=== PATIENT | female | born 1980 | race Caucasian/White ===

== ENCOUNTER 2016-07-28 19:42 | Emergency (ER) | payer BC ==
[2016-07-28] MEDS ORDERED: Sodium Chloride 0.9% 1000 ML 1,000 ML IV STA (20:06)
[2016-07-28] MEDS ORDERED: Phenergan 25 MG INJ IV ONE (20:06)
[2016-07-28] MEDS ORDERED: TORAdol 30 mg Injection IV ONE (20:07)
--- NOTE | 2016-07-28 20:13 | ERPHSYRPT ---
- History of Present Illness Time Seen by Provider: 07/28/16 20:01 Source: patient Exam Limitations: no limitations Patient Subjective Stated Complaint: reports with c/o sore throat since (6 days), diarrhea since Wednesday (4 days), and every hour today, vomiting since Wednesday (1 day) x 3-4 episodes today, migraine headache, in the right eye with photophobia that began around 1000 today Triage Nursing Assessment: ambulatory to treatment area - steady gait - moves all extremities with equal strength. alert/oriented - pleasant affect - pupils AWILDA: 5mm. skin pwd - no rash/injury. resps easy - non-labored Physician History: 35-year-old morbidly obese white female with history of migraines, hyperlipidemia, depression, Arrives with complaint of a diarrhea for 3 days vomiting for 2 days headache since today apparently has had a sore throat for 6 days. No fevers. States she has a history of chronic migraines has pain behind her right eye typical of her previous migraines positive photophobia. She states she's had several stools a day of diarrhea 2-3 episodes of vomiting. Past medical history includes migraines, hyperlipidemia, hypercholesterolemia, gallbladder disease, depression, back spasms. Past surgical history includes cholecystectomy, , ankle repair, D&C. Social history. Patient denies tobacco alcohol or illicit drug use Timing/Duration: other (sore throat for 6 days vomiting for 2 days diarrhea for 3 days heache for 1 day) Modifying Factors: Improves With: nothing Associated Symptoms: nausea, vomiting, other (sore throat and diarrhea), No abdominal pain, No shortness of breath, No heartburn, No diaphoresis, No cough, No chills, No chest pain, No fever, No headaches, No loss of appetite, No malaise, No rash, No syncope, No seizure, No weakness Allergies/Adverse Reactions: No Known Drug Allergies Allergy (Verified 07/28/16 19:49) Hx Tetanus, Diphtheria Vaccination/Date Given: Yes Hx Influenza Vaccination/Date Given: Yes Hx Pneumococcal Vaccination/Date Given: No Immunizations Up to Date: Yes - Review of Systems Constitutional: No Fever, No Chills Eyes: Photophobia, No Discharge, No Eye Pain, No Eye Redness, No Tearing, No Vision Changes, No Double Vision, No Foreign Body Sensation Ears, Nose, & Throat: No Ear Pain, No Ear Discharge, No Hearing Changes, No Tinnitus, No Nose Pain, No Nose Congestion, No Nose Discharge, No Sinus Drainage , No Epistaxis, No Mouth Pain, No Loose Teeth, No Throat Swelling, No Hoarse, No Painful Swallowing, No Snoring, No Stridor Respiratory: No Cough, No Dyspnea Cardiac: No Chest Pain, No Edema, No Syncope Abdominal/Gastrointestinal: Nausea, Vomiting, Diarrhea, No Abdominal Pain, No Constipation, No Hematemesis, No Hematochezia, No Melena, No Dysphagia, No Appetite Changes Genitourinary Symptoms: No Dysuria Musculoskeletal: No Back Pain, No Neck Pain Skin: No Rash Neurological: Headache, No Dizziness, No Focal Weakness, No Gait Changes, No Irritability, No Lethargy, No Paralysis, No Parasthesia, No Seizure, No Sensory Changes, No Speech Changes, No Tics, No Tremors, No Vertigo Psychological: No Symptoms, No Alcohol Abuse, No Drug Abuse, No Anxiety, No Depression, No Suicidal Ideations, No Homicidal Ideations Endocrine: No Symptoms All Other Systems: Reviewed and Negative - Past Medical History Pertinent Past Medical History: Yes Neurological History: Migraines ENT History: No Pertinent History Cardiac History: High Cholesterol, Hypertension Respiratory History: No Pertinent History Endocrine Medical History: No Pertinent History Musculoskeletal History: Other GI Medical History: Gallbladder Disease History: No Pertinent History Psycho-Social History: Depression Female Reproductive Disorders: No Pertinent History Other Medical History: BACK SPASMS - Past Surgical History Past Surgical History: Yes Neuro Surgical History: No Pertinent History Cardiac: No Pertinent History Respiratory: No Pertinent History Gastrointestinal: Cholecystectomy Genitourinary: No Pertinent History Musculoskeletal: Orthopedic Surgery Female Surgical History: Section Other Surgical History: ankle repair - Social History Smoking Status: Never smoker Exposure to second hand smoke: No Drug Use: none Patient Lives Alone: No Significant Family History: no pertinent family hx - Female History Hx Last Menstrual Period: today Hx Now: No - Nursing Vital Signs Nursing Vital Signs: Initial Vital Signs Temperature 98.4 F Temperature Source Oral Pulse Rate 88 Respiratory Rate 16 Blood Pressure [Right Arm] 142/77 Pain Intensity 6 - Physical Exam General Appearance: no apparent distress, alert, obese Eye Exam: PERRL/EOMI, eyes nml inspection, other (fundi are unremarkable) Ears, Nose, Throat Exam: normal ENT inspection, TMs normal, pharynx normal, moist mucous membranes Neck Exam: normal inspection, non-tender, supple, full range of motion Respiratory Exam: normal breath sounds, lungs clear, No respiratory distress Cardiovascular Exam: regular rate/rhythm, normal heart sounds, normal peripheral pulses Gastrointestinal/Abdomen Exam: soft, normal bowel sounds, No tenderness, No mass Back Exam: normal inspection, normal range of motion, No CVA tenderness, No vertebral tenderness Extremity Exam: normal inspection, normal range of motion, pelvis stable Neurologic Exam: alert, oriented x 3, cooperative, audio visual aide II-XII nml as tested, normal mood/affect, nml cerebellar function, nml station & gait, sensation nml, other (finger to nose within normal limits no pronator drift), No motor deficits Skin Exam: normal color, warm, dry, No rash Lymphatic Exam: No adenopathy SpO2 Interpretation: normal (98%) SpO2: 98 Oxygen Delivery: Room Air - Course Nursing assessment & vital signs reviewed: Yes Ordered Tests: Active Orders 24 hr Category Date Time Status IV Insertion STAT Care 07/28/16 20:06 Active cath [Cath for Specimen-Straight] STAT Care 07/28/16 20:26 Active AMYLASE Stat Lab 07/28/16 20:25 Completed CBC W DIFF Stat Lab 07/28/16 20:25 Completed CMP Stat Lab 07/28/16 20:25 Completed CULTURE, THROAT Stat Lab 07/28/16 20:31 Received HCG QUALITATIVE,SERUM Stat Lab 07/28/16 20:25 Completed LIPASE Stat Lab 07/28/16 20:25 Completed STREP SCREEN-BETA A Stat Lab 07/28/16 20:31 Completed UA W/ MICROSCOPIC Stat Lab 07/28/16 20:25 Completed Medication Summary Discontinued Medications Generic Name Dose Route Start Last Admin Trade Name Freq PRN Reason Stop Dose Admin Sodium Chloride 1,000 mls @ 999 mls/hr 07/28/16 20:06 07/28/16 20:35 Sodium Chloride 0.9% 1000 Ml IV 07/28/16 21:06 999 mls/hr .Q1H1M STA Administration Sodium Chloride Confirm 07/28/16 20:28 Sodium Chloride 0.9% 1000 Ml Administered 07/28/16 20:29 Dose 1,000 mls @ ud .ROUTE .STK-MED ONE Ketorolac Tromethamine 30 mg 07/28/16 20:07 07/28/16 20:35 Toradol 30 Mg Injection IV 07/28/16 20:08 30 mg STAT ONE Administration Ketorolac Tromethamine Confirm 07/28/16 20:28 Toradol 30 Mg Injection Administered 07/28/16 20:29 Dose 30 mg .ROUTE .STK-MED ONE Morphine Sulfate 4 mg 07/28/16 20:57 07/28/16 21:03 Morphine Sulfate 4 Mg Inj IV 07/28/16 20:58 4 mg STAT ONE Administration Morphine Sulfate Confirm 07/28/16 20:58 Morphine Sulfate 4 Mg Inj Administered 07/28/16 20:59 Dose 4 mg .ROUTE .STK-MED ONE Promethazine HCl 12.5 mg 07/28/16 20:06 07/28/16 20:35 Phenergan 25 Mg Inj IV 07/28/16 20:07 12.5 mg STAT ONE Administration Promethazine HCl Confirm 07/28/16 20:28 Phenergan 25 Mg Inj Administered 07/28/16 20:29 Dose 25 mg .ROUTE .STK-MED ONE Lab/Rad Data: Laboratory Result Diagrams 07/28/16 20:25 07/28/16 20:25 Laboratory Results 07/28/16 07/28/16 07/28/16 Range/Units 20:31 20:25 20:25 WBC (4.0-10.5) K/mm3 RBC (4.1-5.4) M/mm3 Hgb (12.0-16.0) gm/dl Hct (35-47) % MCV (78-100) fl MCH (26-32) pg MCHC (32-36) g/dl RDW (11.5-14.0) % Plt Count (150-450) K/mm3 MPV (6-9.5) fl Gran % (36.0-66.0) % Lymphocytes % (24.0-44.0) % Monocytes % (0.0-12.0) % Eosinophils % (0.00-5.0) % Basophils % (0.0-0.4) % Basophils # (0-0.4) Sodium 141 (136-145) mEq/L Potassium 4.0 (3.5-5.1) mEq/L Chloride 103 (98-107) mEq/L Carbon Dioxide 28.3 (21-32) mEq/L Anion Gap 13.8 (5-15) MEQ/L BUN 13 (9-20) mg/dL Creatinine 0.81 (0.55-1.30) mg/dl Estimated GFR > 60 ML/MIN Glucose 104 (70-110) MG/DL Calcium 9.4 (8.5-10.1) mg/dL Total Bilirubin 0.3 (0.2-1.0) mg/dL AST 35 (15-37) U/L ALT 56 (12-78) U/L Alkaline Phosphatase 141 H (46-116) U/L Serum Total Protein 7.5 (6.4-8.2) gm/dL Albumin 3.5 (3.4-5.0) g/dL Amylase 48 (25-115) U/L Lipase 80 (73-393) U/L Serum , Qual NEGATIVE (Negative) Ur Collection Type Urine Color (YELLOW) Urine Appearance (CLEAR) Urine pH (5-6) Ur Specific [place] (1.005-1.025) Urine Protein (Negative) Urine Glucose (UA) (NEGATIVE) mg/dL Urine Ketones (NEGATIVE) Urine Nitrite (NEGATIVE) Urine Bilirubin (NEGATIVE) Urine Urobilinogen (0-1) mg/dL Urine WBC (Auto) (NEGATIVE) Urine RBC (Auto) (0-5) Av/ul Urine Microscopic RBC (0-2) /HPF Urine Microscopic WBC (0-5) /HPF Ur Epithelial Cells (FEW) /HPF Urine Mucus (NEGATIVE) /HPF Streptococcus Screen NEGATIVE (Negative) Specimen Received 07/28/16 07/28/16 Range/Units 20:25 20:25 WBC 8.4 (4.0-10.5) K/mm3 RBC 4.36 (4.1-5.4) M/mm3 Hgb 13.0 (12.0-16.0) gm/dl Hct 39.7 (35-47) % MCV 91.1 (78-100) fl MCH 29.8 (26-32) pg MCHC 32.7 (32-36) g/dl RDW 13.1 (11.5-14.0) % Plt Count 229 (150-450) K/mm3 MPV 10.0 H (6-9.5) fl Gran % 78.5 H (36.0-66.0) % Lymphocytes % 14.6 L (24.0-44.0) % Monocytes % 5.5 (0.0-12.0) % Eosinophils % 1.0 (0.00-5.0) % Basophils % 0.4 (0.0-0.4) % Basophils # 0.03 (0-0.4) Sodium (136-145) mEq/L Potassium (3.5-5.1) mEq/L Chloride (98-107) mEq/L Carbon Dioxide (21-32) mEq/L Anion Gap (5-15) MEQ/L BUN (9-20) mg/dL Creatinine (0.55-1.30) mg/dl Estimated GFR ML/MIN Glucose (70-110) MG/DL Calcium (8.5-10.1) mg/dL Total Bilirubin (0.2-1.0) mg/dL AST (15-37) U/L ALT (12-78) U/L Alkaline Phosphatase (46-116) U/L Serum Total Protein (6.4-8.2) gm/dL Albumin (3.4-5.0) g/dL Amylase (25-115) U/L Lipase (73-393) U/L Serum , Qual (Negative) Ur Collection Type CCMS Urine Color YELLOW (YELLOW) Urine Appearance SLIGHTLY CLOUDY (CLEAR) Urine pH 6.5 (5-6) Ur Specific [place] 1.025 (1.005-1.025) Urine Protein 30 (Negative) Urine Glucose (UA) NEGATIVE (NEGATIVE) mg/dL Urine Ketones NEGATIVE (NEGATIVE) Urine Nitrite NEGATIVE (NEGATIVE) Urine Bilirubin NEGATIVE (NEGATIVE) Urine Urobilinogen 0.2 (0-1) mg/dL Urine WBC (Auto) NEGATIVE (NEGATIVE) Urine RBC (Auto) MODERATE (0-5) Av/ul Urine Microscopic RBC 0-2 (0-2) /HPF Urine Microscopic WBC 0-2 (0-5) /HPF Ur Epithelial Cells FEW (FEW) /HPF Urine Mucus SLIGHT (NEGATIVE) /HPF Streptococcus Screen (Negative) Specimen Received [id number] - Progress Progress: improved Progress Note: 07/28/16 21:26 Patient feeling markedly improved Zofran after Phenergan, Toradol, morphine. And IV fluids. Labs are essentially normal vitals are normal. Will discharge. Diagnosis gastroenteritis, vomiting, diarrhea, migraine. Will give a limited supply of [place] for pain and Phenergan for nausea and vomiting. - Departure Time of Disposition: 21:27 Departure Disposition: Home Clinical Impression: Gastroenteritis Vomiting Qualifiers: Vomiting type: unspecified Vomiting Intractability: non-intractable Nausea presence: with nausea Qualified Code(s): R11.2 - Nausea with vomiting, unspecified Diarrhea Qualifiers: Diarrhea type: unspecified type Qualified Code(s): R19.7 - Diarrhea, unspecified Migraine Qualifiers: Migraine type: unspecified Status migrainosus presence: without status migrainosus Intractability: not intractable Qualified Code(s): G43.909 - Migraine, unspecified, not intractable, without status migrainosus Condition: Fair Critical Care Time: No Instructions: Vomiting -- Adult, Nausea -- Adult, Diarrhea and Traveler's Diarrhea -- Adult Additional Instructions: Return home. Plenty of fluids, clear fluids only 24-48 hours if nausea vomiting. Rest in a dark quiet room. Phenergan 25 mg one orally every 4-6 hours as needed for nausea and vomiting. [place] 5/325 #12 one orally every 4-6 hours as needed for pain. Follow-up with your family doctor if symptoms are worse, no better in 24 to 48 hours, or persist longer than 72 hours. Or iF migraines are recurrent Return for acute distress or for severe symptoms. Prescriptions: Hydrocodone Bit/Acetaminophen [[place] 5/325Mg] 1 tab PO Q4-6HPRN PRN #12 tablet PRN Reason: Pain Promethazine HCl 25 mg [Phenergan 25 mg] 25 mg PO Q4-6HPRN PRN #12 tablet PRN Reason: nausea and vomiting
[2016-07-28] MEDS ORDERED: TORAdol 30 mg Injection ONE (20:28)
[2016-07-28] MEDS ORDERED: Phenergan 25 MG INJ ONE (20:28)
[2016-07-28] MEDS ORDERED: Sodium Chloride 0.9% 1000 ML 1,000 ML ONE (20:28)
[2016-07-28 20:38] LABS: BASOPHIL % 0.4 % (0.0-0.4); Granulocytes % 78.5 % (36.0-66.0); Lymphocytes % 14.6 % (24.0-44.0); Mean Cell Volume 91.1 fl (78-100); Mean Corpuscular Hemoglobin 29.8 pg (26-32); Monocytes % 5.5 % (0.0-12.0); Platelet Count 229 K/mm3 (150-450); Red Blood Count 4.36 M/mm3 (4.1-5.4); Red Cell Distribution Width 13.1 % (11.5-14.0); White Blood Count 8.4 K/mm3 (4.0-10.5)
[2016-07-28 20:55] LABS: ALBUMIN 3.5 g/dL (3.4-5.0); ALKALINE PHOSPHATASE 141 U/L (46-116); ANION GAP 13.8 MEQ/L (5-15); BILIRUBIN,TOTAL 0.3 mg/dL (0.2-1.0); BLOOD UREA NITROGEN 13 mg/dL (9-20); CHLORIDE 103 mEq/L (98-107); Carbon Dioxide 28.3 mEq/L (21-32); Glucose 104 MG/DL (70-110); LIPASE 80 U/L (73-393); SGOT/AST 35 U/L (15-37); SGPT/ALT 56 U/L (12-78); SODIUM 141 mEq/L (136-145); Total Protein 7.5 gm/dL (6.4-8.2)
[2016-07-28 20:57] LABS: Collection Type CCMS; Ph 6.5 (5-6)
[2016-07-28] MEDS ORDERED: MORPHINE SULFATE 4 MG INJ IV ONE (20:57)
[2016-07-28 20:58] LABS: COMPLETE URINE MICROSCOPIC? YES; Epithelial Cells FEW /HPF (FEW); Mucus SLIGHT /HPF (NEGATIVE); WBC 0-2 /HPF (0-5)
[2016-07-28] MEDS ORDERED: MORPHINE SULFATE 4 MG INJ ONE (20:58)
[2016-07-28 21:04] VITALS: BP 142/77; PULSE 88
[2016-07-28 21:32] VITALS: O2SAT 98
== END 2016-07-28 21:40 | disposition home or self-care (01) ==
LOC: ED 19:42
DX: R11.2 Nausea with vomiting, unspecified (principal); R19.7 Diarrhea, unspecified; G43.909 Migraine, unspecified, not intractable, without status migrainosus; K52.9 Noninfective gastroenteritis and colitis, unspecified; J02.9 Acute pharyngitis, unspecified; E78.5 Hyperlipidemia, unspecified
CPT/HCPCS: 36000; 36415; 80053; 81000; 82150; 83690; 84703; 85025; 87070; 87430; 96360; 96374; 96375; 99284; J1885; J2270; J2550; P9612

== ENCOUNTER 2016-10-21 21:54 | Emergency (ER) | payer BC, OTHER ==
[2016-10-21] MEDS ORDERED: Hydromorphone 1 mg/ml Ampule IV ONE (23:52)
[2016-10-21] MEDS ORDERED: Sodium Chloride 0.9% 1000 ML 1,000 ML IV STA (23:52)
[2016-10-21] MEDS ORDERED: Phenergan 25 MG INJ IV ONE (23:52)
--- NOTE | 2016-10-21 23:58 | ERPHSYRPT ---
- History of Present Illness Time Seen by Provider: 10/21/16 23:42 Historian: patient Exam Limitations: no limitations Patient Subjective Stated Complaint: pt has been having lower abd pain off and on since wednesday -worse tonight after work no urinary sx no fever no dizziness pain is sharp in nature supra pubic to left abd -she is on her period that was 2 weeks late -no bc since [place] in february Triage Nursing Assessment: pt is awake and alert and able to answer questions Physician History: FOR THE PAST 5 DAYS PT HAS HAD INTERMITTENT SHARP LLQ ABDOMINAL PAIN TONIGHT LASTING 5 HOURS WITH DIAPHORESIS, DYSURIA AND VOMITING X1. LMP STARTED 3 DAYS AGO. LAST BM WAS TODAY & WNL. Allergies/Adverse Reactions: No Known Drug Allergies Allergy (Verified 10/21/16 22:56) Hx Tetanus, Diphtheria Vaccination/Date Given: Yes Hx Influenza Vaccination/Date Given: Yes Hx Pneumococcal Vaccination/Date Given: No - Review of Systems Abdominal/Gastrointestinal: Abdominal Pain, Vomiting, No Diarrhea Genitourinary Symptoms: Dysuria Endocrine: Excessive Sweating All Other Systems: Reviewed and Negative - Past Medical History Pertinent Past Medical History: Yes Neurological History: Migraines ENT History: No Pertinent History Cardiac History: High Cholesterol, Hypertension Respiratory History: No Pertinent History Endocrine Medical History: No Pertinent History Musculoskeletal History: Other GI Medical History: Gallbladder Disease History: No Pertinent History Psycho-Social History: Depression Female Reproductive Disorders: No Pertinent History Other Medical History: BACK SPASMS - Past Surgical History Past Surgical History: Yes Neuro Surgical History: No Pertinent History Cardiac: No Pertinent History Respiratory: No Pertinent History Gastrointestinal: Cholecystectomy Genitourinary: No Pertinent History Musculoskeletal: Orthopedic Surgery Female Surgical History: Section Other Surgical History: ankle repair d&c february - Social History Smoking Status: Never smoker Exposure to second hand smoke: No Drug Use: none Patient Lives Alone: No Significant Family History: no pertinent family hx - Female History Hx Last Menstrual Period: present Hx Now: No - Nursing Vital Signs Nursing Vital Signs: Initial Vital Signs Temperature 98.5 F Temperature Source Oral Pulse Rate 92 Respiratory Rate 18 Blood Pressure [] 164/74 Pain Intensity 4 - Physical Exam General Appearance: alert Eye Exam: PERRL/EOMI Ears, Nose, Throat Exam: TMs normal, pharynx normal, moist mucous membranes Neck Exam: normal inspection Respiratory Exam: lungs clear Cardiovascular Exam: normal heart sounds Gastrointestinal/Abdomen Exam: soft, normal bowel sounds, tenderness (MILD LLQ ABDOMINAL TENDERNESS) Back Exam: normal range of motion Extremity Exam: normal inspection Neurologic Exam: alert, cooperative Skin Exam: warm, dry SpO2 Interpretation: normal SpO2: 98 Oxygen Delivery: Room Air - Course Nursing assessment & vital signs reviewed: Yes - Radiology Ultrasound Exam OB Ultrasound: Other (TECH REPORT: NO ECTOPIC SEEN.) Ordered Tests: Active Orders 24 hr Category Date Time Status IV Insertion STAT Care 10/21/16 23:08 Active OB <14 WKS 1ST GESTATION [US] Stat Exams 10/22/16 00:58 Ordered AMYLASE Stat Lab 10/21/16 23:56 Completed CBC W DIFF Stat Lab 10/21/16 23:56 Completed CMP Stat Lab 10/21/16 23:56 Completed HCG QUALITATIVE,SERUM Stat Lab 10/21/16 23:56 Completed HCG, Quantitative (Inhouse) Stat Lab 10/22/16 00:22 Completed LIPASE Stat Lab 10/21/16 23:56 Completed MAG [MAGNESIUM] Stat Lab 10/21/16 23:56 Completed UA W/ MICROSCOPIC Stat Lab 10/21/16 23:56 Completed Medication Summary Discontinued Medications Generic Name Dose Route Start Last Admin Trade Name Freq PRN Reason Stop Dose Admin Hydromorphone HCl 1 mg 10/21/16 23:52 10/22/16 00:05 Hydromorphone 1 Mg/Ml Ampule IV 10/21/16 23:53 1 mg STAT ONE Administration Hydromorphone HCl Confirm 10/22/16 00:01 Hydromorphone 1 Mg/Ml Ampule Administered 10/22/16 00:02 Dose 1 mg .ROUTE .STK-MED ONE Sodium Chloride 1,000 mls @ 999 mls/hr 10/21/16 23:52 10/22/16 00:05 Sodium Chloride 0.9% 1000 Ml IV 10/22/16 00:52 999 mls/hr .Q1H1M STA Administration Sodium Chloride Confirm 10/22/16 00:01 Sodium Chloride 0.9% 1000 Ml Administered 10/22/16 00:02 Dose 1,000 mls @ ud .ROUTE .STK-MED ONE Promethazine HCl 12.5 mg 10/21/16 23:52 10/22/16 00:05 Phenergan 25 Mg Inj IV 10/21/16 23:53 12.5 mg STAT ONE Administration Promethazine HCl Confirm 10/22/16 00:01 Phenergan 25 Mg Inj Administered 10/22/16 00:02 Dose 25 mg .ROUTE .STK-MED ONE Lab/Rad Data: Laboratory Result Diagrams 10/21/16 23:56 10/21/16 23:56 Laboratory Results 10/22/16 10/21/16 10/21/16 Range/Units 00:22 23:56 23:56 WBC (4.0-10.5) K/mm3 RBC (4.1-5.4) M/mm3 Hgb (12.0-16.0) gm/dl Hct (35-47) % MCV (78-100) fl MCH (26-32) pg MCHC (32-36) g/dl RDW (11.5-14.0) % Plt Count (150-450) K/mm3 MPV (6-9.5) fl Gran % (36.0-66.0) % Lymphocytes % (24.0-44.0) % Monocytes % (0.0-12.0) % Eosinophils % (0.00-5.0) % Basophils % (0.0-0.4) % Basophils # (0-0.4) Sodium (136-145) mEq/L Potassium (3.5-5.1) mEq/L Chloride (98-107) mEq/L Carbon Dioxide (21-32) mEq/L Anion Gap (5-15) MEQ/L BUN (9-20) mg/dL Creatinine (0.55-1.30) mg/dl Estimated GFR ML/MIN Glucose (70-110) MG/DL Calcium (8.5-10.1) mg/dL Magnesium 1.9 (1.8-2.4) mg/dL Total Bilirubin (0.2-1.0) mg/dL AST (15-37) U/L ALT (12-78) U/L Alkaline Phosphatase (46-116) U/L Serum Total Protein (6.4-8.2) gm/dL Albumin (3.4-5.0) g/dL Amylase (25-115) U/L Lipase (73-393) U/L Beta HCG, Quant 80311 H (0-6) IU/L Serum , Qual (Negative) Ur Collection Type CLEAN CATCH Urine Color YELLOW (YELLOW) Urine Appearance CLEAR (CLEAR) Urine pH 5.5 (5-6) Ur Specific [place] >=1.030 (1.005-1.025) Urine Protein 30 (Negative) Urine Glucose (UA) NEGATIVE (NEGATIVE) mg/dL Urine Ketones NEGATIVE (NEGATIVE) Urine Nitrite NEGATIVE (NEGATIVE) Urine Bilirubin NEGATIVE (NEGATIVE) Urine Urobilinogen 0.2 (0-1) mg/dL Urine WBC (Auto) NEGATIVE (NEGATIVE) Urine RBC (Auto) LARGE (0-5) Av/ul Urine Microscopic RBC 2-5 (0-2) /HPF Urine Microscopic WBC 0-2 (0-5) /HPF Ur Epithelial Cells FEW (FEW) /HPF Urine Bacteria FEW (NEGATIVE) /HPF Specimen Received [id number] 10/21/16 10/21/16 10/21/16 Range/Units 23:56 23:56 23:56 WBC 11.3 H (4.0-10.5) K/mm3 RBC 4.23 (4.1-5.4) M/mm3 Hgb 11.9 L (12.0-16.0) gm/dl Hct 37.8 (35-47) % MCV 89.4 (78-100) fl MCH 28.1 (26-32) pg MCHC 31.5 L (32-36) g/dl RDW 13.8 (11.5-14.0) % Plt Count 269 (150-450) K/mm3 MPV 10.2 H (6-9.5) fl Gran % 76.1 H (36.0-66.0) % Lymphocytes % 15.4 L (24.0-44.0) % Monocytes % 6.4 (0.0-12.0) % Eosinophils % 1.9 (0.00-5.0) % Basophils % 0.2 (0.0-0.4) % Basophils # 0.02 (0-0.4) Sodium 138 (136-145) mEq/L Potassium 3.5 (3.5-5.1) mEq/L Chloride 103 (98-107) mEq/L Carbon Dioxide 25.8 (21-32) mEq/L Anion Gap 12.6 (5-15) MEQ/L BUN 16 (9-20) mg/dL Creatinine 0.90 (0.55-1.30) mg/dl Estimated GFR > 60 ML/MIN Glucose 133 H (70-110) MG/DL Calcium 8.9 (8.5-10.1) mg/dL Magnesium (1.8-2.4) mg/dL Total Bilirubin 0.30 (0.2-1.0) mg/dL AST 15 (15-37) U/L ALT 20 (12-78) U/L Alkaline Phosphatase 92 (46-116) U/L Serum Total Protein 7.4 (6.4-8.2) gm/dL Albumin 3.2 L (3.4-5.0) g/dL Amylase 52 (25-115) U/L Lipase 91 (73-393) U/L Beta HCG, Quant (0-6) IU/L Serum , Qual POSITIVE (Negative) Ur Collection Type Urine Color (YELLOW) Urine Appearance (CLEAR) Urine pH (5-6) Ur Specific [place] (1.005-1.025) Urine Protein (Negative) Urine Glucose (UA) (NEGATIVE) mg/dL Urine Ketones (NEGATIVE) Urine Nitrite (NEGATIVE) Urine Bilirubin (NEGATIVE) Urine Urobilinogen (0-1) mg/dL Urine WBC (Auto) (NEGATIVE) Urine RBC (Auto) (0-5) Av/ul Urine Microscopic RBC (0-2) /HPF Urine Microscopic WBC (0-5) /HPF Ur Epithelial Cells (FEW) /HPF Urine Bacteria (NEGATIVE) /HPF Specimen Received - Departure Time of Disposition: 01:48 Departure Disposition: Home Clinical Impression: ABDOMINAL PAIN, Condition: Fair Critical Care Time: No Referrals: SAADIA GLASER [Primary Care Provider] - Instructions: Abdominal Pain-Adult Additional Instructions: FOLLOW UP WITH PRIVATE DOCTOR TOMORROW.
[2016-10-22] LABS: BASOPHIL % 0.2 % (0.0-0.4); Eosinophil % 1.9 % (0.00-5.0); Granulocytes % 76.1 % (36.0-66.0); Lymphocytes % 15.4 % (24.0-44.0); Mean Cell Volume 89.4 fl (78-100); Mean Corpuscular Hemoglobin 28.1 pg (26-32); Mean Platelet Volume 10.2 fl (6-9.5); Monocytes % 6.4 % (0.0-12.0); Platelet Count 269 K/mm3 (150-450); Red Blood Count 4.23 M/mm3 (4.1-5.4); Red Cell Distribution Width 13.8 % (11.5-14.0); White Blood Count 11.3 K/mm3 (4.0-10.5)
[2016-10-22] MEDS ORDERED: Phenergan 25 MG INJ ONE (00:01)
[2016-10-22] MEDS ORDERED: Sodium Chloride 0.9% 1000 ML 1,000 ML ONE (00:01)
[2016-10-22] MEDS ORDERED: Hydromorphone 1 mg/ml Ampule ONE (00:01)
[2016-10-22 00:18] LABS: ALBUMIN 3.2 g/dL (3.4-5.0); ALKALINE PHOSPHATASE 92 U/L (46-116); ANION GAP 12.6 MEQ/L (5-15); BLOOD UREA NITROGEN 16 mg/dL (9-20); CHLORIDE 103 mEq/L (98-107); Carbon Dioxide 25.8 mEq/L (21-32); Glucose 133 MG/DL (70-110); LIPASE 91 U/L (73-393); Potassium 3.5 mEq/L (3.5-5.1); SGOT/AST 15 U/L (15-37); SGPT/ALT 20 U/L (12-78); SODIUM 138 mEq/L (136-145); Total Protein 7.4 gm/dL (6.4-8.2)
[2016-10-22 00:38] LABS: Collection Type CLEAN CATCH
[2016-10-22 00:39] LABS: Bacteria FEW /HPF (NEGATIVE); COMPLETE URINE MICROSCOPIC? YES; Epithelial Cells FEW /HPF (FEW); Ph 5.5 (5-6); WBC 0-2 /HPF (0-5)
[2016-10-22 00:40] LABS: ADD URINE CULTURE? NO (NO)
[2016-10-22 00:54] VITALS: BP 164/74; PULSE 92; O2SAT 98
--- NOTE | 2016-10-22 09:22 | XRAY ---
Exam: OB ultrasound less than 14 weeks from 10/22/2016. Comparison: None. Indication: Left lower quadrant pain and intermittent dark blood vaginal spotting in an individual that just found out that she was . Findings: Transabdominal images were obtained of the pelvis. An anteflexed uterus is seen. The endometrial echo is mildly prominent, but no gestational sac or pole is seen within the maternal uterus. No other uterine mass is seen. There is no free fluid within the cul-de-sac. The maternal right ovary appears unremarkable. The maternal left ovary revealed a very small cystic structure within it. No pole or cardiac activity is seen within this small cystic structure. No significant increased blood flow is seen at the perimeter of the small cystic structure. This is believed to probably represent a corpus luteal cyst. However, the possibility of a small early ectopic is not excluded with certainty because it is known that the patient is and no gestational sac is seen within the uterus. However, it may simply be too early to see an intrauterine gestational sac as of yet. Careful follow-up is warranted. Impression: 1. A gestational sac or pole is not seen within the maternal uterus at this time. 2. The maternal left ovary reveals a small cystic area within it, but no cardiac activity or pole is seen within it. Also, no significant increased blood flow about this cystic structure is seen with color flow imaging. It is likely that this represents a corpus luteal cyst. A very small ectopic cannot be excluded with certainty. Careful clinical follow-up is warranted. Correlate with serial quantitative hCG levels. A follow up transvaginal pelvic ultrasound may be helpful 3. The maternal right ovary appears unremarkable. 4. No free fluid is seen within the cul-de-sac.
== END 2016-10-22 01:58 | disposition home or self-care (01) ==
LOC: ED 21:54
DX: O09.519 Supervision of elderly primigravida, unspecified trimester (principal); R10.32 Left lower quadrant pain
CPT/HCPCS: 36000; 36415; 76801; 76815; 80053; 81000; 81002; 82150; 83690; 83735; 84702; 84703; 85025; 96360; 96365; 96374; 96375; 99284; J1170; J2550

== ENCOUNTER 2016-10-22 22:05 | Emergency (ER) | payer OTHER ==
[2016-10-22] MEDS ORDERED: Sodium Chloride 0.9% 1000 ML 1,000 ML IV STA ×2 (22:30→23:25)
[2016-10-22] MEDS ORDERED: Zofran 4 MG/2 ML VIAL IV ONE (22:32)
[2016-10-22] MEDS ORDERED: SUBLIMAZE 100 MCG/2 ML IV ONE (22:33)
[2016-10-22] MEDS ORDERED: Zofran 4 MG/2 ML VIAL ONE (22:34)
[2016-10-22] MEDS ORDERED: Sodium Chloride 0.9% 1000 ML 1,000 ML ONE ×2 (22:35→23:18)
[2016-10-22] MEDS ORDERED: SUBLIMAZE 100 MCG/2 ML ONE (22:35)
[2016-10-22 22:37] LABS: BASOPHIL % 0.3 % (0.0-0.4); Granulocytes % 70.5 % (36.0-66.0); Lymphocytes % 17.6 % (24.0-44.0); Mean Cell Volume 90.3 fl (78-100); Mean Corpuscular Hemoglobin 28.4 pg (26-32); Mean Platelet Volume 9.8 fl (6-9.5); Monocytes % 9.6 % (0.0-12.0); Platelet Count 248 K/mm3 (150-450); Red Blood Count 4.22 M/mm3 (4.1-5.4); Red Cell Distribution Width 13.9 % (11.5-14.0); White Blood Count 8.9 K/mm3 (4.0-10.5)
[2016-10-22] MEDS ORDERED: Hydromorphone 1 mg/ml Ampule ONE ×2 (22:49→23:13)
[2016-10-22] MEDS ORDERED: Hydromorphone 1 mg/ml Ampule IV ONE ×2 (22:53→23:11)
--- NOTE | 2016-10-22 23:02 | ERPHSYRPT ---
- History of Present Illness Time Seen by Provider: 10/22/16 22:10 Source: patient Physician History: PATIENT IS A -3, PARA-1, -1, EVALUATED IN EMERGENCY ROOM LAST NIGHT FOR SUPRAPUBIC PAIN FOR 5 DAYS ASSOCIATED WITH VAGINAL BLEEDING. THE QUANITITATIVE HCG LEVEL OF 11,000 AND A TRANSVAGINAL ULTRASOUND CONSISTENT WITH NO GESTATIONAL SAC OR POLE SEEN WITHINTHE MATERNAL UTERUS. Timing/Duration: day(s) Activites at Onset: none Quality: sharpness, throbbing Onset Location: LLQ, suprapubic Pain Radiation: none Severity of Pain-Max: severe Severity of Pain-Current: severe Prior abdominal problems: similar symptoms Sexual intercourse history: non-contributory Modifying Factors: Improves With: movement Associated Symptoms: , other (VAGINAL BLEEDING) Allergies/Adverse Reactions: No Known Drug Allergies Allergy (Verified 10/21/16 22:56) Hx Tetanus, Diphtheria Vaccination/Date Given: Yes Hx Influenza Vaccination/Date Given: Yes Hx Pneumococcal Vaccination/Date Given: No - Review of Systems Constitutional: No Fever, No Chills Eyes: No Symptoms Ears, Nose, & Throat: No Symptoms Respiratory: No Cough, No Dyspnea Cardiac: No Chest Pain, No Edema, No Syncope Abdominal/Gastrointestinal: No Abdominal Pain, No Nausea, No Vomiting, No Diarrhea Genitourinary Symptoms: , Vaginal Bleeding, No Dysuria Musculoskeletal: No Back Pain, No Neck Pain Skin: No Rash Neurological: No Dizziness, No Focal Weakness, No Sensory Changes Psychological: No Symptoms Endocrine: No Symptoms All Other Systems: Reviewed and Negative - Past Medical History Pertinent Past Medical History: Yes Neurological History: Migraines ENT History: No Pertinent History Cardiac History: High Cholesterol, Hypertension Respiratory History: No Pertinent History Endocrine Medical History: No Pertinent History Musculoskeletal History: Other GI Medical History: Gallbladder Disease History: No Pertinent History Psycho-Social History: Depression Female Reproductive Disorders: No Pertinent History Other Medical History: BACK SPASMS - Past Surgical History Past Surgical History: Yes Neuro Surgical History: No Pertinent History Cardiac: No Pertinent History Respiratory: No Pertinent History Gastrointestinal: Cholecystectomy Genitourinary: No Pertinent History Musculoskeletal: Orthopedic Surgery Female Surgical History: Section Other Surgical History: ankle repair d&c february - Social History Smoking Status: Never smoker Exposure to second hand smoke: No Drug Use: none Patient Lives Alone: No Significant Family History: no pertinent family hx - Female History Hx Now: No - Nursing Vital Signs Nursing Vital Signs: Initial Vital Signs Temperature 99.6 F Temperature Source Oral Pulse Rate 88 Respiratory Rate 16 Blood Pressure [Left Arm] 136/78 Pain Intensity 8 - Physical Exam General Appearance: mild distress Eye Exam: PERRL/EOMI, eyes nml inspection Ears, Nose, Throat Exam: normal ENT inspection, TMs normal, pharynx normal, moist mucous membranes Neck Exam: normal inspection, non-tender, supple, full range of motion Respiratory Exam: normal breath sounds, lungs clear, No respiratory distress Cardiovascular Exam: regular rate/rhythm, normal heart sounds, normal peripheral pulses Gastrointestinal/Abdomen Exam: soft, normal bowel sounds, tenderness ( SUPRAPUBIC AND LLQ TENDERNESS), No mass Pelvic Exam: not done Back Exam: normal inspection, normal range of motion, No CVA tenderness, No vertebral tenderness Extremity Exam: normal inspection, normal range of motion, pelvis stable Neurologic Exam: alert, oriented x 3, cooperative, die polisher II-XII nml as tested, normal mood/affect, sensation nml, No motor deficits Skin Exam: normal color, warm, dry Lymphatic Exam: No adenopathy SpO2 Interpretation: normal SpO2: 98 Oxygen Delivery: Room Air Ordered Tests: Active Orders 24 hr Category Date Time Status Stein [Catheter-[place] Stein] STAT Care 10/22/16 22:57 Active IV Insertion STAT Care 10/22/16 22:30 Active IV Insertion-2nd Peripheral STAT Care 10/22/16 22:53 Active Oxygen-ED Only NASAL CANNULA 2 lpm Care 10/22/16 22:32 Active BMP Stat Lab 10/22/16 22:28 Completed CBC W DIFF Stat Lab 10/22/16 22:28 Completed CULTURE,URINE Stat Lab 10/23/16 00:04 Uncollected HCG, Quantitative (Inhouse) Stat Lab 10/22/16 22:28 Completed Medication Summary Generic Name Dose Route Start Last Admin Trade Name Freq PRN Reason Stop Dose Admin Sodium Chloride 1,000 mls @ 100 mls/hr 10/22/16 22:30 10/22/16 23:03 Sodium Chloride 0.9% 1000 Ml IV 10/23/16 08:29 100 mls/hr .Q10H STA Administration Sodium Chloride 1,000 mls @ 999 mls/hr 10/22/16 23:25 10/22/16 23:32 Sodium Chloride 0.9% 1000 Ml IV 10/23/16 00:25 999 mls/hr .Q1H1M STA Administration Discontinued Medications Generic Name Dose Route Start Last Admin Trade Name Billie PRN Reason Stop Dose Admin Fentanyl Citrate 100 mcg 10/22/16 22:33 10/22/16 22:38 Sublimaze 100 Mcg/2 Ml IV 10/22/16 22:34 100 mcg STAT ONE Administration Fentanyl Citrate Confirm 10/22/16 22:35 Sublimaze 100 Mcg/2 Ml Administered 10/22/16 22:36 Dose 100 mcg .ROUTE .STK-MED ONE Hydromorphone HCl Confirm 10/22/16 22:49 Hydromorphone 1 Mg/Ml Ampule Administered 10/22/16 22:50 Dose 1 mg .ROUTE .STK-MED ONE Hydromorphone HCl 1 mg 10/22/16 22:53 10/22/16 22:50 Hydromorphone 1 Mg/Ml Ampule IV 10/22/16 22:54 1 mg STAT ONE Administration Hydromorphone HCl 1 mg 10/22/16 23:11 10/22/16 23:16 Hydromorphone 1 Mg/Ml Ampule IV 10/22/16 23:12 1 mg STAT ONE Administration Hydromorphone HCl Confirm 10/22/16 23:13 Hydromorphone 1 Mg/Ml Ampule Administered 10/22/16 23:14 Dose 1 mg .ROUTE .STK-MED ONE Sodium Chloride Confirm 10/22/16 22:35 Sodium Chloride 0.9% 1000 Ml Administered 10/22/16 22:36 Dose 1,000 mls @ ud .ROUTE .STK-MED ONE Sodium Chloride Confirm 10/22/16 23:18 Sodium Chloride 0.9% 1000 Ml Administered 10/22/16 23:19 Dose 1,000 mls @ ud .ROUTE .STK-MED ONE Ondansetron HCl 4 mg 10/22/16 22:32 10/22/16 22:38 Zofran 4 Mg/2 Ml Vial IV 10/22/16 22:33 4 mg STAT ONE Administration Ondansetron HCl Confirm 10/22/16 22:34 Zofran 4 Mg/2 Ml Vial Administered 10/22/16 22:35 Dose 4 mg .ROUTE .STK-MED ONE Lab/Rad Data: Laboratory Result Diagrams 10/22/16 22:28 10/22/16 22:28 Laboratory Results 10/22/16 10/22/16 10/22/16 Range/Units 22:28 22:28 22:28 WBC 8.9 (4.0-10.5) K/mm3 RBC 4.22 (4.1-5.4) M/mm3 Hgb 12.0 (12.0-16.0) gm/dl Hct 38.1 (35-47) % MCV 90.3 (78-100) fl MCH 28.4 (26-32) pg MCHC 31.5 L (32-36) g/dl RDW 13.9 (11.5-14.0) % Plt Count 248 (150-450) K/mm3 MPV 9.8 H (6-9.5) fl Gran % 70.5 H (36.0-66.0) % Lymphocytes % 17.6 L (24.0-44.0) % Monocytes % 9.6 (0.0-12.0) % Eosinophils % 2.0 (0.00-5.0) % Basophils % 0.3 (0.0-0.4) % Basophils # 0.03 (0-0.4) Sodium 141 (136-145) mEq/L Potassium 3.7 (3.5-5.1) mEq/L Chloride 104 (98-107) mEq/L Carbon Dioxide 27.2 (21-32) mEq/L Anion Gap 13.7 (5-15) MEQ/L BUN 11 (9-20) mg/dL Creatinine 0.85 (0.55-1.30) mg/dl Estimated GFR > 60 ML/MIN Glucose 112 H (70-110) MG/DL Calcium 9.0 (8.5-10.1) mg/dL Beta HCG, Quant 03312 H (0-6) IU/L ABO Group O Rh Factor POSITIVE Antibody Screen NEGATIVE (NEGATIVE) - Progress Progress Note: 10/23/16 00:15 PATIENT GIVEN NORMAL SALINE 1 LITER OVER 1 HOUR, ZOFRAN 4MG, FENTANYL 0.1MG, DILAUDID 1MG X 2 DOSES Discussed with : Other (DISCUSSED WITH [employer] ANALYST DR MACK AT [address] [facility] SENT PATIENT TO EMERGENCY ROOM. DISCUSSED WITH EMERGENCY ROOM PHYSICIAN DR MOSELEY PATIENTS HISTORY) - Departure Time of Disposition: 23:58 Departure Disposition: Transfer Clinical Impression: ABDOMINAL PAIN/ Condition: Stable Critical Care Time: No
[2016-10-22 23:20] LABS: ANION GAP 13.7 MEQ/L (5-15); BLOOD UREA NITROGEN 11 mg/dL (9-20); CHLORIDE 104 mEq/L (98-107); Carbon Dioxide 27.2 mEq/L (21-32); Glucose 112 MG/DL (70-110); HCG, Quantitative (Inhouse) 11452 IU/L (0-6); Potassium 3.7 mEq/L (3.5-5.1); SODIUM 141 mEq/L (136-145)
[2016-10-23 00:04] VITALS: BP 136/78; PULSE 88
[2016-10-23 00:18] VITALS: O2SAT 98
== END 2016-10-22 23:20 | disposition short-term general hospital (02) ==
LOC: ED 22:05
DX: O09.519 Supervision of elderly primigravida, unspecified trimester (principal); R10.32 Left lower quadrant pain
CPT/HCPCS: 36000; 36415; 51702; 80048; 84702; 85025; 86850; 86900; 86901; 87086; 96360; 96361; 96374; 96375; 99285; J1170; J2405; J3010

== ENCOUNTER 2017-01-19 14:07 | Emergency (ER) | payer OTHER ==
[2017-01-19] MEDS ORDERED: Zofran 4 MG/2 ML VIAL IV ONE (14:30)
[2017-01-19] MEDS ORDERED: Sodium Chloride 0.9% 1000 ML 1,000 ML IV STA (14:30)
[2017-01-19] MEDS ORDERED: Hydromorphone 1 mg/ml Ampule IV ONE (14:30)
--- NOTE | 2017-01-19 14:43 | ERPHSYRPT ---
- History of Present Illness Time Seen by Provider: 01/19/17 14:27 Historian: patient, family Exam Limitations: no limitations Patient Subjective Stated Complaint: pt states at 1300 she began having right lower quad abdominal pain. states she vomited x1. denies any diarrhea. Triage Nursing Assessment: pt pink, warm, dry. abdomen obese. tender right lower quad. pt afebrile. denies any dysuria. Timing/Duration: hour(s) (1.5) Activities at Onset: none Quality: sharpness Abdominal Pain Onset Location: RLQ Pain Radiation: no radiation Severity of Pain-Max: severe Severity of Pain-Current: severe Modifying Factors: Improves With: movement Associated Symptoms: denies symptoms Previous symptoms: same symptoms as today, other (recent Ectopic in October/2016. She swtill hasw her appendix.) Allergies/Adverse Reactions: No Known Drug Allergies Allergy (Verified 01/19/17 14:35) Home Medications: Lisinopril 15 mg PO DAILY 01/19/17 [History] Paroxetine HCl [Paxil] 10 mg PO DAILY 01/19/17 [History] Hx Tetanus, Diphtheria Vaccination/Date Given: Yes (up to ddate) Hx Influenza Vaccination/Date Given: Yes Hx Pneumococcal Vaccination/Date Given: Yes Immunizations Up to Date: Yes - Review of Systems Constitutional: No Symptoms Eyes: No Symptoms Ears, Nose, & Throat: No Symptoms Respiratory: No Symptoms Cardiac: No Symptoms Abdominal/Gastrointestinal: Abdominal Pain, Nausea Genitourinary Symptoms: No Symptoms Musculoskeletal: No Symptoms Skin: No Symptoms Neurological: No Symptoms Psychological: No Symptoms Endocrine: No Symptoms Hematologic/Lymphatic: No Symptoms Immunological/Allergic: No Symptoms - Past Medical History Pertinent Past Medical History: Yes Neurological History: Migraines ENT History: No Pertinent History Cardiac History: High Cholesterol, Hypertension Respiratory History: No Pertinent History Endocrine Medical History: No Pertinent History Musculoskeletal History: Other GI Medical History: Gallbladder Disease History: No Pertinent History Psycho-Social History: Depression Female Reproductive Disorders: No Pertinent History Other Medical History: BACK SPASMS - Past Surgical History Past Surgical History: Yes Neuro Surgical History: No Pertinent History Cardiac: No Pertinent History Respiratory: No Pertinent History Gastrointestinal: Cholecystectomy Genitourinary: No Pertinent History Musculoskeletal: Orthopedic Surgery Female Surgical History: Section, Other Other Surgical History: ankle repair d&c february. fallopian tube removal(left) - Social History Smoking Status: Never smoker Exposure to second hand smoke: No Drug Use: none Patient Lives Alone: No Significant Family History: no pertinent family hx - Female History Hx Last Menstrual Period: dec 29 2016 Hx Now: No - Nursing Vital Signs Nursing Vital Signs: Initial Vital Signs Temperature 98.6 F 01/19/17 14:27 Pulse Rate 87 01/19/17 14:27 Respiratory Rate 20 01/19/17 14:27 Blood Pressure 178/98 01/19/17 14:27 O2 Sat by Pulse Oximetry 98 01/19/17 14:27 Pain Scale Pain Intensity 2 - Physical Exam General Appearance: moderate distress Eye Exam: eyes nml inspection, No scleral icterus Ears, Nose, Throat Exam: normal ENT inspection, pharynx normal, moist mucous membranes Neck Exam: normal inspection, non-tender, supple, full range of motion Respiratory Exam: normal breath sounds, lungs clear, airway intact, No respiratory distress Cardiovascular Exam: regular rate/rhythm, normal heart sounds, normal peripheral pulses, capillary refill <2 sec Gastrointestinal/Abdomen Exam: soft, normal bowel sounds, tenderness (RLQ more lateral than McBurney's point. She is morbidly obese.), No distention Back Exam: normal inspection, normal range of motion, No CVA tenderness Extremity Exam: normal inspection, normal range of motion, pelvis stable Neurologic Exam: alert, oriented x 3, cooperative, normal mood/affect Skin Exam: normal color, warm, dry SpO2 Interpretation: normal SpO2: 98 Oxygen Delivery: Room Air - CT Exams Abdomen/Pelvis CT Interpretation: Negative, Tele-radiologist Report Ordered Tests: Active Orders 24 hr Category Date Time Status Clean Catch Urine Specimen STAT Care 01/19/17 14:30 Active IV Insertion STAT Care 01/19/17 14:30 Active NPO (ED) STAT Care 01/19/17 14:30 Active ABDOMEN AND PELVIS W CONTRAST [CT] Stat Exams 01/19/17 14:31 Completed BLOOD CULTURE Stat Lab 01/19/17 15:10 Received CBC W DIFF Stat Lab 01/19/17 14:50 Completed CMP Stat Lab 01/19/17 14:50 Completed HCG,QUALITATIVE URINE Stat Lab 01/19/17 15:17 Completed LIPASE Stat Lab 01/19/17 14:50 Completed Lactic Acid Stat Lab 01/19/17 14:50 Completed PROTIME WITH INR Stat Lab 01/19/17 14:50 Completed UA W/ MICROSCOPIC Stat Lab 01/19/17 14:45 Completed Medication Summary Discontinued Medications Generic Name Dose Route Start Last Admin Trade Name Billie PRN Reason Stop Dose Admin Hydromorphone HCl 1 mg 01/19/17 14:30 01/19/17 15:05 Hydromorphone 1 Mg/Ml Ampule IV 01/19/17 14:31 1 mg STAT ONE Administration Hydromorphone HCl Confirm 01/19/17 15:03 Hydromorphone 1 Mg/Ml Ampule Administered 01/19/17 15:04 Dose 1 mg .ROUTE .STK-MED ONE Sodium Chloride 1,000 mls @ 999 mls/hr 01/19/17 14:30 01/19/17 15:05 Sodium Chloride 0.9% 1000 Ml IV 01/19/17 15:30 999 mls/hr .Q1H1M STA Administration Sodium Chloride Confirm 01/19/17 15:03 Sodium Chloride 0.9% 1000 Ml Administered 01/19/17 15:04 Dose 1,000 mls @ ud .ROUTE .STK-MED ONE Ondansetron HCl 4 mg 01/19/17 14:30 01/19/17 15:05 Zofran 4 Mg/2 Ml Vial IV 01/19/17 14:31 4 mg STAT ONE Administration Ondansetron HCl Confirm 01/19/17 15:03 Zofran 4 Mg/2 Ml Vial Administered 01/19/17 15:04 Dose 4 mg .ROUTE .STK-MED ONE Lab/Rad Data: Laboratory Result Diagrams 01/19/17 14:50 01/19/17 14:50 Laboratory Results 01/19/17 01/19/17 01/19/17 Range/Units 15:17 14:50 14:50 WBC (4.0-10.5) K/mm3 RBC (4.1-5.4) M/mm3 Hgb (12.0-16.0) gm/dl Hct (35-47) % MCV (78-100) fl MCH (26-32) pg MCHC (32-36) g/dl RDW (11.5-14.0) % Plt Count (150-450) K/mm3 MPV (6-9.5) fl Gran % (36.0-66.0) % Lymphocytes % (24.0-44.0) % Monocytes % (0.0-12.0) % Eosinophils % (0.00-5.0) % Basophils % (0.0-0.4) % Basophils # (0-0.4) INR 1.04 (0.8-3.0) Sodium (136-145) mEq/L Potassium (3.5-5.1) mEq/L Chloride (98-107) mEq/L Carbon Dioxide (21-32) mEq/L Anion Gap (5-15) MEQ/L BUN (9-20) mg/dL Creatinine (0.55-1.30) mg/dl Estimated GFR ML/MIN Glucose (70-110) MG/DL Lactic Acid 1.3 (0.4-2.0) Calcium (8.5-10.1) mg/dL Total Bilirubin (0.2-1.0) mg/dL AST (15-37) U/L ALT (12-78) U/L Alkaline Phosphatase (46-116) U/L Serum Total Protein (6.4-8.2) gm/dL Albumin (3.4-5.0) g/dL Lipase (73-393) U/L Ur Collection Type Urine Color (YELLOW) Urine Appearance (CLEAR) Urine pH (5-6) Ur Specific [place] (1.005-1.025) Urine Protein (Negative) Urine Ketones (NEGATIVE) Urine Blood (0-5) Av/ul Urine Nitrite (NEGATIVE) Urine Bilirubin (NEGATIVE) Urine Urobilinogen (0-1) mg/dL Ur Leukocyte Esterase (NEGATIVE) Urine Microscopic RBC (0-2) /HPF Urine Microscopic WBC (0-5) /HPF Ur Epithelial Cells (FEW) /HPF Calcium Oxalate Crystal (NEGATIVE) /HPF Urine Mucus (NEGATIVE) /HPF Urine Glucose (NEGATIVE) mg/dL Urine HCG, Qual NEGATIVE (Negative) Specimen Received 01/19/17 01/19/17 01/19/17 Range/Units 14:50 14:50 14:45 WBC 8.7 (4.0-10.5) K/mm3 RBC 4.40 (4.1-5.4) M/mm3 Hgb 12.9 (12.0-16.0) gm/dl Hct 39.4 (35-47) % MCV 89.5 (78-100) fl MCH 29.3 (26-32) pg MCHC 32.7 (32-36) g/dl RDW 13.1 (11.5-14.0) % Plt Count 239 (150-450) K/mm3 MPV 9.8 H (6-9.5) fl Gran % 69.7 H (36.0-66.0) % Lymphocytes % 20.2 L (24.0-44.0) % Monocytes % 7.4 (0.0-12.0) % Eosinophils % 2.5 (0.00-5.0) % Basophils % 0.2 (0.0-0.4) % Basophils # 0.02 (0-0.4) INR (0.8-3.0) Sodium 141 (136-145) mEq/L Potassium 3.7 (3.5-5.1) mEq/L Chloride 105 (98-107) mEq/L Carbon Dioxide 28.4 (21-32) mEq/L Anion Gap 11.5 (5-15) MEQ/L BUN 18 (9-20) mg/dL Creatinine 0.78 (0.55-1.30) mg/dl Estimated GFR > 60 ML/MIN Glucose 106 (70-110) MG/DL Lactic Acid (0.4-2.0) Calcium 9.3 (8.5-10.1) mg/dL Total Bilirubin 0.30 (0.2-1.0) mg/dL AST 19 (15-37) U/L ALT 45 (12-78) U/L Alkaline Phosphatase 138 H (46-116) U/L Serum Total Protein 7.1 (6.4-8.2) gm/dL Albumin 3.5 (3.4-5.0) g/dL Lipase 101 (73-393) U/L Ur Collection Type CCMS Urine Color YELLOW (YELLOW) Urine Appearance SLIGHTLY CLOUDY (CLEAR) Urine pH 5.0 (5-6) Ur Specific [place] 1.025 (1.005-1.025) Urine Protein NEGATIVE (Negative) Urine Ketones NEGATIVE (NEGATIVE) Urine Blood 50 (0-5) Av/ul Urine Nitrite NEGATIVE (NEGATIVE) Urine Bilirubin NEGATIVE (NEGATIVE) Urine Urobilinogen NORMAL (0-1) mg/dL Ur Leukocyte Esterase NEGATIVE (NEGATIVE) Urine Microscopic RBC 0-2 (0-2) /HPF Urine Microscopic WBC 0-2 (0-5) /HPF Ur Epithelial Cells FEW (FEW) /HPF Calcium Oxalate Crystal 25-50 (NEGATIVE) /HPF Urine Mucus SLIGHT (NEGATIVE) /HPF Urine Glucose NEGATIVE (NEGATIVE) mg/dL Urine HCG, Qual (Negative) Specimen Received 01-19-17 1500 - Progress Progress: improved Will see patient in: office (PCP 1 week) Counseled pt/family regarding: lab results, diagnosis, need for follow-up, rad results - Departure Time of Disposition: 16:50 Departure Disposition: Home Clinical Impression: Abdominal pain Qualifiers: Abdominal location: right lower quadrant Qualified Code(s): R10.31 - Right lower quadrant pain Condition: Stable Critical Care Time: No Referrals: SAADIA GLASER [Primary Care Provider] -
[2017-01-19] MEDS ORDERED: Zofran 4 MG/2 ML VIAL ONE (15:03)
[2017-01-19] MEDS ORDERED: Hydromorphone 1 mg/ml Ampule ONE (15:03)
[2017-01-19] MEDS ORDERED: Sodium Chloride 0.9% 1000 ML 1,000 ML ONE (15:03)
[2017-01-19 15:07] LABS: BASOPHIL % 0.2 % (0.0-0.4); Eosinophil % 2.5 % (0.00-5.0); Granulocytes % 69.7 % (36.0-66.0); Lymphocytes % 20.2 % (24.0-44.0); Mean Cell Volume 89.5 fl (78-100); Mean Corpuscular Hemoglobin 29.3 pg (26-32); Mean Platelet Volume 9.8 fl (6-9.5); Monocytes % 7.4 % (0.0-12.0); Platelet Count 239 K/mm3 (150-450); Red Cell Distribution Width 13.1 % (11.5-14.0); White Blood Count 8.7 K/mm3 (4.0-10.5)
[2017-01-19 15:18] LABS: Bilirubin NEGATIVE (NEGATIVE); Blood 50 Ery/ul (0-5); COMPLETE URINE MICROSCOPIC? YES; Collection Type CCMS; Glucose NEGATIVE (NEGATIVE); Leukocyte Esterase NEGATIVE (NEGATIVE)
[2017-01-19 15:23] LABS: INR 1.04 (0.8-3.0); PROTIME 11.8 SECONDS (9.95-12.35)
[2017-01-19 15:34] LABS: ALBUMIN 3.5 g/dL (3.4-5.0); ALKALINE PHOSPHATASE 138 U/L (46-116); ANION GAP 11.5 MEQ/L (5-15); BLOOD UREA NITROGEN 18 mg/dL (9-20); CHLORIDE 105 mEq/L (98-107); Carbon Dioxide 28.4 mEq/L (21-32); Glucose 106 MG/DL (70-110); LIPASE 101 U/L (73-393); Potassium 3.7 mEq/L (3.5-5.1); SGOT/AST 19 U/L (15-37); SGPT/ALT 45 U/L (12-78); SODIUM 141 mEq/L (136-145); Total Protein 7.1 gm/dL (6.4-8.2)
[2017-01-19 15:44] LABS: ADD URINE CULTURE? NO (NO); Epithelial Cells FEW /HPF (FEW); Mucus SLIGHT /HPF (NEGATIVE); WBC 0-2 /HPF (0-5)
[2017-01-19 15:45] LABS: CALCIUM OXALATE CRYSTALS 25-50 /HPF (NEGATIVE)
--- NOTE | 2017-01-19 16:53 | XRAY ---
Indication: Right lower pelvic pain. Multiple contiguous axial images obtained through the abdomen and pelvis using 80 cc Isovue 370 contrast only. Comparison: August 12, 2013. Lung bases demonstrates mild bibasilar dependent atelectasis. Heart is now borderline enlarged. Stomach is distended with fluid. Noncontrasted bowel loops appear nonobstructed. Appendix not seen. No free fluid/air. There has been interval cholecystectomy. Mild fatty liver. Spleen is enlarged measuring 13.7 cm in greatest axial dimension. Remaining liver, pancreas, spleen, adrenal glands, kidneys, ureters, bladder, uterus, and aorta appear unremarkable. No pathologic retroperitoneal lymphadenopathy. Osseous structures intact. Impression: 1. No acute intra-abdominal/pelvic abnormalities. 2. Fatty liver and splenomegaly. CTDI 35.17
[2017-01-19 17:15] VITALS: BP 127/70; PULSE 76; O2SAT 100
== END 2017-01-19 17:15 | disposition home or self-care (01) ==
LOC: ED 14:07
DX: R10.31 Right lower quadrant pain (principal); R11.0 Nausea
CPT/HCPCS: 36000; 36415; 74177; 80053; 81000; 83605; 83690; 84703; 85025; 85610; 87040; 96360; 96374; 96375; 99284; J1170; J2405

== ENCOUNTER 2017-05-17 22:42 | Emergency (ER) | payer BC, OTHER ==
[2017-05-17] MEDS ORDERED: Phenergan 25 MG INJ IM ONE (23:11)
[2017-05-17] MEDS ORDERED: Pepcid 20 MG VIAL IV ONE ×2 (23:11→23:21)
[2017-05-17] MEDS ORDERED: Lactated Ringers 1,000 ML IV ONE ×2 (23:12→23:22)
--- NOTE | 2017-05-17 23:15 | ERPHSYRPT ---
- History of Present Illness Time Seen by Provider: 05/17/17 23:03 Source: patient Patient Subjective Stated Complaint: vomiting and diarrhea all day today; pt estimates about 12 episodes Triage Nursing Assessment: c/o abd pain, vomiting and diarrhea all day Physician History: CC: vomiting and diarrhea Hx: 36 y/o patient of dr Ly Glaser with vomiting and diarrhea all day with instermittent abdominal cramping all over. No fever. 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 No fever, headache, or myalgias. No sore throat. Surg: GB, D&C, ectopic, left salpingectomy LMP May 04 ILL: HTN, depression ALL: None MEds: Klonopin, lisinopril Social: nonsmoker Timing/Duration: today Allergies/Adverse Reactions: No Known Drug Allergies Allergy (Verified 01/19/17 14:35) Home Medications: Lisinopril 15 mg PO DAILY 01/19/17 [History] Paroxetine HCl [Paxil] 10 mg PO DAILY 01/19/17 [History] Clonazepam 0.5 mg [Klonopin 0.5 MG] 1 tab PO Q12H PRN PRN 05/17/17 [ History] Hx Tetanus, Diphtheria Vaccination/Date Given: Yes Hx Influenza Vaccination/Date Given: Yes Hx Pneumococcal Vaccination/Date Given: No Immunizations Up to Date: Yes - Review of Systems Constitutional: Malaise, No Fever, No Chills Eyes: No Symptoms Ears, Nose, & Throat: No Symptoms Respiratory: No Cough, No Dyspnea Cardiac: No Chest Pain Abdominal/Gastrointestinal: Abdominal Pain (cramping), Nausea, Vomiting, Diarrhea Genitourinary Symptoms: No Dysuria, No Skin: No Rash Neurological: No Headache All Other Systems: Reviewed and Negative - Past Medical History Pertinent Past Medical History: Yes Neurological History: Migraines ENT History: No Pertinent History Cardiac History: High Cholesterol, Hypertension Respiratory History: No Pertinent History Endocrine Medical History: No Pertinent History Musculoskeletal History: Other GI Medical History: Gallbladder Disease History: No Pertinent History Psycho-Social History: Depression Female Reproductive Disorders: No Pertinent History Other Medical History: BACK SPASMS - Past Surgical History Past Surgical History: Yes Neuro Surgical History: No Pertinent History Cardiac: No Pertinent History Respiratory: No Pertinent History Gastrointestinal: Cholecystectomy Genitourinary: No Pertinent History Musculoskeletal: Orthopedic Surgery Female Surgical History: Section, Other Other Surgical History: ankle repair d&c february. fallopian tube removal(left) - Social History Smoking Status: Never smoker Exposure to second hand smoke: No Drug Use: none Patient Lives Alone: No Significant Family History: no pertinent family hx - Female History Hx Last Menstrual Period: 05/04/2017 Hx Now: No - Nursing Vital Signs Nursing Vital Signs: Initial Vital Signs Temperature 97.9 F 05/17/17 23:03 Pulse Rate 120 H 05/17/17 23:03 Respiratory Rate 22 05/17/17 23:03 Blood Pressure 144/72 05/17/17 23:03 O2 Sat by Pulse Oximetry 95 05/17/17 23:03 Pain Scale Pain Intensity 4 - Physical Exam General Appearance: alert, obese Eye Exam: PERRL/EOMI Ears, Nose, Throat Exam: normal ENT inspection, dry mucous membranes Neck Exam: normal inspection, non-tender, supple Respiratory Exam: normal breath sounds Cardiovascular Exam: regular rate/rhythm Gastrointestinal/Abdomen Exam: soft, No tenderness, No distention, No mass, No guarding Extremity Exam: normal inspection, normal range of motion Neurologic Exam: alert, oriented x 3, cooperative, sensation nml, No motor deficits Skin Exam: warm, dry, No rash SpO2 Interpretation: normal SpO2: 95 Oxygen Delivery: Room Air - Course Nursing assessment & vital signs reviewed: Yes Ordered Tests: Active Orders 24 hr Category Date Time Status IV Insertion STAT Care 05/17/17 23:11 Active CBC W DIFF Stat Lab 05/17/17 23:29 Completed CMP Stat Lab 05/17/17 23:29 Completed HCG QUALITATIVE,SERUM Stat Lab 05/17/17 23:29 Completed LIPASE Stat Lab 05/17/17 23:29 Completed Medication Summary Discontinued Medications Generic Name Dose Route Start Last Admin Trade Name Freq PRN Reason Stop Dose Admin Famotidine 20 mg 05/17/17 23:11 05/17/17 23:24 Pepcid 20 Mg Vial IV 05/17/17 23:12 20 mg STAT ONE Administration Famotidine Confirm 05/17/17 23:21 Pepcid 20 Mg Vial Administered 05/17/17 23:22 Dose 20 mg IV .STK-MED ONE Lactated Ringer's 1,000 mls @ 999 mls/hr 05/17/17 23:12 05/17/17 23:24 Lactated Ringers IV 05/18/17 00:12 999 mls/hr .Q1H1M ONE Administration Lactated Ringer's Confirm 05/17/17 23:22 Lactated Ringers Administered 05/17/17 23:23 Dose 1,000 mls @ ud IV .STK-MED ONE Promethazine HCl 25 mg 05/17/17 23:11 05/17/17 23:24 Phenergan 25 Mg Inj IM 05/17/17 23:12 25 mg STAT ONE Administration Promethazine HCl Confirm 05/17/17 23:21 Phenergan 25 Mg Inj Administered 05/17/17 23:22 Dose 25 mg .ROUTE .STK-MED ONE Lab/Rad Data: Laboratory Result Diagrams 05/17/17 23:29 05/17/17 23:29 Laboratory Results 05/17/17 05/17/17 05/17/17 Range/Units 23:29 23:29 23:29 WBC 10.9 H (4.0-10.5) K/mm3 RBC 4.54 (4.1-5.4) M/mm3 Hgb 13.2 (12.0-16.0) gm/dl Hct 41.5 (35-47) % MCV 91.4 (78-100) fl MCH 29.1 (26-32) pg MCHC 31.8 L (32-36) g/dl RDW 12.7 (11.5-14.0) % Plt Count 293 (150-450) K/mm3 MPV 10.4 H (6-9.5) fl Gran % 89.3 H (36.0-66.0) % Lymphocytes % 5.9 L (24.0-44.0) % Monocytes % 4.0 (0.0-12.0) % Eosinophils % 0.7 (0.00-5.0) % Basophils % 0.1 (0.0-0.4) % Basophils # 0.01 (0-0.4) Sodium 140 (136-145) mEq/L Potassium 4.6 (3.5-5.1) mEq/L Chloride 102 (98-107) mEq/L Carbon Dioxide 26.5 (21-32) mEq/L Anion Gap 15.9 H (5-15) MEQ/L BUN 16 (9-20) mg/dL Creatinine 0.99 (0.55-1.30) mg/dl Estimated GFR > 60 ML/MIN Glucose 120 H (70-110) MG/DL Calcium 8.9 (8.5-10.1) mg/dL Total Bilirubin 0.80 (0.2-1.0) mg/dL AST 49 H (15-37) U/L ALT 47 (12-78) U/L Alkaline Phosphatase 137 H (46-116) U/L Serum Total Protein 7.7 (6.4-8.2) gm/dL Albumin 3.5 (3.4-5.0) g/dL Lipase 95 (73-393) U/L Serum , Qual NEGATIVE (Negative) - Progress Progress Note: 05/18/17 01:31 Still intermittent cramping. No vomiting. Took popsicle. IVF bolus given. Labs reassuring. Likely viral syndrome. She chose phenergan pills. Will release with instr. Counseled pt/family regarding: lab results, diagnosis, need for follow-up - Departure Time of Disposition: 01:32 Departure Disposition: Home Clinical Impression: Vomiting and diarrhea Condition: Stable Critical Care Time: No Referrals: SAADIA GLASER [Primary Care Provider] - Instructions: Diarrhea and Traveler's Diarrhea -- Adult, Vomiting -- Adult Additional Instructions: VOMITING AND DIARRHEA 1. Take only small amounts of clear, cool liquids at frequent intervals as tolerated for the next 24-48 hours. Avoid milk products and orange juice. Clear liquids are those liquids which you can see through. 2. Pedialyte and popsicles are recommended clear liquids. 3. If the condition worsens you should contact your family physician or return to the emergency department for re-evaluation. ABDOMINAL PAIN 1. There are several different causes for abdominal pain, some of which may not be able to be identified on initial examination. 2. The important thing to remember is that bodily functions can change in a short period of time. If you notice any of the following symptoms, return to the emergency department or consult your doctor immediately: A. Worsening pain or no improvement in the next 12 hours. B. Increasing, severe abdominal pain C. Blood in stool D. Black stools E. Persistent vomiting F. Fever or chills or other symptoms Rx phenergan to [facility] No driving today or while taking phenergan. Off work until diarrhea free for 24-48 hours. Follow up with Dr Glaser this week. Prescriptions: Promethazine HCl 25 mg [Phenergan 25 mg] 25 mg PO Q6H PRN PRN #10 tablet PRN Reason: Nausea/Vomiting
[2017-05-17] MEDS ORDERED: Phenergan 25 MG INJ ONE (23:21)
[2017-05-17 23:35] LABS: BASOPHIL % 0.1 % (0.0-0.4); Eosinophil % 0.7 % (0.00-5.0); Granulocytes % 89.3 % (36.0-66.0); Lymphocytes % 5.9 % (24.0-44.0); Mean Cell Volume 91.4 fl (78-100); Mean Corpuscular Hemoglobin 29.1 pg (26-32); Mean Platelet Volume 10.4 fl (6-9.5); Platelet Count 293 K/mm3 (150-450); Red Blood Count 4.54 M/mm3 (4.1-5.4); Red Cell Distribution Width 12.7 % (11.5-14.0); White Blood Count 10.9 K/mm3 (4.0-10.5)
[2017-05-17 23:56] LABS: ALBUMIN 3.5 g/dL (3.4-5.0); ALKALINE PHOSPHATASE 137 U/L (46-116); ANION GAP 15.9 MEQ/L (5-15); BLOOD UREA NITROGEN 16 mg/dL (9-20); CHLORIDE 102 mEq/L (98-107); Carbon Dioxide 26.5 mEq/L (21-32); Glucose 120 MG/DL (70-110); LIPASE 95 U/L (73-393); Potassium 4.6 mEq/L (3.5-5.1); SGOT/AST 49 U/L (15-37); SGPT/ALT 47 U/L (12-78); SODIUM 140 mEq/L (136-145); Total Protein 7.7 gm/dL (6.4-8.2)
[2017-05-18 00:33] VITALS: BP 140/74
[2017-05-18 01:05] VITALS: PULSE 91
[2017-05-18 01:34] VITALS: O2SAT 95
[2017-05-18] MEDS ORDERED: PHENERGAN 25 MG PO ONE (01:35)
[2017-05-18] MEDS ORDERED: PHENERGAN 25 MG ONE (01:55)
== END 2017-05-18 02:02 | disposition home or self-care (01) ==
LOC: ED 22:42
DX: R11.2 Nausea with vomiting, unspecified (principal); R11.10 Vomiting, unspecified; R19.7 Diarrhea, unspecified; R10.9 Unspecified abdominal pain; Z79.899 Other long term (current) drug therapy
CPT/HCPCS: 36000; 36415; 80053; 83690; 84703; 85025; 96360; 96372; 96374; 99284; J2550; A9270-GY

== ENCOUNTER 2017-06-09 08:35 | Emergency (ER) | payer BC ==
[2017-06-09] MEDS ORDERED: NORCO 5/325 MG PO ONE (09:07)
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
[2017-06-09] MEDS ORDERED: NORCO 5/325 MG ONE (09:26)
[2017-06-09 09:30] LABS: BASOPHIL % 0.3 % (0.0-0.4); Basophil (Absolute #) 0.03 (0-0.4); Eosinophil % 2.2 % (0.00-5.0); Eosinophil (Absolute #) 0.21 (0-0.5); Granulocyte Absolute (ANC) 6.66 (1.4-6.9); Granulocytes % 70.9 % (36.0-66.0); Hematocrit 40.6 % (35-47); Hemoglobin 13.1 gm/dl (12.0-16.0); Lymphocyte (Absolute #) 1.99 (1.0-4.6); Lymphocytes % 21.1 % (24.0-44.0); Mean Corpuscular Hgb Concent. 32.3 g/dl (32-36); Mean Platelet Volume 10.1 fl (6-9.5); Monocyte (Absolute #) 0.52 (0.0-1.3); Monocytes % 5.5 % (0.0-12.0); Platelet Count 314 K/mm3 (150-450); Red Blood Count 4.51 M/mm3 (4.1-5.4); Red Cell Distribution Width 12.8 % (11.5-14.0); White Blood Count 9.4 K/mm3 (4.0-10.5)
[2017-06-09 10:02] LABS: ALBUMIN 3.6 g/dL (3.4-5.0); ALKALINE PHOSPHATASE 129 U/L (46-116); AMYLASE 50 U/L (25-115); ANION GAP 9.1 MEQ/L (5-15); BLOOD UREA NITROGEN 13 mg/dL (9-20); CHLORIDE 106 mEq/L (98-107); Carbon Dioxide 31.4 mEq/L (21-32); Creatinine 1 0.78 mg/dl (0.55-1.30); EST GLOMERULAR FILTRATION RATE > 60 ML/MIN; Glucose 123 MG/DL (70-110); LIPASE 106 U/L (73-393); MAGNESIUM 1.9 mg/dL (1.8-2.4); Potassium 3.8 mEq/L (3.5-5.1); SGOT/AST 28 U/L (15-37); SGPT/ALT 42 U/L (12-78); SODIUM 143 mEq/L (136-145); Total Protein 7.4 gm/dL (6.4-8.2)
[2017-06-09 10:29] LABS: Appearance HAZY (CLEAR)
[2017-06-09 10:30] LABS: Bacteria FEW /HPF (NEGATIVE); Bilirubin NEGATIVE (NEGATIVE); Blood 250 Ery/ul (0-5); Epithelial Cells MANY /HPF (FEW); Glucose NEGATIVE (NEGATIVE); Ketones NEGATIVE (NEGATIVE); Leukocyte Esterase NEGATIVE (NEGATIVE); Mucus SLIGHT /HPF (NEGATIVE); Nitrite NEGATIVE (NEGATIVE); Protein,Urine Dip NEGATIVE (Negative); Specific Gravity 1.015 (1.005-1.025); Urobilinogen NORMAL mg/dL (0-1); WBC 0-2 /HPF (0-5)
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
[2017-06-09 12:06] VITALS: BP 153/76; PULSE 66; O2SAT 97
== END 2017-06-09 12:06 | disposition home or self-care (01) ==
LOC: ED 08:35
DX: S43.401A Unspecified sprain of right shoulder joint, initial encounter (principal); S13.4XXA Sprain of ligaments of cervical spine, initial encounter; S33.5XXA Sprain of ligaments of lumbar spine, initial encounter; V40.5XXA Car driver injured in collision with pedestrian or animal in traffic accident, initial encounter
CPT/HCPCS: 36415; 72072; 72110; 72125; 73030; 80053; 81000; 82150; 83690; 83735; 84703; 85025; 99284; 99285; L0120; A9270-GY

== ENCOUNTER 2018-03-20 08:45 | Emergency (ER) | payer BC ==
[2018-03-20 09:03] VITALS: O2SAT 98
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
[2018-03-20 09:40] VITALS: BP 148/88; PULSE 64
== END 2018-03-20 09:44 | disposition home or self-care (01) ==
LOC: ED 08:45
DX: T16.1XXA Foreign body in right ear, initial encounter (principal); H66.91 Otitis media, unspecified, right ear
CPT/HCPCS: 99283

== ENCOUNTER 2018-05-01 18:23 | Emergency (ER) | payer BC ==
--- NOTE | 2018-05-01 19:26 | ERPHSYRPT ---
- History of Present Illness Time Seen by Provider: 05/01/18 19:20 Source: patient Exam Limitations: no limitations Patient Subjective Stated Complaint: patient experiencing back pain and shoulder pain some into chest and jaw Triage Nursing Assessment: pt alert and orietnedx3, able to ambulate by self, [place] has fever blisters on lips , no abnormalities noted in back, pulses equal bialteral radius, lung sounds clear, gait steady able to ambualte by self. Physician History: The patient is a 37-year-old morbidly obese female complaining that she woke up today with pain in her back between her shoulder blades. She does not recall any injury. She does not have chronic back pain. She denies shortness of breath. She hasn't eating much all day. While in the waiting room, she stated she was having some chest pain. She states her chest pain has been on and off for a couple days. She is here for her back pain and not to chest pain. She also complains of a worsening fever blister to her upper lip that began this morning as well. This started on the left side her upper lip and has progressed to nearly the entire upper lip. She has fever blisters but not usually this bad. Just complains of having some pain just under both sides of her jaw in her neck. She complains a little bit of sore throat. Her past medical history is significant for morbid obesity, herpes simplex of the upper lip, , ectopic , and hypertension. Timing/Duration: today, gradual onset, worse Method of Injury: unknown Quality: sharp Back Pain Location: T-spine Severity of Pain-Max: severe Severity of Pain-Current: severe Modifying Factors: Improves With: other (tylenol did not help) Associated Symptoms: muscle spasms, No fever, No chills, No loss of bowel control, No nausea, No vomiting, No problems urinating, No lower back pain Previous symptoms: no prior history Allergies/Adverse Reactions: No Known Drug Allergies Allergy (Verified 03/20/18 09:03) Home Medications: Lisinopril 5 mg PO DAILY 01/19/17 [History] Clonazepam 0.5 mg [Klonopin 0.5 MG] 1 tab PO Q12H PRN PRN 05/17/17 [ History] Cyclobenzaprine HCl [Flexeril] 10 mg PO TID PRN 03/20/18 [History] Hx Tetanus, Diphtheria Vaccination/Date Given: Yes Hx Influenza Vaccination/Date Given: No Hx Pneumococcal Vaccination/Date Given: No Immunizations Up to Date: Yes - Review of Systems Constitutional: No Fever, No Chills Eyes: No Symptoms Ears, Nose, & Throat: Throat Pain, Other (swollen upper lip) Respiratory: No Cough, No Dyspnea Cardiac: Chest Pain Abdominal/Gastrointestinal: No Abdominal Pain, No Nausea, No Vomiting, No Diarrhea Genitourinary Symptoms: No Dysuria Musculoskeletal: Back Pain, No Neck Pain Skin: No Rash Neurological: No Dizziness, No Focal Weakness, No Sensory Changes Psychological: No Symptoms Endocrine: No Symptoms Hematologic/Lymphatic: No Symptoms Immunological/Allergic: No Symptoms All Other Systems: Reviewed and Negative - Past Medical History Pertinent Past Medical History: Yes Neurological History: Migraines ENT History: No Pertinent History Cardiac History: High Cholesterol, Hypertension Respiratory History: No Pertinent History Endocrine Medical History: No Pertinent History Musculoskeletal History: Other GI Medical History: Gallbladder Disease History: No Pertinent History Psycho-Social History: Depression Female Reproductive Disorders: No Pertinent History Other Medical History: BACK SPASMS - Past Surgical History Past Surgical History: Yes Neuro Surgical History: No Pertinent History Cardiac: No Pertinent History Respiratory: No Pertinent History Gastrointestinal: Cholecystectomy Genitourinary: No Pertinent History Musculoskeletal: Orthopedic Surgery Female Surgical History: Section, Other Other Surgical History: ankle repair d&c february. fallopian tube removal(left) - Social History Smoking Status: Never smoker Exposure to second hand smoke: No Drug Use: none Patient Lives Alone: No Significant Family History: no pertinent family hx - Female History Hx Now: No - Nursing Vital Signs Nursing Vital Signs: Initial Vital Signs Pulse Rate 80 05/01/18 18:23 Respiratory Rate 22 05/01/18 18:23 Blood Pressure 154/93 05/01/18 18:23 O2 Sat by Pulse Oximetry 96 05/01/18 18:23 Pain Scale Pain Intensity [Left Posterior 5 Back] Pain Intensity 3 - Physical Exam General Appearance: moderate distress, obese Eye Exam: PERRL/EOMI, eyes nml inspection Ears, Nose, Throat Exam: pharynx normal, other (large confluent swollen erupting fever blister c/w herpes across upper lip), No pharyngeal erythema, No tonsillar exudate Neck Exam: lymphadenopathy (mild tenderness to bilateral mandibular lymph nodes) , No limited range of motion Respiratory Exam: normal breath sounds, lungs clear, No respiratory distress Cardiovascular Exam: regular rate/rhythm, normal heart sounds Gastrointestinal Exam: soft, other (obese), No tenderness, No mass Pelvic Exam: not done Rectal Exam: not done Back Exam: point tenderness (pt tenderness to bilateral thracic mid-paraspinous muscles; palpation reproduces pt back pain complaint.) Extremity Exam: normal inspection, normal range of motion, No calf tenderness, No pedal edema Neurologic Exam: alert, oriented x 3, cooperative, 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, normal mood/affect, nml station & gait, sensation nml, No motor deficits Skin Exam: normal color, warm, dry, No rash SpO2 Interpretation: normal SpO2: 96 Oxygen Delivery: Room Air - Course EKG Interpreted by Me: RATE, Sinus Rhythm, NORMAL AXIS, NORMAL INTERVALS, Right Bundle Branch Block, NORMAL ST-T, Other (no change in EKG compared to EKG from .) - Radiology Exams Chest X-ray Interpretation: Interpreted by me, Negative (comp 1V chest 10/15/15.) T-Spine X-ray Interpretation: Interpreted by me, No Fracture, No Subluxation Ordered Tests: Active Orders 24 hr Category Date Time Status Clean Catch Urine Specimen STAT Care 05/01/18 18:53 Active EKG-ER Only STAT Care 05/01/18 19:00 Active IV Insertion STAT Care 05/01/18 19:08 Active CHEST 2 VIEWS (PA AND LAT) Stat Exams 05/01/18 19:28 Taken THORACIC SPINE (AP,LAT,SWIMM) Stat Exams 05/01/18 19:29 Taken CBC W DIFF Stat Lab 05/01/18 19:45 Completed CMP Stat Lab 05/01/18 19:45 Completed LIPASE Stat Lab 05/01/18 19:45 Completed Lactic Acid Stat Lab 05/01/18 19:27 Completed Lactic Acid Stat Lab 05/01/18 21:43 Ordered TROPONIN Q3H Lab 05/01/18 19:45 Completed TROPONIN Q3H Lab 05/01/18 22:45 Received TROPONIN Q3H Lab 05/02/18 01:30 Ordered TROPONIN Q3H Lab 05/02/18 04:30 Ordered TROPONIN Q3H Lab 05/02/18 07:30 Ordered Medication Summary Discontinued Medications Generic Name Dose Route Start Last Admin Trade Name Freq PRN Reason Stop Dose Admin Famotidine 20 mg 05/01/18 19:27 05/01/18 19:44 Pepcid 20 Mg Vial IV 05/01/18 19:28 20 mg STAT ONE Administration Famotidine Confirm 05/01/18 19:36 Pepcid 20 Mg Vial Administered 05/01/18 19:37 Dose 20 mg IV .STK-MED ONE Sodium Chloride 1,000 mls @ 999 mls/hr 05/01/18 19:27 05/01/18 20:59 Sodium Chloride 0.9% 1000 Ml IV 05/01/18 20:27 Infused .Q1H1M STA Infusion Sodium Chloride Confirm 05/01/18 19:36 Sodium Chloride 0.9% 1000 Ml Administered 05/01/18 19:37 Dose 1,000 mls @ ud .ROUTE .STK-MED ONE Ketorolac Tromethamine 30 mg 05/01/18 19:27 05/01/18 19:44 Toradol 30 Mg Injection IV 05/01/18 19:28 30 mg STAT ONE Administration Ketorolac Tromethamine Confirm 05/01/18 19:36 Toradol 30 Mg Injection Administered 05/01/18 19:37 Dose 30 mg .ROUTE .STK-MED ONE Lorazepam 2 mg 05/01/18 19:29 05/01/18 19:44 Ativan 2 Mg/1 Ml Vial IV 05/01/18 19:30 2 mg STAT ONE Administration Lorazepam Confirm 05/01/18 19:36 Ativan 2 Mg/1 Ml Vial Administered 05/01/18 19:37 Dose 2 mg .ROUTE .STK-MED ONE Ondansetron HCl 4 mg 05/01/18 19:27 05/01/18 19:44 Zofran 4 Mg/2 Ml Vial IV 05/01/18 19:28 4 mg STAT ONE Administration Ondansetron HCl Confirm 05/01/18 19:35 Zofran 4 Mg/2 Ml Vial Administered 05/01/18 19:36 Dose 4 mg .ROUTE .STK-MED ONE Lab/Rad Data: Laboratory Result Diagrams 05/01/18 19:45 05/01/18 19:45 Laboratory Results 05/01/18 05/01/18 05/01/18 Range/Units 21:25 19:45 19:45 WBC (4.0-10.5) K/mm3 RBC (4.1-5.4) M/mm3 Hgb (12.0-16.0) gm/dl Hct (35-47) % MCV (78-100) fl MCH (26-32) pg MCHC (32-36) g/dl RDW (11.5-14.0) % Plt Count (150-450) K/mm3 MPV (6-9.5) fl Gran % (36.0-66.0) % Eos # (Auto) (0-0.5) Absolute Lymphs (auto) (1.0-4.6) Absolute Monos (auto) (0.0-1.3) Lymphocytes % (24.0-44.0) % Monocytes % (0.0-12.0) % Eosinophils % (0.00-5.0) % Basophils % (0.0-0.4) % Absolute Granulocytes (1.4-6.9) Basophils # (0-0.4) Sodium 138 (137-145) mmol/L Potassium 3.7 (3.5-5.1) mmol/L Chloride 103 (98-107) mmol/L Carbon Dioxide 28 (22-30) mmol/L Anion Gap 11.2 (5-15) MEQ/L BUN 11 (7-17) mg/dL Creatinine 0.59 (0.52-1.04) mg/dL Estimated GFR > 60.0 ML/MIN Glucose 118 H (74-106) mg/dL Lactic Acid (0.4-2.0) Calcium 9.0 (8.4-10.2) mg/dL Total Bilirubin 0.20 (0.2-1.3) mg/dL AST 15 (14-36) U/L ALT 15 (0-35) U/L Alkaline Phosphatase 105 (38-126) U/L Troponin I < 0.012 (0.000-0.034) ng/mL Serum Total Protein 6.9 (6.3-8.2) g/dL Albumin 3.9 (3.5-5.0) g/dL Lipase 62 (23-300) U/L Group A Strep Antibody NEGATIVE (NEGATIVE) 05/01/18 05/01/18 Range/Units 19:45 19:27 WBC 9.2 (4.0-10.5) K/mm3 RBC 4.51 (4.1-5.4) M/mm3 Hgb 11.7 L (12.0-16.0) gm/dl Hct 37.8 (35-47) % MCV 83.8 (78-100) fl MCH 25.9 L (26-32) pg MCHC 31.0 L (32-36) g/dl RDW 15.7 H (11.5-14.0) % Plt Count 328 (150-450) K/mm3 MPV 10.2 H (6-9.5) fl Gran % 62.5 (36.0-66.0) % Eos # (Auto) 0.27 (0-0.5) Absolute Lymphs (auto) 2.37 (1.0-4.6) Absolute Monos (auto) 0.79 (0.0-1.3) Lymphocytes % 25.7 (24.0-44.0) % Monocytes % 8.6 (0.0-12.0) % Eosinophils % 2.9 (0.00-5.0) % Basophils % 0.3 (0.0-0.4) % Absolute Granulocytes 5.76 (1.4-6.9) Basophils # 0.03 (0-0.4) Sodium (137-145) mmol/L Potassium (3.5-5.1) mmol/L Chloride (98-107) mmol/L Carbon Dioxide (22-30) mmol/L Anion Gap (5-15) MEQ/L BUN (7-17) mg/dL Creatinine (0.52-1.04) mg/dL Estimated GFR ML/MIN Glucose (74-106) mg/dL Lactic Acid 1.9 (0.4-2.0) Calcium (8.4-10.2) mg/dL Total Bilirubin (0.2-1.3) mg/dL AST (14-36) U/L ALT (0-35) U/L Alkaline Phosphatase (38-126) U/L Troponin I (0.000-0.034) ng/mL Serum Total Protein (6.3-8.2) g/dL Albumin (3.5-5.0) g/dL Lipase (23-300) U/L Group A Strep Antibody (NEGATIVE) - Progress Progress: improved Progress Note: 05/01/18 23:27 Patient given 20 mg oral 30 mg, Ativan 2 mg, Zofran 4 mg, and fluids by IV with improvement of her back pain. Counseled pt/family regarding: lab results, diagnosis, rad results - Departure Time of Disposition: 23:28 Departure Disposition: Home Clinical Impression: Back spasm Condition: Stable Critical Care Time: No Referrals: SAADIA GLASER [Primary Care Provider] - Additional Instructions: You have spasms causing the pain in your back. You were given famotidine 20 mg , Toradol 30 mg, Ativan 2 mg, Zofran 4 mg, and fluids by IV in the ER. Take Flexeril 5 mg every 8 hrs as needed. Follow-up with your primary medical doctor as needed. Prescriptions: Cyclobenzaprine HCl [Flexeril] 5 mg PO Q8H PRN PRN #10 tablet PRN Reason: Muscle Spasms
[2018-05-01] MEDS ORDERED: Sodium Chloride 0.9% 1000 ML 1,000 ML IV STA (19:27)
[2018-05-01] MEDS ORDERED: Pepcid 20 MG VIAL IV ONE ×2 (19:27→19:36)
[2018-05-01] MEDS ORDERED: TORAdol 30 mg Injection IV ONE (19:27)
[2018-05-01] MEDS ORDERED: Zofran 4 MG/2 ML VIAL IV ONE (19:27)
[2018-05-01] MEDS ORDERED: Ativan 2 MG/1 ML VIAL IV ONE (19:29)
[2018-05-01] MEDS ORDERED: Zofran 4 MG/2 ML VIAL ONE (19:35)
[2018-05-01] MEDS ORDERED: TORAdol 30 mg Injection ONE (19:36)
[2018-05-01] MEDS ORDERED: Sodium Chloride 0.9% 1000 ML 1,000 ML ONE (19:36)
[2018-05-01] MEDS ORDERED: Ativan 2 MG/1 ML VIAL ONE (19:36)
[2018-05-01 19:43] LABS: Lactic Acid 1.9 (0.4-2.0)
[2018-05-01 19:54] LABS: BASOPHIL % 0.3 % (0.0-0.4); Basophil (Absolute #) 0.03 (0-0.4); Eosinophil % 2.9 % (0.00-5.0); Eosinophil (Absolute #) 0.27 (0-0.5); Granulocyte Absolute (ANC) 5.76 (1.4-6.9); Granulocytes % 62.5 % (36.0-66.0); Hematocrit 37.8 % (35-47); Hemoglobin 11.7 gm/dl (12.0-16.0); Lymphocyte (Absolute #) 2.37 (1.0-4.6); Lymphocytes % 25.7 % (24.0-44.0); Mean Cell Volume 83.8 fl (78-100); Mean Corpuscular Hemoglobin 25.9 pg (26-32); Mean Platelet Volume 10.2 fl (6-9.5); Monocyte (Absolute #) 0.79 (0.0-1.3); Monocytes % 8.6 % (0.0-12.0); Platelet Count 328 K/mm3 (150-450); Red Blood Count 4.51 M/mm3 (4.1-5.4); Red Cell Distribution Width 15.7 % (11.5-14.0); White Blood Count 9.2 K/mm3 (4.0-10.5)
[2018-05-01 20:19] LABS: ALBUMIN 3.9 g/dL (3.5-5.0); ALKALINE PHOSPHATASE 105 U/L (38-126); ANION GAP 11.2 MEQ/L (5-15); BLOOD UREA NITROGEN 11 mg/dL (7-17); CHLORIDE 103 mmol/L (98-107); Carbon Dioxide 28 mmol/L (22-30); Creatinine 1 0.59 mg/dL (0.52-1.04); Glucose 118 mg/dL (74-106); LIPASE 62 U/L (23-300); Potassium 3.7 mmol/L (3.5-5.1); SGOT/AST 15 U/L (14-36); SGPT/ALT 15 U/L (0-35); SODIUM 138 mmol/L (137-145); Total Protein 6.9 g/dL (6.3-8.2)
[2018-05-01] MEDS ORDERED: Cyclobenzaprine 10 MG PO ONE (23:32)
[2018-05-01] MEDS ORDERED: Cyclobenzaprine 10 MG ONE (23:41)
[2018-05-02 00:02] VITALS: BP 148/75; PULSE 87; O2SAT 97
--- NOTE | 2018-05-02 09:01 | XRAY ---
Indication: Pain. Comparison: June 09, 2017. Frontal/lateral thoracic spine unchanged again demonstrating minimal scoliosis and minimal multilevel anterior endplate spurring. No new/acute findings.
--- NOTE | 2018-05-02 09:01 | XRAY ---
Indication: Pain. Comparison: October 15, 2015. PA/lateral chest remains slightly underinflated again with right infrahilar infiltrate versus atelectasis. Remaining heart, lungs, and bony thorax normal.
== END 2018-05-02 00:02 | disposition home or self-care (01) ==
LOC: ED 18:23
DX: M62.830 Muscle spasm of back (principal); M54.9 Dorsalgia, unspecified; M54.6 Pain in thoracic spine; R07.9 Chest pain, unspecified; B00.1 Herpesviral vesicular dermatitis; Z79.899 Other long term (current) drug therapy
CPT/HCPCS: 36000; 36415; 71046; 72072; 80053; 83605; 83690; 84484; 85025; 87651; 93005; 96360; 96374; 96375; 99284; J1885; J2060; J2405; A9270-GY

== ENCOUNTER 2019-02-02 08:34 | Observation (INO) | payer BC ==
[2019-02-02] MEDS ORDERED: DUONEB 0.5-3 MG/3 ml Neb IH ONE ×4 (08:54→10:16)
--- NOTE | 2019-02-02 09:00 | ERPHSYRPT ---
- History of Present Illness Time Seen by Provider: 02/02/19 08:45 Source: patient Exam Limitations: no limitations Patient Subjective Stated Complaint: Cough, N&V for past 2 days, coughing yellow sputum Triage Nursing Assessment: Pt went to [facility] and was sent to the ER, lung sounds diminished, appears lethargic, hasn't urinated since yesterday, hypertensive, Physician History: Cough with intermittent fevers for the past two days. Patient was referred to Emergency Department from a [facility] due to having hypoxia. Patient has not urinated since last evening. Timing/Duration: day(s) (2) Cough Quality/Degree: moderate Possible Cause: no prior episodes Modifying Factors: Improves With: nothing Associated Symptoms: fever (intermittent), cough, wheezing, other (intermittent nausea and vomiting), No chest pain/soreness, No dizziness, No earache, No facial pain, No headache, No lightheadedness, No muscle aches, No nasal congestion, No nasal drainage, No shortness of breath, No sinus infection, No sore throat International travel in last 2 weeks: No Allergies/Adverse Reactions: No Known Drug Allergies Allergy (Verified 03/20/18 09:03) Hx Tetanus, Diphtheria Vaccination/Date Given: Yes Hx Influenza Vaccination/Date Given: No Hx Pneumococcal Vaccination/Date Given: No - Review of Systems Constitutional: Fever, Fatigue Eyes: No Symptoms, No Eye Pain, No Vision Changes Ears, Nose, & Throat: No Symptoms, No Nose Congestion, No Nose Discharge, No Throat Pain, No Throat Swelling Respiratory: Cough Cardiac: No Chest Pain, No Edema, No Syncope Abdominal/Gastrointestinal: Nausea, Vomiting, No Abdominal Pain, No Diarrhea, No Hematemesis, No Hematochezia, No Melena Genitourinary Symptoms: No Dysuria, No Hematuria, No Flank Pain Musculoskeletal: No Back Pain, No Neck Pain Skin: No Rash Neurological: No Dizziness, No Focal Weakness, No Sensory Changes, No Tremors Psychological: No Symptoms Endocrine: No Symptoms Hematologic/Lymphatic: No Easy Bleeding, No Easy Bruising All Other Systems: Reviewed and Negative - Past Medical History Pertinent Past Medical History: Yes Neurological History: Migraines ENT History: No Pertinent History Cardiac History: High Cholesterol, Hypertension Respiratory History: No Pertinent History Endocrine Medical History: No Pertinent History Musculoskeletal History: Other GI Medical History: Gallbladder Disease History: No Pertinent History Psycho-Social History: Depression Female Reproductive Disorders: No Pertinent History Other Medical History: BACK SPASMS - Past Surgical History Past Surgical History: Yes Neuro Surgical History: No Pertinent History Cardiac: No Pertinent History Respiratory: No Pertinent History Gastrointestinal: Cholecystectomy Genitourinary: No Pertinent History Musculoskeletal: Orthopedic Surgery Female Surgical History: Section, Other Other Surgical History: ankle repair d&c february. fallopian tube removal(left) - Social History Smoking Status: Never smoker Exposure to second hand smoke: No Drug Use: none Patient Lives Alone: No Significant Family History: no pertinent family hx - Female History Hx Now: No (left ovaries gone) - Nursing Vital Signs Nursing Vital Signs: Initial Vital Signs Temperature 98.9 F 02/02/19 08:37 Pulse Rate 100 H 02/02/19 08:37 Blood Pressure 155/118 02/02/19 08:37 O2 Sat by Pulse Oximetry 91 L 02/02/19 08:37 Pain Scale Pain Intensity 3 - Physical Exam General Appearance: no apparent distress, alert Eye Exam: PERRL/EOMI, eyes nml inspection Ears, Nose, Throat Exam: normal ENT inspection, TMs normal, pharynx normal, moist mucous membranes Neck Exam: normal inspection, non-tender, supple, full range of motion Respiratory Exam: normal breath sounds, lungs clear, airway intact, diminished breath sounds, No respiratory distress, No accessory muscle use, No crackles/ rales, No rhonchi, No wheezing, No stridor Cardiovascular Exam: regular rate/rhythm, normal heart sounds, normal peripheral pulses, capillary refill <2 sec Gastrointestinal/Abdomen Exam: soft, No tenderness Back Exam: normal inspection, No CVA tenderness, No vertebral tenderness Extremity Exam: normal inspection, normal range of motion Neurologic Exam: alert, oriented x 3, 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 Remaining heart, right lung and no pneumothorax normal.) Ordered Tests: Active Orders 24 hr Category Date Time Status Oxygen-ED Only Nasal Cannula 2 lpm Care 02/02/19 11:19 Active CHEST 2 VIEWS (PA AND LAT) Stat Exams 02/02/19 08:57 Completed BLOOD CULTURE Stat Lab 02/02/19 12:34 Ordered CBC W DIFF Stat Lab 02/02/19 09:49 Completed CMP Stat Lab 02/02/19 09:49 Completed CULTURE,URINE Stat Lab 02/02/19 11:03 Received HCG,QUALITATIVE URINE Stat Lab 02/02/19 11:03 Completed Lactic Acid Stat Lab 02/02/19 09:39 Completed UA W/RFX UR CULTURE Stat Lab 02/02/19 11:03 Completed Peak Expiratory Flow Rate ONCE RT 02/02/19 09:07 Active Respiratory Therapy Assessment DAILY RT 02/02/19 09:08 Active Medication Summary Discontinued Medications Generic Name Dose Route Start Last Admin Trade Name Freq PRN Reason Stop Dose Admin Albuterol/Ipratropium 3 ml 02/02/19 08:54 02/02/19 09:04 Duoneb 0.5-3 Mg/3 Ml Neb IH 02/02/19 08:55 3 ml STAT ONE Administration Albuterol/Ipratropium Confirm 02/02/19 08:59 Duoneb 0.5-3 Mg/3 Ml Neb Administered 02/02/19 09:00 Dose 3 ml IH .STK-MED ONE Albuterol/Ipratropium 3 ml 02/02/19 09:56 02/02/19 10:18 Duoneb 0.5-3 Mg/3 Ml Neb IH 02/02/19 09:57 3 ml STAT ONE Administration Albuterol/Ipratropium Confirm 02/02/19 10:16 Duoneb 0.5-3 Mg/3 Ml Neb Administered 02/02/19 10:17 Dose 3 ml IH .STK-MED ONE Sodium Chloride 1,000 mls @ 999 mls/hr 02/02/19 09:25 02/02/19 11:02 Sodium Chloride 0.9% 1000 Ml IV 02/02/19 10:25 Infused .Q1H1M STA Infusion Sodium Chloride Confirm 02/02/19 09:45 Sodium Chloride 0.9% 1000 Ml Administered 02/02/19 09:46 Dose 1,000 mls @ ud .ROUTE .STK-MED ONE Ceftriaxone Sodium/Dextrose 1 g in 50 mls @ 100 mls/hr 02/02/19 11:01 11:59 Rocephin 1 Gm-D5w 50 Ml Bag IV 02/02/19 11:30 Infused STAT STA Infusion Ceftriaxone Sodium/Dextrose Confirm 02/02/19 11:11 Rocephin 1 Gm-D5w 50 Ml Bag Administered 02/02/19 11:12 Dose 1 g in 50 mls @ ud IV .STK-MED ONE Ondansetron HCl 4 mg 02/02/19 09:25 02/02/19 09:47 Zofran 4 Mg/2 Ml Vial IV 02/02/19 09:26 4 mg STAT ONE Administration Ondansetron HCl Confirm 02/02/19 09:45 Zofran 4 Mg/2 Ml Vial Administered 02/02/19 09:46 Dose 4 mg .ROUTE .STK-MED ONE Potassium Chloride 40 meq 02/02/19 11:08 02/02/19 11:27 Klor Con 10 Meq PO 02/02/19 11:09 40 meq STAT ONE Administration Potassium Chloride Confirm 02/02/19 11:24 Klor Con 10 Meq Administered 02/02/19 11:25 Dose 40 meq PO .STK-MED ONE Lab/Rad Data: Laboratory Result Diagrams 02/02/19 09:49 02/02/19 09:49 Laboratory Results 02/02/19 02/02/19 02/02/19 Range/Units 11:03 11:03 09:49 WBC (4.0-10.5) K/mm3 RBC (4.1-5.4) M/mm3 Hgb (12.0-16.0) gm/dl Hct (35-47) % MCV (78-100) fl MCH (26-32) pg MCHC (32-36) g/dl RDW (11.5-14.0) % Plt Count (150-450) K/mm3 MPV (6-9.5) fl Gran % (36.0-66.0) % Eos # (Auto) (0-0.5) Absolute Lymphs (auto) (1.0-4.6) Absolute Monos (auto) (0.0-1.3) Lymphocytes % (24.0-44.0) % Monocytes % (0.0-12.0) % Eosinophils % (0.00-5.0) % Basophils % (0.0-0.4) % Absolute Granulocytes (1.4-6.9) Basophils # (0-0.4) Sodium 142 (137-145) mmol/L Potassium 3.1 L (3.5-5.1) mmol/L Chloride 103 (98-107) mmol/L Carbon Dioxide 32 H (22-30) mmol/L Anion Gap 10.9 (5-15) MEQ/L BUN 16 (7-17) mg/dL Creatinine 0.79 (0.52-1.04) mg/dL Estimated GFR > 60.0 ML/MIN Glucose 114 H (74-106) mg/dL Lactic Acid (0.4-2.0) Calcium 8.7 (8.4-10.2) mg/dL Total Bilirubin 0.70 (0.2-1.3) mg/dL AST 61 H (14-36) U/L ALT 47 H (0-35) U/L Alkaline Phosphatase 124 (38-126) U/L Serum Total Protein 7.2 (6.3-8.2) g/dL Albumin 3.9 (3.5-5.0) g/dL Urine Color YELLOW (YELLOW) Urine Appearance CLOUDY (CLEAR) Urine pH 5.0 (5-6) Ur Specific [place] 1.026 (1.005-1.025) Urine Protein 100 (Negative) Urine Ketones TRACE (NEGATIVE) Urine Blood LARGE (0-5) Av/ul Urine Nitrite NEGATIVE (NEGATIVE) Urine Bilirubin NEGATIVE (NEGATIVE) Urine Urobilinogen 2 (0-1) mg/dL Ur Leukocyte Esterase NEGATIVE (NEGATIVE) Urine WBC (Auto) 6-10 (0-5) /HPF Urine RBC (Auto) >101 (0-2) /HPF U Epithel Cells (Auto) RARE (FEW) /HPF Urine Bacteria (Auto) RARE (NEGATIVE) /HPF Urine Mucus (Auto) MODERATE (NEGATIVE) /HPF Urine Culture Reflexed YES (NO) Urine Glucose NEGATIVE (NEGATIVE) mg/dL Urine HCG, Qual NEGATIVE (Negative) 02/02/19 02/02/19 Range/Units 09:49 09:39 WBC 5.3 (4.0-10.5) K/mm3 RBC 4.22 (4.1-5.4) M/mm3 Hgb 12.3 (12.0-16.0) gm/dl Hct 38.5 (35-47) % MCV 91.2 (78-100) fl MCH 29.1 (26-32) pg MCHC 31.9 L (32-36) g/dl RDW 14.9 H (11.5-14.0) % Plt Count 163 (150-450) K/mm3 MPV 10.5 H (6-9.5) fl Gran % 75.0 H (36.0-66.0) % Eos # (Auto) 0.03 (0-0.5) Absolute Lymphs (auto) 0.78 L (1.0-4.6) Absolute Monos (auto) 0.51 (0.0-1.3) Lymphocytes % 14.6 L (24.0-44.0) % Monocytes % 9.6 (0.0-12.0) % Eosinophils % 0.6 (0.00-5.0) % Basophils % 0.2 (0.0-0.4) % Absolute Granulocytes 4.00 (1.4-6.9) Basophils # 0.01 (0-0.4) Sodium (137-145) mmol/L Potassium (3.5-5.1) mmol/L Chloride (98-107) mmol/L Carbon Dioxide (22-30) mmol/L Anion Gap (5-15) MEQ/L BUN (7-17) mg/dL Creatinine (0.52-1.04) mg/dL Estimated GFR ML/MIN Glucose (74-106) mg/dL Lactic Acid 1.4 (0.4-2.0) Calcium (8.4-10.2) mg/dL Total Bilirubin (0.2-1.3) mg/dL AST (14-36) U/L ALT (0-35) U/L Alkaline Phosphatase (38-126) U/L Serum Total Protein (6.3-8.2) g/dL Albumin (3.5-5.0) g/dL Urine Color (YELLOW) Urine Appearance (CLEAR) Urine pH (5-6) Ur Specific [place] (1.005-1.025) Urine Protein (Negative) Urine Ketones (NEGATIVE) Urine Blood (0-5) Av/ul Urine Nitrite (NEGATIVE) Urine Bilirubin (NEGATIVE) Urine Urobilinogen (0-1) mg/dL Ur Leukocyte Esterase (NEGATIVE) Urine WBC (Auto) (0-5) /HPF Urine RBC (Auto) (0-2) /HPF U Epithel Cells (Auto) (FEW) /HPF Urine Bacteria (Auto) (NEGATIVE) /HPF Urine Mucus (Auto) (NEGATIVE) /HPF Urine Culture Reflexed (NO) Urine Glucose (NEGATIVE) mg/dL Urine HCG, Qual (Negative) - Progress Progress: improved, re-examined Air Movement: good Progress Note: 02/02/19 10:45 Improved airflow throughout 02/02/19 12:30 Patient has not been able to maintain her oxygenation above 88% without nasal cannula oxygen support. 02/02/19 12:[address] Mcmillan, Hospitalist about the patient's case. Dr Mcmillan accepted patient for observation. Blood Culture(s) Obtained: Yes Antibiotics given: Yes Discussed with .: Genevieve Will see patient in: hospital (observation) Counseled pt/family regarding: lab results, diagnosis, need for follow-up, rad results - Departure Departure Disposition: Home, Observation (admit to Dr Mcmillan's service) Clinical Impression: Hypoxia, Hypokalemia, Nausea and vomiting in adult Left lower lobe pneumonia Qualifiers: Pneumonia type: due to unspecified organism Qualified Code(s): J18.1 - Lobar pneumonia, unspecified organism Acute bronchitis Qualifiers: Bronchitis organism: unspecified organism Qualified Code(s): J20.9 - Acute bronchitis, unspecified Condition: Fair Critical Care Time: No Referrals: SAADIA GLASER [Primary Care Provider] - Instructions: Pneumonia, Adult (DC), Cough, Adult (DC) Forms: Work/School Release Form Prescriptions: Albuterol Sulfate [Proair Hfa] 8.5 gm IH Q4H PRN PRN #1 [email or web address] PRN Reason: Wheezing/Chest Congestion Doxycycline Hyclate 100 mg [Vibramycin 100 MG] 100 mg PO BID #20 tab Promethazine/Dextromethorphan [Promethazine-Dm Solution] 5 ml PO Q6-8HPRN PRN # 90 ml PRN Reason: Cough
[2019-02-02] MEDS ORDERED: Zofran 4 MG/2 ML VIAL IV ONE (09:25)
[2019-02-02] MEDS ORDERED: Sodium Chloride 0.9% 1000 ML 1,000 ML IV STA (09:25)
--- NOTE | 2019-02-02 09:39 | XRAY ---
Indication: Cough and hypoxia. Comparison: May 01, 2018. PA/lateral chest demonstrates new subtle left lower lobe interstitial alveolar opacity without consolidation/large effusion. Remaining heart, right lung, and bony thorax normal.
[2019-02-02] MEDS ORDERED: Sodium Chloride 0.9% 1000 ML 1,000 ML ONE (09:45)
[2019-02-02] MEDS ORDERED: Zofran 4 MG/2 ML VIAL ONE (09:45)
[2019-02-02 09:49] LABS: BASOPHIL % 0.2 % (0.0-0.4); Basophil (Absolute #) 0.01 (0-0.4); Eosinophil % 0.6 % (0.00-5.0); Eosinophil (Absolute #) 0.03 (0-0.5); Hematocrit 38.5 % (35-47); Hemoglobin 12.3 gm/dl (12.0-16.0); Lymphocyte (Absolute #) 0.78 (1.0-4.6); Lymphocytes % 14.6 % (24.0-44.0); Mean Cell Volume 91.2 fl (78-100); Mean Corpuscular Hemoglobin 29.1 pg (26-32); Mean Corpuscular Hgb Concent. 31.9 g/dl (32-36); Mean Platelet Volume 10.5 fl (6-9.5); Monocyte (Absolute #) 0.51 (0.0-1.3); Monocytes % 9.6 % (0.0-12.0); Platelet Count 163 K/mm3 (150-450); Red Blood Count 4.22 M/mm3 (4.1-5.4); Red Cell Distribution Width 14.9 % (11.5-14.0); White Blood Count 5.3 K/mm3 (4.0-10.5)
[2019-02-02 10:19] LABS: ALBUMIN 3.9 g/dL (3.5-5.0); ALKALINE PHOSPHATASE 124 U/L (38-126); ANION GAP 10.9 MEQ/L (5-15); BLOOD UREA NITROGEN 16 mg/dL (7-17); CHLORIDE 103 mmol/L (98-107); Calcium 8.7 mg/dL (8.4-10.2); Carbon Dioxide 32 mmol/L (22-30); Creatinine 1 0.79 mg/dL (0.52-1.04); Glucose 114 mg/dL (74-106); Potassium 3.1 mmol/L (3.5-5.1); SGOT/AST 61 U/L (14-36); SGPT/ALT 47 U/L (0-35); SODIUM 142 mmol/L (137-145); Total Protein 7.2 g/dL (6.3-8.2)
[2019-02-02] MEDS ORDERED: ROCEPHIN 1 Gm-D5w 50 ml Bag** 1 G/50 ML IVPB IV STA (11:01)
[2019-02-02] MEDS ORDERED: Klor Con 10 MEQ PO ONE ×2 (11:08→11:24)
[2019-02-02] MEDS ORDERED: ROCEPHIN 1 Gm-D5w 50 ml Bag** 1 G/50 ML IVPB IV ONE (11:11)
[2019-02-02 11:24] LABS: Appearance CLOUDY (CLEAR); Bacteria RARE /HPF (NEGATIVE); Bilirubin NEGATIVE (NEGATIVE); Blood LARGE Ery/ul (0-5); Epithelial Cells RARE /HPF (FEW); Glucose NEGATIVE (NEGATIVE); Ketones TRACE (NEGATIVE); Leukocyte Esterase NEGATIVE (NEGATIVE); Mucus MODERATE /HPF (NEGATIVE); Nitrite NEGATIVE (NEGATIVE); Protein,Urine Dip 100 (Negative); Specific Gravity 1.026 (1.005-1.025); Urobilinogen 2 mg/dL (0-1)
[2019-02-02 11:25] LABS: RBC >101 /HPF (0-2)
[2019-02-02] MEDS ORDERED: TYLENOL 325 MG PO PRN (13:16)
[2019-02-02] MEDS ORDERED: Colace 100 MG PO PRN (13:16)
[2019-02-02] MEDS ORDERED: Zofran 4 MG/2 ML VIAL IV PRN ×3 (13:16→14:25)
[2019-02-02] MEDS: solu-MEDROL 125 MG IV SCH ×2 (13:33→21:22)
[2019-02-02] MEDS: ENOXAPARIN SODIUM SQ SCH (13:35)
[2019-02-02] MEDS: DUONEB 0.5-3 MG/3 ml Neb IH SCH ×3 (14:42→23:07)
[2019-02-02] MEDS: TYLENOL 325 MG PO PRN (15:51)
[2019-02-02] MEDS ORDERED: Tussionex Pennkinetic Susp PO PRN (21:02)
[2019-02-02] MEDS: Sodium Chloride 0.9% 10 ML FLUSH Syringe IV PRN (21:29)
[2019-02-03] MEDS: DUONEB 0.5-3 MG/3 ml Neb IH SCH ×5 (03:44→23:19)
[2019-02-03 05:07] LABS: Hematocrit 37.1 % (35-47); Hemoglobin 11.6 gm/dl (12.0-16.0); Mean Cell Volume 91.2 fl (78-100); Mean Corpuscular Hemoglobin 28.5 pg (26-32); Mean Corpuscular Hgb Concent. 31.3 g/dl (32-36); Mean Platelet Volume 10.3 fl (6-9.5); Platelet Count 186 K/mm3 (150-450); Red Blood Count 4.07 M/mm3 (4.1-5.4); Red Cell Distribution Width 14.6 % (11.5-14.0); White Blood Count 3.5 K/mm3 (4.0-10.5)
[2019-02-03 05:26] LABS: ALBUMIN 3.9 g/dL (3.5-5.0); ALKALINE PHOSPHATASE 122 U/L (38-126); ANION GAP 10.2 MEQ/L (5-15); BLOOD UREA NITROGEN 11 mg/dL (7-17); CHLORIDE 102 mmol/L (98-107); Calcium 8.9 mg/dL (8.4-10.2); Carbon Dioxide 31 mmol/L (22-30); Creatinine 1 0.55 mg/dL (0.52-1.04); Glucose 189 mg/dL (74-106); Potassium 3.4 mmol/L (3.5-5.1); SGOT/AST 50 U/L (14-36); SGPT/ALT 49 U/L (0-35); SODIUM 140 mmol/L (137-145); Total Protein 7.2 g/dL (6.3-8.2)
[2019-02-03] MEDS: solu-MEDROL 125 MG IV SCH (06:18)
[2019-02-03] MEDS: Levofloxacin 500MG/100ML D5W 500 MG/100 ML BAG IV SCH ×2 (07:34→10:33)
--- NOTE | 2019-02-03 08:41 | PCM.HP ---
History of Present Illness - Chief Complaint Chief Complaint: Hypoxia, LLL Pneumonia, Acute Bronchitis, hypokalemia, N/V in adult History of Present Illness: is a 38 year old female pt of Dr. Radha Calvillo who was admitted yesterday through ER with pneumonia. She started having cough abruptly 3d ago, then started running fever at home. She then started vomiting. When she came to ER, she was found to have a pneumonia and was started on IV rocephin. Blood cultures were then drawn. Her lactate was nl. WBC count nl. ER doctor was going to send her home but her O2 sat would not remain in the 90s without O2 per NC. At that time she was on 2L NC; last night she increased her O2 requirement to 3L, then after 0400 she started requiring 10L oximizer. CXR with worsening pna. Pt denies smoking cigarettes or THC or vaping. She does not have hx asthma. She has bronchitis about every other year but hasn't required hospital admissions. - Review of Systems Constitutional: Fever Respiratory: Cough Abdominal/Gastrointestinal: Nausea, Vomiting Psychological: No Anxiety, No Depression, No Suicidal Ideations, No Homicidal Ideations All Other Systems: Reviewed and Negative Medications & Allergies Home Medications: Home Medication List No Reportable Medications [No Reported Medications] 02/02/19 [History Confirmed 02/02/19] Allergies/Adverse Reactions: Allergies Allergy/AdvReac Type Severity Reaction Status Date / Time No Known Drug Allergies Allergy Verified 03/20/18 09:03 - Past Medical History Past Medical History: Yes Neurological History: Migraines ENT History: No Pertinent History Cardiac History: High Cholesterol, Hypertension Respiratory History: No Pertinent History Endocrine Medical History: No Pertinent History Musculoskelatal History: Other GI Medical History: Gallbladder Disease History: No Pertinent History Pyscho-Social History: Depression Reproductive Disorders: No Pertinent History Comment: BACK SPASMS, ectopic preg - Female History Hx Last Menstrual Period: 02/01/19 Are you now?: No (left ovaries gone) - Past Surgical History Past Surgical History: Yes Neuro Surgical History: No Pertinent History Cardiac History: No Pertinent History Respiratory Surgery: No Pertinent History GI Surgical History: Cholecystectomy Genitourinary Surgical Hx: No Pertinent History Musculskeletal Surgical Hx: Orthopedic Surgery Female Surgical History: Section, Other Other Surgical History: ankle repair, d&c. fallopian tube removal(left) - Social History Smoking Status: Never smoker Exposure to second hand smoke: No Alcohol: None Drug Use: none Significant Family History: no pertinent family hx - Physical Exam Vital Signs: Vital Signs - 24 hr Temp Pulse Resp BP Pulse Ox 02/03/19 06:50 87 20 90 L 02/03/19 04:00 98.1 F 86 22 135/65 92 L 02/03/19 03:45 65 20 91 L 02/02/19 23:41 98.2 F 94 H 20 144/81 91 L 02/02/19 23:09 85 20 95 02/02/19 19:55 99.0 F 98 H 20 136/78 93 L 02/02/19 19:46 87 18 94 L 02/02/19 16:35 94 L 02/02/19 15:50 98.8 F 104 H 17 167/83 92 L 02/02/19 14:44 96 H 20 93 L 02/02/19 13:31 98.8 F 94 H 169/81 98 02/02/19 13:28 98.8 F 94 H 18 169/81 98 02/02/19 12:56 91 L 02/02/19 11:52 93 H 141/87 93 L 02/02/19 10:55 113 H 140/71 100 02/02/19 10:20 81 18 98 02/02/19 09:53 94 H 18 141/84 96 02/02/19 09:07 100 H 18 94 L 02/02/19 08:37 98.9 F 100 H 155/118 91 L Oxygen-Last 24 hours O2 Percentage 3 Liters = 32% O2 Percentage 3 Liters = 32% O2 Percentage 3 Liters = 32% O2 Percentage 2 Liters = 28% O2 Percentage 2 Liters = 28% O2 Percentage 2 Liters = 28% Oxygen Flowrate (L/min)-RT 2 General Appearance: no apparent distress, alert, obese Neurologic Exam: oriented x 3, cooperative Eye Exam: eyes nml inspection Ears, Nose, Throat Exam: moist mucous membranes Neck Exam: normal inspection, non-tender, No lymphadenopathy Respiratory Exam: normal breath sounds, lungs clear, No crackles/rales, No rhonchi, No wheezing Gastrointestinal/Abdomen Exam: soft, normal bowel sounds, No tenderness, No distention, No mass, No guarding, No rebound Back Exam: normal inspection, No rash Extremity Exam: normal inspection, No pedal edema, No swelling Skin Exam: normal color, warm, dry, No rash Results - Labs Lab/Micro Results: Lab Results-Last 24 Hours 02/02/19 02/02/19 02/02/19 Range/Units 09:39 09:49 09:49 WBC 5.3 (4.0-10.5) K/mm3 RBC 4.22 (4.1-5.4) M/mm3 Hgb 12.3 (12.0-16.0) gm/dl Hct 38.5 (35-47) % MCV 91.2 (78-100) fl MCH 29.1 (26-32) pg MCHC 31.9 L (32-36) g/dl RDW 14.9 H (11.5-14.0) % Plt Count 163 (150-450) K/mm3 MPV 10.5 H (6-9.5) fl Gran % 75.0 H (36.0-66.0) % Eos # (Auto) 0.03 (0-0.5) Absolute Lymphs (auto) 0.78 L (1.0-4.6) Absolute Monos (auto) 0.51 (0.0-1.3) Lymphocytes % 14.6 L (24.0-44.0) % Monocytes % 9.6 (0.0-12.0) % Eosinophils % 0.6 (0.00-5.0) % Basophils % 0.2 (0.0-0.4) % Absolute Granulocytes 4.00 (1.4-6.9) Basophils # 0.01 (0-0.4) Sodium 142 (137-145) mmol/L Potassium 3.1 L (3.5-5.1) mmol/L Chloride 103 (98-107) mmol/L Carbon Dioxide 32 H (22-30) mmol/L Anion Gap 10.9 (5-15) MEQ/L BUN 16 (7-17) mg/dL Creatinine 0.79 (0.52-1.04) mg/dL Estimated GFR > 60.0 ML/MIN Glucose 114 H (74-106) mg/dL Lactic Acid 1.4 (0.4-2.0) Calcium 8.7 (8.4-10.2) mg/dL Total Bilirubin 0.70 (0.2-1.3) mg/dL AST 61 H (14-36) U/L ALT 47 H (0-35) U/L Alkaline Phosphatase 124 (38-126) U/L Serum Total Protein 7.2 (6.3-8.2) g/dL Albumin 3.9 (3.5-5.0) g/dL Urine Color (YELLOW) Urine Appearance (CLEAR) Urine pH (5-6) Ur Specific [place] (1.005-1.025) Urine Protein (Negative) Urine Ketones (NEGATIVE) Urine Blood (0-5) Av/ul Urine Nitrite (NEGATIVE) Urine Bilirubin (NEGATIVE) Urine Urobilinogen (0-1) mg/dL Ur Leukocyte Esterase (NEGATIVE) Urine WBC (Auto) (0-5) /HPF Urine RBC (Auto) (0-2) /HPF U Epithel Cells (Auto) (FEW) /HPF Urine Bacteria (Auto) (NEGATIVE) /HPF Urine Mucus (Auto) (NEGATIVE) /HPF Urine Culture Reflexed (NO) Urine Glucose (NEGATIVE) mg/dL Urine HCG, Qual (Negative) 02/02/19 02/02/19 02/03/19 Range/Units 11:03 11:03 04:45 WBC 3.5 L (4.0-10.5) K/mm3 RBC 4.07 L (4.1-5.4) M/mm3 Hgb 11.6 L (12.0-16.0) gm/dl Hct 37.1 (35-47) % MCV 91.2 (78-100) fl MCH 28.5 (26-32) pg MCHC 31.3 L (32-36) g/dl RDW 14.6 H (11.5-14.0) % Plt Count 186 (150-450) K/mm3 MPV 10.3 H (6-9.5) fl Gran % (36.0-66.0) % Eos # (Auto) (0-0.5) Absolute Lymphs (auto) (1.0-4.6) Absolute Monos (auto) (0.0-1.3) Lymphocytes % (24.0-44.0) % Monocytes % (0.0-12.0) % Eosinophils % (0.00-5.0) % Basophils % (0.0-0.4) % Absolute Granulocytes (1.4-6.9) Basophils # (0-0.4) Sodium (137-145) mmol/L Potassium (3.5-5.1) mmol/L Chloride (98-107) mmol/L Carbon Dioxide (22-30) mmol/L Anion Gap (5-15) MEQ/L BUN (7-17) mg/dL Creatinine (0.52-1.04) mg/dL Estimated GFR ML/MIN Glucose (74-106) mg/dL Lactic Acid (0.4-2.0) Calcium (8.4-10.2) mg/dL Total Bilirubin (0.2-1.3) mg/dL AST (14-36) U/L ALT (0-35) U/L Alkaline Phosphatase (38-126) U/L Serum Total Protein (6.3-8.2) g/dL Albumin (3.5-5.0) g/dL Urine Color YELLOW (YELLOW) Urine Appearance CLOUDY (CLEAR) Urine pH 5.0 (5-6) Ur Specific [place] 1.026 (1.005-1.025) Urine Protein 100 (Negative) Urine Ketones TRACE (NEGATIVE) Urine Blood LARGE (0-5) Av/ul Urine Nitrite NEGATIVE (NEGATIVE) Urine Bilirubin NEGATIVE (NEGATIVE) Urine Urobilinogen 2 (0-1) mg/dL Ur Leukocyte Esterase NEGATIVE (NEGATIVE) Urine WBC (Auto) 6-10 (0-5) /HPF Urine RBC (Auto) >101 (0-2) /HPF U Epithel Cells (Auto) RARE (FEW) /HPF Urine Bacteria (Auto) RARE (NEGATIVE) /HPF Urine Mucus (Auto) MODERATE (NEGATIVE) /HPF Urine Culture Reflexed YES (NO) Urine Glucose NEGATIVE (NEGATIVE) mg/dL Urine HCG, Qual NEGATIVE (Negative) 02/03/19 Range/Units 04:45 WBC (4.0-10.5) K/mm3 RBC (4.1-5.4) M/mm3 Hgb (12.0-16.0) gm/dl Hct (35-47) % MCV (78-100) fl MCH (26-32) pg MCHC (32-36) g/dl RDW (11.5-14.0) % Plt Count (150-450) K/mm3 MPV (6-9.5) fl Gran % (36.0-66.0) % Eos # (Auto) (0-0.5) Absolute Lymphs (auto) (1.0-4.6) Absolute Monos (auto) (0.0-1.3) Lymphocytes % (24.0-44.0) % Monocytes % (0.0-12.0) % Eosinophils % (0.00-5.0) % Basophils % (0.0-0.4) % Absolute Granulocytes (1.4-6.9) Basophils # (0-0.4) Sodium 140 (137-145) mmol/L Potassium 3.4 L (3.5-5.1) mmol/L Chloride 102 (98-107) mmol/L Carbon Dioxide 31 H (22-30) mmol/L Anion Gap 10.2 (5-15) MEQ/L BUN 11 (7-17) mg/dL Creatinine 0.55 (0.52-1.04) mg/dL Estimated GFR > 60.0 ML/MIN Glucose 189 H (74-106) mg/dL Lactic Acid (0.4-2.0) Calcium 8.9 (8.4-10.2) mg/dL Total Bilirubin 0.50 (0.2-1.3) mg/dL AST 50 H (14-36) U/L ALT 49 H (0-35) U/L Alkaline Phosphatase 122 (38-126) U/L Serum Total Protein 7.2 (6.3-8.2) g/dL Albumin 3.9 (3.5-5.0) g/dL Urine Color (YELLOW) Urine Appearance (CLEAR) Urine pH (5-6) Ur Specific [place] (1.005-1.025) Urine Protein (Negative) Urine Ketones (NEGATIVE) Urine Blood (0-5) Av/ul Urine Nitrite (NEGATIVE) Urine Bilirubin (NEGATIVE) Urine Urobilinogen (0-1) mg/dL Ur Leukocyte Esterase (NEGATIVE) Urine WBC (Auto) (0-5) /HPF Urine RBC (Auto) (0-2) /HPF U Epithel Cells (Auto) (FEW) /HPF Urine Bacteria (Auto) (NEGATIVE) /HPF Urine Mucus (Auto) (NEGATIVE) /HPF Urine Culture Reflexed (NO) Urine Glucose (NEGATIVE) mg/dL Urine HCG, Qual (Negative) Microbiology 02/02/19 11:03 Urine Culture - Preliminary Clean Catch Midstream <10K NORMAL SKIN AIMEE PROBABLE SKIN CONTAMINANT - Radiology Impressions Radiology Exams & Impressions: Radiology Procedures Category Date Time Status CHEST 1 VIEW (PORTABLE) Routine Exams 02/03/19 06:17 Taken CHEST 2 VIEWS (PA AND LAT) Stat Exams 02/02/19 08:57 Completed - Other Procedures and Tests Respiratory Therapy 02/02/19 09:07 Peak Expiratory Flow Rate ONCE 02/02/19 09:08 Respiratory Therapy Assessment DAILY 02/02/19 13:16 EKG PRN Oxygen Nasal Cannula 2 lpm Assessment/Plan (1) Left lower lobe pneumonia Current Visit: Yes Status: Acute Qualifiers: Pneumonia type: due to unspecified organism Qualified Code(s): J18.1 - Lobar pneumonia, unspecified organism Assessment & Plan: She started on IV rocephin; changed to IV levaquin this morning. Code(s): J18.1 - LOBAR PNEUMONIA, UNSPECIFIED ORGANISM (2) Hypoxia Current Visit: Yes Status: Acute Assessment & Plan: Will check ABG. Clinically she is looking good, aside from having a large oxygen requirement. Continue nebs q4h. I have stopped her steroid, she said it made her jittery but didn't seem to help. I anticipate she will start having a lower O2 requirement later on today. Code(s): R09.02 - HYPOXEMIA (3) Nausea and vomiting in adult Current Visit: Yes Status: Resolved Code(s): R11.2 - NAUSEA WITH VOMITING, UNSPECIFIED
[2019-02-03 08:47] LABS: A-aADO2 189; ABG POTASSIUM 3.2 (3.5-5.1); ABG SITE LEFT RADIAL; ALLEN TEST OK? YES; ARTERIAL BLD GAS O2 SATURATION 95.3 % (95-100); ARTERIAL BLOOD GAS BASE EXCESS 4.9 (-2.0-2.0); ARTERIAL BLOOD GAS FIO2 44 %; ARTERIAL BLOOD GAS PCO2 51 mmHg (35-45); ARTERIAL BLOOD GAS PO2 61 mmHg (75-100); ARTERIAL BLOOD GAS pH 7.39 (7.35-7.45); CARBOXYHEMOGLOBIN 1.9 % THgb (0.0-6.9); HCO3- 30.9 (22-28); HGB O2 SAT 92.9 g/dF (94-100); Methhemoglobin 0.6 % (1.4-1.5); paO2 pAO1 0.24
--- NOTE | 2019-02-03 09:03 | XRAY ---
Indication: Decreased oxygenation. Pneumonia. Comparison: February 02, 2019. Portable apical lordotic chest underinflated with new left base consolidation, probable combination of infiltrate/atelectasis/effusion. Also new right base infiltrate/atelectasis with tiny effusion. Heart is not enlarged. No pneumothorax. Comment: Preliminary interpretation was made by [facility]. No critical discrepancy.
[2019-02-03] MEDS: ENOXAPARIN SODIUM SQ SCH (09:53)
[2019-02-03] MEDS: Tussionex Pennkinetic Susp PO PRN (09:55)
[2019-02-03 10:33] LABS: A-aADO2 368; ABG HEMOGLOBIN 12.2; ABG POTASSIUM 3.3 (3.5-5.1); ABG SITE LEFT RADIAL; ALLEN TEST OK? YES; ARTERIAL BLD GAS O2 SATURATION 96.5 % (95-100); ARTERIAL BLOOD GAS BASE EXCESS 4.8 (-2.0-2.0); ARTERIAL BLOOD GAS FIO2 70 %; ARTERIAL BLOOD GAS PCO2 51 mmHg (35-45); ARTERIAL BLOOD GAS PO2 67 mmHg (75-100); ARTERIAL BLOOD GAS pH 7.39 (7.35-7.45); CARBOXYHEMOGLOBIN 2.1 % THgb (0.0-6.9); HCO3- 30.9 (22-28); HGB O2 SAT 93.1 g/dF (94-100); Methhemoglobin 1.4 % (1.4-1.5); paO2 pAO1 0.15
[2019-02-03] MEDS: CEPACOL SORE THROAT LOZENGE PO PRN ×2 (14:32→19:30)
[2019-02-03] MEDS: Sodium Chloride 0.9% 10 ML FLUSH Syringe IV PRN (22:52)
[2019-02-04] MEDS: DUONEB 0.5-3 MG/3 ml Neb IH SCH ×6 (03:05→23:08)
--- NOTE | 2019-02-04 08:18 | PCM.NOTE ---
Date and Time: 02/04/19813 Subjective Assessment: Pt. notes feeling a little better, am oxygen level at 98% on high flow oxygen, still with coughing spells. Apetite about 1/2 normal - Review of Systems Ears, Nose, & Throat: No Symptoms Respiratory: Cough, Short Of Breath Cardiac: No Symptoms Abdominal/Gastrointestinal: No Symptoms Genitourinary Symptoms: No Symptoms Musculoskeletal: No Symptoms Skin: No Symptoms Objective Exam General Appearance: no apparent distress Neurologic Exam: alert Skin Exam: normal color Ears, Nose, Throat Exam: normal ENT inspection Neck Exam: normal inspection Respiratory Exam: diminished breath sounds, crackles/rales, rhonchi Cardiovascular Exam: regular rate/rhythm Gastrointestinal/Abdomen Exam: soft OBJECTIVE DATA Vital Signs: Vital Signs - 24 hr Temp Pulse Resp BP Pulse Ox 02/04/19 08:06 76 18 98 02/04/19 07:27 97.8 F 74 20 163/74 94 L 02/04/19 03:38 97.5 F 61 18 132/60 99 02/04/19 03:07 63 20 96 02/03/19 23:36 98.5 F 77 18 131/59 95 02/03/19 23:22 77 22 95 02/03/19 19:52 98.2 F 87 17 124/55 95 02/03/19 18:52 68 20 95 02/03/19 16:00 97.2 F 79 20 137/81 92 L 02/03/19 12:05 98.1 F 89 20 143/62 90 L 02/03/19 11:06 84 20 94 L Oxygen-Last 24 hours O2 Percentage 50% O2 Percentage 50% O2 Percentage 50% O2 Percentage 50% Oxygen Flowrate (L/min)-RT 30 Oxygen Flowrate (L/min)-RT 30 Oxygen Flowrate (L/min)-RT 30 Pain Assessment - Last Documented Pain Intensity 0 Pain Scale Used 0-10 Pain Scale Intake and Output: Intake & Output 02/01/19 02/02/19 02/03/19 02/04/19 11:59 11:59 11:59 11:59 Intake Total 1540 1440 Output Total 250 Balance 1540 1190 Weight 155.129 kg 159.9 kg 160.5 kg Lab Results: Lab Results-Last 24 Hours 02/03/19 02/03/19 Range/Units 08:40 10:22 Puncture Site LEFT RADIAL LEFT RADIAL pCO2 51 H 51 H (35-45) mmHg pO2 61 L 67 L (75-100) mmHg Base Excess 4.9 H 4.8 H (-2.0-2.0) O2 Saturation 92.9 L 93.1 L (94-100) g/dF ABG pH 7.39 7.39 (7.35-7.45) ABG HCO3 30.9 H* 30.9 H* (22-28) ABG O2 Sat (Measured) 95.3 96.5 (95-100) % Kade Test YES YES A-a Gradient 189 368 a/A Ratio 0.24 0.15 Hemoglobin 12.0 12.2 Carboxyhemoglobin 1.9 2.1 (0.0-6.9) % THgb Methemoglobin 0.6 L 1.4 (1.4-1.5) % Potassium 3.2 L 3.3 L (3.5-5.1) Temperature 37.0 37.0 C POC O2 Flow Rate 44 70 % Radiology Exams: Radiology Procedures Category Date Time Status CHEST 1 VIEW (PORTABLE) Routine Exams 02/03/19 06:17 Completed CHEST 2 VIEWS (PA AND LAT) Stat Exams 02/02/19 08:57 Completed Multi-Disciplinary Progress Notes: Multi-Disciplinary Progress Notes 02/03/19 14:28 Respiratory Note by Cass Ocampo 1400 spo2 96%on 50% and 30 lpm hiflow Initialized on 02/03/19 14:28 - END OF NOTE 02/03/19 09:20 Respiratory Note by Cass Ocampo 0915 placed back on 10lpm oxymask per dr callie lopezg to follow Initialized on 02/03/19 09:20 - END OF NOTE Assessment/Plan (1) Hypoxia Current Visit: Yes Status: Acute Assessment & Plan: continue iv abx, change to nasal cannula in am, abg in am Code(s): R09.02 - HYPOXEMIA (2) Left lower lobe pneumonia Current Visit: Yes Status: Acute Qualifiers: Pneumonia type: due to unspecified organism Qualified Code(s): J18.1 - Lobar pneumonia, unspecified organism Assessment & Plan: continue iv abx Code(s): J18.1 - LOBAR PNEUMONIA, UNSPECIFIED ORGANISM
[2019-02-04] MEDS: Levofloxacin 500MG/100ML D5W 500 MG/100 ML BAG IV SCH (09:24)
[2019-02-04] MEDS: ENOXAPARIN SODIUM SQ SCH (09:31)
[2019-02-04] MEDS: TYLENOL 325 MG PO PRN (17:13)
[2019-02-04] MEDS: Tussionex Pennkinetic Susp PO PRN (20:46)
[2019-02-05] MEDS: DUONEB 0.5-3 MG/3 ml Neb IH SCH ×6 (03:35→23:20)
[2019-02-05 04:24] LABS: Hematocrit 34.7 % (35-47); Hemoglobin 10.8 gm/dl (12.0-16.0); Mean Cell Volume 93.3 fl (78-100); Mean Corpuscular Hgb Concent. 31.1 g/dl (32-36); Mean Platelet Volume 9.7 fl (6-9.5); Platelet Count 178 K/mm3 (150-450); Red Blood Count 3.72 M/mm3 (4.1-5.4); Red Cell Distribution Width 14.9 % (11.5-14.0); White Blood Count 5.4 K/mm3 (4.0-10.5)
[2019-02-05 04:38] LABS: ANION GAP 7.8 MEQ/L (5-15); BLOOD UREA NITROGEN 23 mg/dL (7-17); CHLORIDE 103 mmol/L (98-107); Calcium 8.7 mg/dL (8.4-10.2); Carbon Dioxide 34 mmol/L (22-30); Creatinine 1 0.66 mg/dL (0.52-1.04); Glucose 85 mg/dL (74-106); Potassium 3.1 mmol/L (3.5-5.1); SODIUM 142 mmol/L (137-145)
[2019-02-05 04:57] LABS: ANISOCYTOSIS RARE; Basophilic Stippling RARE; Eosinophil 1 % (0.00-3.0); Hypochromia RARE; Lymphocytes 36 % (24-44); Monocyte 3 % (0.0-12.0); Neutrophils 60 % (36.0-66.0); Platelet Estimate NORMAL (NORMAL); Total Cells Counted 100
[2019-02-05 07:18] LABS: A-aADO2 34; ABG HEMOGLOBIN 11.4; ABG POTASSIUM 2.9 (3.5-5.1); ARTERIAL BLD GAS O2 SATURATION 91.7 % (95-100); ARTERIAL BLOOD GAS BASE EXCESS 7.7 (-2.0-2.0); ARTERIAL BLOOD GAS FIO2 21 %; ARTERIAL BLOOD GAS PCO2 50 mmHg (35-45); ARTERIAL BLOOD GAS PO2 53 mmHg (75-100); ARTERIAL BLOOD GAS pH 7.43 (7.35-7.45); CARBOXYHEMOGLOBIN 1.8 % THgb (0.0-6.9); HCO3- 33.2 (22-28); HGB O2 SAT 89.1 g/dF (94-100); paO2 pAO1 0.61
[2019-02-05 07:19] LABS: ABG SITE LEFT RADIAL; ALLEN TEST OK? YES
--- NOTE | 2019-02-05 08:51 | PCM.NOTE ---
Date and Time: 02/05/19846 Subjective Assessment: Pt. feeling better this am, notes she is starting to cough up sputum, apetite near normal. cxr looks good this am per me. CO2 elevated on blood gas, will order overnight pulse ox, sats consistent 91% on RA, will resume oxygen at 2L and re-evaluate in am, Potassium low this am will add potassium 10meq po dailly. - Review of Systems Constitutional: No Fever, No Chills Ears, Nose, & Throat: No Symptoms Respiratory: No Cough, No Short Of Breath Cardiac: No Chest Pain, No Edema, No Syncope Abdominal/Gastrointestinal: No Abdominal Pain, No Nausea, No Vomiting, No Diarrhea Skin: No Rash Objective Exam General Appearance: no apparent distress, alert Skin Exam: normal color, warm, dry Ears, Nose, Throat Exam: normal ENT inspection, moist mucous membranes Neck Exam: normal inspection, non-tender, supple, full range of motion Respiratory Exam: normal breath sounds, lungs clear, other (improved air exchange this am), No respiratory distress Cardiovascular Exam: regular rate/rhythm, normal heart sounds Gastrointestinal/Abdomen Exam: soft, No tenderness, No mass OBJECTIVE DATA Vital Signs: Vital Signs - 24 hr Temp Pulse Resp BP Pulse Ox 02/05/19 08:00 98.1 F 89 18 135/83 90 L 02/05/19 06:31 85 18 96 02/05/19 04:07 97.9 F 77 18 115/59 98 02/05/19 03:58 70 17 96 02/04/19 23:53 97.6 F 84 20 127/56 92 L 02/04/19 23:08 89 24 92 L 02/04/19 19:33 96 H 18 96 02/04/19 19:27 98.2 F 81 20 141/62 94 L 02/04/19 16:00 98.3 F 97 H 20 136/63 92 L 02/04/19 15:05 68 18 95 02/04/19 12:00 98.1 F 88 20 139/64 96 02/04/19 11:05 73 18 98 Oxygen-Last 24 hours O2 Percentage 2 Liters = 28% Pain Assessment - Last Documented Pain Intensity 0 Pain Scale Used 0-10 Pain Scale Intake and Output: Intake & Output 02/02/19 02/03/19 02/04/19 02/05/19 11:59 11:59 11:59 11:59 Intake Total 1540 1680 1180 Output Total 250 950 Balance 1540 1430 230 Weight 155.129 kg 159.9 kg 160.5 kg 161.5 kg Lab Results: Lab Results-Last 24 Hours 02/05/19 02/05/19 02/05/19 Range/Units 04:00 04:25 04:25 WBC 5.4 (4.0-10.5) K/mm3 RBC 3.72 L (4.1-5.4) M/mm3 Hgb 10.8 L (12.0-16.0) gm/dl Hct 34.7 L (35-47) % MCV 93.3 (78-100) fl MCH 29.0 (26-32) pg MCHC 31.1 L (32-36) g/dl RDW 14.9 H (11.5-14.0) % Plt Count 178 (150-450) K/mm3 MPV 9.7 H (6-9.5) fl Segmented Neutrophils 60 (36.0-66.0) % Lymphocytes (Manual) 36 (24-44) % Monocytes (Manual) 3 (0.0-12.0) % Eosinophils (Manual) 1 (0.00-3.0) % Hypochromia RARE Platelet Estimate NORMAL (NORMAL) RBC Morphology ABNORMAL Basophilic Stippling RARE Anisocytosis RARE Puncture Site LEFT RADIAL pCO2 50 H (35-45) mmHg pO2 53 L (75-100) mmHg Base Excess 7.7 H (-2.0-2.0) O2 Saturation 89.1 L (94-100) g/dF ABG pH 7.43 (7.35-7.45) ABG HCO3 33.2 H* (22-28) ABG O2 Sat (Measured) 91.7 L (95-100) % Kade Test YES A-a Gradient 34 a/A Ratio 0.61 Hemoglobin 11.4 Carboxyhemoglobin 1.8 (0.0-6.9) % THgb Methemoglobin 1.0 L (1.4-1.5) % Potassium 2.9 L* 3.1 L (3.5-5.1) Temperature 37.0 C POC O2 Flow Rate 21 % Sodium 142 (137-145) mmol/L Chloride 103 (98-107) mmol/L Carbon Dioxide 34 H (22-30) mmol/L Anion Gap 7.8 (5-15) MEQ/L BUN 23 H (7-17) mg/dL Creatinine 0.66 (0.52-1.04) mg/dL Estimated GFR > 60.0 ML/MIN Glucose 85 (74-106) mg/dL Calcium 8.7 (8.4-10.2) mg/dL Radiology Exams: Radiology Procedures Category Date Time Status Portable Chest [CHEST 1 VIEW (PORTABLE)] Urgent Exams 02/05/19 07:52 Taken Multi-Disciplinary Progress Notes: Multi-Disciplinary Progress Notes 02/04/19 16:40 Respiratory Note by Cass Ocampo ROOM AIR RESTING 93% Initialized on 02/04/19 16:40 - END OF NOTE 02/04/19 14:45 Respiratory Note by Cass Ocampo spo2 97% on n/c 2lpm. placed on room air Initialized on 02/04/19 14:45 - END OF NOTE 02/04/19 13:35 Respiratory Note by Cass Ocampo spo2 98 on 4lpm dec to 2lpm Initialized on 02/04/19 13:35 - END OF NOTE 02/04/19 13:21 Respiratory Note by Cass Ocampo TAKEN OFF HIFLOW PLACED ON 4LPM N/C Initialized on 02/04/19 13:21 - END OF NOTE 02/04/19 11:18 Respiratory Note by Cass Ocampo DEC FIO2 TO 35% Initialized on 02/04/19 11:18 - END OF NOTE Assessment/Plan (1) Hypoxia Current Visit: Yes Status: Acute Code(s): R09.02 - HYPOXEMIA (2) Left lower lobe pneumonia Current Visit: Yes Status: Acute Qualifiers: Pneumonia type: due to unspecified organism Qualified Code(s): J18.1 - Lobar pneumonia, unspecified organism Code(s): J18.1 - LOBAR PNEUMONIA, UNSPECIFIED ORGANISM
--- NOTE | 2019-02-05 09:02 | XRAY ---
Indication: Follow-up pneumonia. Comparison: February 03, 2019. Portable chest demonstrates little clearing of the previous left base infiltrate/atelectasis/effusion which still persists. Remaining heart and right lung normal. No new cardiopulmonary abnormalities. Comment: Preliminary interpretation was made by [facility]. No critical discrepancy.
[2019-02-05] MEDS: ENOXAPARIN SODIUM SQ SCH (09:14)
[2019-02-05] MEDS: Levofloxacin 500MG/100ML D5W 500 MG/100 ML BAG IV SCH (09:14)
[2019-02-05] MEDS: Klor Con 10 MEQ PO SCH (09:16)
[2019-02-05] MEDS: TYLENOL 325 MG PO PRN (16:21)
[2019-02-06] MEDS: DUONEB 0.5-3 MG/3 ml Neb IH SCH ×2 (02:58→06:51)
[2019-02-06 05:08] LABS: ANION GAP 9.9 MEQ/L (5-15); BLOOD UREA NITROGEN 14 mg/dL (7-17); CHLORIDE 102 mmol/L (98-107); Calcium 8.9 mg/dL (8.4-10.2); Carbon Dioxide 35 mmol/L (22-30); Creatinine 1 0.55 mg/dL (0.52-1.04); Glucose 94 mg/dL (74-106); Potassium 3.2 mmol/L (3.5-5.1); SODIUM 143 mmol/L (137-145)
[2019-02-06 07:00] VITALS: PULSE 82; O2SAT 97
[2019-02-06 07:12] VITALS: BP 151/80
--- NOTE | 2019-02-06 08:31 | PCM.DS ---
Discharge Summary Date of Admission: 02/02/19 13:10 Admitting Physician: SVETA BRITO Primary Care Provider: SAADIA GLASER Allergies Allergies No Known Drug Allergies Allergy (Verified 03/20/18 09:03) Hospital Summary - Hospital Course Hospital Course: Pt is a 38 yo female obese pt of Dr. Radha Glaser who was admitted through ER with LLL pneumonia. Initially she required 2L NC to keep her O2 sats up; she was started on IV rocephin and IV solumedrol. That first night her O2 requirement kept increasing and by morning she was on 10L oximizer. CXR was repeated and had worsened. Clinically, overall, she looked stable. Her antibiotic was switched to levaquin (today would be day #4 of levaquin) and she started to improve. Yesterday she was off O2 most of the day. Overnight she did go down into the 70s when she was off her oxygen. She will go home on 2L NC at night. F/u with PCP in 1 week. Finish 10d of levaquin. Pt was also started on 10mEq potassium daily due to some mild hypokalemia. She is now eating fairly normally. - Vitals & Intake/Output Vital Signs: Vital Signs Temperature 97.9 F 02/06/19 07:11 Pulse Rate 82 02/06/19 07:11 Respiratory Rate 19 02/06/19 07:11 Blood Pressure 151/80 02/06/19 07:11 O2 Sat by Pulse Oximetry 97 02/06/19 07:11 Oxygen-Last Documented O2 Percentage 2 Liters = 28% Intake & Output: Intake & Output 02/03/19 02/04/19 02/05/19 02/06/19 11:59 11:59 11:59 11:59 Intake Total 1540 1680 1180 760 Output Total 928 001 6053 Balance 1540 1430 230 -1340 Weight 159.9 kg 160.5 kg 161.5 kg 161 kg - Lab Result Diagrams: 02/05/19 04:25 02/06/19 04:59 Lab Results-Last 24 Hrs: Lab Results-Last 24 Hours 02/06/19 Range/Units 04:59 Sodium 143 (137-145) mmol/L Potassium 3.2 L (3.5-5.1) mmol/L Chloride 102 (98-107) mmol/L Carbon Dioxide 35 H (22-30) mmol/L Anion Gap 9.9 (5-15) MEQ/L BUN 14 (7-17) mg/dL Creatinine 0.55 (0.52-1.04) mg/dL Estimated GFR > 60.0 ML/MIN Glucose 94 (74-106) mg/dL Calcium 8.9 (8.4-10.2) mg/dL Micro Results-Entire Visit: Microbiology 02/02/19 11:03 Urine Culture - Final Clean Catch Midstream MIXED AIMEE; 3 OR MORE TYPES. NO PREDOMINANT ORGANISM. NO FURTHER WORKUP. PLEASE RESUBMIT IF CLINICALLY INDICATED. 02/02/19 12:57 Blood Culture - Preliminary Blood NO GROWTH TO DATE 02/02/19 12:40 Blood Culture - Preliminary Blood NO GROWTH TO DATE - Radiology Exams Ordered Rad Exams-Entire Visit: Radiology Procedures Category Date Time Status Portable Chest [CHEST 1 VIEW (PORTABLE)] Urgent Exams 02/05/19 07:52 Completed - Procedures and Test Procedures and Tests throughout Hospitalization: Therapy Orders & Screens 02/02/19 09:07 Peak Expiratory Flow Rate ONCE Comment: Reason For Exam: 02/02/19 09:08 Respiratory Therapy Assessment DAILY Comment: 02/02/19 13:16 EKG PRN Comment: Oxygen Nasal Cannula 2 lpm Comment: 02/04/19 19:33 Flutter Therapy UD Comment: Diagnosis: Hypoxia, LLL Pneumonia, Acute Bronchitis, hypokalemia, N/V in adult Discharge Exam General Appearance: no apparent distress, alert, obese Neurologic Exam: oriented x 3, cooperative Eye Exam: eyes nml inspection Ears, Nose, Throat Exam: moist mucous membranes Neck Exam: normal inspection Respiratory Exam: normal breath sounds, lungs clear, No crackles/rales, No rhonchi, No wheezing Cardiovascular Exam: regular rate/rhythm, normal heart sounds, No murmur Gastrointestinal/Abdomen Exam: soft, No normal bowel sounds (hypoactive), No tenderness, No distention, No mass, No guarding, No rebound Extremity Exam: normal inspection, No pedal edema, No swelling Skin Exam: normal color, warm, dry, No rash Final Diagnosis/Problem List - Final Discharge Diagnosis/Problem (1) Left lower lobe pneumonia Current Visit: Yes Status: Acute Assessment & Plan: Much improved. Home today on po levaquin x 6 more days. F/u with PCP in 1 week. Code(s): J18.1 - LOBAR PNEUMONIA, UNSPECIFIED ORGANISM (2) Hypoxia Current Visit: Yes Status: Acute Assessment & Plan: Still has O2 requirement at night- will go home on night time O2 and re-eval in several weeks to ensure that her oxygen is staying up at night. If not, may need sleep study. Code(s): R09.02 - HYPOXEMIA (3) Hypokalemia Current Visit: Yes Status: Acute Assessment & Plan: Home on potassium supplement. Code(s): E87.6 - HYPOKALEMIA - Discharge Disposition: Home, Self-Care Condition: Good Prescriptions: New Albuterol Sulfate [Albuterol Sulfate Hfa] 8.5 gm IH Q4H PRN #1 hfa.aer.ad PRN Reason: SOB/Cough Potassium Chloride 10 Meq Tab* [Klor Con 10 MEQ] 10 meq PO DAILY #30 tab Levofloxacin [Levaquin] 500 mg PO DAILY #6 tablet Instructions: Pneumonia in Adults, Hypokalemia (DC)
[2019-02-06] MEDS: Klor Con 10 MEQ PO SCH (08:32)
[2019-02-06] MEDS: Levofloxacin 500MG/100ML D5W 500 MG/100 ML BAG IV SCH (08:32)
[2019-02-06] MEDS: ENOXAPARIN SODIUM SQ SCH (08:33)
== END 2019-02-06 10:20 | disposition home or self-care (01) ==
LOC: ED 08:34 → MED SURG 13:10
PROVIDERS: ADMIT Family Medicine; ATTEND Family Medicine
DX: J18.1 Lobar pneumonia, unspecified organism (principal); R09.02 Hypoxemia; E87.6 Hypokalemia; I10 Essential (primary) hypertension; E78.00 Pure hypercholesterolemia, unspecified
CPT/HCPCS: 36415; 36600; 71045; 71046; 80048; 80053; 81001; 82375; 82803; 83605; 84703; 85025; 85027; 87040; 87086; 93005; 93268; 94150; 94640; 94667; 94668; 94762; 96360; 96365; 96374; 99285; G0378; J0696; J1650; J1956; J2405; J2930; A9270-GY

== ENCOUNTER 2019-06-16 18:02 | Emergency (ER) | payer BC ==
[2019-06-16] MEDS ORDERED: MORPHINE SULFATE 4 MG INJ IV ONE (19:38)
[2019-06-16] MEDS ORDERED: Zofran 4 MG/2 ML VIAL IV ONE (19:38)
[2019-06-16] MEDS ORDERED: Sodium Chloride 0.9% 1000 ML 1,000 ML IV STA (19:38)
--- NOTE | 2019-06-16 19:42 | ERPHSYRPT ---
- History of Present Illness Time Seen by Provider: 06/16/19 18:51 Source: patient Exam Limitations: no limitations Patient Subjective Stated Complaint: patient was seen at [facility] couple of days ago and she stated they told her she was . Patient states she isnt sure how far along that she was waiting on blood work. Patient states she is having sharp pains in right side of abd that radiates to right flank. Patient states she has had 2 miscarriages and has 1 child that is 18. Patient stated her pain started today and that she has started bleeding today. Patient states she has went through one pad. Triage Nursing Assessment: Patient pushed in w/c by spouse to room. Patient alert and orienated times 4. Patient answers questions appropriatley. ABD assessment with patient states right side tender. + bowel sounds times 4 quads. ABD large,obese,round. Physician History: 38 years old 5 para 1 almost 3 weeks her LMP presented in the ER with chief complaint of right pelvic/right lower quadrant pain sudden onset almost an hour prior to arrival, dull aching sharp, moderate intensity, nonradiating, associated with vaginal bleeding dark to fresh blood but no clots or passing tissues. denies any significant aggravating or relieving factors.Used one pad since then. Does have history of ectopic on the left 2 years ago. Denies any nausea or vomiting. Denies any urinary symptoms. Denies any recent sexual acuity. Timing/Duration: today, sudden, worse Activites at Onset: rest Quality: sharpness Onset Location: RLQ, pelvic pain Severity of Pain-Max: moderate Severity of Pain-Current: moderate Prior abdominal problems: none Modifying Factors: Improves With: movement, palpation Allergies/Adverse Reactions: No Known Drug Allergies Allergy (Verified 06/16/19 19:19) Hx Tetanus, Diphtheria Vaccination/Date Given: Yes Hx Influenza Vaccination/Date Given: Yes Hx Pneumococcal Vaccination/Date Given: No - Review of Systems Constitutional: No Symptoms Eyes: No Symptoms Ears, Nose, & Throat: No Symptoms Respiratory: No Symptoms Cardiac: No Symptoms Abdominal/Gastrointestinal: Abdominal Pain Genitourinary Symptoms: , Vaginal Bleeding, No Dysuria, No Frequency Musculoskeletal: No Symptoms Skin: No Symptoms Neurological: No Symptoms Psychological: No Symptoms Endocrine: No Symptoms Hematologic/Lymphatic: No Symptoms Immunological/Allergic: No Symptoms - Past Medical History Pertinent Past Medical History: Yes Neurological History: Migraines ENT History: No Pertinent History Cardiac History: High Cholesterol, Hypertension Respiratory History: No Pertinent History Endocrine Medical History: No Pertinent History Musculoskeletal History: Other GI Medical History: Gallbladder Disease History: No Pertinent History Psycho-Social History: Depression Female Reproductive Disorders: No Pertinent History Other Medical History: BACK SPASMS, ectopic preg. - Past Surgical History Past Surgical History: Yes Neuro Surgical History: No Pertinent History Cardiac: No Pertinent History Respiratory: No Pertinent History Gastrointestinal: Cholecystectomy Genitourinary: No Pertinent History Musculoskeletal: Orthopedic Surgery Female Surgical History: Section, Other Other Surgical History: ankle repair, d&c. fallopian tube removal(left) - Social History Smoking Status: Never smoker Exposure to second hand smoke: Yes Drug Use: none Patient Lives Alone: No Significant Family History: no pertinent family hx - Female History Hx Last Menstrual Period: 05/24/19 Hx Now: Yes - Nursing Vital Signs Nursing Vital Signs: Initial Vital Signs Temperature 97.9 F 06/16/19 19:20 Pulse Rate 88 06/16/19 19:20 Respiratory Rate 18 06/16/19 19:20 Blood Pressure 170/82 06/16/19 19:20 O2 Sat by Pulse Oximetry 100 06/16/19 19:20 Pain Scale Pain Intensity 3 - Physical Exam General Appearance: no apparent distress Eye Exam: eyes nml inspection Ears, Nose, Throat Exam: normal ENT inspection Neck Exam: normal inspection Respiratory Exam: normal breath sounds, lungs clear Cardiovascular Exam: regular rate/rhythm, normal heart sounds, normal peripheral pulses Gastrointestinal/Abdomen Exam: soft, normal bowel sounds, tenderness (RLQ / pelvic area ), other (negative obturator/psoas sign. He), No distention, No mass, No guarding, No rebound Back Exam: normal inspection, normal range of motion, No CVA tenderness Extremity Exam: normal inspection Neurologic Exam: alert, oriented x 3, cooperative Skin Exam: normal color SpO2 Interpretation: normal SpO2: 100 O2 Delivery: Room Air - Course Nursing assessment & vital signs reviewed: Yes Ordered Tests: Active Orders 24 hr Category Date Time Status IV Insertion STAT Care 06/16/19 19:38 Active NPO (ED) STAT Care 06/16/19 19:38 Active OB <14 WKS 1ST GESTATION [US] Stat Exams 06/16/19 19:39 Completed CBC W DIFF Stat Lab 01/24/20 19:52 Completed HCG QUALITATIVE,SERUM Stat Lab 06/16/19 19:52 Completed HCG, Quantitative (Inhouse) Stat Lab 06/16/19 20:00 Completed UA W/RFX UR CULTURE Stat Lab 06/16/19 23:00 Completed Medication Summary Discontinued Medications Generic Name Dose Route Start Last Admin Trade Name Samiq PRN Reason Stop Dose Admin Sodium Chloride 1,000 mls @ 999 mls/hr 06/16/19 19:38 06/16/19 20:00 Sodium Chloride 0.9% 1000 Ml IV 06/16/19 20:38 999 mls/hr .Q1H1M STA Administration Sodium Chloride Confirm 06/16/19 19:51 Sodium Chloride 0.9% 1000 Ml Administered 06/16/19 19:52 Dose 1,000 mls @ ud .ROUTE .STK-MED ONE Morphine Sulfate 4 mg 06/16/19 19:38 06/16/19 19:57 Morphine Sulfate 4 Mg Inj IV 06/16/19 19:39 4 mg STAT ONE Administration Morphine Sulfate Confirm 06/16/19 19:51 Morphine Sulfate 4 Mg Inj Administered 06/16/19 19:52 Dose 4 mg .ROUTE .STK-MED ONE Ondansetron HCl 4 mg 06/16/19 19:38 06/16/19 19:56 Zofran 4 Mg/2 Ml Vial IV 06/16/19 19:39 4 mg STAT ONE Administration Ondansetron HCl Confirm 06/16/19 19:51 Zofran 4 Mg/2 Ml Vial Administered 06/16/19 19:52 Dose 4 mg .ROUTE .STK-MED ONE Lab/Rad Data: Laboratory Result Diagrams 06/16/19 19:52 Laboratory Results 06/16/19 06/16/19 06/16/19 Range/Units 23:00 22:20 20:00 WBC (4.0-10.5) K/mm3 RBC (4.1-5.4) M/mm3 Hgb (12.0-16.0) gm/dl Hct (35-47) % MCV (78-100) fl MCH (26-32) pg MCHC (32-36) g/dl RDW (11.5-14.0) % Plt Count (150-450) K/mm3 MPV (7.5-11.0) fl Gran % (36.0-66.0) % Eos # (Auto) (0-0.5) Absolute Lymphs (auto) (1.0-4.6) Absolute Monos (auto) (0.0-1.3) Lymphocytes % (24.0-44.0) % Monocytes % (0.0-12.0) % Eosinophils % (0.00-5.0) % Basophils % (0.0-0.4) % Absolute Granulocytes (1.4-6.9) Basophils # (0-0.4) Beta HCG, Quant 487.15 mIU/ml Serum , Qual (Negative) Urine Color YELLOW (YELLOW) Urine Appearance SLIGHTLY CLOUDY (CLEAR) Urine pH 5.0 (5-6) Ur Specific [place] 1.015 (1.005-1.025) Urine Protein NEGATIVE (Negative) Urine Ketones NEGATIVE (NEGATIVE) Urine Blood LARGE (0-5) Av/ul Urine Nitrite NEGATIVE (NEGATIVE) Urine Bilirubin NEGATIVE (NEGATIVE) Urine Urobilinogen NEGATIVE (0-1) mg/dL Ur Leukocyte Esterase NEGATIVE (NEGATIVE) Urine WBC (Auto) 0-2 (0-5) /HPF Urine RBC (Auto) 3-5 (0-2) /HPF U Epithel Cells (Auto) RARE (FEW) /HPF Urine Bacteria (Auto) NONE (NEGATIVE) /HPF Urine Mucus (Auto) SLIGHT (NEGATIVE) /HPF Urine Culture Reflexed NO (NO) Urine Glucose NEGATIVE (NEGATIVE) mg/dL ABO Group O Rh Factor POSITIVE Antibody Screen NEGATIVE (NEGATIVE) 06/16/19 06/16/19 Range/Units 19:52 19:52 WBC 8.3 (4.0-10.5) K/mm3 RBC 3.99 L (4.1-5.4) M/mm3 Hgb 9.8 L (12.0-16.0) gm/dl Hct 32.4 L (35-47) % MCV 81.2 (78-100) fl MCH 24.6 L (26-32) pg MCHC 30.2 L (32-36) g/dl RDW 14.8 H (11.5-14.0) % Plt Count 284 (150-450) K/mm3 MPV 9.4 (7.5-11.0) fl Gran % 72.7 H (36.0-66.0) % Eos # (Auto) 0.30 (0-0.5) Absolute Lymphs (auto) 1.19 (1.0-4.6) Absolute Monos (auto) 0.74 (0.0-1.3) Lymphocytes % 14.3 L (24.0-44.0) % Monocytes % 8.9 (0.0-12.0) % Eosinophils % 3.6 (0.00-5.0) % Basophils % 0.5 (0.0-0.4) % Absolute Granulocytes 6.05 (1.4-6.9) Basophils # 0.04 (0-0.4) Beta HCG, Quant mIU/ml Serum , Qual POSITIVE (Negative) Urine Color (YELLOW) Urine Appearance (CLEAR) Urine pH (5-6) Ur Specific [place] (1.005-1.025) Urine Protein (Negative) Urine Ketones (NEGATIVE) Urine Blood (0-5) Av/ul Urine Nitrite (NEGATIVE) Urine Bilirubin (NEGATIVE) Urine Urobilinogen (0-1) mg/dL Ur Leukocyte Esterase (NEGATIVE) Urine WBC (Auto) (0-5) /HPF Urine RBC (Auto) (0-2) /HPF U Epithel Cells (Auto) (FEW) /HPF Urine Bacteria (Auto) (NEGATIVE) /HPF Urine Mucus (Auto) (NEGATIVE) /HPF Urine Culture Reflexed (NO) Urine Glucose (NEGATIVE) mg/dL ABO Group Rh Factor Antibody Screen (NEGATIVE) - Progress Progress: improved, re-examined Air Movement: good Progress Note: 38 years old is evaluated for several months of right pelvic/lower quadrant pain with vaginal bleeding. She does have a history of ectopic .6 she is given IV fluid and one-time dose of morphine, reevaluation her pain is much improved. I hoping for some which is negative for any ectopic mass. Could not see any intrauterine sac. This could be too early in her beta-hCG is only 487. She has normal white count, nontoxic appearance. discussed with patient about possible acute appendicitis as it cannot be ruled out and may need to observe in the hospital with serial exams her MRI but patient wants to go home.I have observed her in the ER for almost 5 hours and reevaluation her pain is completely resolved prior to discharge. Discussed the patient about symptoms signs of worsening return to ER which he seemed understanding. She is advised to follow up with her primary OB/primary care for reevaluation and recheck of beta hCG which he would. This patient is being discharged. Blood Culture(s) Obtained: No Antibiotics given: No Counseled pt/family regarding: lab results, diagnosis, need for follow-up, rad results - Departure Departure Disposition: Home Clinical Impression: Vaginal bleeding affecting early Pelvic pain affecting Qualifiers: Trimester: first trimester Qualified Code(s): O26.891 - Other specified related conditions, first trimester Condition: Stable Critical Care Time: No Referrals: SAADIA GLASER [Primary Care Provider] - Instructions: Bleeding With (DC) Additional Instructions: Take Tylenol as needed. Follow up with your obstetrics for reevaluation in 2 days. Drink plenty of fluids. Return to the ER for worsening pain, vomiting, fever chills etc.
[2019-06-16] MEDS ORDERED: Sodium Chloride 0.9% 1000 ML 1,000 ML ONE (19:51)
[2019-06-16] MEDS ORDERED: MORPHINE SULFATE 4 MG INJ ONE (19:51)
[2019-06-16] MEDS ORDERED: Zofran 4 MG/2 ML VIAL ONE (19:51)
[2019-06-16 19:56] LABS: Absolute Neutrophil Ct (ANC) 6.05 (1.4-6.9); BASOPHIL % 0.5 % (0.0-0.4); Basophil (Absolute #) 0.04 (0-0.4); Eosinophil % 3.6 % (0.00-5.0); Hematocrit 32.4 % (35-47); Hemoglobin 9.8 gm/dl (12.0-16.0); Lymphocyte (Absolute #) 1.19 (1.0-4.6); Lymphocytes % 14.3 % (24.0-44.0); Mean Cell Volume 81.2 fl (78-100); Mean Corpuscular Hemoglobin 24.6 pg (26-32); Mean Corpuscular Hgb Concent. 30.2 g/dl (32-36); Mean Platelet Volume 9.4 fl (7.5-11.0); Monocyte (Absolute #) 0.74 (0.0-1.3); Monocytes % 8.9 % (0.0-12.0); Neutrophil % 72.7 % (36.0-66.0); Platelet Count 284 K/mm3 (150-450); Red Blood Count 3.99 M/mm3 (4.1-5.4); Red Cell Distribution Width 14.8 % (11.5-14.0); White Blood Count 8.3 K/mm3 (4.0-10.5)
--- NOTE | 2019-06-16 22:31 | XRAY ---
Indication: Right lower quadrant pain. 3 weeks by last menstrual period. Two-dimensional transabdominal early OB ultrasound performed. Comparison: None Uterus is anteverted without intrauterine gestational sac, pole, or heart tones. Endometrial stripe measures 6.8 mm. No endometrial cavity fluid collection. Left ovary measures 8.2 x 7.2 x 7.6 cm with normal perfusion. Left ovary demonstrates a 8.2 x 7.5 x 6.6 cm anechoic cyst. Right ovary measures 3.1 x 2.3 x 3.6 cm with normal perfusion. No solid adnexal mass, ectopic , or free fluid. Impression: 1. 8.2 cm left ovary anechoic cyst. 2. Negative for intrauterine/ectopic . Correlate with serial beta hCG and follow-up sonogram. Comment: Preliminary report was given.
[2019-06-16 23:15] LABS: Appearance SLIGHTLY CLOUDY (CLEAR); Bilirubin NEGATIVE (NEGATIVE); Blood LARGE Ery/ul (0-5); Epithelial Cells RARE /HPF (FEW); Glucose NEGATIVE (NEGATIVE); Ketones NEGATIVE (NEGATIVE); Leukocyte Esterase NEGATIVE (NEGATIVE); Mucus SLIGHT /HPF (NEGATIVE); Nitrite NEGATIVE (NEGATIVE); Protein,Urine Dip NEGATIVE (Negative); Specific Gravity 1.015 (1.005-1.025); Urobilinogen NEGATIVE mg/dL (0-1); WBC 0-2 /HPF (0-5)
[2019-06-16 23:24] LABS: ABO TYPING O; Antibody Screen NEGATIVE (NEGATIVE); RH TYPING POSITIVE
[2019-06-17 00:03] VITALS: BP 152/78; PULSE 84; O2SAT 96
== END 2019-06-17 00:06 | disposition home or self-care (01) ==
LOC: ED 18:02
DX: O20.9 Hemorrhage in early pregnancy, unspecified (principal); Z3A.01 Less than 8 weeks gestation of pregnancy
CPT/HCPCS: 36000; 36415; 76801; 81001; 81025; 84702; 85025; 86850; 86900; 86901; 96360; 96374; 96375; 99284; J2270; J2405

== ENCOUNTER 2019-08-01 06:27 | Day surgery (SDC) | payer BC ==
[2019-08-01] MEDS ORDERED: Lactated Ringers 1,000 ML IV SCH (07:30)
[2019-08-01] MEDS ORDERED: SUBLIMAZE 100 MCG/2 ML ONE ×2 (08:34→09:48)
[2019-08-01] MEDS ORDERED: Zofran 4 MG/2 ML VIAL ONE (08:34)
[2019-08-01] MEDS ORDERED: Decadron 4 MG INJ ONE (08:34)
[2019-08-01] MEDS ORDERED: DIPRIVAN 200 MG/20 ML IV ONE (08:34)
[2019-08-01] MEDS ORDERED: Versed 2 MG/2 ML Injection ONE (08:35)
[2019-08-01] MEDS ORDERED: Xylocaine-Mpf 2% 5 Ml Vial ONE (08:37)
[2019-08-01] MEDS ORDERED: KEFZOL 1 GM ONE (09:23)
[2019-08-01] MEDS ORDERED: Zemuron 100 MG/10 ML ONE (09:28)
[2019-08-01] MEDS ORDERED: BRIDION 200MG/2ML IV ONE (09:33)
[2019-08-01 11:02] VITALS: PULSE 53
[2019-08-01 11:16] VITALS: BP 157/84; O2SAT 92
--- NOTE | 2019-08-02 08:52 | OP ---
SURGERY DATE/TIME: 08/01/201913 PREOPERATIVE DIAGNOSES: 1) Menorrhagia. 2) Enlarged uterus. POSTOPERATIVE DIAGNOSES: 1) Menorrhagia. 2) Enlarged uterus. PROCEDURE: Hysteroscopy D&C with Novasure ablation. SURGEON: Soto Sommers D.O. BUSINESS PROJECT ANALYST: Isaac Kim surgical endoscopist. ANESTHESIA: General. ESTIMATED BLOOD LOSS: Minimal. COMPLICATIONS: None. INDICATIONS: The risks, benefits, indications and alternatives of the procedure were reviewed with the patient prior to the procedure. The patient understood the risk of infection, bleeding, bowel injury, bladder injury, ureteral injury, uterine perforation, pelvic infection, thromboembolic disorder associated with the surgery and desires to have this surgery as a possible need to alleviate her current medical condition. DESCRIPTION OF PROCEDURE AND FINDINGS: At this point the patient is taken to the operating room, given general sedation, placed in dorsal lithotomy position. Prepped and draped in the usual sterile fashion. A weighted speculum is then placed in the patient's vagina and the anterior lip of the cervix is grasped with a single tooth tenaculum. Endocervical dilators were advanced through the endocervical canal as a means to dilate the cervix and the uterus sounded to approximately 9 to 10 cm. From this point a 5 mm hysteroscope was then placed in through the endocervical canal where visualization of the uterine cavity appeared to be within normal limits with no gross abnormalities that were noted. From this point the hysteroscope was then removed and the curette was then placed into the fundus of the uterus and curettage was performed in all quadrants of the uterus retrieving a mild to moderate amount of endometrial tissue. From this point hemostasis was obtained. From this point the Novasure was then used and was measured at 6.0 cm in length and was taken through the endocervical canal where it reached the fundal region and retracted approximately 1 cm and was engaged with a width of 4.8 cm. After engagement the machine was turned on for an ablative time of approximately 90 seconds. After completion of the ablation, the Novasure was then disengaged and removed from the uterine cavity without complication. From this point, the patient was then taken out of the dorsal lithotomy position, was taken out of anesthesia and was then taken to the recovery room in stable condition. All instruments and laps were accounted for x2.
== END 2019-08-01 11:30 | disposition home or self-care (01) ==
LOC: SDC 06:27
PROVIDERS: ATTEND Obstetrics & Gynecology
DX: N92.0 Excessive and frequent menstruation with regular cycle (principal); N85.2 Hypertrophy of uterus
CPT/HCPCS: 84703; 88305; J0690; J1100; J2250; J2405; J2704; J3010

== ENCOUNTER 2021-12-23 11:08 | Emergency (ER) | payer BC ==
[2021-12-23] MEDS ORDERED: Hydromorphone 1 mg/ml Injection IV ONE (11:30)
[2021-12-23] MEDS ORDERED: Sodium Chloride 0.9% 1000 ML 1,000 ML IV STA (11:30)
[2021-12-23] MEDS ORDERED: Hydromorphone 1 mg/ml Injection ONE (11:47)
[2021-12-23] MEDS ORDERED: Sodium Chloride 0.9% 1000 ML 1,000 ML ONE (11:47)
[2021-12-23 11:55] LABS: Basophil (Absolute #) 0.04 x10^3/uL (0-0.4); Eosinophil % 3.8 % (0.00-5.0); Eosinophil (Absolute #) 0.28 x10^3/uL (0-0.5); Hemoglobin 12.7 g/dL (12.0-16.0); Lymphocyte (Absolute #) 1.55 x10^3/uL (1.0-4.6); Lymphocytes % 20.9 % (24.0-44.0); Mean Cell Volume 93.7 fL (78-100); Mean Corpuscular Hemoglobin 29.7 pg (26-32); Mean Corpuscular Hgb Concent. 31.8 g/dL (32-36); Mean Platelet Volume 9.5 fL (7.5-11.0); Monocyte (Absolute #) 0.51 x10^3/uL (0.0-1.3); Monocytes % 6.9 % (0.0-12.0); Neutrophil % 67.6 % (36.0-66.0); Platelet Count 273 x10^3/uL (150-450); Red Blood Count 4.27 x10^6/uL (4.1-5.4); White Blood Count 7.4 x10^3/uL (4.0-10.5)
--- NOTE | 2021-12-23 12:04 | ERPHSYRPT ---
- History of Present Illness Time Seen by Provider: 12/23/21 11:40 Source: patient Exam Limitations: no limitations Patient Subjective Stated Complaint: pt states "I have been having ovarian pain." Triage Nursing Assessment: pt ambulated into the er; pt is axo x4; c/o left abd pain; pt states 7/10 pain to LLQ; pt states hx of ablation 2 years ago; pt denies menstral cycles until last last; pt c/o heavy bleeding and large clots; abd is obese and soft; hypoactive bowel sounds in all quads; hypertensive Physician History: Patient is a 41-year-old white female who is 5 para 1 AB 4 who presents with left side pain associated with vaginal bleeding and heavy clots. Most importantly 2 years ago she had an ablation and had no bleeding until today. Timing/Duration: yesterday Activites at Onset: none Quality: cramping Onset Location: LLQ, pelvic pain (Left-sided) Severity of Pain-Max: moderate Severity of Pain-Current: moderate Sexual intercourse history: non-contributory Modifying Factors: Improves With: nothing Allergies/Adverse Reactions: No Known Drug Allergies Allergy (Verified 12/23/21 11:25) Home Medications: Albuterol Common Canister [Ventolin Common Canister] 2 puff IH Q4HPRN PRN 07/21/19 [History] lisinopriL [Zestril] 20 mg PO DAILY 08/01/19 [History] Amlodipine Besylate 10 mg PO DAILY 12/23/21 [History] Aspirin [Aspirin EC] 81 mg PO DAILY 12/23/21 [History] Omeprazole 20 mg PO DAILY 12/23/21 [History] Rimegepant Sulfate [Nurtec Odt] 75 mg pe PO DAILY PRN 12/23/21 [History] Rosuvastatin Calcium 20 mg PO HS 12/23/21 [History] Topiramate [Topamax] 50 mg PO BID 12/23/21 [History] clonazePAM [Clonazepam] 0.5 mg PO DAILY PRN 12/23/21 [History] Hx Tetanus, Diphtheria Vaccination/Date Given: No (unknown) Hx Influenza Vaccination/Date Given: Yes Hx Pneumococcal Vaccination/Date Given: No Travel Risk - International Travel Have you traveled outside of the country in past 3 weeks: No - Coronavirus Screening Are you exhibiting any of the following symptoms?: No Close contact with a COVID-19 positive Pt in past 14-21 Days: No - Vaccine Status Have you recieved a Covid-19 vaccination: Yes 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 - Vaccination Dates Date of 2cond Vaccination (if applicable): 08/12 - Review of Systems Constitutional: No Fever, No Chills Eyes: No Symptoms Ears, Nose, & Throat: No Symptoms Respiratory: No Cough, No Dyspnea Cardiac: No Chest Pain, No Edema, No Syncope Abdominal/Gastrointestinal: Abdominal Pain, No Nausea, No Vomiting, No Diarrhea Genitourinary Symptoms: Flank Pain, Vaginal Bleeding, No Dysuria Musculoskeletal: No Back Pain, No Neck Pain Skin: No Rash Neurological: No Dizziness, No Focal Weakness, No Sensory Changes Psychological: No Symptoms Endocrine: No Symptoms All Other Systems: Reviewed and Negative - Past Medical History Pertinent Past Medical History: Yes Neurological History: Migraines ENT History: No Pertinent History Cardiac History: High Cholesterol, Hypertension Respiratory History: Asthma Endocrine Medical History: No Pertinent History Musculoskeletal History: Other GI Medical History: GERD, Gallbladder Disease History: No Pertinent History Psycho-Social History: Anxiety, Depression Female Reproductive Disorders: No Pertinent History Other Medical History: BACK SPASMS, ectopic preg. - Past Surgical History Past Surgical History: Yes Neuro Surgical History: No Pertinent History Cardiac: No Pertinent History Respiratory: No Pertinent History Gastrointestinal: Cholecystectomy Genitourinary: No Pertinent History Musculoskeletal: Orthopedic Surgery Female Surgical History: Section, Other Other Surgical History: ankle repair, d&c. fallopian tube removal(left) - Social History Smoking Status: Never smoker Exposure to second hand smoke: No Drug Use: none Patient Lives Alone: No Significant Family History: no pertinent family hx - Female History Hx Now: No - Nursing Vital Signs Nursing Vital Signs: Initial Vital Signs Temperature 97.8 F 12/23/21 11:33 Pulse Rate 80 12/23/21 11:33 Respiratory Rate 20 12/23/21 11:33 Blood Pressure 146/79 12/23/21 11:33 O2 Sat by Pulse Oximetry 98 12/23/21 11:33 Pain Scale Pain Intensity 4 - Physical Exam General Appearance: mild distress, alert Eye Exam: PERRL/EOMI, eyes nml inspection Ears, Nose, Throat Exam: normal ENT inspection, TMs normal, pharynx normal, moist mucous membranes Neck Exam: normal inspection, non-tender, supple, full range of motion Respiratory Exam: normal breath sounds, lungs clear, No respiratory distress Cardiovascular Exam: regular rate/rhythm, normal heart sounds, normal peripheral pulses Gastrointestinal/Abdomen Exam: soft, tenderness (Left lower quadrant and suprapubic area), No mass Pelvic Exam: deferred (Deferred for ultrasound), vaginal bleeding Rectal Exam: deferred Back Exam: normal inspection, normal range of motion, No CVA tenderness, No vertebral tenderness Extremity Exam: normal inspection, normal range of motion, pelvis stable Neurologic Exam: alert, oriented x 3, cooperative, 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 as tested, normal mood/affect, sensation nml, No motor deficits Skin Exam: normal color, warm, dry Lymphatic Exam: No adenopathy SpO2: 98 - Course Nursing assessment & vital signs reviewed: Yes - Radiology Ultrasound Exam Pelvis Ultrasound: negative Ordered Tests: Active Orders 24 hr Category Date Time Status IV Insertion STAT Care 12/23/21 11:30 Active PELVIC [US] Stat Exams 12/23/21 11:31 Completed CBC W DIFF Stat Lab 12/23/21 11:50 Completed CMP Stat Lab 12/23/21 11:50 Completed HCG QUALITATIVE,SERUM Stat Lab 12/23/21 11:50 Completed UA W/RFX CULTURE Stat Lab 12/23/21 11:59 Completed Medication Summary Discontinued Medications Generic Name Dose Route Start Last Admin Trade Name Samiq PRN Reason Stop Dose Admin Hydromorphone HCl 1 mg 12/23/21 11:30 12/23/21 11:48 Hydromorphone 1 Mg/1ml Inj 1 Mg/Ml Syringe IV 12/23/21 11:31 1 mg STAT ONE Administration Hydromorphone HCl Confirm 12/23/21 11:47 Hydromorphone 1 Mg/1ml Inj 1 Mg/Ml Syringe Administered 12/23/21 11:48 Dose 1 mg .ROUTE .STK-MED ONE Sodium Chloride 1,000 mls @ 999 mls/hr 12/23/21 11:30 12/23/21 11:48 Sodium Chloride 0.9% 1000 Ml IV 12/23/21 12:30 999 mls/hr .Q1H1M STA Administration Sodium Chloride Confirm 12/23/21 11:47 Sodium Chloride 0.9% 1000 Ml Administered 12/23/21 11:48 Dose 1,000 mls @ ud .ROUTE .STK-MED ONE Lab/Rad Data: Laboratory Result Diagrams 12/23/21 11:50 12/23/21 11:50 Laboratory Results 12/23/21 12/23/21 12/23/21 Range/Units 11:59 11:50 11:50 WBC (4.0-10.5) x10^3/uL RBC (4.1-5.4) x10^6/uL Hgb (12.0-16.0) g/dL Hct (35-47) % MCV (78-100) fL MCH (26-32) pg MCHC (32-36) g/dL RDW (11.5-14.0) % Plt Count (150-450) x10^3/uL MPV (7.5-11.0) fL Gran % (36.0-66.0) % Immature Gran % (Auto) (0.00-0.4) % Nucleat RBC Rel Count (0.00-0.1) % Eos # (Auto) (0-0.5) x10^3/uL Immature Gran # (Auto) (0.00-0.03) x10^3u/L Absolute Lymphs (auto) (1.0-4.6) x10^3/uL Absolute Monos (auto) (0.0-1.3) x10^3/uL Absolute Nucleated RBC (0.00-0.01) x10^3u/L Lymphocytes % (24.0-44.0) % Monocytes % (0.0-12.0) % Eosinophils % (0.00-5.0) % Basophils % (0.0-0.4) % Absolute Granulocytes (1.4-6.9) x10^3/uL Basophils # (0-0.4) x10^3/uL Sodium 141 (137-145) mmol/L Potassium 4.0 (3.5-5.1) mmol/L Chloride 106 (98-107) mmol/L Carbon Dioxide 23 (22-30) mmol/L Anion Gap 15.3 H (5-15) MEQ/L BUN 22 H (7-17) mg/dL Creatinine 1.00 (0.52-1.04) mg/dL Estimated GFR > 60.0 ML/MIN Glucose 102 (74-106) mg/dL Calcium 9.2 (8.4-10.2) mg/dL Total Bilirubin 0.70 (0.2-1.3) mg/dL AST 42 H (14-36) U/L ALT 40 H (0-35) U/L Alkaline Phosphatase 135 H (38-126) U/L Serum Total Protein 7.7 (6.3-8.2) g/dL Albumin 4.3 (3.5-5.0) g/dL Serum , Qual NEGATIVE (Negative) Urinalys Dipstick Clnc MAIN LAB Urine Color YELLOW (YELLOW) Urine Appearance CLEAR (CLEAR) Urine pH 5.5 (5-6) Ur Specific [place] >=1.030 (1.005-1.025) POC Urine Protein Conf NEGATIVE (Negative) Urine Ketones NEGATIVE (NEGATIVE) Urine Nitrite NEGATIVE (NEGATIVE) Urine Bilirubin NEGATIVE (NEGATIVE) Urine Urobilinogen 0.2 (0-1) mg/dL Urine Leukocytes NEGATIVE (NEGATIVE) Urine WBC (Auto) 0-2 (0-5) /HPF Urine RBC (Auto) 0-2 (0-2) /HPF U Hyaline Cast (Auto) 0-2 (0-2) /LPF U Epithel Cells (Auto) RARE (FEW) /HPF Urine Bacteria (Auto) RARE (NEGATIVE) /HPF Urine RBC SMALL (0-5) Av/ul Urine Mucus (Auto) SLIGHT (NEGATIVE) /HPF Ur Culture Indicated? NO Urine Glucose NEGATIVE (NEGATIVE) mg/dL 12/23/21 Range/Units 11:50 WBC 7.4 (4.0-10.5) x10^3/uL RBC 4.27 (4.1-5.4) x10^6/uL Hgb 12.7 (12.0-16.0) g/dL Hct 40.0 (35-47) % MCV 93.7 (78-100) fL MCH 29.7 (26-32) pg MCHC 31.8 L (32-36) g/dL RDW 13.0 (11.5-14.0) % Plt Count 273 (150-450) x10^3/uL MPV 9.5 (7.5-11.0) fL Gran % 67.6 H (36.0-66.0) % Immature Gran % (Auto) 0.3 (0.00-0.4) % Nucleat RBC Rel Count 0.0 (0.00-0.1) % Eos # (Auto) 0.28 (0-0.5) x10^3/uL Immature Gran # (Auto) 0.02 (0.00-0.03) x10^3u/L Absolute Lymphs (auto) 1.55 (1.0-4.6) x10^3/uL Absolute Monos (auto) 0.51 (0.0-1.3) x10^3/uL Absolute Nucleated RBC 0.00 (0.00-0.01) x10^3u/L Lymphocytes % 20.9 L (24.0-44.0) % Monocytes % 6.9 (0.0-12.0) % Eosinophils % 3.8 (0.00-5.0) % Basophils % 0.5 (0.0-0.4) % Absolute Granulocytes 5.00 (1.4-6.9) x10^3/uL Basophils # 0.04 (0-0.4) x10^3/uL Sodium (137-145) mmol/L Potassium (3.5-5.1) mmol/L Chloride (98-107) mmol/L Carbon Dioxide (22-30) mmol/L Anion Gap (5-15) MEQ/L BUN (7-17) mg/dL Creatinine (0.52-1.04) mg/dL Estimated GFR ML/MIN Glucose (74-106) mg/dL Calcium (8.4-10.2) mg/dL Total Bilirubin (0.2-1.3) mg/dL AST (14-36) U/L ALT (0-35) U/L Alkaline Phosphatase (38-126) U/L Serum Total Protein (6.3-8.2) g/dL Albumin (3.5-5.0) g/dL Serum , Qual (Negative) Urinalys Dipstick Clnc Urine Color (YELLOW) Urine Appearance (CLEAR) Urine pH (5-6) Ur Specific [place] (1.005-1.025) POC Urine Protein Conf (Negative) Urine Ketones (NEGATIVE) Urine Nitrite (NEGATIVE) Urine Bilirubin (NEGATIVE) Urine Urobilinogen (0-1) mg/dL Urine Leukocytes (NEGATIVE) Urine WBC (Auto) (0-5) /HPF Urine RBC (Auto) (0-2) /HPF U Hyaline Cast (Auto) (0-2) /LPF U Epithel Cells (Auto) (FEW) /HPF Urine Bacteria (Auto) (NEGATIVE) /HPF Urine RBC (0-5) Av/ul Urine Mucus (Auto) (NEGATIVE) /HPF Ur Culture Indicated? Urine Glucose (NEGATIVE) mg/dL - Progress Progress: unchanged Air Movement: good Blood Culture(s) Obtained: No Antibiotics given: No Discussed with : Wilma Will see patient in: office - Departure Departure Disposition: Home Clinical Impression: Vaginal bleeding Condition: Stable Critical Care Time: No Referrals: SAADIA GLASER [Primary Care Provider] - Follow up/PCP as directed Instructions: Heavy Periods (DC) Prescriptions: Hydrocodone/Acetaminophen [Hydrocodone-Acetamin 5-325 mg] 1 tab PO Q6HPRN PRN 3 Days #12 tablet MDD 4 PRN Reason: Pain Tranexamic Acid 650 mg PO TID PRN 5 Days #15 tablet PRN Reason: bleeding
[2021-12-23 12:12] LABS: Bacteria RARE /HPF (NEGATIVE); Epithelial Cells RARE /HPF (FEW); Hyaline Casts 0-2 /LPF (0-2); Mucus SLIGHT /HPF (NEGATIVE); RBC 0-2 /HPF (0-2); WBC 0-2 /HPF (0-5)
[2021-12-23 12:13] LABS: Appearance CLEAR (CLEAR); Bilirubin NEGATIVE (NEGATIVE); Glucose NEGATIVE (NEGATIVE); Ketones NEGATIVE (NEGATIVE); Nitrite NEGATIVE (NEGATIVE); Ph 5.5 (5-6); Protein,Urine Dip NEGATIVE (Negative); RBC SMALL Ery/ul (0-5); Specific Gravity >=1.030 (1.005-1.025); Urine Cultured Indicated? NO; Urobilinogen 0.2 mg/dL (0-1)
[2021-12-23 12:13] LABS: ALBUMIN 4.3 g/dL (3.5-5.0); ALKALINE PHOSPHATASE 135 U/L (38-126); ANION GAP 15.3 MEQ/L (5-15); BLOOD UREA NITROGEN 22 mg/dL (7-17); CHLORIDE 106 mmol/L (98-107); Calcium 9.2 mg/dL (8.4-10.2); Carbon Dioxide 23 mmol/L (22-30); EST GLOMERULAR FILTRATION RATE > 60.0 ML/MIN; Glucose 102 mg/dL (74-106); SGOT/AST 42 U/L (14-36); SGPT/ALT 40 U/L (0-35); SODIUM 141 mmol/L (137-145); Total Protein 7.7 g/dL (6.3-8.2)
[2021-12-23 12:14] LABS: Dipstick done @ ? MAIN LAB
--- NOTE | 2021-12-23 12:38 | XRAY ---
Indication: Bleeding with clots. Two-dimensional transabdominal pelvic sonogram performed. Comparison: July 20, 2019 Urinary bladder not adequately distended producing poor acoustic window. Uterus anteverted measuring 11.3 x 5.7 x 6.1 cm. No focal solid/cystic uterine mass. Endometrial stripe measures 8 mm. No endometrial cavity mass or fluid collection. Right ovary measures 3.0 x 2.9 x 3.3 cm and the left measures 2.8 x 2.4 x 3.3 cm. Normal perfusion bilaterally. No suspicious adnexal mass or free fluid. Impression: Negative transabdominal pelvic sonogram.
[2021-12-23 13:06] VITALS: BP 125/68; PULSE 77; O2SAT 97
== END 2021-12-23 13:14 | disposition home or self-care (01) ==
LOC: ED 11:08
DX: N93.9 Abnormal uterine and vaginal bleeding, unspecified (principal); R10.32 Left lower quadrant pain; R10.2 Pelvic and perineal pain; E78.5 Hyperlipidemia, unspecified; I10 Essential (primary) hypertension; Z79.899 Other long term (current) drug therapy; Z79.891 Long term (current) use of opiate analgesic
CPT/HCPCS: 36000; 36415; 76856; 80053; 81015; 84703; 85025; 96360; 96374; 99284; J1170

== ENCOUNTER 2023-02-03 10:51 | Emergency (ER) | payer BC ==
--- NOTE | 2023-02-03 10:56 | ERPHSYRPT ---
- History of Present Illness Time Seen by Provider: 02/03/23 10:56 Historian: patient Exam Limitations: no limitations Physician History: This is a morbidly obese 42-year-old white female patient who has a significant family history of cardiac disease. She states that sometime in the past she has had a myocardial infarction. However, she has no cardiac stents or cardiac surgeries. She saw, for the first time, Dr. Roslyn Martinez, a manager bilingual in September 2022. Her next follow-up appointment is in 1 year. Patient is under a lot of stress. In the last 1 to 2 weeks she has been working 85 to 90 hours a week. Patient has a history of hypertension, gastroesophageal reflux disease, hyperlipidemia, migraine headaches and asthma. The left anterior chest pain began yesterday and recurred this morning. She describes it as a sharp pain radiating to her left shoulder. She is not short of breath. She has had no fever and no cough. Timing/Duration: yesterday Quality: sharpness, stabbing Location: other (Left anterior chest) Chest Pain Radiation: arm (Left shoulder) Severity of Pain-Max: moderate Severity of Pain-Current: moderate Modifying Factors: Improves With: nothing Associated Symptoms: nausea, vomiting (Yesterday) Prior Chest Pain/Cardiac Workup: heart attack (Sometime in the distant past per her report.) Nitro Today/Relief: no nitro taken today Aspirin Treatment Today: no aspirin today, 81 mg x 4, provided by ED Allergies/Adverse Reactions: No Known Drug Allergies Allergy (Verified 02/03/23 11:14) Home Medications: Albuterol Common Canister [Ventolin Common Canister] 2 puff IH Q4HPRN PRN 07/21/19 [History] lisinopriL [Zestril] 20 mg PO DAILY 08/01/19 [History] Amlodipine Besylate 10 mg PO DAILY 12/23/21 [History] Aspirin [Aspirin EC] 81 mg PO DAILY 12/23/21 [History] Omeprazole 20 mg PO DAILY 12/23/21 [History] Rimegepant Sulfate [Nurtec Odt] 75 mg pe PO DAILY PRN 12/23/21 [History] Rosuvastatin Calcium 20 mg PO HS 12/23/21 [History] Topiramate [Topamax] 50 mg PO BID 12/23/21 [History] clonazePAM [Clonazepam] 0.5 mg PO DAILY PRN 12/23/21 [History] Hx Tetanus, Diphtheria Vaccination/Date Given: No (unknown) Hx Influenza Vaccination/Date Given: Yes Hx Pneumococcal Vaccination/Date Given: No Travel Risk - International Travel Have you traveled outside of the country in past 3 weeks: No - Coronavirus Screening Are you exhibiting any of the following symptoms?: No Close contact with a COVID-19 positive Pt in past 14-21 Days: No - Vaccine Status Have you recieved a Covid-19 vaccination: Yes 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 - Vaccination Dates Date of 2cond Vaccination (if applicable): 08/12 - Review of Systems Constitutional: No Symptoms Eyes: No Symptoms Ears, Nose, & Throat: No Symptoms Respiratory: No Symptoms Cardiac: Chest Pain (Sharp, stabbing left anterior chest with radiation to left shoulder) Abdominal/Gastrointestinal: No Symptoms Genitourinary Symptoms: No Symptoms Musculoskeletal: No Symptoms Skin: No Symptoms Neurological: No Symptoms Psychological: No Symptoms Endocrine: No Symptoms Hematologic/Lymphatic: No Symptoms Immunological/Allergic: No Symptoms All Other Systems: Reviewed and Negative - Past Medical History Pertinent Past Medical History: Yes Neurological History: Migraines ENT History: No Pertinent History Cardiac History: High Cholesterol, Hypertension Respiratory History: Asthma Endocrine Medical History: No Pertinent History Musculoskeletal History: Other GI Medical History: GERD, Gallbladder Disease History: No Pertinent History Psycho-Social History: Anxiety, Depression Female Reproductive Disorders: No Pertinent History Other Medical History: BACK SPASMS, ectopic preg. - Past Surgical History Past Surgical History: Yes Neuro Surgical History: No Pertinent History Cardiac: No Pertinent History Respiratory: No Pertinent History Gastrointestinal: Cholecystectomy Genitourinary: No Pertinent History Musculoskeletal: Orthopedic Surgery Female Surgical History: Section, Other Other Surgical History: ankle repair, d&c. fallopian tube removal(left) - Social History Smoking Status: Never smoker Exposure to second hand smoke: No Drug Use: none Patient Lives Alone: No Significant Family History: no pertinent family hx - Nursing Vital Signs Nursing Vital Signs: Initial Vital Signs Pulse Rate 79 02/03/23 11:15 Respiratory Rate 18 02/03/23 11:15 Blood Pressure 130/78 02/03/23 11:15 O2 Sat by Pulse Oximetry 94 L 02/03/23 11:15 Pain Scale Pain Intensity 6 - Physical Exam General Appearance: no apparent distress, alert, anxiety, obese Eye Exam: PERRL/EOMI, eyes nml inspection Ears, Nose, Throat Exam: normal ENT inspection, moist mucous membranes Neck Exam: normal inspection, non-tender, supple, full range of motion Respiratory Exam: normal breath sounds, chest tenderness (Left anterior chest), lungs clear ( sharpness), airway intact, No respiratory distress Cardiovascular Exam: regular rate/rhythm, normal heart sounds, normal peripheral pulses Gastrointestinal/Abdomen Exam: soft, normal bowel sounds, No tenderness Pelvic Exam: not done Rectal Exam: not done Back Exam: normal inspection, normal range of motion, No CVA tenderness, No vertebral tenderness Extremity Exam: normal inspection, normal range of motion, pelvis stable Neurologic Exam: alert, oriented x 3, cooperative, 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 There are no changes when compared to twelve-lead EKG dated 05/01/2018) Ordered Tests: Active Orders 24 hr Category Date Time Status Drier And Pulverizer Tender STAT Care 02/03/23 11:13 Active EKG-ER Only STAT Care 02/03/23 11:12 Active IV Insertion STAT Care 02/03/23 11:12 Active Pulse Oximetry (ED) STAT Care 02/03/23 11:12 Active CHEST 1 VIEW (PORTABLE) Stat Exams 02/03/23 11:12 Completed CHEST WITH CONTRAST [CT] Stat Exams 02/03/23 11:54 Completed CBC W DIFF Stat Lab 02/03/23 11:15 Completed CMP Stat Lab 02/03/23 11:15 Completed D-DIMER QUANTITATIVE Stat Lab 02/03/23 11:15 Completed TROPONIN Q4H Lab 02/03/23 11:15 Completed TROPONIN Q4H Lab 02/03/23 15:15 Ordered TROPONIN Q4H Lab 02/03/23 19:15 Ordered Medication Summary Discontinued Medications Generic Name Dose Route Start Last Admin Trade Name Freq PRN Reason Stop Dose Admin Aspirin 324 mg 02/03/23 11:12 02/03/23 11:19 Aspirin 81 Mg Tab.Chew PO 02/03/23 11:13 324 mg STAT ONE Administration Aspirin Confirm 02/03/23 11:18 Aspirin 81 Mg Tab.Chew Administered 02/03/23 11:19 Dose 324 mg .ROUTE .STK-MED ONE Sodium Chloride 500 mls @ 500 mls/hr 02/03/23 11:54 Sodium Chloride 0.9% 500 Ml IV 02/03/23 12:53 .Q1H ONE Morphine Sulfate 2 mg 02/03/23 11:12 02/03/23 11:19 Morphine Sulfate 2 Mg/Ml Inj IV 02/03/23 11:13 2 mg STAT ONE Administration Morphine Sulfate Confirm 02/03/23 11:18 Morphine Sulfate 2 Mg/Ml Inj Administered 02/03/23 11:19 Dose 2 mg .ROUTE .STK-MED ONE Ondansetron HCl 4 mg 02/03/23 11:12 02/03/23 11:19 Ondansetron Hcl 4 Mg/2 Ml Vial IV 02/03/23 11:13 4 mg STAT ONE Administration Ondansetron HCl Confirm 02/03/23 11:18 Ondansetron Hcl 4 Mg/2 Ml Vial Administered 02/03/23 11:19 Dose 4 mg .ROUTE .STK-MED ONE Lab/Rad Data: Laboratory Result Diagrams 02/03/23 11:15 02/03/23 11:15 Laboratory Results 02/03/23 02/03/23 02/03/23 Range/Units 11:15 11:15 11:15 WBC (4.0-10.5) x10^3/uL RBC (4.1-5.4) x10^6/uL Hgb (12.0-16.0) g/dL Hct (35-47) % MCV (78-100) fL MCH (26-32) pg MCHC (32-36) g/dL RDW (11.5-14.0) % Plt Count (150-450) x10^3/uL MPV (7.5-11.0) fL Gran % (36.0-66.0) % Immature Gran % (Auto) (0.00-0.4) % Nucleat RBC Rel Count (0.00-0.1) % Eos # (Auto) (0-0.5) x10^3/uL Immature Gran # (Auto) (0.00-0.03) x10^3u/L Absolute Lymphs (auto) (1.0-4.6) x10^3/uL Absolute Monos (auto) (0.0-1.3) x10^3/uL Absolute Nucleated RBC (0.00-0.01) x10^3u/L Lymphocytes % (24.0-44.0) % Monocytes % (0.0-12.0) % Eosinophils % (0.00-5.0) % Basophils % (0.0-0.4) % Absolute Granulocytes (1.4-6.9) x10^3/uL Basophils # (0-0.4) x10^3/uL D-Dimer 0.67 H* (0.0-0.50) mg/L Sodium 141 (137-145) mmol/L Potassium 4.0 (3.5-5.1) mmol/L Chloride 104 (98-107) mmol/L Carbon Dioxide 29 (22-30) mmol/L Anion Gap 12.2 (5-15) MEQ/L BUN 20 H (7-17) mg/dL Creatinine 0.79 (0.52-1.04) mg/dL Estimated GFR > 60.0 ML/MIN Glucose 140 H (74-106) mg/dL Calcium 9.1 (8.4-10.2) mg/dL Total Bilirubin 0.60 (0.2-1.3) mg/dL AST 27 (14-36) U/L ALT 24 (0-35) U/L Alkaline Phosphatase 94 (38-126) U/L Troponin I < 0.012 (0.000-0.034) ng/mL Serum Total Protein 7.5 (6.3-8.2) g/dL Albumin 4.2 (3.5-5.0) g/dL 02/03/23 Range/Units 11:15 WBC 10.4 (4.0-10.5) x10^3/uL RBC 4.55 (4.1-5.4) x10^6/uL Hgb 13.8 (12.0-16.0) g/dL Hct 42.0 (35-47) % MCV 92.3 (78-100) fL MCH 30.3 (26-32) pg MCHC 32.9 (32-36) g/dL RDW 12.3 (11.5-14.0) % Plt Count 276 (150-450) x10^3/uL MPV 9.5 (7.5-11.0) fL Gran % 74.7 H (36.0-66.0) % Immature Gran % (Auto) 0.3 (0.00-0.4) % Nucleat RBC Rel Count 0.0 (0.00-0.1) % Eos # (Auto) 0.32 (0-0.5) x10^3/uL Immature Gran # (Auto) 0.03 (0.00-0.03) x10^3u/L Absolute Lymphs (auto) 1.75 (1.0-4.6) x10^3/uL Absolute Monos (auto) 0.48 (0.0-1.3) x10^3/uL Absolute Nucleated RBC 0.00 (0.00-0.01) x10^3u/L Lymphocytes % 16.8 L (24.0-44.0) % Monocytes % 4.6 (0.0-12.0) % Eosinophils % 3.1 (0.00-5.0) % Basophils % 0.5 (0.0-0.4) % Absolute Granulocytes 7.80 H (1.4-6.9) x10^3/uL Basophils # 0.05 (0-0.4) x10^3/uL D-Dimer (0.0-0.50) mg/L Sodium (137-145) mmol/L Potassium (3.5-5.1) mmol/L Chloride (98-107) mmol/L Carbon Dioxide (22-30) mmol/L Anion Gap (5-15) MEQ/L BUN (7-17) mg/dL Creatinine (0.52-1.04) mg/dL Estimated GFR ML/MIN Glucose (74-106) mg/dL Calcium (8.4-10.2) mg/dL Total Bilirubin (0.2-1.3) mg/dL AST (14-36) U/L ALT (0-35) U/L Alkaline Phosphatase (38-126) U/L Troponin I (0.000-0.034) ng/mL Serum Total Protein (6.3-8.2) g/dL Albumin (3.5-5.0) g/dL - Progress Progress: improved, re-examined Air Movement: good Progress Note: 02/03/23 11:35 This patient's medical issue is 1 of moderate complexity. Level complexity in the work-up performed is based on review of the patient's past medical history, review of the patient's drug allergy list, review of the patient's medication list, history of present illness and physical findings on examination. This patient's work-up includes a chest x-ray, twelve-lead EKG, D-dimer level, troponin level, CBC and CMP. Chest x-ray was interpreted by the radiologist and I reviewed the impression. There is no evidence of any acute cardiopulmonary process. 02/03/23 13:[address] scan of the chest with contrast shows no obvious pulmonary embolism. There is no evidence of acute cardiopulmonary process. I reviewed and interpreted the patient's laboratory data and twelve-lead EKG. I also reviewed the impression of the x-rays that were performed and interpreted by the radiologist. Patient does not have any acute, emergent cause of her symptoms today. We will discharge her to home. She is to call her manager bilingual today as well as her primary care provider and to make them aware that she came to the emergency department and to see if they want to see the patient sooner rather than her scheduled appointment out in the far future. Patient, at the time of discharge, has no shortness of breath and no chest pain. 02/03/23 13:09 Blood Culture(s) Obtained: No Antibiotics given: No Counseled pt/family regarding: lab results, diagnosis, need for follow-up, rad results Medical Desision Making - Diagnostic Testing Diagnostic test were ordered, analyzed, and reviewed by me: Yes Radiological Interpretation: Reviewed by me, Teleradiologist Report - Risk of complications Low Risk: Low risk of morbidity from additional dx testing or treatment - Departure Departure Disposition: Home Clinical Impression: Chest pain Condition: Stable Critical Care Time: No Referrals: SAADIA GLASER [Primary Care Provider] - Follow up/PCP as directed Additional Instructions: Take your medication as prescribed. Call your primary care provider and your manager bilingual today to make arrangements for follow-up appointment in the next 3 to 5 days.
[2023-02-03] MEDS ORDERED: Zofran 4 MG/2 ML VIAL IV ONE (11:12)
[2023-02-03] MEDS ORDERED: BABY ASPIRIN 81 MG CHEW PO ONE (11:12)
[2023-02-03] MEDS ORDERED: MORPHINE SULFATE 2 MG INJ IV ONE (11:12)
[2023-02-03] MEDS ORDERED: BABY ASPIRIN 81 MG CHEW ONE (11:18)
[2023-02-03] MEDS ORDERED: MORPHINE SULFATE 2 MG INJ ONE (11:18)
[2023-02-03] MEDS ORDERED: Zofran 4 MG/2 ML VIAL ONE (11:18)
[2023-02-03 11:20] LABS: BASOPHIL % 0.5 % (0.0-0.4); Basophil (Absolute #) 0.05 x10^3/uL (0-0.4); Eosinophil % 3.1 % (0.00-5.0); Eosinophil (Absolute #) 0.32 x10^3/uL (0-0.5); Hemoglobin 13.8 g/dL (12.0-16.0); IMMATURE GRAN # 0.03 x10^3u/L (0.00-0.03); IMMATURE GRAN % 0.3 % (0.00-0.4); Lymphocyte (Absolute #) 1.75 x10^3/uL (1.0-4.6); Lymphocytes % 16.8 % (24.0-44.0); Mean Cell Volume 92.3 fL (78-100); Mean Corpuscular Hemoglobin 30.3 pg (26-32); Mean Corpuscular Hgb Concent. 32.9 g/dL (32-36); Mean Platelet Volume 9.5 fL (7.5-11.0); Monocyte (Absolute #) 0.48 x10^3/uL (0.0-1.3); Monocytes % 4.6 % (0.0-12.0); Neutrophil % 74.7 % (36.0-66.0); Platelet Count 276 x10^3/uL (150-450); Red Blood Count 4.55 x10^6/uL (4.1-5.4); Red Cell Distribution Width 12.3 % (11.5-14.0); White Blood Count 10.4 x10^3/uL (4.0-10.5)
--- NOTE | 2023-02-03 11:29 | XRAY ---
Indication: Left chest pain and short of breath. Comparison: February 13, 2019 Portable chest less inflated again demonstrating normal heart and lungs with incidental tiny right apical calcified granuloma. Bony thorax intact. No new/acute findings.
[2023-02-03 11:34] LABS: ALBUMIN 4.2 g/dL (3.5-5.0); ALKALINE PHOSPHATASE 94 U/L (38-126); ANION GAP 12.2 MEQ/L (5-15); BLOOD UREA NITROGEN 20 mg/dL (7-17); CHLORIDE 104 mmol/L (98-107); Calcium 9.1 mg/dL (8.4-10.2); Carbon Dioxide 29 mmol/L (22-30); Creatinine 1 0.79 mg/dL (0.52-1.04); EST GLOMERULAR FILTRATION RATE > 60.0 ML/MIN; Glucose 140 mg/dL (74-106); SGOT/AST 27 U/L (14-36); SGPT/ALT 24 U/L (0-35); SODIUM 141 mmol/L (137-145); Total Protein 7.5 g/dL (6.3-8.2)
[2023-02-03] MEDS ORDERED: Sodium Chloride 0.9% 500 ML 500 ML IV ONE ×2 (11:54→13:16)
--- NOTE | 2023-02-03 13:03 | XRAY ---
Indication: Left chest pain. Elevated d-dimer. Multiple contiguous images obtained through the chest using 100 cc Isovue 370 contrast and PE protocol. Imperson: October 15, 2015 Good opacification of the pulmonary arteries. Mild diffuse respiration artifact limits evaluation of the more distal lobar and segmental branches. No obvious pulmonary embolus. Heart borderline enlarged. Aorta is normal in course and caliber without aneurysm/dissection. No pathologic mediastinal/hilar lymphadenopathy. Lungs again demonstrate minimal bilateral dependent atelectasis. No suspicious pulmonary mass/nodule, infiltrate, effusion, or pneumothorax. Bony thorax intact with minimal degenerative changes throughout the spine. Limited upper abdomen again demonstrate fatty liver and cholecystectomy clips. Impression: 1. Respiration artifact limits evaluation for pulmonary embolus. No obvious pulmonary embolus. 2. Again fatty liver. 3. Remaining CT chest with contrast exam is negative.
[2023-02-03 13:47] VITALS: BP 133/76; PULSE 67; RESP 17; O2SAT 91
== END 2023-02-03 14:46 | disposition home or self-care (01) ==
LOC: ED 10:51
DX: R07.9 Chest pain, unspecified (principal); I10 Essential (primary) hypertension; E78.5 Hyperlipidemia, unspecified; Z79.899 Other long term (current) drug therapy
CPT/HCPCS: 36000; 36415; 71045; 71260; 80053; 84484; 85025; 85379; 93005; 93041; 94760; 96374; 96375; 99284; J2270; J2405; A9270-GY

== ENCOUNTER 2023-06-07 18:55 | Emergency (ER) | payer BC ==
--- NOTE | 2023-06-07 19:12 | ERPHSYRPT ---
- History of Present Illness Time Seen by Provider: 06/07/23 19:12 Historian: patient Exam Limitations: no limitations Physician History: This is a 42-year-old morbidly obese white female patient who woke up at approximately 730 this morning with severe abdominal cramping and multiple episodes of vomiting (8). She is unable to keep anything down. Patient did try using Tylenol and Pepto-Bismol but there was no relief. Patient has had a cholecystectomy and a section in the past. She has not been exposed anyone with flulike symptoms. Patient has a history of hypertension, gastroesophageal reflux disease, hyperlipidemia, asthma and migraine headaches. Timing/Duration: today Activities at Onset: none Quality: cramping Abdominal Pain Onset Location: generalized abdomen Pain Radiation: no radiation Severity of Pain-Max: moderate Severity of Pain-Current: moderate Modifying Factors: Improves With: vomiting Associated Symptoms: loss of appetite, nausea, vomiting, weakness, No diarrhea, No shortness of breath Previous symptoms: no prior history Allergies/Adverse Reactions: atenolol Adverse Reaction (Intermediate, Verified 06/07/23 19:15) bradycardia Home Medications: Albuterol Common Canister [Ventolin Common Canister] 2 puff IH Q4HPRN PRN 07/21/19 [History] lisinopriL [Zestril] 40 mg PO DAILY 08/01/19 [History] Aspirin [Aspirin EC] 81 mg PO DAILY 12/23/21 [History] Omeprazole 20 mg PO DAILY 12/23/21 [History] Rimegepant Sulfate [Nurtec Odt] 75 mg pe PO DAILY PRN 12/23/21 [History] clonazePAM [Clonazepam] 0.5 mg PO DAILY PRN 12/23/21 [History] Hx Tetanus, Diphtheria Vaccination/Date Given: No (unknown) Hx Influenza Vaccination/Date Given: Yes Hx Pneumococcal Vaccination/Date Given: No Travel Risk - International Travel Have you traveled outside of the country in past 3 weeks: No - Coronavirus Screening Are you exhibiting any of the following symptoms?: Yes Symptoms: Vomiting/Diarrhea Close contact with a COVID-19 positive Pt in past 14-21 Days: No - Vaccine Status Have you recieved a Covid-19 vaccination: Yes Iridologist: Moderna - Vaccination Dates Date of 2cond Vaccination (if applicable): 08/12 - Review of Systems Constitutional: Weakness Eyes: No Symptoms Ears, Nose, & Throat: No Symptoms Respiratory: No Symptoms Cardiac: No Symptoms Abdominal/Gastrointestinal: Abdominal Pain, Nausea, Vomiting, Diarrhea, Appetite Changes, No Constipation Genitourinary Symptoms: No Symptoms Musculoskeletal: No Symptoms Skin: No Symptoms Neurological: No Symptoms Psychological: No Symptoms Endocrine: No Symptoms Hematologic/Lymphatic: No Symptoms Immunological/Allergic: No Symptoms All Other Systems: Reviewed and Negative - Past Medical History Pertinent Past Medical History: Yes Neurological History: Migraines ENT History: No Pertinent History Cardiac History: High Cholesterol, Hypertension Respiratory History: Asthma Endocrine Medical History: No Pertinent History Musculoskeletal History: Other GI Medical History: GERD, Gallbladder Disease History: No Pertinent History Psycho-Social History: Anxiety, Depression Female Reproductive Disorders: No Pertinent History Other Medical History: BACK SPASMS, ectopic preg. - Past Surgical History Past Surgical History: Yes Neuro Surgical History: No Pertinent History Cardiac: No Pertinent History Respiratory: No Pertinent History Gastrointestinal: Cholecystectomy Genitourinary: No Pertinent History Musculoskeletal: Orthopedic Surgery Female Surgical History: Section, Other Other Surgical History: ankle repair, d&c. fallopian tube removal(left) - Social History Smoking Status: Never smoker Exposure to second hand smoke: No Drug Use: none Patient Lives Alone: No Significant Family History: no pertinent family hx - Nursing Vital Signs Nursing Vital Signs: Initial Vital Signs Temperature 98 F 06/07/23 19:06 Pulse Rate 68 06/07/23 19:06 Respiratory Rate 20 06/07/23 19:06 Blood Pressure 146/70 06/07/23 19:06 O2 Sat by Pulse Oximetry 97 06/07/23 19:06 Pain Scale Pain Intensity 4 - Physical Exam General Appearance: no apparent distress, alert, anxiety Eye Exam: PERRL/EOMI, eyes nml inspection Ears, Nose, Throat Exam: normal ENT inspection, moist mucous membranes Neck Exam: normal inspection, non-tender, supple, full range of motion Respiratory Exam: normal breath sounds, lungs clear, airway intact, No chest tenderness, No respiratory distress Cardiovascular Exam: regular rate/rhythm, normal heart sounds, normal peripheral pulses Gastrointestinal/Abdomen Exam: soft, normal bowel sounds, tenderness (Diffuse to palpation), guarding (Diffuse to palpation), No rebound Pelvic Exam: not done Rectal Exam: not done Back Exam: normal inspection, normal range of motion, CVA tenderness, No vertebral tenderness Extremity Exam: normal inspection, normal range of motion, pelvis stable Neurologic Exam: alert, oriented x 3, cooperative, office 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 II-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 nml as tested, normal mood/affect, nml cerebellar function, nml station & gait, sensation nml Skin Exam: normal color, warm, dry Lymphatic Exam: No adenopathy SpO2 Interpretation: normal O2 Delivery: Room Air - Course Nursing assessment & vital signs reviewed: Yes Ordered Tests: Active Orders 24 hr Category Date Time Status IV Insertion STAT Care 06/07/23 19:28 Active ABDOMEN AND PELVIS W/0 CONTRAS [CT] Routine Exams 06/07/23 19:29 Taken AMYLASE Stat Lab 06/07/23 19:30 Completed CBC W DIFF Stat Lab 06/07/23 19:30 Completed CMP Stat Lab 06/07/23 19:30 Completed CULTURE,URINE Stat Lab 06/07/23 21:39 Received HCG QUALITATIVE, SERUM Stat Lab 06/07/23 19:30 Completed LIPASE Stat Lab 06/07/23 19:30 Completed UA W/RFX UR CULTURE Stat Lab 06/07/23 21:39 Completed Medication Summary Discontinued Medications Generic Name Dose Route Start Last Admin Trade Name Freq PRN Reason Stop Dose Admin Hydromorphone HCl 1 mg 06/07/23 19:28 06/07/23 19:51 Hydromorphone 1 Mg/1ml Inj IV 06/07/23 19:29 1 mg STAT ONE Administration Hydromorphone HCl Confirm 06/07/23 19:47 Hydromorphone 1 Mg/1ml Inj Administered 06/07/23 19:48 Dose 1 mg .ROUTE .STK-MED ONE Sodium Chloride 1,000 mls @ 999 mls/hr 06/07/23 19:28 06/07/23 21:14 Sodium Chloride 0.9% 1000 Ml IV 06/07/23 20:28 Infused .Q1H1M STA Infusion Sodium Chloride Confirm 06/07/23 19:47 Sodium Chloride 0.9% 1000 Ml Administered 06/07/23 19:48 Dose 1,000 mls @ ud .ROUTE .STK-MED ONE Ondansetron HCl 4 mg 06/07/23 19:28 06/07/23 19:51 Ondansetron Hcl 4 Mg/2 Ml Vial IV 06/07/23 19:29 4 mg STAT ONE Administration Ondansetron HCl Confirm 06/07/23 19:47 Ondansetron Hcl 4 Mg/2 Ml Vial Administered 06/07/23 19:48 Dose 4 mg .ROUTE .[facility]-MED ONE Lab/Rad Data: Laboratory Result Diagrams 06/07/23 19:30 06/07/23 19:30 Laboratory Results 06/07/23 06/07/23 06/07/23 Range/Units 21:39 20:14 19:30 WBC (4.0-10.5) x10^3/uL RBC (4.1-5.4) x10^6/uL Hgb (12.0-16.0) g/dL Hct (35-47) % MCV (78-100) fL MCH (26-32) pg MCHC (32-36) g/dL RDW (11.5-14.0) % Plt Count (150-450) x10^3/uL MPV (7.5-11.0) fL Gran % (36.0-66.0) % Immature Gran % (Auto) (0.00-0.4) % Nucleat RBC Rel Count (0.00-0.1) % Eos # (Auto) (0-0.5) x10^3/uL Immature Gran # (Auto) (0.00-0.03) x10^3u/L Absolute Lymphs (auto) (1.0-4.6) x10^3/uL Absolute Monos (auto) (0.0-1.3) x10^3/uL Absolute Nucleated RBC (0.00-0.01) x10^3u/L Lymphocytes % (24.0-44.0) % Monocytes % (0.0-12.0) % Eosinophils % (0.00-5.0) % Basophils % (0.0-0.4) % Absolute Granulocytes (1.4-6.9) x10^3/uL Basophils # (0-0.4) x10^3/uL Sodium 136 L (137-145) mmol/L Potassium 3.9 (3.5-5.1) mmol/L Chloride 98 (98-107) mmol/L Carbon Dioxide 33 H (22-30) mmol/L Anion Gap 9.0 (5-15) MEQ/L BUN 18 H (7-17) mg/dL Creatinine 0.81 (0.52-1.04) mg/dL Estimated GFR 92.9 ML/MIN Glucose 117 H (74-106) mg/dL Calcium 9.2 (8.4-10.2) mg/dL Total Bilirubin 0.90 (0.2-1.3) mg/dL AST 25 (14-36) U/L ALT 21 (0-35) U/L Alkaline Phosphatase 91 (38-126) U/L Serum Total Protein 7.2 (6.3-8.2) g/dL Albumin 3.9 (3.5-5.0) g/dL Amylase (30-110) U/L Lipase (23-300) U/L Serum HCG, Qual (NEGATIVE) Urine Color Dark Yellow A (Yellow) Urine Appearance Turbid A (Clear) Urine pH 5.5 (4.6-8.0) Ur Specific [place] >=1.030 A (1.005-1.030) Urine Protein Trace A (Negative) Urine Glucose (UA) Negative (Negative) mg/dL Urine Ketones Trace A (Negative) Urine Blood Negative (Negative) Urine Nitrite Negative (Negative) Urine Bilirubin Small A (Negative) Urine Urobilinogen 1.0 A (0.2) mg/dL Ur Leukocyte Esterase Trace A (Negative) U Hyaline Cast (Auto) 3-5 A (0-2) /LPF Urine Microscopic RBC 0-2 (0-5) /HPF Urine Microscopic WBC 0-2 (0-5) /HPF Ur Epithelial Cells Moderate A (None Seen) /HPF Urine Bacteria Few A (None Seen) /HPF Urine Culture Reflexed YES (NO) Influenza Type A Ag NEGATIVE (NEGATIVE) Influenza Type B Ag NEGATIVE (NEGATIVE) RSV (PCR) NEGATIVE (NEGATIVE) SARS-CoV-2 (PCR) NEGATIVE (NEGATIVE) 06/07/23 06/07/23 06/07/23 Range/Units 19:30 19:30 19:30 WBC 12.6 H (4.0-10.5) x10^3/uL RBC 4.54 (4.1-5.4) x10^6/uL Hgb 13.3 (12.0-16.0) g/dL Hct 41.6 (35-47) % MCV 91.6 (78-100) fL MCH 29.3 (26-32) pg MCHC 32.0 (32-36) g/dL RDW 12.8 (11.5-14.0) % Plt Count 275 (150-450) x10^3/uL MPV 9.7 (7.5-11.0) fL Gran % 83.7 H (36.0-66.0) % Immature Gran % (Auto) 0.2 (0.00-0.4) % Nucleat RBC Rel Count 0.0 (0.00-0.1) % Eos # (Auto) 0.16 (0-0.5) x10^3/uL Immature Gran # (Auto) 0.03 (0.00-0.03) x10^3u/L Absolute Lymphs (auto) 1.24 (1.0-4.6) x10^3/uL Absolute Monos (auto) 0.60 (0.0-1.3) x10^3/uL Absolute Nucleated RBC 0.00 (0.00-0.01) x10^3u/L Lymphocytes % 9.8 L (24.0-44.0) % Monocytes % 4.8 (0.0-12.0) % Eosinophils % 1.3 (0.00-5.0) % Basophils % 0.2 (0.0-0.4) % Absolute Granulocytes 10.56 H (1.4-6.9) x10^3/uL Basophils # 0.03 (0-0.4) x10^3/uL Sodium (137-145) mmol/L Potassium (3.5-5.1) mmol/L Chloride (98-107) mmol/L Carbon Dioxide (22-30) mmol/L Anion Gap (5-15) MEQ/L BUN (7-17) mg/dL Creatinine (0.52-1.04) mg/dL Estimated GFR ML/MIN Glucose (74-106) mg/dL Calcium (8.4-10.2) mg/dL Total Bilirubin (0.2-1.3) mg/dL AST (14-36) U/L ALT (0-35) U/L Alkaline Phosphatase (38-126) U/L Serum Total Protein (6.3-8.2) g/dL Albumin (3.5-5.0) g/dL Amylase 79 (30-110) U/L Lipase 55 (23-300) U/L Serum HCG, Qual NEGATIVE (NEGATIVE) Urine Color (Yellow) Urine Appearance (Clear) Urine pH (4.6-8.0) Ur Specific [place] (1.005-1.030) Urine Protein (Negative) Urine Glucose (UA) (Negative) mg/dL Urine Ketones (Negative) Urine Blood (Negative) Urine Nitrite (Negative) Urine Bilirubin (Negative) Urine Urobilinogen (0.2) mg/dL Ur Leukocyte Esterase (Negative) U Hyaline Cast (Auto) (0-2) /LPF Urine Microscopic RBC (0-5) /HPF Urine Microscopic WBC (0-5) /HPF Ur Epithelial Cells (None Seen) /HPF Urine Bacteria (None Seen) /HPF Urine Culture Reflexed (NO) Influenza Type A Ag (NEGATIVE) Influenza Type B Ag (NEGATIVE) RSV (PCR) (NEGATIVE) SARS-CoV-2 (PCR) (NEGATIVE) - Progress Progress: improved, pain not gone completely Progress Note: 06/07/23 19:51 This patient's medical issue is 1 of moderate complexity. The level of complexity in the workup performed is based on review of the patient's past me dical history, review the patient's medication list, review of the patient's drug allergy list, history present illness and physical findings on examination. Workup in this patient includes placement of intravenous line, infusion of 1 L normal saline solution, infusion of Zofran 4 mg intravenously, infusion of 1 mg intravenous Dilaudid, CBC, CMP, test, amylase, lipase, urinalysis, CT scan of the abdomen pelvis without contrast. 06/07/23 22:12 I interpreted the laboratory data results. The only significant finding on the lab data results is a mild urinary tract infection. The CAT scan of the abdomen pelvis was interpreted by the radiologist. I reviewed the impression. The impression is compared to the CT scan dated 02/14/2020, there is a normal appendix. There is also persistent hepatomegaly. Otherwise no other acute findings. Counseled pt/family regarding: lab results, diagnosis, need for follow-up, rad results Medical Desision Making - Independent Historian Additional History obtained from: Spouse - Diagnostic Testing Diagnostic test were ordered, analyzed, and reviewed by me: Yes Radiological Interpretation: Reviewed by me, Teleradiologist Report - Risk of complications The pt has a mod risk of morbidity or mortality based on: Need for prescription drug management - Departure Departure Disposition: Home Clinical Impression: Abdominal pain, Vomiting, UTI (urinary tract infection), Mild dehydration Condition: Stable Critical Care Time: No Referrals: SAADIA GLASER [Primary Care Provider] - Follow up/PCP as directed Additional Instructions: Drink plenty of fluids for advancing to her diet. Avoid fatty greasy spicy foods. Take your antibiotics as prescribed. Call your primary care provider tomorrow, 06/08/2023, to make arrangements for follow-up appointment for further evaluation management. Prescriptions: Ondansetron ODT 4 MG [Zofran Odt 4 mg] 4 mg PO Q6H PRN PRN #10 tablet PRN Reason: Vomiting Cephalexin Mh 500 mg [Keflex 500 mg] 500 mg PO TID #21 cap
[2023-06-07 19:15] VITALS: PULSE 68; RESP 20; TEMP 98
[2023-06-07] MEDS ORDERED: Hydromorphone 1 mg/ml Injection IV ONE (19:28)
[2023-06-07] MEDS ORDERED: Sodium Chloride 0.9% 1000 ML 1,000 ML IV STA (19:28)
[2023-06-07] MEDS ORDERED: Zofran 4 MG/2 ML VIAL IV ONE (19:28)
[2023-06-07 19:38] LABS: Absolute Neutrophil Ct (ANC) 10.56 x10^3/uL (1.4-6.9); BASOPHIL % 0.2 % (0.0-0.4); Basophil (Absolute #) 0.03 x10^3/uL (0-0.4); Eosinophil % 1.3 % (0.00-5.0); Eosinophil (Absolute #) 0.16 x10^3/uL (0-0.5); Hematocrit 41.6 % (35-47); Hemoglobin 13.3 g/dL (12.0-16.0); IMMATURE GRAN # 0.03 x10^3u/L (0.00-0.03); IMMATURE GRAN % 0.2 % (0.00-0.4); Lymphocyte (Absolute #) 1.24 x10^3/uL (1.0-4.6); Lymphocytes % 9.8 % (24.0-44.0); Mean Cell Volume 91.6 fL (78-100); Mean Corpuscular Hemoglobin 29.3 pg (26-32); Mean Platelet Volume 9.7 fL (7.5-11.0); Monocytes % 4.8 % (0.0-12.0); Neutrophil % 83.7 % (36.0-66.0); Platelet Count 275 x10^3/uL (150-450); Red Blood Count 4.54 x10^6/uL (4.1-5.4); Red Cell Distribution Width 12.8 % (11.5-14.0); White Blood Count 12.6 x10^3/uL (4.0-10.5)
[2023-06-07] MEDS ORDERED: Hydromorphone 1 mg/ml Injection ONE (19:47)
[2023-06-07] MEDS ORDERED: Sodium Chloride 0.9% 1000 ML 1,000 ML ONE (19:47)
[2023-06-07] MEDS ORDERED: Zofran 4 MG/2 ML VIAL ONE (19:47)
[2023-06-07 19:52] LABS: AMYLASE 79 U/L (30-110); HCG SERUM TEST NEGATIVE (NEGATIVE); LIPASE 55 U/L (23-300)
[2023-06-07 20:41] LABS: ALBUMIN 3.9 g/dL (3.5-5.0); BILIRUBIN,TOTAL 0.9 mg/dL (0.2-1.3); Calcium 9.2 mg/dL (8.4-10.2); Creatinine 1 0.81 mg/dL (0.52-1.04); EST GLOMERULAR FILTRATION RATE 92.9 ML/MIN; Potassium 3.9 mmol/L (3.5-5.1); Total Protein 7.2 g/dL (6.3-8.2)
[2023-06-07 20:53] LABS: INFLUENZA A NEGATIVE (NEGATIVE); INFLUENZA B NEGATIVE (NEGATIVE); RESPIRATORY SYNCTIAL VIRUS NEGATIVE (NEGATIVE); SARS-CoV-2 Xpert Express NEGATIVE (NEGATIVE)
[2023-06-07 22:01] VITALS: O2SAT 92
[2023-06-07 22:11] LABS: ADD URINE CULTURE? YES (NO); Appearance Turbid (Clear); Bacteria Few /HPF (None Seen); Bilirubin Small (Negative); Blood Negative (Negative); Epithelial Cells Moderate /HPF (None Seen); Glucose, Urine Negative (Negative); Ketones Trace (Negative); Leukocyte Esterase Trace (Negative); Nitrite Negative (Negative); Ph 5.5 (4.6-8.0); Protein,Urine Dip Trace (Negative); RBC 0-2 /HPF (0-5); Specific Gravity >=1.030 (1.005-1.030); WBC 0-2 /HPF (0-5)
[2023-06-07 22:17] VITALS: BP 129/74
[2023-06-07] MEDS ORDERED: KEFLEX 500 MG PO ONE (22:17)
[2023-06-07] MEDS ORDERED: KEFLEX 500 MG ONE (22:20)
--- NOTE | 2023-06-08 08:43 | XRAY ---
Indication: Abdomen pain. Nausea. Multiple contiguous axial images obtained through the abdomen and pelvis without contrast. Comparison: February 14, 2020 Lung bases clear. Heart not enlarged. Noncontrasted stomach and bowel loops nonobstructed with normal appendix. Again 22.4 cm fatty hepatomegaly, tiny left lower renal exophytic cyst, and cholecystectomy. No free fluid/air. Remaining liver, pancreas, spleen, adrenal glands, kidneys, ureters, bladder, uterus, and aorta are unremarkable for noncontrast exam. Osseous structures intact with minimal generative changes throughout the spine. No ventral or inguinal hernias. Impression: 1. Again fatty hepatomegaly and left renal cyst. 2. Remaining CT abdomen/pelvis without contrast exam is negative.
== END 2023-06-07 22:43 | disposition home or self-care (01) ==
LOC: ED 18:55
DX: R11.2 Nausea with vomiting, unspecified (principal); R10.9 Unspecified abdominal pain; N39.0 Urinary tract infection, site not specified; E86.0 Dehydration; I10 Essential (primary) hypertension; E78.5 Hyperlipidemia, unspecified; Z79.899 Other long term (current) drug therapy
CPT/HCPCS: 0241U; 36415; 74176; 80053; 81001; 82150; 83690; 84703; 85025; 87086; 96360; 96374; 96375; 99284; J1170; J2405; A9270-GY

== ENCOUNTER 2023-07-28 10:20 | Emergency (ER) | payer BC ==
--- NOTE | 2023-07-28 10:23 | ERPHSYRPT ---
- History of Present Illness Time Seen by Provider: 07/28/23 10:23 Historian: patient, family Exam Limitations: no limitations Physician History: This is a morbidly obese 42-year-old white female patient of Dr. Radha Glaser who presents to the emergency department with chest pain. It is substernal and central pressure and achiness with intermittent stabbing pains in the same area that began approximately 2 hours prior to arrival to the emergency department. She states she also has a headache. She denies neck pain. She denies fevers. She denies cough. Patient has had a cardiac catheterization in the past but is never been diagnosed with coronary artery disease. Patient has never been a smoker. Patient does have a history of hypertension, gastroesophageal reflux disease, hyperlipidemia, asthma, migraine headaches and anxiety. Patient is under a lot of stress. 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 2 of her bosses are out with illnesses and the patient has not been sleeping well and is stressed. Timing/Duration: today Quality: pressure, sharpness, stabbing Location: substernal, central Chest Pain Radiation: no radiation Severity of Pain-Max: mild (To moderate) Severity of Pain-Current: mild (To moderate) Associated Symptoms: headache, No abdominal pain, No shortness of breath, No cough, No fever Prior Chest Pain/Cardiac Workup: cardiac cath (Negative for any acute cardiac illness. Performed approximately 2 to 3 years ago) Nitro Today/Relief: no nitro taken today Aspirin Treatment Today: 81 mg x 1, provided at home Allergies/Adverse Reactions: atenolol Adverse Reaction (Intermediate, Verified 07/28/23 10:28) bradycardia Home Medications: Albuterol Common Canister [Ventolin Common Canister] 2 puff IH Q4HPRN PRN 07/21/19 [History] lisinopriL [Zestril] 40 mg PO DAILY 08/01/19 [History] Aspirin [Aspirin EC] 81 mg PO DAILY 12/23/21 [History] Omeprazole 20 mg PO DAILY 12/23/21 [History] Rimegepant Sulfate [Nurtec Odt] 75 mg pe PO DAILY PRN 12/23/21 [History] clonazePAM [Clonazepam] 0.5 mg PO DAILY PRN 12/23/21 [History] Hx Tetanus, Diphtheria Vaccination/Date Given: No (unknown) Hx Influenza Vaccination/Date Given: Yes Hx Pneumococcal Vaccination/Date Given: No Travel Risk - International Travel Have you traveled outside of the country in past 3 weeks: No - Coronavirus Screening Are you exhibiting any of the following symptoms?: Yes Symptoms: Headaches/Body Aches/Fatigue Close contact with a COVID-19 positive Pt in past 14-21 Days: No - Vaccine Status Have you recieved a Covid-19 vaccination: Yes 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 - Vaccination Dates Date of 2cond Vaccination (if applicable): 08/12 - Review of Systems Constitutional: No Symptoms Eyes: No Symptoms Ears, Nose, & Throat: No Symptoms Respiratory: No Symptoms Cardiac: Chest Pain Abdominal/Gastrointestinal: No Symptoms Genitourinary Symptoms: No Symptoms Musculoskeletal: No Symptoms Skin: No Symptoms Neurological: Headache Psychological: Anxiety Endocrine: No Symptoms Hematologic/Lymphatic: No Symptoms Immunological/Allergic: No Symptoms All Other Systems: Reviewed and Negative - Past Medical History Pertinent Past Medical History: Yes Neurological History: Migraines ENT History: No Pertinent History Cardiac History: High Cholesterol, Hypertension Respiratory History: Asthma Endocrine Medical History: No Pertinent History Musculoskeletal History: Other GI Medical History: GERD, Gallbladder Disease History: No Pertinent History Psycho-Social History: Anxiety, Depression Female Reproductive Disorders: No Pertinent History Other Medical History: BACK SPASMS, ectopic preg. - Past Surgical History Past Surgical History: Yes Neuro Surgical History: No Pertinent History Cardiac: No Pertinent History Respiratory: No Pertinent History Gastrointestinal: Cholecystectomy Genitourinary: No Pertinent History Musculoskeletal: Orthopedic Surgery Female Surgical History: Section, Other Other Surgical History: ankle repair, d&c. fallopian tube removal(left) - Social History Smoking Status: Never smoker Exposure to second hand smoke: No Drug Use: none Patient Lives Alone: No Significant Family History: no pertinent family hx - Nursing Vital Signs Nursing Vital Signs: Initial Vital Signs Temperature 97.8 F 07/28/23 10:28 Pulse Rate 72 07/28/23 10:28 Respiratory Rate 20 07/28/23 10:28 Blood Pressure 143/71 07/28/23 10:28 O2 Sat by Pulse Oximetry 99 07/28/23 10:28 Pain Scale Pain Intensity 4 - Physical Exam General Appearance: no apparent distress, alert, anxiety, obese Eye Exam: PERRL/EOMI, eyes nml inspection Ears, Nose, Throat Exam: normal ENT inspection, moist mucous membranes Neck Exam: normal inspection, non-tender, supple, full range of motion Respiratory Exam: normal breath sounds, chest tenderness, lungs clear, airway intact, No respiratory distress Cardiovascular Exam: regular rate/rhythm, normal heart sounds, normal peripheral pulses Gastrointestinal/Abdomen Exam: soft, normal bowel sounds, No tenderness Pelvic Exam: not done Rectal Exam: not done Back Exam: normal inspection, normal range of motion, No CVA tenderness, No vertebral tenderness Extremity Exam: normal inspection, normal range of motion, pelvis stable Neurologic Exam: alert, oriented x 3, cooperative, 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, nml cerebellar function, nml station & gait, sensation nml Skin Exam: normal color, warm, dry Lymphatic Exam: No adenopathy SpO2 Interpretation: normal O2 Delivery: Room Air - Course Nursing assessment & vital signs reviewed: Yes EKG Interpreted by Me: RATE (71), Sinus Rhythm, NORMAL AXIS, NORMAL INTERVALS, Right Bundle Branch Block, Other (No acute ischemic changes on today's twelve- lead EKG.) Ordered Tests: Active Orders 24 hr Category Date Time Status Medical Technologist Microbiology STAT Care 07/28/23 10:49 Active EKG-ER Only STAT Care 07/28/23 10:48 Active IV Insertion STAT Care 07/28/23 10:48 Active CHEST 1 VIEW (PORTABLE) Stat Exams 07/28/23 10:49 Completed CBC W DIFF Stat Lab 07/28/23 11:18 Completed CMP Stat Lab 07/28/23 11:18 Completed D-DIMER QUANTITATIVE Stat Lab 07/28/23 11:18 Completed MONO SCREEN Stat Lab 07/28/23 10:52 Completed NT PRO BNPII Stat Lab 07/28/23 11:18 Completed PROTIME WITH INR Stat Lab 07/28/23 11:18 Completed TROPONIN Q4H Lab 07/28/23 11:18 Completed TROPONIN Q4H Lab 07/28/23 15:00 Ordered TROPONIN Q4H Lab 07/28/23 19:00 Ordered UA W/RFX UR CULTURE Stat Lab 07/28/23 12:04 Completed Medication Summary Discontinued Medications Generic Name Dose Route Start Last Admin Trade Name Freq PRN Reason Stop Dose Admin Aspirin 243 mg 07/28/23 10:48 07/28/23 11:05 Aspirin 81 Mg Tab.Chew PO 07/28/23 10:49 243 mg STAT ONE Administration Aspirin Confirm 07/28/23 11:04 Aspirin 81 Mg Tab.Chew Administered 07/28/23 11:05 Dose 324 mg .ROUTE .STK-MED ONE Morphine Sulfate 2 mg 07/28/23 10:48 07/28/23 11:06 Morphine Sulfate 2 Mg/Ml Inj IV 07/28/23 10:49 2 mg STAT ONE Administration Morphine Sulfate Confirm 07/28/23 11:02 Morphine Sulfate 2 Mg/Ml Inj Administered 07/28/23 11:03 Dose 2 mg .ROUTE .STK-MED ONE Ondansetron HCl 4 mg 07/28/23 10:48 07/28/23 11:05 Ondansetron Hcl 4 Mg/2 Ml Vial IV 07/28/23 10:49 4 mg STAT ONE Administration Ondansetron HCl Confirm 07/28/23 11:02 Ondansetron Hcl 4 Mg/2 Ml Vial Administered 07/28/23 11:03 Dose 4 mg .ROUTE .STK-MED ONE Lab/Rad Data: Laboratory Result Diagrams 07/28/23 11:18 07/28/23 11:18 Laboratory Results 07/28/23 07/28/23 07/28/23 Range/Units 12:04 11:18 11:18 WBC (4.0-10.5) x10^3/uL RBC (4.1-5.4) x10^6/uL Hgb (12.0-16.0) g/dL Hct (35-47) % MCV (78-100) fL MCH (26-32) pg MCHC (32-36) g/dL RDW (11.5-14.0) % Plt Count (150-450) x10^3/uL MPV (7.5-11.0) fL Gran % (36.0-66.0) % Immature Gran % (Auto) (0.00-0.4) % Nucleat RBC Rel Count (0.00-0.1) % Eos # (Auto) (0-0.5) x10^3/uL Immature Gran # (Auto) (0.00-0.03) x10^3u/L Absolute Lymphs (auto) (1.0-4.6) x10^3/uL Absolute Monos (auto) (0.0-1.3) x10^3/uL Absolute Nucleated RBC (0.00-0.01) x10^3u/L Lymphocytes % (24.0-44.0) % Monocytes % (0.0-12.0) % Eosinophils % (0.00-5.0) % Basophils % (0.0-0.4) % Absolute Granulocytes (1.4-6.9) x10^3/uL Basophils # (0-0.4) x10^3/uL PT 10.6 (9.4-12.5) SECONDS INR 0.97 (0.8-3.0) D-Dimer 0.25 (0.0-0.50) mg/L Sodium (135-145) mmol/L Potassium (3.5-5.1) mmol/L Chloride (98-107) mmol/L Carbon Dioxide (22-30) mmol/L Anion Gap (5-15) MEQ/L BUN (7-17) mg/dL Creatinine (0.52-1.04) mg/dL Estimated GFR ML/MIN Glucose (74-106) mg/dL Calcium (8.4-10.2) mg/dL Total Bilirubin (0.2-1.3) mg/dL AST (14-36) U/L ALT (0-35) U/L Alkaline Phosphatase (38-126) U/L Troponin I < 0.012 (0.000-0.034) ng/mL NT-Pro-B Natriuret Pep (<300) pg/mL Serum Total Protein (6.3-8.2) g/dL Albumin (3.5-5.0) g/dL Urine Color Yellow (Yellow) Urine Appearance Clear (Clear) Urine pH 5.5 (4.6-8.0) Ur Specific [place] 1.015 (1.005-1.030) Urine Protein Negative (Negative) Urine Glucose (UA) Negative (Negative) mg/dL Urine Ketones Negative (Negative) Urine Blood Trace (Negative) Urine Nitrite Negative (Negative) Urine Bilirubin Negative (Negative) Urine Urobilinogen 0.2 (0.2) mg/dL Ur Leukocyte Esterase Negative (Negative) U Hyaline Cast (Auto) 0-2 (0-2) /LPF Urine Microscopic RBC 0-2 (0-5) /HPF Urine Microscopic WBC 0-2 (0-5) /HPF Ur Epithelial Cells Few (None Seen) /HPF Urine Bacteria None Seen (None Seen) /HPF Urine Culture Reflexed NO (NO) Monoscreen (NEGATIVE) Influenza Type A Ag (NEGATIVE) Influenza Type B Ag (NEGATIVE) RSV (PCR) (NEGATIVE) SARS-CoV-2 (PCR) (NEGATIVE) Group A Strep Antibody (NEGATIVE) 07/28/23 07/28/23 07/28/23 Range/Units 11:18 11:18 11:10 WBC 9.1 (4.0-10.5) x10^3/uL RBC 4.50 (4.1-5.4) x10^6/uL Hgb 13.4 (12.0-16.0) g/dL Hct 41.7 (35-47) % MCV 92.7 (78-100) fL MCH 29.8 (26-32) pg MCHC 32.1 (32-36) g/dL RDW 12.7 (11.5-14.0) % Plt Count 281 (150-450) x10^3/uL MPV 9.6 (7.5-11.0) fL Gran % 74.5 H (36.0-66.0) % Immature Gran % (Auto) 0.2 (0.00-0.4) % Nucleat RBC Rel Count 0.0 (0.00-0.1) % Eos # (Auto) 0.16 (0-0.5) x10^3/uL Immature Gran # (Auto) 0.02 (0.00-0.03) x10^3u/L Absolute Lymphs (auto) 1.64 (1.0-4.6) x10^3/uL Absolute Monos (auto) 0.48 (0.0-1.3) x10^3/uL Absolute Nucleated RBC 0.00 (0.00-0.01) x10^3u/L Lymphocytes % 18.0 L (24.0-44.0) % Monocytes % 5.3 (0.0-12.0) % Eosinophils % 1.8 (0.00-5.0) % Basophils % 0.2 (0.0-0.4) % Absolute Granulocytes 6.77 (1.4-6.9) x10^3/uL Basophils # 0.02 (0-0.4) x10^3/uL PT (9.4-12.5) SECONDS INR (0.8-3.0) D-Dimer (0.0-0.50) mg/L Sodium 139 (135-145) mmol/L Potassium 3.7 (3.5-5.1) mmol/L Chloride 102 (98-107) mmol/L Carbon Dioxide 30 (22-30) mmol/L Anion Gap 11.6 (5-15) MEQ/L BUN 16 (7-17) mg/dL Creatinine 0.92 (0.52-1.04) mg/dL Estimated GFR 79.7 ML/MIN Glucose 114 H (74-106) mg/dL Calcium 9.4 (8.4-10.2) mg/dL Total Bilirubin 0.90 (0.2-1.3) mg/dL AST 23 (14-36) U/L ALT 22 (0-35) U/L Alkaline Phosphatase 90 (38-126) U/L Troponin I (0.000-0.034) ng/mL NT-Pro-B Natriuret Pep 38.8 (<300) pg/mL Serum Total Protein 7.7 (6.3-8.2) g/dL Albumin 4.4 (3.5-5.0) g/dL Urine Color (Yellow) Urine Appearance (Clear) Urine pH (4.6-8.0) Ur Specific [place] (1.005-1.030) Urine Protein (Negative) Urine Glucose (UA) (Negative) mg/dL Urine Ketones (Negative) Urine Blood (Negative) Urine Nitrite (Negative) Urine Bilirubin (Negative) Urine Urobilinogen (0.2) mg/dL Ur Leukocyte Esterase (Negative) U Hyaline Cast (Auto) (0-2) /LPF Urine Microscopic RBC (0-5) /HPF Urine Microscopic WBC (0-5) /HPF Ur Epithelial Cells (None Seen) /HPF Urine Bacteria (None Seen) /HPF Urine Culture Reflexed (NO) Monoscreen (NEGATIVE) Influenza Type A Ag NEGATIVE (NEGATIVE) Influenza Type B Ag NEGATIVE (NEGATIVE) RSV (PCR) NEGATIVE (NEGATIVE) SARS-CoV-2 (PCR) NEGATIVE (NEGATIVE) Group A Strep Antibody (NEGATIVE) 07/28/23 07/28/23 Range/Units 11:10 10:52 WBC (4.0-10.5) x10^3/uL RBC (4.1-5.4) x10^6/uL Hgb (12.0-16.0) g/dL Hct (35-47) % MCV (78-100) fL MCH (26-32) pg MCHC (32-36) g/dL RDW (11.5-14.0) % Plt Count (150-450) x10^3/uL MPV (7.5-11.0) fL Gran % (36.0-66.0) % Immature Gran % (Auto) (0.00-0.4) % Nucleat RBC Rel Count (0.00-0.1) % Eos # (Auto) (0-0.5) x10^3/uL Immature Gran # (Auto) (0.00-0.03) x10^3u/L Absolute Lymphs (auto) (1.0-4.6) x10^3/uL Absolute Monos (auto) (0.0-1.3) x10^3/uL Absolute Nucleated RBC (0.00-0.01) x10^3u/L Lymphocytes % (24.0-44.0) % Monocytes % (0.0-12.0) % Eosinophils % (0.00-5.0) % Basophils % (0.0-0.4) % Absolute Granulocytes (1.4-6.9) x10^3/uL Basophils # (0-0.4) x10^3/uL PT (9.4-12.5) SECONDS INR (0.8-3.0) D-Dimer (0.0-0.50) mg/L Sodium (135-145) mmol/L Potassium (3.5-5.1) mmol/L Chloride (98-107) mmol/L Carbon Dioxide (22-30) mmol/L Anion Gap (5-15) MEQ/L BUN (7-17) mg/dL Creatinine (0.52-1.04) mg/dL Estimated GFR ML/MIN Glucose (74-106) mg/dL Calcium (8.4-10.2) mg/dL Total Bilirubin (0.2-1.3) mg/dL AST (14-36) U/L ALT (0-35) U/L Alkaline Phosphatase (38-126) U/L Troponin I (0.000-0.034) ng/mL NT-Pro-B Natriuret Pep (<300) pg/mL Serum Total Protein (6.3-8.2) g/dL Albumin (3.5-5.0) g/dL Urine Color (Yellow) Urine Appearance (Clear) Urine pH (4.6-8.0) Ur Specific [place] (1.005-1.030) Urine Protein (Negative) Urine Glucose (UA) (Negative) mg/dL Urine Ketones (Negative) Urine Blood (Negative) Urine Nitrite (Negative) Urine Bilirubin (Negative) Urine Urobilinogen (0.2) mg/dL Ur Leukocyte Esterase (Negative) U Hyaline Cast (Auto) (0-2) /LPF Urine Microscopic RBC (0-5) /HPF Urine Microscopic WBC (0-5) /HPF Ur Epithelial Cells (None Seen) /HPF Urine Bacteria (None Seen) /HPF Urine Culture Reflexed (NO) Monoscreen NEGATIVE (NEGATIVE) Influenza Type A Ag (NEGATIVE) Influenza Type B Ag (NEGATIVE) RSV (PCR) (NEGATIVE) SARS-CoV-2 (PCR) (NEGATIVE) Group A Strep Antibody NOT DETECTED (NEGATIVE) - Progress Progress: improved, re-examined Air Movement: good Progress Note: 07/28/23 10:59 This patient's medical issue is 1 of moderate complexity. The level of complexity and the workup performed is based on review the patient's past medical history, review of the patient's medication list, review the patient's drug allergy list, history present illness and physical findings on examination. The workup in this patient includes placement of intravenous line, twelve-lead EKG, aspirin, morphine 2 mg, intravenous Zofran, CBC, CMP, BNP, D-dimer, troponin level and urinalysis. Differential diagnosis in this patient includes myocardial infarction, pulmonary embolus, anxiety about health, stress related issues, pneumonia, electrolyte abnormalities 07/28/23 12:10 The chest x-ray was interpreted by the radiologist and I reviewed the impression. The impression is normal study with no evidence of any acute or new findings. I reviewed the patient's laboratory data results that have returned thus far. There are no acute or emergent findings on today's laboratory results. We are awaiting the urinalysis before discharging this patient. Blood Culture(s) Obtained: No Counseled pt/family regarding: lab results, diagnosis, need for follow-up, rad results Medical Desision Making - Independent Historian Additional History obtained from: Mother - Diagnostic Testing Diagnostic test were ordered, analyzed, and reviewed by me: Yes Radiological Interpretation: Reviewed by me, Teleradiologist Report - Risk of complications Low Risk: Low risk of morbidity from additional dx testing or treatment - Departure Departure Disposition: Home Clinical Impression: Nonspecific chest pain, Headache, Stress at work Condition: Stable Critical Care Time: No Referrals: SAADIA GLASER [Primary Care Provider] - Follow up/PCP as directed Additional Instructions: Take all your medications as prescribed. Follow-up with your primary care provider today, 07/28/2023, to make arrangements for further evaluation and management in the next 3 to 5 days.
[2023-07-28] MEDS ORDERED: Zofran 4 MG/2 ML VIAL ONE (11:02)
[2023-07-28] MEDS ORDERED: MORPHINE SULFATE 2 MG INJ ONE (11:02)
--- NOTE | 2023-07-28 11:03 | XRAY ---
Indication: Chest pain. Comparison: October 03, 2022 Portable chest again demonstrates normal heart and lungs. Bony thorax intact. No new/acute findings.
[2023-07-28 11:04] VITALS: TEMP 97.8
[2023-07-28] MEDS ORDERED: BABY ASPIRIN 81 MG CHEW ONE (11:04)
[2023-07-28] MEDS: Zofran 4 MG/2 ML VIAL IV ONE (11:05)
[2023-07-28] MEDS: BABY ASPIRIN 81 MG CHEW PO ONE (11:05)
[2023-07-28] MEDS: MORPHINE SULFATE 2 MG INJ IV ONE (11:06)
[2023-07-28 11:19] LABS: Absolute Neutrophil Ct (ANC) 6.77 x10^3/uL (1.4-6.9); BASOPHIL % 0.2 % (0.0-0.4); Basophil (Absolute #) 0.02 x10^3/uL (0-0.4); Eosinophil % 1.8 % (0.00-5.0); Eosinophil (Absolute #) 0.16 x10^3/uL (0-0.5); Hematocrit 41.7 % (35-47); Hemoglobin 13.4 g/dL (12.0-16.0); IMMATURE GRAN # 0.02 x10^3u/L (0.00-0.03); IMMATURE GRAN % 0.2 % (0.00-0.4); Lymphocyte (Absolute #) 1.64 x10^3/uL (1.0-4.6); Mean Cell Volume 92.7 fL (78-100); Mean Corpuscular Hemoglobin 29.8 pg (26-32); Mean Corpuscular Hgb Concent. 32.1 g/dL (32-36); Mean Platelet Volume 9.6 fL (7.5-11.0); Monocyte (Absolute #) 0.48 x10^3/uL (0.0-1.3); Monocytes % 5.3 % (0.0-12.0); Neutrophil % 74.5 % (36.0-66.0); Platelet Count 281 x10^3/uL (150-450); Red Cell Distribution Width 12.7 % (11.5-14.0); White Blood Count 9.1 x10^3/uL (4.0-10.5)
[2023-07-28 11:36] LABS: D-DIMER QUANTITATIVE 0.25 mg/L (0.0-0.50); INR 0.97 (0.8-3.0); PROTIME 10.6 SECONDS (9.4-12.5)
[2023-07-28 11:46] LABS: ALBUMIN 4.4 g/dL (3.5-5.0); ANION GAP 11.6 MEQ/L (5-15); BILIRUBIN,TOTAL 0.9 mg/dL (0.2-1.3); Calcium 9.4 mg/dL (8.4-10.2); Creatinine 1 0.92 mg/dL (0.52-1.04); EST GLOMERULAR FILTRATION RATE 79.7 ML/MIN; NT PRO BNPII 38.8 pg/mL (<300); Potassium 3.7 mmol/L (3.5-5.1); Total Protein 7.7 g/dL (6.3-8.2)
[2023-07-28 12:00] LABS: INFLUENZA A NEGATIVE (NEGATIVE); INFLUENZA B NEGATIVE (NEGATIVE); RESPIRATORY SYNCTIAL VIRUS NEGATIVE (NEGATIVE); SARS-CoV-2 Xpert Express NEGATIVE (NEGATIVE)
[2023-07-28 12:05] VITALS: BP 92/52; PULSE 84; RESP 24; O2SAT 97
[2023-07-28 12:30] LABS: ADD URINE CULTURE? NO (NO); Appearance Clear (Clear); Bacteria None Seen /HPF (None Seen); Bilirubin Negative (Negative); Blood Trace (Negative); Epithelial Cells Few /HPF (None Seen); Glucose, Urine Negative (Negative); Hyaline Casts 0-2 /LPF (0-2); Ketones Negative (Negative); Leukocyte Esterase Negative (Negative); Nitrite Negative (Negative); Ph 5.5 (4.6-8.0); Protein,Urine Dip Negative (Negative); RBC 0-2 /HPF (0-5); Specific Gravity 1.015 (1.005-1.030); Urobilinogen 0.2 mg/dL (0.2); WBC 0-2 /HPF (0-5)
== END 2023-07-28 12:43 | disposition home or self-care (01) ==
LOC: ED 10:20
DX: R07.9 Chest pain, unspecified (principal); R51.9 Headache, unspecified; I10 Essential (primary) hypertension; K21.9 Gastro-esophageal reflux disease without esophagitis; E78.5 Hyperlipidemia, unspecified; F41.9 Anxiety disorder, unspecified; Z79.899 Other long term (current) drug therapy; Z20.828 Contact with and (suspected) exposure to other viral communicable diseases; Z56.6 Other physical and mental strain related to work
CPT/HCPCS: 0241U; 36000; 36415; 71045; 80053; 81001; 83880; 84484; 85025; 85379; 85610; 86308; 87651; 93005; 93041; 96374; 96375; 99284; J2270; J2405; A9270-GY

== ENCOUNTER 2023-12-21 05:38 | Day surgery (SDC) | payer BC ==
[2023-12-21] MEDS ORDERED: Lactated Ringers 1,000 ML IV ONE (06:12)
[2023-12-21] MEDS ORDERED: CEFAZOLIN 2 GM/100 ML NaCl 2 GM/100 ML IVPB IV ONE (06:12)
[2023-12-21 06:19] VITALS: RESP 18
[2023-12-21] MEDS: CEFAZOLIN 2 GM/100 ML NaCl 2 GM/100 ML IVPB IV SCH (06:28)
[2023-12-21] MEDS: Lactated Ringers 1,000 ML IV SCH (06:28)
[2023-12-21 06:33] LABS: Hematocrit 39.2 % (34.1-44.9); Hemoglobin 12.7 g/dL (11.2-15.7); Mean Corpuscular Hemoglobin 29.8 pg (25.6-32.2); Mean Corpuscular Hgb Concent. 32.4 g/dL (32.2-35.5); Mean Platelet Volume 9.6 fL (9.4-12.3); Platelet Count 227 x10^3/uL (182-369); Red Blood Count 4.26 x10^6/uL (3.93-5.22); Red Cell Distribution Width 12.3 % (11.7-14.4); White Blood Count 7.2 x10^3/uL (3.98-10.04)
[2023-12-21 06:48] LABS: ALBUMIN 4.1 g/dL (3.5-5.0); ANION GAP 10.1 MEQ/L (5-15); BILIRUBIN,TOTAL 0.6 mg/dL (0.2-1.3); Calcium 9.1 mg/dL (8.4-10.2); Creatinine 1 0.83 mg/dL (0.52-1.04); EST GLOMERULAR FILTRATION RATE 90.2 ML/MIN; Total Protein 7.2 g/dL (6.3-8.2)
[2023-12-21] MEDS ORDERED: Versed 2 MG/2 ML Injection ONE (06:51)
[2023-12-21] MEDS ORDERED: Marcaine 0.5%/Epinephrine 10 ML ONE (06:52)
[2023-12-21] MEDS ORDERED: EXPAREL 133 MG/10 ML VIAL IJ ONE (06:53)
[2023-12-21] MEDS ORDERED: DIPRIVAN 200 MG/20 ML IV ONE (08:16)
[2023-12-21] MEDS ORDERED: Decadron 4 MG INJ ONE (08:16)
[2023-12-21] MEDS ORDERED: ROCURONIUM BROMIDE IV ONE (08:16)
[2023-12-21] MEDS ORDERED: Zofran 4 MG/2 ML VIAL ONE (08:16)
[2023-12-21] MEDS ORDERED: BRIDION 200MG/2ML IV ONE (09:45)
[2023-12-21 11:03] VITALS: TEMP 97.9; O2SAT 94
[2023-12-21 11:21] VITALS: BP 159/95; PULSE 67
--- NOTE | 2023-12-21 11:39 | XRAY ---
Indication: Left peroneous brevis tendon debridement, detachment/debridement of heterotopic ossification, and peroneous brevis tendon transfer. Intraoperative fluoroscopy provided 1 minute 20 seconds. 15 digital spot images submitted for interpretation ultimately demonstrates tunnel radiolucency base 5th metatarsal with medial orthopedic button. Correlate with intraoperative findings/report.
--- NOTE | 2023-12-21 12:43 | XRAY ---
One minute and 20 seconds of fluoroscopy was used in surgery for a left peroneous brevis tendon debridement, detachment/debridement of heterotopic ossification, and peroneous brevis tendon transfer.
--- NOTE | 2023-12-22 09:08 | OP ---
SURGERY DATE/TIME: 12/21/2023 4614 - [id number] PREOPERATIVE DIAGNOSES: 1) Left foot pain. 2) Peroneus brevis tendinitis. 3) Heterotopic ossification/malunion fifth metatarsal fracture. 4) Difficulty with ambulation. 5) Sural neuritis/sural compression injury, left foot. POSTOPERATIVE DIAGNOSES: 1) Left foot pain. 2) Peroneus brevis tendinitis. 3) Heterotopic ossification/malunion fifth metatarsal fracture. 4) Difficulty with ambulation. 5) Sural neuritis/sural compression injury, left foot. PROCEDURES: 1) Peroneus brevis tendon debridement. 2) Peroneus brevis and peroneus tertius tendon transfer to fifth metatarsal base with advancement. 3) Excision of heterotopic ossification/malunion, fifth metatarsal. 4) Sural nerve decompression, left foot. SURGEON: Balwinder Christie MD POWDER MILL OPERATOR: None. ANESTHESIA: General plus a preoperative popliteal and saphenous block. HEMOSTASIS: A thigh tourniquet set to 325 mmHg for a total of 45 total tourniquet minutes. ESTIMATED BLOOD LOSS: Approximately 5 mL. MATERIALS: A 2.9 ToggleLoc with broadband suture, 4-0 Monocryl, 3-0 nylon. INJECTABLES: See Anesthesia report for details. INDICATIONS FOR PROCEDURE: The patient is a very pleasant 42-year-old female with a longstanding history of a fifth metatarsal fracture that started in a significant amount of pain and which has continued for approximately 1-1/2 years at this point. Patient has had some level of healing; however, a CT scan and an MRI demonstrated healing of the fragment, however, a malunion of the fragment of the 5th metatarsal avulsion, which was healed in a more plantar and inferior position. From that standpoint, decision was made to proceed with surgical intervention. Patient does have some significant musculoskeletal indications of pain as a result of her peroneus brevis, which has demonstrated some level of disease on the MRI and to a greater extent, her clinical exam is highly restricted for range of motion in dorsiflexion and eversion. Patient also does have a positive Tinel's over the sural nerve distribution, which does extend up the leg. Patient, at this time, understands all risks, complications and benefits of surgical intervention at this time including, but not limited to, infection, hematoma, seroma, possibility of delayed wound healing, non-wound healing, possible failure of surgical intervention, possible loss of function and possible need for further surgical intervention at a later date. No guarantees were provided as to the outcome of surgical intervention at this time. Plenty of time was allowed for the patient and her mother to ask questions, which were answered to her apparent satisfaction. It is at this time we decided to proceed. DESCRIPTION OF PROCEDURE AND FINDINGS: Patient was brought into the PACU prior to the procedure and provided a popliteal and saphenous block. Following this, the block took place, the patient was into the operating room, placed on the operating room table in the supine position. At this time, general anesthesia was administered. A well-padded thigh tourniquet was applied to the patient's left thigh. The tourniquet was set to 325 mmHg. At this time, the left lower extremity was prepped and draped in the typical sterile fashion and lowered onto the surgical field. At this time, attention was directed to the styloid process of the 5th metatarsal. The left foot under fluoroscopic guidance on the lateral and an AP view, landmarks were identified and incision placement was planned. A 15 blade was utilized to make an incision, being careful not to damage any neurovascular structures until bone was encountered. Just above where the incision site was, the sural nerve was identified and retracted carefully out of the way. Following this, a resection of the peroneus brevis was performed off the styloid process of the fifth metatarsal. The peroneus brevis was then inspected, demonstrating a significant amount of disease within the inner core of the tendon. This took up approximately 75% of the tendon itself, leaving a very small remnant of the peroneus brevis left over. Area inspected and the peroneus tertius was available at the dorsal aspect of the fifth metatarsal, which was then resected. Following this, the peroneus brevis and peroneus tertius were tenodesed into 1 tendon. A bone tunnel was drilled into the fifth metatarsal in an oblique orientation, similar to the insertion of the peroneus brevis. Following this, the 2.9 [place] ToggleLoc was introduced and engaged into the lateral cortex of the fifth metatarsal. This was tied to the end of the tendon and the tendon was pulled through the tunnel of the fifth metatarsal, gaining excellent pull through of the tendon into the bone tunnel. Following this, excision of the fifth metatarsal exostosis was performed and then, the sural nerve was then decompressed within the footprint of the incision. Any scar tissue that was identified was resected off of the nerve until there was minimal tension surrounding the sural nerve in this area. Following this, copious amounts of sterile saline were utilized to flush the surgical site. Then, 4-0 Monocryl was utilized to coapt the skin edges subcutaneously in a simple interrupted buried-type fashion and 3-0 nylon was utilized in a horizontal mattress-type fashion to coapt the skin in an everted-type fashion. A dressing consisting of Betadine, Adaptic, 4 x 4, Kerlix, ABD and a well-padded posterior splint with sugar-tong with the foot in slight eversion was performed. Patient was then reversed from anesthesia and returned to the postoperative anesthesia care unit with vital signs stable and vascular status intact. Patient handled the anesthesia as well as the procedure without significant complication. Postoperative orders as indicated in the patient's discharge chart.
== END 2023-12-21 11:22 | disposition home or self-care (01) ==
LOC: SDC 05:38
PROVIDERS: ATTEND Podiatrist Foot & Ankle Surgery
DX: M76.72 Peroneal tendinitis, left leg (principal); M79.605 Pain in left leg; S92.352A Displaced fracture of fifth metatarsal bone, left foot, initial encounter for closed fracture; R26.2 Difficulty in walking, not elsewhere classified; S90.922A Unspecified superficial injury of left foot, initial encounter; G58.8 Other specified mononeuropathies
CPT/HCPCS: 27658; 27691; 28122; 36415; 64704; 73630; 76000; 76937; 80053; 85027; 93005; C1713; 64447; 64450; J0690; J1100; J2250; J2405; J2704

== ENCOUNTER 2025-01-30 20:21 | Observation (INO) | payer BC ==
--- NOTE | 2025-01-30 21:34 | ERPHSYRPT ---
- History of Present Illness Time Seen by Provider: 01/30/25 21:27 Source: patient Exam Limitations: no limitations Patient Subjective Stated Complaint: had a seizure Triage Nursing Assessment: Pt brought to ER by spouse and her mother. Pt ambulated into ER with spouse holding onto her arm. Pt had a seizure this evening lasting approx 30 seconds. Pt did not fall, her caught her. Pt was flailing her arms and shaking during the seizure per her . Pt c/o headache and nausea, pt did vomit x1 at home. Per spouse, pt did not lose consciousness but was incoherent during the seizure. Pt is alert and oriented x4, calm, relaxed, tired. Pt had a seizure 2 weeks ago. Pt has an EEG and MRI scheduled for 02/13/25 and is to see a neurologist on 02/26/25. Physician History: Patient is a 44-year-old female with history of seizures migraine headaches, hypertension cardiac dysrhythmias, asthma, anxiety, depression, presents to our ED with spouse and mother. Mother reports that patient had a seizure this evening that lasted approximately 30 seconds. No falls no injury no trauma. Patient was reportedly called by her . The seizure was described as generalized as per her report her arms were flailing and her body was shaking. Postseizure patient complained of a headache and nausea. She vomited once. Patient's last seizure was 2 weeks ago. Patient is currently scheduled for an EEG and MRI to be performed on 02/13/2025. She has an appointment to see a neurologist on 02/26/2025. Patient voices no other complaints or concerns at this time. Portions of this note were created with voice recognition technology. There may be grammatical, spelling, punctuation or sound alike errors Timing/Duration: today Severity: moderate Modifying Factors: Improves With: nothing Associated Symptoms: denies symptoms Allergies/Adverse Reactions: atenolol Adverse Reaction (Intermediate, Verified 01/30/25 20:33) bradycardia Home Medications: Albuterol Common Canister [Ventolin Common Canister] 2 puff IH Q4HPRN PRN 07/21/19 [History] lisinopriL [Zestril] 30 mg PO DAILY 08/01/19 [History] Aspirin [Aspirin EC] 81 mg PO DAILY 12/23/21 [History] Rimegepant Sulfate [Nurtec Odt] 75 mg PO DAILY PRN PRN 12/23/21 [History] Atogepant [Qulipta] 60 mg PO DAILY 12/03/23 [History] Ergocalciferol (Vitamin D2) [Vitamin D2] 1,250 mcg PO WEEKLY 12/03/23 [History] Escitalopram Oxalate [Lexapro] 10 mg PO DAILY 12/03/23 [History] Magnesium Oxide 400 mg [Mag-Ox 400] 400 mg PO DAILY 12/03/23 [History] Riboflavin (Vitamin B2) [Vitamin B-2] 25 mg PO DAILY 12/03/23 [History] Tolterodine Tartrate 2 mg PO DAILY 12/03/23 [History] Hx Tetanus, Diphtheria Vaccination/Date Given: Yes Hx Influenza Vaccination/Date Given: Yes Hx Pneumococcal Vaccination/Date Given: No Travel Risk - International Travel Have you traveled outside of the country in past 3 weeks: No - Emerging Infectious Disease Are you exhibiting symptoms associated with any current EIDs: No - Review of Systems All Other Systems: Reviewed and Negative - Past Medical History Pertinent Past Medical History: Yes Neurological History: Migraines, Seizures ENT History: No Pertinent History Cardiac History: Arrhythmia, Hypertension, Other Respiratory History: Asthma Endocrine Medical History: No Pertinent History Musculoskeletal History: Fractures GI Medical History: GERD, Gallbladder Disease History: No Pertinent History Psycho-Social History: Anxiety, Depression Female Reproductive Disorders: No Pertinent History Other Medical History: PATIENT REPORTS HX OF HEART "EPISODES" WITH LABS SHOWING HEART ATTACK BUT HEART CATHETERIZATION AND STRESS TEST WERE NEGATIVE. HX OF FX LEFT ANKLE PRIOR 14 YEARS AGO WITH PLATE AND SCREWS. PLATE STILL PRESENT. - Past Surgical History Past Surgical History: Yes Neuro Surgical History: No Pertinent History Cardiac: No Pertinent History Respiratory: No Pertinent History Gastrointestinal: Cholecystectomy Genitourinary: No Pertinent History Musculoskeletal: Orthopedic Surgery Female Surgical History: Dilation & Curettage, Section, Other Other Surgical History: ankle repair, d&c. fallopian tube removal(left) Significant Family History: no pertinent family hx - Female History Hx Last Menstrual Period: 1 WEEK AGO Hx Now: No - Social History Smoking Status: Never smoker Exposure to second hand smoke: No Drug Use: none - Social Determinants of Health Will the patient participate in the screening: Yes Do you worry about a steady place to live?: No Do you have any problems with any of the following?: No known problems In the past 12 months,have you had to go without utilities?: No Transportation Issues: No Has anyone in your support network made you feel unsafe?: No Have you or anyone in your house had to go w/o enough food: No - Nursing Vital Signs Nursing Vital Signs: Initial Vital Signs Pulse Rate 71 01/30/25 20:31 Respiratory Rate 15 01/30/25 20:31 Blood Pressure 156/68 01/30/25 20:31 O2 Sat by Pulse Oximetry 95 01/30/25 20:31 Pain Scale Pain Intensity 6 - Physical Exam General Appearance: no apparent distress, alert Eye Exam: PERRL/EOMI, eyes nml inspection Ears, Nose, Throat Exam: normal ENT inspection, moist mucous membranes Neck Exam: normal inspection, full range of motion Respiratory Exam: normal breath sounds, lungs clear, airway intact, No respiratory distress Cardiovascular Exam: regular rate/rhythm, normal heart sounds, normal peripheral pulses Gastrointestinal/Abdomen Exam: soft, normal bowel sounds, No tenderness, No mass Back Exam: normal inspection, normal range of motion, No CVA tenderness, No vertebral tenderness Extremity Exam: normal inspection, normal range of motion, pelvis stable Neurologic Exam: alert, oriented x 3, cooperative, normal mood/affect, sensation nml, No motor deficits Skin Exam: normal color, warm, dry, No rash Lymphatic Exam: No adenopathy SpO2 Interpretation: normal SpO2: 95 O2 Delivery: Room Air - Course Nursing assessment & vital signs reviewed: Yes EKG Interpreted by Me: RATE (69), Sinus Rhythm, NORMAL AXIS, NORMAL INTERVALS, Right Bundle Branch Block - CT Exams Head CT Interpretation: Tele-radiologist Report (Normal head compared to 01/11/2025) Ordered Tests: Active Orders 24 hr Category Date Time Status Tyre Finisher And Examiner STAT Care 01/30/25 21:32 Active EKG-ER Only STAT Care 01/30/25 21:31 Active IV Insertion STAT Care 01/30/25 21:31 Active Pulse Oximetry (ED) STAT Care 01/30/25 21:31 Active HEAD WITHOUT CONTRAST [CT] Stat Exams 01/30/25 21:33 Taken CBC W DIFF Stat Lab 01/30/25 21:00 Completed CK-Creatinine Phosphokinase Stat Lab 01/30/25 21:00 Completed CMP Stat Lab 01/30/25 21:00 Completed ETHYL ALCOHOL Stat Lab 01/30/25 21:00 Completed HCG QUALITATIVE, URINE Stat Lab 01/30/25 22:00 Completed MAGNESIUM Stat Lab 01/30/25 21:00 Completed TROPONIN Q4H Lab 01/30/25 21:00 Completed TROPONIN Q4H Lab 01/31/25 01:45 Ordered TROPONIN Q4H Lab 01/31/25 05:45 Ordered UA W/RFX UR CULTURE Stat Lab 01/30/25 22:00 Completed Medication Summary Generic Name Dose Route Start Last Admin Trade Name Freq PRN Reason Stop Dose Admin Sodium Chloride 1,000 mls @ 100 mls/hr 01/30/25 21:45 01/30/25 21:45 Sodium Chloride 0.9% 1000 Ml IV 03/01/25 21:44 100 mls/hr .Q10H MARY Administration Discontinued Medications Generic Name Dose Route Start Last Admin Trade Name Samiq PRN Reason Stop Dose Admin Ketorolac Tromethamine 30 mg 01/30/25 21:33 01/30/25 21:45 Ketorolac Tromethamine 30 Mg/Ml Inj IV 01/30/25 21:34 30 mg STAT ONE Administration Ketorolac Tromethamine Confirm 01/30/25 21:44 Ketorolac Tromethamine 30 Mg/Ml Inj Administered 01/30/25 21:45 Dose 30 mg .ROUTE .STK-MED ONE Prochlorperazine Edisylate 10 mg 01/30/25 21:33 01/30/25 21:45 Prochlorperazine Edisylate 10 Mg/2 Ml Vial IV 01/30/25 21:34 10 mg STAT ONE Administration Prochlorperazine Edisylate Confirm 01/30/25 21:44 Prochlorperazine Edisylate 10 Mg/2 Ml Vial Administered 01/30/25 21:45 Dose 10 mg .ROUTE .STK-MED ONE Lab/Rad Data: Laboratory Result Diagrams 01/30/25 21:00 01/30/25 21:00 Laboratory Results 01/30/25 01/30/25 01/30/25 Range/Units 22:00 22:00 21:00 WBC (3.98-10.04) x10^3/uL RBC (3.93-5.22) x10^6/uL Hgb (11.2-15.7) g/dL Hct (34.1-44.9) % MCV (79.4-94.8) fL MCH (25.6-32.2) pg MCHC (32.2-35.5) g/dL RDW (11.7-14.4) % Plt Count (182-369) x10^3/uL MPV (9.4-12.3) fL Gran % (34.0-71.1) % Immature Gran % (Auto) (0.001-0.429) % Nucleat RBC Rel Count (0.00-0.2) % Eos # (Auto) (0.04-0.36) x10^3/uL Immature Gran # (Auto) (0.001-0.031) x10^3u/L Absolute Lymphs (auto) (1.18-3.74) x10^3/uL Absolute Monos (auto) (0.24-0.86) x10^3/uL Absolute Nucleated RBC (0.00-0.012) x10^3u/L Lymphocytes % (19.3-51.7) % Monocytes % (4.7-12.5) % Eosinophils % (0.7-5.8) % Basophils % (0.1-1.2) % Absolute Granulocytes (1.56-6.13) x10^3/uL Basophils # (0.01-0.08) x10^3/uL Sodium 138 (135-145) mmol/L Potassium 3.8 (3.5-5.1) mmol/L Chloride 99 (98-107) mmol/L Carbon Dioxide 32 H (22-30) mmol/L Anion Gap 11.0 (5-15) MEQ/L BUN 20 H (7-17) mg/dL Creatinine 0.76 (0.52-1.04) mg/dL Estimated GFR 99.0 ML/MIN Glucose 104 (74-106) mg/dL Calcium 9.0 (8.4-10.2) mg/dL Magnesium (1.6-2.3) mg/dL Total Bilirubin 0.20 (0.2-1.3) mg/dL AST 24 (14-36) U/L ALT 15 (0-35) U/L Alkaline Phosphatase 93 (38-126) U/L Creatine Kinase (30-135) U/L Troponin I (0.000-0.033) ng/mL Serum Total Protein 7.0 (6.3-8.2) g/dL Albumin 4.1 (3.5-5.0) g/dL Urine Color Yellow (Yellow) Urine Appearance Cloudy A (Clear) Urine pH 6.5 (4.6-8.0) Ur Specific [place] 1.020 (1.005-1.030) Urine Protein Negative (Negative) Urine Glucose (UA) Negative (Negative) mg/dL Urine Ketones Negative (Negative) Urine Blood Trace (Negative) Urine Nitrite Negative (Negative) Urine Bilirubin Negative (Negative) Urine Urobilinogen 1.0 A (0.2) mg/dL Ur Leukocyte Esterase Negative (Negative) U Hyaline Cast (Auto) NONE SEEN (0-2) /LPF Urine Microscopic RBC 3-5 (0-5) /HPF Urine Microscopic WBC 0-2 (0-5) /HPF Ur Epithelial Cells Few (None Seen) /HPF Urine Bacteria Few A (None Seen) /HPF Urine Culture Reflexed NO (NO) Urine HCG, Qual NEGATIVE (NEGATIVE) Ethyl Alcohol (0-10) mg/dL 01/30/25 01/30/25 01/30/25 Range/Units 21:00 21:00 21:00 WBC 9.5 (3.98-10.04) x10^3/uL RBC 4.10 (3.93-5.22) x10^6/uL Hgb 12.5 (11.2-15.7) g/dL Hct 39.1 (34.1-44.9) % MCV 95.4 H (79.4-94.8) fL MCH 30.5 (25.6-32.2) pg MCHC 32.0 L (32.2-35.5) g/dL RDW 13.1 (11.7-14.4) % Plt Count 251 (182-369) x10^3/uL MPV 9.7 (9.4-12.3) fL Gran % 66.8 (34.0-71.1) % Immature Gran % (Auto) 0.3 (0.001-0.429) % Nucleat RBC Rel Count 0.0 (0.00-0.2) % Eos # (Auto) 0.32 (0.04-0.36) x10^3/uL Immature Gran # (Auto) 0.03 (0.001-0.031) x10^3u/L Absolute Lymphs (auto) 2.16 (1.18-3.74) x10^3/uL Absolute Monos (auto) 0.60 (0.24-0.86) x10^3/uL Absolute Nucleated RBC 0.00 (0.00-0.012) x10^3u/L Lymphocytes % 22.8 (19.3-51.7) % Monocytes % 6.3 (4.7-12.5) % Eosinophils % 3.4 (0.7-5.8) % Basophils % 0.4 (0.1-1.2) % Absolute Granulocytes 6.34 H (1.56-6.13) x10^3/uL Basophils # 0.04 (0.01-0.08) x10^3/uL Sodium (135-145) mmol/L Potassium (3.5-5.1) mmol/L Chloride (98-107) mmol/L Carbon Dioxide (22-30) mmol/L Anion Gap (5-15) MEQ/L BUN (7-17) mg/dL Creatinine (0.52-1.04) mg/dL Estimated GFR ML/MIN Glucose (74-106) mg/dL Calcium (8.4-10.2) mg/dL Magnesium 2.0 (1.6-2.3) mg/dL Total Bilirubin (0.2-1.3) mg/dL AST (14-36) U/L ALT (0-35) U/L Alkaline Phosphatase (38-126) U/L Creatine Kinase 65 (30-135) U/L Troponin I < 0.012 (0.000-0.033) ng/mL Serum Total Protein (6.3-8.2) g/dL Albumin (3.5-5.0) g/dL Urine Color (Yellow) Urine Appearance (Clear) Urine pH (4.6-8.0) Ur Specific [place] (1.005-1.030) Urine Protein (Negative) Urine Glucose (UA) (Negative) mg/dL Urine Ketones (Negative) Urine Blood (Negative) Urine Nitrite (Negative) Urine Bilirubin (Negative) Urine Urobilinogen (0.2) mg/dL Ur Leukocyte Esterase (Negative) U Hyaline Cast (Auto) (0-2) /LPF Urine Microscopic RBC (0-5) /HPF Urine Microscopic WBC (0-5) /HPF Ur Epithelial Cells (None Seen) /HPF Urine Bacteria (None Seen) /HPF Urine Culture Reflexed (NO) Urine HCG, Qual (NEGATIVE) Ethyl Alcohol < 10 (0-10) mg/dL - Progress Progress: improved Progress Note: I discussed the case with neurologist Dr. Davey at 11:44 PM. She requested to add a prolactin level to assess for seizure versus syncopal episode. Additionally her healthcare receptionist request 1500 mg Keppra dose now and 1000 twice daily. She also wants a Keppra level in the morning this was relayed to the hospitalist who will order the Keppra level in the morning. Additionally neurologist is requesting an echo study with bubble as an inpatient including an MRI and an EEG. 01/30/25 23:51 Patient is a 44-year-old female with history of seizures migraine headaches, hypertension cardiac dysrhythmias, asthma, anxiety, depression, presents to our ED with spouse and mother. Mother reports that patient had a seizure this evening that lasted approximately 30 seconds. No falls no injury no trauma. Physical exam nonremarkable. CT head negative for acute intracranial pathology. Workup reveals dehydration. Patient evaluated by teleneurologist who advises 1500 mg load of Keppra in our ED. Patient to be admitted for inpatient MRI and EEG. Plan of care discussed with patient. She agrees to admission at [facility][1] for further evaluation and treatment. Discussed with hospitalist accepts admission to observation at 11:51 PM. History obtained from patient and her who is at the bedside. Differential diagnosis includes seizure, complex migraine, syncope, TIA Portions of this note were created with voice recognition technology. There may be grammatical, spelling, punctuation or sound alike errors Complexity of problems addressed is moderate acute complicated. No critical care time. Complexity of data reviewed and analyzed as extensive. Test ordered test reviewed results analyzed and correlated clinically with history and physical exam. Management discussed with hospitalist and neurologist. Risk of complication and or risk of morbidity/mortality of patient management is high. Patient requires hospitalization for further evaluation and treatment. Vital stable. Time spent to admit patient approximately 20 minutes. Plan of care established for shared decision making. No social determinants of health present to impede follow-up. Portions of this note were created with voice recognition technology. There may be grammatical, spelling, punctuation or sound alike errors 01/30/25 23:57 Counseled pt/family regarding: lab results, diagnosis, rad results - Departure Departure Disposition: Observation Clinical Impression: Seizure, Dehydration Condition: Stable Critical Care Time: No Referrals: SAADIA GLASER [Primary Care Provider, [facility]] - Follow up/PCP as directed
[2025-01-30 21:37] LABS: BASOPHIL % 0.4 % (0.1-1.2); Basophil (Absolute #) 0.04 x10^3/uL (0.01-0.08); Eosinophil (Absolute #) 0.32 x10^3/uL (0.04-0.36); Hematocrit 39.1 % (34.1-44.9); Hemoglobin 12.5 g/dL (11.2-15.7); IMMATURE GRAN # 0.03 x10^3u/L (0.001-0.031); IMMATURE GRAN % 0.3 % (0.001-0.429); Lymphocyte (Absolute #) 2.16 x10^3/uL (1.18-3.74); Mean Corpuscular Hemoglobin 30.5 pg (25.6-32.2); Mean Corpuscular Hgb Concent. 32.0 g/dL (32.2-35.5); Monocyte (Absolute #) 0.60 x10^3/uL (0.24-0.86); NUCLEATED RBC # 0.00 x10^3u/L (0.00-0.012); NUCLEATED RBC % 0.0 % (0.00-0.2); Platelet Count 251 x10^3/uL (182-369); Red Blood Count 4.10 x10^6/uL (3.93-5.22); White Blood Count 9.5 x10^3/uL (3.98-10.04)
[2025-01-30 21:43] LABS: CK-Creatinine Phosphokinase 65 U/L (30-135); ETHYL ALCOHOL < 10 mg/dL (0-10)
[2025-01-30] MEDS ORDERED: Compazine 10 MG/2 ML ONE (21:44)
[2025-01-30] MEDS ORDERED: TORAdol 30 mg Injection ONE (21:44)
[2025-01-30] MEDS: Compazine 10 MG/2 ML IV ONE (21:45)
[2025-01-30] MEDS: TORAdol 30 mg Injection IV ONE (21:45)
[2025-01-30 22:24] LABS: HCG URINE TEST NEGATIVE (NEGATIVE)
[2025-01-30 22:30] LABS: Glucose, Urine Negative (Negative); Protein,Urine Dip Negative (Negative); WBC 0-2 /HPF (0-5)
[2025-01-30 23:06] LABS: Calcium 9.0 mg/dL (8.4-10.2); Carbon Dioxide 32.0 mmol/L (22-30); Creatinine 1 0.76 mg/dL (0.52-1.04); EST GLOMERULAR FILTRATION RATE 99.0 ML/MIN; Glucose 104.0 mg/dL (74-106); Potassium 3.8 mmol/L (3.5-5.1); SGOT/AST 24.0 U/L (14-36); SGPT/ALT 15.0 U/L (0-35); Total Protein 7.0 g/dL (6.3-8.2)
--- NOTE | 2025-01-30 23:52 | PCM.CONS ---
History of Present Illness - Neuro Consultation Date of Consultation Date: 01/30/25 ED Arrival Date & Time: 01/30/25 20:21 * Required General Template * Patient identity was confirmed at the beginning of the consult with the patient/family/staff using two personal identifiers * Clear Other SVETA ALCANTARA Female , 44 y.o. (1980) MRN: [id number] Hospital Clock 23:[address] [facility] - [place] See more Neuro Cohort 2 Neuro Emergency Patient Location and Admission Status * Chief Complaint * SEIZURE HISTORY OF PRESENT ILLNESS Family members and medical staff present * DR. DANIELE HUANG History of present illness (Include relevant elements: Location, Severity, Timing, Quality, Duration, Context, Modifying Factors, Signs, Symptoms) * Patient is a 44 yr. old RH woman who presents to the ED w recurrent seizures... at 8PM tonight patient had a seizure.... followed by a severe headache.... Patient has had longstanding seizures..... has had focal seizures -- seizures for 3 weeks.... associated confusion followed by collapse/ LOC/ generalized shaking... loss of bladder function..... Review Of Systems Review Of Systems Guide Pertinent Review of Systems * Review of Systems * Constitutional: Denies fevers, chills, weight loss ENT: Denies tinnitus Ophthalmology: Denies diplopia, blurred vision, vision loss Respiratory: Denies SOB, cough Cardiovascular: Denies chest pains, palpitations GI: Denies nausea, vomiting : Denies hematuria Hematology: Denies excessive bleeding Musculoskeletal: Denies back pain, neck pain, joint pain Neurology: Denies headache, altered mentation Mental Health: Denies anxiety Dermatology: Denies rash To my knowledge, this ROS is complete and accurate * Medical History Unable to assess Medical History * Clear Past Medical History Includes Other Medical History Past Procedures Clear Other Past Procedures cholecystectomy L tubaligation Allergies Unable to assess Allergies * Clear Other Allergies atenolol Medications Unable to assess Anti-Coagulants * Clear Anti-Platelets * Clear ASA 81mg q day Other Medications Lisinopril 30mg q day Qulipta 60mg q day Mag Oxide 400mg q day ASA 81mg q day B12 q day D2 weekly Lexapro 10mg q day Inhaler Tolteradine tartrate 2mg q day Social History * Alcohol Use Clear Illicit Drug Use Clear Tobacco Use Clear Other Social History lives at home w family Family History Pertinent Family History * Clear Other Family History Vital Signs * Unable to obtain Date & Time 01/30 10:40 Recorded By gail oliver Afebrile Temperature (F/C) 98.2 / 36.8 Blood Pressure 169/71 mm Hg Heart Rate 70 bpm Respiration Rate 18 bpm O2 Sat 99 % POC Glucose Weight LB/KG 337.5 / 153.1 BMI Means of Collecting Patient Weight Patient weighed at hospital Pain Assessment 0 -None Oxy.Delivery Room Air EKG Rhythm Sinus Rhythm Comments Exam Exam * Neuro exam: Patient awake/ alert/ oriented in 4 spheres. Speech is fluent/ naming is intact/ Repetition intact/ no evidence of aphasia noted. No dysarthria noted. leather softener - pupils (=) 4-2mm bilaterally/ EOMs intact in all directions of gaze /symmetric facial sensation V1-2 -3 bilaterally/ symmetrical facial upper/ lower noted/ audition intact/ tongue midline/ phonation intact/ + gag reflex intact/ SCMs(=) Motor exam- no pronator drift/ 4/5+ bilateral UEs/ LEs proximal to distal Sensory-intact to light touch throughout bilateral UEs/ LEs/ no agraphesthesia/ no astereognosis/ no double simultaneous extinction DTRs- deferred/ no babinski sign illicited Cerebellar- finger to nose/ heel-raphael (=)/ no dysmetria noted/ no overshoot nystagmus/ no rebound phenomenon Gait- not tested Fine motor- no resting tremor/ no myoclonus/ no abnormal involuntary movements/ no choreiform movements Gen: No apparent distress, non-toxic appearing Psych: normal affect HEENT: No visible bruising, no mucosal pallor Ophth: No scleral icterus, no conjunctival injection or proptosis Neck: No nuchal rigidity, turns neck without difficulty Resp: normal respirations, no distress, speaking in full sentences CV: No visible edema in LE Abd: No abd distention noted MSK: No joint swelling, erythema noted. No contractures noted. Skin: No pallor. No visible rashes or bruising Clinician assisting with exam KATELYN Rey NIH Stroke Scale Unable to assess Recorded by: gail oliver Recorded On: 01/30 10:41 NIH Stroke Scale Score: 0 see details labs And Imaging I reviewed labs Clear I reviewed diagnostic reports such as radiological imaging, echocardiogram, and EEG reports Clear I reviewed diagnostics such as radiological images and electroencephalograms Clear Labs and Imaging Comments * CT scan brain - unrevealing of abnormality/ no acute intracranial findings. Assessment Assessment * (To include Patient Summary, Differential Diagnoses, Medical Reasoning, and Diagnosis) 1. Breakthru seizure 2. Hx of migraine 3. altered mental status Diagnosis Diagnosis * 1. Breakthru seizure Case Discussed With * DR. Huang Recommendations Recommendations * Stat Prolactin level EEG (routine) followed by LTM EEG monitoring if obtundation continues or seizures refractory Lorazepam 2mg IV/IM for sz > 2min or [id number] sz without return to normal in between Consider Midazolam drip 0.4mg/kg/ hr continuous titrate max 0.8mg/kg/ hr. if no return to baseline level of cognition... or continued seizure activity Sz precautions while in hospital - padded side rails - oxygen and suction available at bedside - HOB 30 degrees EtOH w/d protocol- CIWA protocol if indicated Thiamine 100mg q day MVI q day Folate 1mg q day load with Keppra 1500 mg now, then continue 1000 mg bid. Keppra level in AM Labs- TSH, B12, GlycoHg, SPEP w IPEP, CMP, CBC w diff, JADE, PEACE level, ESR, CRP, ammonia level UDS MRI Brain wo zully Echo w bubble CM/SW for access to care issues + post-discharge needs no driving/hazardous activities until cleared by neurology IF no obvious reversible cause found report per state law This tele-neurology consultation was performed via two-way videoconferencing. I have discussed the case with ED physician, RN and patient/family. They understand and agree with this plan. ALL ABOVE IF NO CONTRAINDICATIONS: After the above preliminary workup is completed, further decisions regarding diagnosis and/or management can be made by primary team and/or in-house neurologist. Please re-consult our Teleneurology service, if in-house neurology not available, with additional questions, concerns, or changes in this patients neurologic status I have obtained verbal consent from patient/surrogate for two-way audio/visual encounter * Clear Portions of the evaluation were not assessed due to the following Other THROMBOLYSIS INCLUSION/EXCLUSION CRITERIA Inclusion Criteria Must answer YES to ALL in order to proceed with thrombolysis. Clear All Symptoms suggestive of ischemic stroke that are deemed disabling Able to initiate treatment within 4.5 hours of time last known well? Age 18 years or older Exclusion Criteria Physicians with expertise in cerebrovascular disease may deem thrombolysis to be reasonable in the presence of one or more exclusion criteria after careful consideration of potential risk versus benefit to the patient. Default all to No Default all to Yes Clear All Acute intracranial hemorrhage (ICH) History of ICH other than history of cerebral microbleeds Unable to maintain BP <185/110 despite aggressive antihypertensive treatment Acute internal bleeding Severe head trauma within last 3 months Arterial puncture at non-compressible site within 7 days Infective endocarditis Gastrointestinal bleeding within last 21 days or structural GI malignancy Intracranial or spinal surgery within last 3 months Thrombocytopenia: platelet count <100 000/mm3 INR > 1.7, PT > 15 or PTT > 40 Low-Molecular Weight Heparin within preceding 24 hours Direct Thrombin Inhibitors or Factor Xa Inhibitors within preceding 48 hours Relative Exclusion Criteria Physicians with expertise in cerebrovascular disease may deem thrombolysis to be reasonable in the presence of one or more exclusion criteria after careful consideration of potential risk versus benefit to the patient. Clear All Ischemic stroke within last 3 months Major trauma (excluding head trauma) within past 14 days Severe Hypoglycemia (below 50 mg/dL) or Hyperglycemia (above 400 mg/dL) Wake-Up Stroke Inclusion Criteria Patient with suspected ischemic stroke who wake up with stroke symptoms or have unclear time of onset, and present within 4.5 hours of stroke symptom recognition may be considered for thrombolytic treatment based upon MR imaging and the following criteria Clear THROMBOLYSIS RECOMMENDATION Thrombolysis Recommended ? Clear Please select a reason why Thrombolysis was not recommended * Other Billing/Diagnosis Charge Capture DIAGNOSIS CODE DIAGNOSIS G40.89 Other seizures(Primary) G40.909 Epilepsy, unspecified, not intractable, without status epilepticus R55 Syncope and collapse R56.9 Unspecified convulsions BILLING CHARGE CODE CHARGE DESCRIPTION DIAGNOSES DATE OF SERVICE G0427 G0427 - Emergent Level 3 -ComplexInitial Consult - Comprehensive Hx, Comprehensive Exam, High Complexity MDM G40.89, G40.909, R55, R56.9 Jan 30, 2025, 10:45 pm Attestation Interaction Mode * Video * First Video Attempt System Logged: 01/30/2025 22:35 01/30/2025 22:35 mm/dd/yyyy hh:mm (24 Hr) Phone * First Phone Attempt System Logged: 01/30/2025 22:43 01/30/2025 22:43 mm/dd/yyyy hh:mm (24 Hr) Your Current Location Enter Current Zip Code * [address] Last saved 39s ago. Auto Launch Available Clinical Contact All Video Carts IPAD - [facility] Available [facility] (Access Cart 4.0)selected Available [facility] (Access Cart 4.1) Available [facility] Available Phone Only Rapid Room Contact Numbers Provided at intake DR. DANIELE HUANG [phone] Callback Number [phone] Number not listed? Enter valid 10-digit number E.g. [phone] All other numbers Readiness Form Template Change forms: Consult Note General Review Of Systems Medical History Allergies & Medications Social & Family History Vital Signs Exam NIH Stroke Scale Labs & Imaging Assessment Diagnosis Recommendations Thrombolysis I/E Criteria Thrombolysis Recommendation Billing/Diagnosis Attestation Telemed IQ 11.8.1 Access [email or web address] 2024 Providers: Attending Provider: ED Provider: DANIELE HUANG Consulting Provider: GAIL HARDY DO cc:: The requesting physician will be sent a copy of the consult. - History of Present Illness HPI: The patient is a 44F Review of Systems - Review of Systems Review of Systems (Narrative): Pertinent positive and negative findings as per HPI. All other systems negative. - Past Medical History Past Medical History: Yes Neurological History: Migraines, Seizures ENT History: No Pertinent History Cardiac History: Arrhythmia, Hypertension, Other Respiratory History: Asthma Endocrine Medical History: No Pertinent History Musculoskelatal History: Fractures GI Medical History: GERD, Gallbladder Disease History: No Pertinent History Pyscho-Social History: Anxiety, Depression Reproductive Disorders: No Pertinent History Comment: PATIENT REPORTS HX OF HEART "EPISODES" WITH LABS SHOWING HEART ATTACK BUT HEART CATHETERIZATION AND STRESS TEST WERE NEGATIVE. HX OF FX LEFT ANKLE PRIOR 14 YEARS AGO WITH PLATE AND SCREWS. PLATE STILL PRESENT. - Female History Hx Last Menstrual Period: 1 WEEK AGO Are you now?: No - Past Surgical History Past Surgical History: Yes Neuro Surgical History: No Pertinent History Cardiac History: No Pertinent History Respiratory Surgery: No Pertinent History GI Surgical History: Cholecystectomy Genitourinary Surgical Hx: No Pertinent History Musculskeletal Surgical Hx: Orthopedic Surgery Female Surgical History: Dilation & Curettage, Section, Other Other Surgical History: ankle repair, d&c. fallopian tube removal(left) Significant Family History: no pertinent family hx - Social History Smoking Status: Never smoker Exposure to second hand smoke: No Alcohol: Occasionally Drug Use: none - Social Determinants of Health Will the patient participate in the screening: Yes Do you worry about a steady place to live?: No Do you have any problems with any of the following?: No known problems In the past 12 months,have you had to go without utilities?: No Have you or anyone in your house had to go without enough: No Transportation Issues: No Has anyone in your support network made you feel unsafe?: No Physical Exam - Vital Signs Vital Signs: Vital Signs - 24 hr 01/30/25 01/30/25 01/30/25 20:31 20:32 21:00 Temperature 97.8 F Pulse Rate 71 72 67 Respiratory 15 20 16 Rate Blood Pressure 156/68 150/65 Blood Pressure 156/68 [Right Arm] O2 Sat by Pulse 95 97 95 Oximetry 01/30/25 01/30/25 01/30/25 21:30 21:41 22:00 Temperature Pulse Rate 70 70 Respiratory 19 13 Rate Blood Pressure 135/66 142/70 Blood Pressure [Right Arm] O2 Sat by Pulse 94 L 95 94 L Oximetry 01/30/25 01/30/25 01/30/25 22:20 22:30 22:57 Temperature Pulse Rate 64 61 Respiratory 16 16 Rate Blood Pressure 161/75 154/70 Blood Pressure [Right Arm] O2 Sat by Pulse 94 L 94 L 95 Oximetry 01/30/25 23:00 Temperature Pulse Rate 63 Respiratory 14 Rate Blood Pressure 162/69 Blood Pressure [Right Arm] O2 Sat by Pulse 94 L Oximetry Results - Labs Lab/Micro Results: Lab Results-Last 24 Hours 01/30/25 01/30/25 01/30/25 Range/Units 21:00 21:00 21:00 WBC 9.5 (3.98-10.04) x10^3/uL RBC 4.10 (3.93-5.22) x10^6/uL Hgb 12.5 (11.2-15.7) g/dL Hct 39.1 (34.1-44.9) % MCV 95.4 H (79.4-94.8) fL MCH 30.5 (25.6-32.2) pg MCHC 32.0 L (32.2-35.5) g/dL RDW 13.1 (11.7-14.4) % Plt Count 251 (182-369) x10^3/uL MPV 9.7 (9.4-12.3) fL Gran % 66.8 (34.0-71.1) % Immature Gran % (Auto) 0.3 (0.001-0.429) % Nucleat RBC Rel Count 0.0 (0.00-0.2) % Eos # (Auto) 0.32 (0.04-0.36) x10^3/uL Immature Gran # (Auto) 0.03 (0.001-0.031) x10^3u/L Absolute Lymphs (auto) 2.16 (1.18-3.74) x10^3/uL Absolute Monos (auto) 0.60 (0.24-0.86) x10^3/uL Absolute Nucleated RBC 0.00 (0.00-0.012) x10^3u/L Lymphocytes % 22.8 (19.3-51.7) % Monocytes % 6.3 (4.7-12.5) % Eosinophils % 3.4 (0.7-5.8) % Basophils % 0.4 (0.1-1.2) % Absolute Granulocytes 6.34 H (1.56-6.13) x10^3/uL Basophils # 0.04 (0.01-0.08) x10^3/uL Sodium (135-145) mmol/L Potassium (3.5-5.1) mmol/L Chloride (98-107) mmol/L Carbon Dioxide (22-30) mmol/L Anion Gap (5-15) MEQ/L BUN (7-17) mg/dL Creatinine (0.52-1.04) mg/dL Estimated GFR ML/MIN Glucose (74-106) mg/dL Calcium (8.4-10.2) mg/dL Magnesium 2.0 (1.6-2.3) mg/dL Total Bilirubin (0.2-1.3) mg/dL AST (14-36) U/L ALT (0-35) U/L Alkaline Phosphatase (38-126) U/L Creatine Kinase 65 (30-135) U/L Troponin I < 0.012 (0.000-0.033) ng/mL Serum Total Protein (6.3-8.2) g/dL Albumin (3.5-5.0) g/dL Urine Color (Yellow) Urine Appearance (Clear) Urine pH (4.6-8.0) Ur Specific [place] (1.005-1.030) Urine Protein (Negative) Urine Glucose (UA) (Negative) mg/dL Urine Ketones (Negative) Urine Blood (Negative) Urine Nitrite (Negative) Urine Bilirubin (Negative) Urine Urobilinogen (0.2) mg/dL Ur Leukocyte Esterase (Negative) U Hyaline Cast (Auto) (0-2) /LPF Urine Microscopic RBC (0-5) /HPF Urine Microscopic WBC (0-5) /HPF Ur Epithelial Cells (None Seen) /HPF Urine Bacteria (None Seen) /HPF Urine Culture Reflexed (NO) Urine HCG, Qual (NEGATIVE) Ethyl Alcohol < 10 (0-10) mg/dL 01/30/25 01/30/25 01/30/25 Range/Units 21:00 22:00 22:00 WBC (3.98-10.04) x10^3/uL RBC (3.93-5.22) x10^6/uL Hgb (11.2-15.7) g/dL Hct (34.1-44.9) % MCV (79.4-94.8) fL MCH (25.6-32.2) pg MCHC (32.2-35.5) g/dL RDW (11.7-14.4) % Plt Count (182-369) x10^3/uL MPV (9.4-12.3) fL Gran % (34.0-71.1) % Immature Gran % (Auto) (0.001-0.429) % Nucleat RBC Rel Count (0.00-0.2) % Eos # (Auto) (0.04-0.36) x10^3/uL Immature Gran # (Auto) (0.001-0.031) x10^3u/L Absolute Lymphs (auto) (1.18-3.74) x10^3/uL Absolute Monos (auto) (0.24-0.86) x10^3/uL Absolute Nucleated RBC (0.00-0.012) x10^3u/L Lymphocytes % (19.3-51.7) % Monocytes % (4.7-12.5) % Eosinophils % (0.7-5.8) % Basophils % (0.1-1.2) % Absolute Granulocytes (1.56-6.13) x10^3/uL Basophils # (0.01-0.08) x10^3/uL Sodium 138 (135-145) mmol/L Potassium 3.8 (3.5-5.1) mmol/L Chloride 99 (98-107) mmol/L Carbon Dioxide 32 H (22-30) mmol/L Anion Gap 11.0 (5-15) MEQ/L BUN 20 H (7-17) mg/dL Creatinine 0.76 (0.52-1.04) mg/dL Estimated GFR 99.0 ML/MIN Glucose 104 (74-106) mg/dL Calcium 9.0 (8.4-10.2) mg/dL Magnesium (1.6-2.3) mg/dL Total Bilirubin 0.20 (0.2-1.3) mg/dL AST 24 (14-36) U/L ALT 15 (0-35) U/L Alkaline Phosphatase 93 (38-126) U/L Creatine Kinase (30-135) U/L Troponin I (0.000-0.033) ng/mL Serum Total Protein 7.0 (6.3-8.2) g/dL Albumin 4.1 (3.5-5.0) g/dL Urine Color Yellow (Yellow) Urine Appearance Cloudy A (Clear) Urine pH 6.5 (4.6-8.0) Ur Specific [place] 1.020 (1.005-1.030) Urine Protein Negative (Negative) Urine Glucose (UA) Negative (Negative) mg/dL Urine Ketones Negative (Negative) Urine Blood Trace (Negative) Urine Nitrite Negative (Negative) Urine Bilirubin Negative (Negative) Urine Urobilinogen 1.0 A (0.2) mg/dL Ur Leukocyte Esterase Negative (Negative) U Hyaline Cast (Auto) NONE SEEN (0-2) /LPF Urine Microscopic RBC 3-5 (0-5) /HPF Urine Microscopic WBC 0-2 (0-5) /HPF Ur Epithelial Cells Few (None Seen) /HPF Urine Bacteria Few A (None Seen) /HPF Urine Culture Reflexed NO (NO) Urine HCG, Qual NEGATIVE (NEGATIVE) Ethyl Alcohol (0-10) mg/dL - Radiology Orders Radiology Orders: Radiology Procedures Category Date Time Status HEAD WITHOUT CONTRAST [CT] Stat Exams 01/30/25 21:33 Taken Impressions & Recommendations - ED Arrival Time ED Arrival Date & Time: ED Arrival Date and Time 01/30/25 20:21 Last known well time: - NIHSS IV Thrombolysis Standard of Care: IV thrombolysis as a standard of care in acute stroke discussed with DANIELE HUANG. Risk, benefits, and options of IV thrombolytic therapy for acute ischemic stroke were discussed with the patient/family SVETA ALCANTARA. We discussed that use of IV tenecteplase is in line with national stroke guidelines. We discussed that risks of IV thrombolytic use include intracranial hemorrhage, other fatal bleeding risks, and angioedema. Alternatives of treatment, including not proceeding with thrombolytic therapy were discussed. - Recommendations Recommendations: -Neuro checks, NIHSS, vital signs monitoring as per post tenecteplase protocol -Repeat non contrast head CT or noncontrast MRI brain 24 hours after IV thrombolyltic administration. -Obtain STAT non contrast head CT if there are new neurological deficits, worsening of current deficits, or with complaint of severe headache. Notify Neurology NAKIA of changes in neurological exam. -Nicardipine gtt as needed to maintain BP< 180/105 x 24hr post tenecteplase administration. -Monitor for angioedema -SCD's for DVT prophylaxis. Work up: -Basic labs (CBC, BMP, TSH+T4) if not done already. -INR,PTT if not done already -Fasting Lipid Panel and Hgb A1c -Transthroacic echocardiogram [with bubble study] -EKG + Telemetry- monitor for A-FIB Secondary Stroke Prevention -Hold off on antiplatelet therapy x 24 hr post IV thrombolytic therapy Decision to initiate antiplatelet therapy, or anticoagulation if needed, will be based on repeat imaging at 24 hour post thrombolytic administration. -If not medical contraindication, start high intensity statin. Eg. Atrovastatin 80 mg daily Risk Factor Management -HTN control: BP <180/105 for first 24 hr post tenecteplase -If diabetic, optimize glucose control: assisted goal HgA1c <7 -HLD control: Long-term goal LDL <70. High intensity statin recommended. Moderate intensity statin in patients > 75 years. -Smoking Alcohol Use Drug use cessation counseling Stroke Rehabilitation: -Physical therapy, occupational therapy, speech therapy consults -Social work and case management consults for help with discharge needs. Impression and recommendation were discussed with Dr. DANIELE HUANG Thank you for allowing us to participate in this patient's care. Please call [facility] with questions, concerns, or change in patient's neurological status. This consult was performed via secure telemedicine audio/visual platform with [ ] RN assisting at bedside. Patient identity verified and consent obtained. TIQ recieved at [ ] Neuro Cart Time: Delays in Patient Encounter: Assessment & Plan - Encounter Encounter: "The entirety of this encounter was performed via Telemedicine using audio and visual "
--- NOTE | 2025-01-30 23:56 | PCM.CONS ---
History of Present Illness - Neuro Consultation ED Arrival Date & Time: 01/30/25 20:21 Providers: Attending Provider: ED Provider: DANIELE GARCIA Consulting Provider: ALETHEA HARDY DO cc:: The requesting physician will be sent a copy of the consult. - History of Present Illness HPI: The patient is a 44F Review of Systems - Review of Systems Review of Systems (Narrative): Pertinent positive and negative findings as per HPI. All other systems negative. - Past Medical History Past Medical History: Yes Neurological History: Migraines, Seizures ENT History: No Pertinent History Cardiac History: Arrhythmia, Hypertension, Other Respiratory History: Asthma Endocrine Medical History: No Pertinent History Musculoskelatal History: Fractures GI Medical History: GERD, Gallbladder Disease History: No Pertinent History Pyscho-Social History: Anxiety, Depression Reproductive Disorders: No Pertinent History Comment: PATIENT REPORTS HX OF HEART "EPISODES" WITH LABS SHOWING HEART ATTACK BUT HEART CATHETERIZATION AND STRESS TEST WERE NEGATIVE. HX OF FX LEFT ANKLE PRIOR 14 YEARS AGO WITH PLATE AND SCREWS. PLATE STILL PRESENT. - Female History Hx Last Menstrual Period: 1 WEEK AGO Are you now?: No - Past Surgical History Past Surgical History: Yes Neuro Surgical History: No Pertinent History Cardiac History: No Pertinent History Respiratory Surgery: No Pertinent History GI Surgical History: Cholecystectomy Genitourinary Surgical Hx: No Pertinent History Musculskeletal Surgical Hx: Orthopedic Surgery Female Surgical History: Dilation & Curettage, Section, Other Other Surgical History: ankle repair, d&c. fallopian tube removal(left) Significant Family History: no pertinent family hx - Social History Smoking Status: Never smoker Exposure to second hand smoke: No Alcohol: Occasionally Drug Use: none - Social Determinants of Health Will the patient participate in the screening: Yes Do you worry about a steady place to live?: No Do you have any problems with any of the following?: No known problems In the past 12 months,have you had to go without utilities?: No Have you or anyone in your house had to go without enough: No Transportation Issues: No Has anyone in your support network made you feel unsafe?: No Physical Exam - Vital Signs Vital Signs: Vital Signs - 24 hr 01/30/25 01/30/25 01/30/25 20:31 20:32 21:00 Temperature 97.8 F Pulse Rate 71 72 67 Respiratory 15 20 16 Rate Blood Pressure 156/68 150/65 Blood Pressure 156/68 [Right Arm] O2 Sat by Pulse 95 97 95 Oximetry 01/30/25 01/30/25 01/30/25 21:30 21:41 22:00 Temperature Pulse Rate 70 70 Respiratory 19 13 Rate Blood Pressure 135/66 142/70 Blood Pressure [Right Arm] O2 Sat by Pulse 94 L 95 94 L Oximetry 01/30/25 01/30/25 01/30/25 22:20 22:30 22:57 Temperature Pulse Rate 64 61 Respiratory 16 16 Rate Blood Pressure 161/75 154/70 Blood Pressure [Right Arm] O2 Sat by Pulse 94 L 94 L 95 Oximetry 01/30/25 23:00 Temperature Pulse Rate 63 Respiratory 14 Rate Blood Pressure 162/69 Blood Pressure [Right Arm] O2 Sat by Pulse 94 L Oximetry Results - Labs Lab/Micro Results: Lab Results-Last 24 Hours 01/30/25 01/30/25 01/30/25 Range/Units 21:00 21:00 21:00 WBC 9.5 (3.98-10.04) x10^3/uL RBC 4.10 (3.93-5.22) x10^6/uL Hgb 12.5 (11.2-15.7) g/dL Hct 39.1 (34.1-44.9) % MCV 95.4 H (79.4-94.8) fL MCH 30.5 (25.6-32.2) pg MCHC 32.0 L (32.2-35.5) g/dL RDW 13.1 (11.7-14.4) % Plt Count 251 (182-369) x10^3/uL MPV 9.7 (9.4-12.3) fL Gran % 66.8 (34.0-71.1) % Immature Gran % (Auto) 0.3 (0.001-0.429) % Nucleat RBC Rel Count 0.0 (0.00-0.2) % Eos # (Auto) 0.32 (0.04-0.36) x10^3/uL Immature Gran # (Auto) 0.03 (0.001-0.031) x10^3u/L Absolute Lymphs (auto) 2.16 (1.18-3.74) x10^3/uL Absolute Monos (auto) 0.60 (0.24-0.86) x10^3/uL Absolute Nucleated RBC 0.00 (0.00-0.012) x10^3u/L Lymphocytes % 22.8 (19.3-51.7) % Monocytes % 6.3 (4.7-12.5) % Eosinophils % 3.4 (0.7-5.8) % Basophils % 0.4 (0.1-1.2) % Absolute Granulocytes 6.34 H (1.56-6.13) x10^3/uL Basophils # 0.04 (0.01-0.08) x10^3/uL Sodium (135-145) mmol/L Potassium (3.5-5.1) mmol/L Chloride (98-107) mmol/L Carbon Dioxide (22-30) mmol/L Anion Gap (5-15) MEQ/L BUN (7-17) mg/dL Creatinine (0.52-1.04) mg/dL Estimated GFR ML/MIN Glucose (74-106) mg/dL Calcium (8.4-10.2) mg/dL Magnesium 2.0 (1.6-2.3) mg/dL Total Bilirubin (0.2-1.3) mg/dL AST (14-36) U/L ALT (0-35) U/L Alkaline Phosphatase (38-126) U/L Creatine Kinase 65 (30-135) U/L Troponin I < 0.012 (0.000-0.033) ng/mL Serum Total Protein (6.3-8.2) g/dL Albumin (3.5-5.0) g/dL Urine Color (Yellow) Urine Appearance (Clear) Urine pH (4.6-8.0) Ur Specific [place] (1.005-1.030) Urine Protein (Negative) Urine Glucose (UA) (Negative) mg/dL Urine Ketones (Negative) Urine Blood (Negative) Urine Nitrite (Negative) Urine Bilirubin (Negative) Urine Urobilinogen (0.2) mg/dL Ur Leukocyte Esterase (Negative) U Hyaline Cast (Auto) (0-2) /LPF Urine Microscopic RBC (0-5) /HPF Urine Microscopic WBC (0-5) /HPF Ur Epithelial Cells (None Seen) /HPF Urine Bacteria (None Seen) /HPF Urine Culture Reflexed (NO) Urine HCG, Qual (NEGATIVE) Ethyl Alcohol < 10 (0-10) mg/dL 01/30/25 01/30/25 01/30/25 Range/Units 21:00 22:00 22:00 WBC (3.98-10.04) x10^3/uL RBC (3.93-5.22) x10^6/uL Hgb (11.2-15.7) g/dL Hct (34.1-44.9) % MCV (79.4-94.8) fL MCH (25.6-32.2) pg MCHC (32.2-35.5) g/dL RDW (11.7-14.4) % Plt Count (182-369) x10^3/uL MPV (9.4-12.3) fL Gran % (34.0-71.1) % Immature Gran % (Auto) (0.001-0.429) % Nucleat RBC Rel Count (0.00-0.2) % Eos # (Auto) (0.04-0.36) x10^3/uL Immature Gran # (Auto) (0.001-0.031) x10^3u/L Absolute Lymphs (auto) (1.18-3.74) x10^3/uL Absolute Monos (auto) (0.24-0.86) x10^3/uL Absolute Nucleated RBC (0.00-0.012) x10^3u/L Lymphocytes % (19.3-51.7) % Monocytes % (4.7-12.5) % Eosinophils % (0.7-5.8) % Basophils % (0.1-1.2) % Absolute Granulocytes (1.56-6.13) x10^3/uL Basophils # (0.01-0.08) x10^3/uL Sodium 138 (135-145) mmol/L Potassium 3.8 (3.5-5.1) mmol/L Chloride 99 (98-107) mmol/L Carbon Dioxide 32 H (22-30) mmol/L Anion Gap 11.0 (5-15) MEQ/L BUN 20 H (7-17) mg/dL Creatinine 0.76 (0.52-1.04) mg/dL Estimated GFR 99.0 ML/MIN Glucose 104 (74-106) mg/dL Calcium 9.0 (8.4-10.2) mg/dL Magnesium (1.6-2.3) mg/dL Total Bilirubin 0.20 (0.2-1.3) mg/dL AST 24 (14-36) U/L ALT 15 (0-35) U/L Alkaline Phosphatase 93 (38-126) U/L Creatine Kinase (30-135) U/L Troponin I (0.000-0.033) ng/mL Serum Total Protein 7.0 (6.3-8.2) g/dL Albumin 4.1 (3.5-5.0) g/dL Urine Color Yellow (Yellow) Urine Appearance Cloudy A (Clear) Urine pH 6.5 (4.6-8.0) Ur Specific [place] 1.020 (1.005-1.030) Urine Protein Negative (Negative) Urine Glucose (UA) Negative (Negative) mg/dL Urine Ketones Negative (Negative) Urine Blood Trace (Negative) Urine Nitrite Negative (Negative) Urine Bilirubin Negative (Negative) Urine Urobilinogen 1.0 A (0.2) mg/dL Ur Leukocyte Esterase Negative (Negative) U Hyaline Cast (Auto) NONE SEEN (0-2) /LPF Urine Microscopic RBC 3-5 (0-5) /HPF Urine Microscopic WBC 0-2 (0-5) /HPF Ur Epithelial Cells Few (None Seen) /HPF Urine Bacteria Few A (None Seen) /HPF Urine Culture Reflexed NO (NO) Urine HCG, Qual NEGATIVE (NEGATIVE) Ethyl Alcohol (0-10) mg/dL - Radiology Orders Radiology Orders: Radiology Procedures Category Date Time Status HEAD WITHOUT CONTRAST [CT] Stat Exams 01/30/25 21:33 Taken Impressions & Recommendations - ED Arrival Time ED Arrival Date & Time: ED Arrival Date and Time 01/30/25 20:21 Last known well time: - NIHSS IV Thrombolysis Standard of Care: IV thrombolysis as a standard of care in acute stroke discussed with DANIELE GARCIA. Risk, benefits, and options of IV thrombolytic therapy for acute ischemic stroke were discussed with the patient/family SVETA ALCANTARA. We discussed that use of IV tenecteplase is in line with national stroke guidelines. We discussed that risks of IV thrombolytic use include intracranial hemorrhage, other fatal bleeding risks, and angioedema. Alternatives of treatment, including not proceeding with thrombolytic therapy were discussed. - Recommendations Recommendations: -Neuro checks, NIHSS, vital signs monitoring as per post tenecteplase protocol -Repeat non contrast head CT or noncontrast MRI brain 24 hours after IV thrombolyltic administration. -Obtain STAT non contrast head CT if there are new neurological deficits, worsening of current deficits, or with complaint of severe headache. Notify Neurology NAKIA of changes in neurological exam. -Nicardipine gtt as needed to maintain BP< 180/105 x 24hr post tenecteplase administration. -Monitor for angioedema -SCD's for DVT prophylaxis. Work up: -Basic labs (CBC, BMP, TSH+T4) if not done already. -INR,PTT if not done already -Fasting Lipid Panel and Hgb A1c -Transthroacic echocardiogram [with bubble study] -EKG + Telemetry- monitor for A-FIB Secondary Stroke Prevention -Hold off on antiplatelet therapy x 24 hr post IV thrombolytic therapy Decision to initiate antiplatelet therapy, or anticoagulation if needed, will be based on repeat imaging at 24 hour post thrombolytic administration. -If not medical contraindication, start high intensity statin. Eg. Atrovastatin 80 mg daily Risk Factor Management -HTN control: BP <180/105 for first 24 hr post tenecteplase -If diabetic, optimize glucose control: emt intermediate goal HgA1c <7 -HLD control: Long-term goal LDL <70. High intensity statin recommended. Moderate intensity statin in patients > 75 years. -Smoking Alcohol Use Drug use cessation counseling Stroke Rehabilitation: -Physical therapy, occupational therapy, speech therapy consults -Social work and case management consults for help with discharge needs. Impression and recommendation were discussed with Dr. DANIELE GARCIA Thank you for allowing us to participate in this patient's care. Please call [facility] with questions, concerns, or change in patient's neurological status. This consult was performed via secure telemedicine audio/visual platform with [ ] RN assisting at bedside. Patient identity verified and consent obtained. TIQ recieved at [ ] Neuro Cart Time: Delays in Patient Encounter: Assessment & Plan - Encounter Encounter: "The entirety of this encounter was performed via Telemedicine using audio and visual " Critical Care Time - Critical Care Note Total Time (mins): 60
[2025-01-31] MEDS ORDERED: Keppra 500 MG/5 ML ONE ×2 (00:04→00:14)
[2025-01-31] MEDS ORDERED: D5w 100ML Mini Bag 100 ML 100 ML IV ONE (00:15)
[2025-01-31] MEDS: Keppra 500 MG/5 ML*** 1,500 MG in D5w 100ML Mini Bag 100 ML 100 ML IV ONE (00:19)
--- NOTE | 2025-01-31 01:21 | PCM.HP ---
History of Present Illness - Chief Complaint Chief Complaint: Seizure Date: 01/30/25 History of Present Illness: is a 44 year old female from home presented to the ED with complaint of seizure witnessed by family. Patient was reported to be having flailing of the arms and generalized body shaking at around 8 PM. She felt nauseous and vomited once before the episode. Emeseis was non-bloody and non-billous. She vomited up the sloppy joes and fried she had a bit earlier. She reports that loss of consciousness for about 40 seconds and she was briefly confused. Denies bladder incontinence or tongue biting. Patient reports having her first and only other seizure three weeks while at work. She has not yet had a neurology evaluation. Also reports a diagnosis of migraine with aura in the past managed by her neurologist. She was seen by the teleneurology team in the ED who recommended MRI, EEG, checking prolactin level, loading with 1500 mg Keppra and continuing 1000 mg twice daily. Patient was reported to be at her baseline mentation in the ED. 01/30/2025 23:55 - Review of Systems Constitutional: No Symptoms Eyes: No Symptoms Ears, Nose, & Throat: No Symptoms Respiratory: No Symptoms Cardiac: No Symptoms Abdominal/Gastrointestinal: No Symptoms Genitourinary Symptoms: No Symptoms Musculoskeletal: No Symptoms Skin: No Symptoms Neurological: Seizure Psychological: No Symptoms Endocrine: No Symptoms Hematologic/Lymphatic: No Symptoms Immunological/Allergic: No Symptoms All Other Systems: Reviewed and Negative Medications & Allergies Home Medications: Home Medication List Albuterol Common Canister [Ventolin Common Canister] 2 puff IH Q4HPRN PRN 07/21/19 [History Confirmed 01/30/25] lisinopriL [Zestril] 30 mg PO DAILY 08/01/19 [History Confirmed 01/30/25] Aspirin [Aspirin EC] 81 mg PO DAILY 12/23/21 [History Confirmed 01/30/25] Rimegepant Sulfate [Nurtec Odt] 75 mg PO DAILY PRN PRN 12/23/21 [History Confirmed 01/30/25] Atogepant [Qulipta] 60 mg PO DAILY 12/03/23 [History Confirmed 01/30/25] Ergocalciferol (Vitamin D2) [Vitamin D2] 1,250 mcg PO WEEKLY 12/03/23 [History Confirmed 01/30/25] Escitalopram Oxalate [Lexapro] 10 mg PO DAILY 12/03/23 [History Confirmed 01/30/25] Magnesium Oxide 400 mg [Mag-Ox 400] 400 mg PO DAILY 12/03/23 [History Confirmed 01/30/25] Riboflavin (Vitamin B2) [Vitamin B-2] 25 mg PO DAILY 12/03/23 [History Confirmed 01/30/25] Tolterodine Tartrate 2 mg PO DAILY 12/03/23 [History Confirmed 01/30/25] Allergies/Adverse Reactions: Allergies Allergy/AdvReac Type Severity Reaction Status Date / Time atenolol AdvReac Intermediate Verified 01/30/25 20:33 - Past Medical History Past Medical History: Yes Neurological History: Migraines, Seizures ENT History: No Pertinent History Cardiac History: Arrhythmia, Hypertension, Other Respiratory History: Asthma Endocrine Medical History: No Pertinent History Musculoskelatal History: Fractures GI Medical History: GERD, Gallbladder Disease History: No Pertinent History Pyscho-Social History: Anxiety, Depression Reproductive Disorders: No Pertinent History Comment: PATIENT REPORTS HX OF HEART "EPISODES" WITH LABS SHOWING HEART ATTACK BUT HEART CATHETERIZATION AND STRESS TEST WERE NEGATIVE. HX OF FX LEFT ANKLE PRIOR 14 YEARS AGO WITH PLATE AND SCREWS. PLATE STILL PRESENT. - Female History Hx Last Menstrual Period: 1 WEEK AGO Are you now?: No - Past Surgical History Past Surgical History: Yes Neuro Surgical History: No Pertinent History Cardiac History: No Pertinent History Respiratory Surgery: No Pertinent History GI Surgical History: Cholecystectomy Genitourinary Surgical Hx: No Pertinent History Musculskeletal Surgical Hx: Orthopedic Surgery Female Surgical History: Dilation & Curettage, Section, Other Other Surgical History: ankle repair, d&c. fallopian tube removal(left) Significant Family History: no pertinent family hx - Social History Smoking Status: Never smoker Exposure to second hand smoke: No Alcohol: Occasionally Drug Use: none - Social Determinants of Health Will the patient participate in the screening: Yes Do you worry about a steady place to live?: No Do you have any problems with any of the following?: No known problems In the past 12 months,have you had to go without utilities?: No Have you or anyone in your house had to go without enough: No Transportation Issues: No Has anyone in your support network made you feel unsafe?: No - Physical Exam Vital Signs: Vital Signs - 24 hr Temp Pulse Resp BP BP Pulse Ox 01/31/25 01:00 60 14 144/75 95 01/31/25 00:30 62 13 123/75 95 01/31/25 00:05 95 01/31/25 00:00 60 16 153/91 94 L 01/30/25 23:30 66 17 169/71 96 01/30/25 23:00 63 14 162/69 94 L 01/30/25 22:30 61 16 154/70 94 L 01/30/25 22:20 64 16 161/75 94 L 01/30/25 22:00 70 13 142/70 94 L 01/30/25 21:41 95 01/30/25 21:30 70 19 135/66 94 L 01/30/25 21:00 67 16 150/65 95 01/30/25 20:32 97.8 F 72 20 156/68 97 01/30/25 20:31 71 15 156/68 95 General Appearance: no apparent distress Neurologic Exam: alert ( normal strenght, no pronator drift), oriented x 3, cooperative, drafting engineer II-XII nml as tested, normal mood/affect, nml cerebellar function, sensation nml Eye Exam: PERRL/EOMI, eyes nml inspection Neck Exam: normal inspection, non-tender, supple Respiratory Exam: normal breath sounds, lungs clear Cardiovascular Exam: regular rate/rhythm, normal heart sounds Gastrointestinal/Abdomen Exam: soft, normal bowel sounds Pelvic Exam: deferred Rectal Exam: deferred Extremity Exam: normal inspection, normal range of motion Skin Exam: normal color Results - Labs Lab/Micro Results: Lab Results-Last 24 Hours 01/30/25 01/30/25 01/30/25 Range/Units 21:00 21:00 21:00 WBC 9.5 (3.98-10.04) x10^3/uL RBC 4.10 (3.93-5.22) x10^6/uL Hgb 12.5 (11.2-15.7) g/dL Hct 39.1 (34.1-44.9) % MCV 95.4 H (79.4-94.8) fL MCH 30.5 (25.6-32.2) pg MCHC 32.0 L (32.2-35.5) g/dL RDW 13.1 (11.7-14.4) % Plt Count 251 (182-369) x10^3/uL MPV 9.7 (9.4-12.3) fL Gran % 66.8 (34.0-71.1) % Immature Gran % (Auto) 0.3 (0.001-0.429) % Nucleat RBC Rel Count 0.0 (0.00-0.2) % Eos # (Auto) 0.32 (0.04-0.36) x10^3/uL Immature Gran # (Auto) 0.03 (0.001-0.031) x10^3u/L Absolute Lymphs (auto) 2.16 (1.18-3.74) x10^3/uL Absolute Monos (auto) 0.60 (0.24-0.86) x10^3/uL Absolute Nucleated RBC 0.00 (0.00-0.012) x10^3u/L Lymphocytes % 22.8 (19.3-51.7) % Monocytes % 6.3 (4.7-12.5) % Eosinophils % 3.4 (0.7-5.8) % Basophils % 0.4 (0.1-1.2) % Absolute Granulocytes 6.34 H (1.56-6.13) x10^3/uL Basophils # 0.04 (0.01-0.08) x10^3/uL Sodium (135-145) mmol/L Potassium (3.5-5.1) mmol/L Chloride (98-107) mmol/L Carbon Dioxide (22-30) mmol/L Anion Gap (5-15) MEQ/L BUN (7-17) mg/dL Creatinine (0.52-1.04) mg/dL Estimated GFR ML/MIN Glucose (74-106) mg/dL Calcium (8.4-10.2) mg/dL Magnesium 2.0 (1.6-2.3) mg/dL Total Bilirubin (0.2-1.3) mg/dL AST (14-36) U/L ALT (0-35) U/L Alkaline Phosphatase (38-126) U/L Creatine Kinase 65 (30-135) U/L Troponin I < 0.012 (0.000-0.033) ng/mL Serum Total Protein (6.3-8.2) g/dL Albumin (3.5-5.0) g/dL Urine Color (Yellow) Urine Appearance (Clear) Urine pH (4.6-8.0) Ur Specific [place] (1.005-1.030) Urine Protein (Negative) Urine Glucose (UA) (Negative) mg/dL Urine Ketones (Negative) Urine Blood (Negative) Urine Nitrite (Negative) Urine Bilirubin (Negative) Urine Urobilinogen (0.2) mg/dL Ur Leukocyte Esterase (Negative) U Hyaline Cast (Auto) (0-2) /LPF Urine Microscopic RBC (0-5) /HPF Urine Microscopic WBC (0-5) /HPF Ur Epithelial Cells (None Seen) /HPF Urine Bacteria (None Seen) /HPF Urine Culture Reflexed (NO) Urine HCG, Qual (NEGATIVE) Ethyl Alcohol < 10 (0-10) mg/dL 01/30/25 01/30/25 01/30/25 Range/Units 21:00 22:00 22:00 WBC (3.98-10.04) x10^3/uL RBC (3.93-5.22) x10^6/uL Hgb (11.2-15.7) g/dL Hct (34.1-44.9) % MCV (79.4-94.8) fL MCH (25.6-32.2) pg MCHC (32.2-35.5) g/dL RDW (11.7-14.4) % Plt Count (182-369) x10^3/uL MPV (9.4-12.3) fL Gran % (34.0-71.1) % Immature Gran % (Auto) (0.001-0.429) % Nucleat RBC Rel Count (0.00-0.2) % Eos # (Auto) (0.04-0.36) x10^3/uL Immature Gran # (Auto) (0.001-0.031) x10^3u/L Absolute Lymphs (auto) (1.18-3.74) x10^3/uL Absolute Monos (auto) (0.24-0.86) x10^3/uL Absolute Nucleated RBC (0.00-0.012) x10^3u/L Lymphocytes % (19.3-51.7) % Monocytes % (4.7-12.5) % Eosinophils % (0.7-5.8) % Basophils % (0.1-1.2) % Absolute Granulocytes (1.56-6.13) x10^3/uL Basophils # (0.01-0.08) x10^3/uL Sodium 138 (135-145) mmol/L Potassium 3.8 (3.5-5.1) mmol/L Chloride 99 (98-107) mmol/L Carbon Dioxide 32 H (22-30) mmol/L Anion Gap 11.0 (5-15) MEQ/L BUN 20 H (7-17) mg/dL Creatinine 0.76 (0.52-1.04) mg/dL Estimated GFR 99.0 ML/MIN Glucose 104 (74-106) mg/dL Calcium 9.0 (8.4-10.2) mg/dL Magnesium (1.6-2.3) mg/dL Total Bilirubin 0.20 (0.2-1.3) mg/dL AST 24 (14-36) U/L ALT 15 (0-35) U/L Alkaline Phosphatase 93 (38-126) U/L Creatine Kinase (30-135) U/L Troponin I (0.000-0.033) ng/mL Serum Total Protein 7.0 (6.3-8.2) g/dL Albumin 4.1 (3.5-5.0) g/dL Urine Color Yellow (Yellow) Urine Appearance Cloudy A (Clear) Urine pH 6.5 (4.6-8.0) Ur Specific [place] 1.020 (1.005-1.030) Urine Protein Negative (Negative) Urine Glucose (UA) Negative (Negative) mg/dL Urine Ketones Negative (Negative) Urine Blood Trace (Negative) Urine Nitrite Negative (Negative) Urine Bilirubin Negative (Negative) Urine Urobilinogen 1.0 A (0.2) mg/dL Ur Leukocyte Esterase Negative (Negative) U Hyaline Cast (Auto) NONE SEEN (0-2) /LPF Urine Microscopic RBC 3-5 (0-5) /HPF Urine Microscopic WBC 0-2 (0-5) /HPF Ur Epithelial Cells Few (None Seen) /HPF Urine Bacteria Few A (None Seen) /HPF Urine Culture Reflexed NO (NO) Urine HCG, Qual NEGATIVE (NEGATIVE) Ethyl Alcohol (0-10) mg/dL - Radiology Impressions Radiology Exams & Impressions: Radiology Procedures Category Date Time Status HEAD WITHOUT CONTRAST [CT] Stat Exams 01/30/25 21:33 Taken Assessment/Plan (1) Seizure Current Visit: Yes Status: Acute Assessment & Plan: EEG, MRI brain Seizure precautions Neurochecks Continue Keppra F/U Prolactin level Appreciate further recs from Neurology Code(s): R56.9 - UNSPECIFIED CONVULSIONS (2) Migraine Current Visit: No Status: Chronic Qualifiers: Migraine type: migraine (< 15 days per month) with aura Status migrainosus presence: without status migrainosus Intractability: not intractable Qualified Code(s): G43.109 - Migraine with aura, not intractable, without status migrainosus Assessment & Plan: Nurte PRN Qulipta, magnesium, riboflavin daily Code(s): G43.909 - MIGRAINE, UNSP, NOT INTRACTABLE, WITHOUT STATUS MIGRAINOSUS (3) Morbid obesity with BMI of 50.0-59.9, adult Current Visit: No Status: Chronic Code(s): E66.01 - MORBID (SEVERE) OBESITY DUE TO EXCESS CALORIES; Z68.43 - BODY MASS INDEX [BMI] 50.0-59.9, ADULT (4) Hypertension Current Visit: No Status: Acute Assessment & Plan: Continue oral antihypertensive Code(s): I10 - ESSENTIAL (PRIMARY) HYPERTENSION Telemedicine Encounter - Telemedicine Encounter Telemedicine Encounter: "The entirety of this encounter was performed via Telemedicine" This visit was performed using real-time audio and video connection between my location and thepatients locationwith the assistance of a surrogateat the patients location. Written or verbal consent was obtained from the patient/guardian to perform this visit usingn[facility]medicine technology. Any patient questions regarding the telemedicine interaction were answered.
[2025-01-31] MEDS ORDERED: VENTOLIN COMMON CANISTER IH PRN (01:31)
[2025-01-31] MEDS ORDERED: NON-FORMULARY ITEM (Rimegepant Sulfate [Nurtec Odt] 75 MG Tab.Rapdis) PO PRN (01:31)
[2025-01-31] MEDS: TYLENOL 325 MG PO PRN (04:34)
[2025-01-31 05:04] LABS: Hematocrit 37.3 % (34.1-44.9); Hemoglobin 11.7 g/dL (11.2-15.7); Mean Corpuscular Hemoglobin 30.1 pg (25.6-32.2); Mean Corpuscular Hgb Concent. 31.4 g/dL (32.2-35.5); Platelet Count 234 x10^3/uL (182-369); Red Blood Count 3.89 x10^6/uL (3.93-5.22); White Blood Count 7.8 x10^3/uL (3.98-10.04)
[2025-01-31 05:32] LABS: Calcium 8.6 mg/dL (8.4-10.2); Carbon Dioxide 29.0 mmol/L (22-30); Creatinine 1 0.71 mg/dL (0.52-1.04); EST GLOMERULAR FILTRATION RATE 107.5 ML/MIN; Glucose 92.0 mg/dL (74-106); Potassium 4.0 mmol/L (3.5-5.1); SGOT/AST 17.0 U/L (14-36); SGPT/ALT 12.0 U/L (0-35); Total Protein 5.8 g/dL (6.3-8.2)
[2025-01-31] MEDS ORDERED: Ativan 20 MG/10 ML FOR DRIPS ONLY IV PRN (07:24)
[2025-01-31] MEDS ORDERED: MEDICATION INTERVENTION MC SCH ×3 (07:30)
[2025-01-31] MEDS ORDERED: TYLENOL 325 MG PO PRN (07:47)
[2025-01-31] MEDS: Compazine 10 MG/2 ML IV PRN (07:56)
--- NOTE | 2025-01-31 08:30 | PCM.NOTE ---
Date and Time: 01/31/25812 Subjective Assessment: 44 yr. old RH woman who presents to the ED w recurrent seizures... at 8PM tonight patient had a seizure.... followed by a severe headache.... Patient has had longstanding seizures..... has had focal seizures -- seizures for 3 weeks.... associated confusion followed by collapse/ LOC/ generalized shaking.. . loss of bladder function..... Patient reports a migraine history since she was 14 years old. Migraines have gotten worse over time. Patient is now on Qulipta daily and Nurtec prn. Currently having 6 migraines per month which is an improvement from the past. She reports "focal seizures" with migraines but also experiences seizures on their own. She reports her first seizure was about a month ago. She reports that she "spaced out" with some twitching in her bilateral upper extremities. She's had about four of these events. She reports losing track of time. More recent seizures are completely different. With these events, patient reports that she will collapse with convulsion and vomiting. These bigger have occurred 3 times over the last three weeks. Today's event lasted about 30 seconds and the nurse reports disorientation for a couple minutes. For the last two events, she reports nausea. Can happen at any time of day. Not triggered by stress. No family history of seizures. Normal and development. No meningitis/encephalitis. No significant head trauma. Patient works in a [employer]. Patient is not driving. History supplemented by her . Objective Exam - Vital Signs Vital Signs: Vital Signs - 24 hr 01/30/25 01/30/25 01/30/25 20:31 20:32 21:00 Temperature 97.8 F Pulse Rate 71 72 67 Respiratory 15 20 16 Rate Blood Pressure 156/68 150/65 Blood Pressure 156/68 [Right Arm] O2 Sat by Pulse 95 97 95 Oximetry 01/30/25 01/30/25 01/30/25 21:30 21:41 22:00 Temperature Pulse Rate 70 70 Respiratory 19 13 Rate Blood Pressure 135/66 142/70 Blood Pressure [Right Arm] O2 Sat by Pulse 94 L 95 94 L Oximetry 01/30/25 01/30/25 01/30/25 22:20 22:30 23:00 Temperature Pulse Rate 64 61 63 Respiratory 16 16 14 Rate Blood Pressure 161/75 154/70 162/69 Blood Pressure [Right Arm] O2 Sat by Pulse 94 L 94 L 94 L Oximetry 01/30/25 01/31/25 01/31/25 23:30 00:00 00:05 Temperature Pulse Rate 66 60 Respiratory 17 16 Rate Blood Pressure 169/71 153/91 Blood Pressure [Right Arm] O2 Sat by Pulse 96 94 L 95 Oximetry 01/31/25 01/31/25 01/31/25 00:30 01:00 01:30 Temperature 96.3 F Pulse Rate 62 60 63 Respiratory 13 14 14 Rate Blood Pressure 123/75 144/75 Blood Pressure 151/71 [Right Arm] O2 Sat by Pulse 95 95 97 Oximetry 01/31/25 01/31/25 01/31/25 01:57 04:00 07:28 Temperature 98.7 F Pulse Rate 58 L 58 L 64 Respiratory 16 14 16 Rate Blood Pressure Blood Pressure 141/69 [Right Arm] O2 Sat by Pulse 96 93 L 96 Oximetry 01/31/25 07:53 Temperature 97.2 F Pulse Rate 67 Respiratory 17 Rate Blood Pressure Blood Pressure 135/65 [Right Arm] O2 Sat by Pulse 95 Oximetry - Physical Exam General: no acute distress Mental Status: alert, awake and oriented, fund of knowledge, fluent speech, no dysarthria Cranial nerves: extra ocular movements intact, face is symmetric, hearing intact Motor: antigravity in all 4 ext Sens:: intact to touch in all 4 Movement:: no tremors noted MSR:: unable to assess through telemedicine, no clonus noted. Gait: deferred Objective Data - Labs Lab/Micro Results: Lab Results-Last 24 Hours 01/30/25 01/30/25 01/30/25 Range/Units 21:00 21:00 21:00 WBC 9.5 (3.98-10.04) x10^3/uL RBC 4.10 (3.93-5.22) x10^6/uL Hgb 12.5 (11.2-15.7) g/dL Hct 39.1 (34.1-44.9) % MCV 95.4 H (79.4-94.8) fL MCH 30.5 (25.6-32.2) pg MCHC 32.0 L (32.2-35.5) g/dL RDW 13.1 (11.7-14.4) % Plt Count 251 (182-369) x10^3/uL MPV 9.7 (9.4-12.3) fL Gran % 66.8 (34.0-71.1) % Immature Gran % (Auto) 0.3 (0.001-0.429) % Nucleat RBC Rel Count 0.0 (0.00-0.2) % Eos # (Auto) 0.32 (0.04-0.36) x10^3/uL Immature Gran # (Auto) 0.03 (0.001-0.031) x10^3u/L Absolute Lymphs (auto) 2.16 (1.18-3.74) x10^3/uL Absolute Monos (auto) 0.60 (0.24-0.86) x10^3/uL Absolute Nucleated RBC 0.00 (0.00-0.012) x10^3u/L Lymphocytes % 22.8 (19.3-51.7) % Monocytes % 6.3 (4.7-12.5) % Eosinophils % 3.4 (0.7-5.8) % Basophils % 0.4 (0.1-1.2) % Absolute Granulocytes 6.34 H (1.56-6.13) x10^3/uL Basophils # 0.04 (0.01-0.08) x10^3/uL Sodium (135-145) mmol/L Potassium (3.5-5.1) mmol/L Chloride (98-107) mmol/L Carbon Dioxide (22-30) mmol/L Anion Gap (5-15) MEQ/L BUN (7-17) mg/dL Creatinine (0.52-1.04) mg/dL Estimated GFR ML/MIN Glucose (74-106) mg/dL Calcium (8.4-10.2) mg/dL Magnesium 2.0 (1.6-2.3) mg/dL Total Bilirubin (0.2-1.3) mg/dL AST (14-36) U/L ALT (0-35) U/L Alkaline Phosphatase (38-126) U/L Creatine Kinase 65 (30-135) U/L Troponin I < 0.012 (0.000-0.033) ng/mL Serum Total Protein (6.3-8.2) g/dL Albumin (3.5-5.0) g/dL Urine Color (Yellow) Urine Appearance (Clear) Urine pH (4.6-8.0) Ur Specific Melba (1.005-1.030) Urine Protein (Negative) Urine Glucose (UA) (Negative) mg/dL Urine Ketones (Negative) Urine Blood (Negative) Urine Nitrite (Negative) Urine Bilirubin (Negative) Urine Urobilinogen (0.2) mg/dL Ur Leukocyte Esterase (Negative) U Hyaline Cast (Auto) (0-2) /LPF Urine Microscopic RBC (0-5) /HPF Urine Microscopic WBC (0-5) /HPF Ur Epithelial Cells (None Seen) /HPF Urine Bacteria (None Seen) /HPF Urine Culture Reflexed (NO) Urine HCG, Qual (NEGATIVE) Ethyl Alcohol < 10 (0-10) mg/dL 01/30/25 01/30/25 01/30/25 Range/Units 21:00 22:00 22:00 WBC (3.98-10.04) x10^3/uL RBC (3.93-5.22) x10^6/uL Hgb (11.2-15.7) g/dL Hct (34.1-44.9) % MCV (79.4-94.8) fL MCH (25.6-32.2) pg MCHC (32.2-35.5) g/dL RDW (11.7-14.4) % Plt Count (182-369) x10^3/uL MPV (9.4-12.3) fL Gran % (34.0-71.1) % Immature Gran % (Auto) (0.001-0.429) % Nucleat RBC Rel Count (0.00-0.2) % Eos # (Auto) (0.04-0.36) x10^3/uL Immature Gran # (Auto) (0.001-0.031) x10^3u/L Absolute Lymphs (auto) (1.18-3.74) x10^3/uL Absolute Monos (auto) (0.24-0.86) x10^3/uL Absolute Nucleated RBC (0.00-0.012) x10^3u/L Lymphocytes % (19.3-51.7) % Monocytes % (4.7-12.5) % Eosinophils % (0.7-5.8) % Basophils % (0.1-1.2) % Absolute Granulocytes (1.56-6.13) x10^3/uL Basophils # (0.01-0.08) x10^3/uL Sodium 138 (135-145) mmol/L Potassium 3.8 (3.5-5.1) mmol/L Chloride 99 (98-107) mmol/L Carbon Dioxide 32 H (22-30) mmol/L Anion Gap 11.0 (5-15) MEQ/L BUN 20 H (7-17) mg/dL Creatinine 0.76 (0.52-1.04) mg/dL Estimated GFR 99.0 ML/MIN Glucose 104 (74-106) mg/dL Calcium 9.0 (8.4-10.2) mg/dL Magnesium (1.6-2.3) mg/dL Total Bilirubin 0.20 (0.2-1.3) mg/dL AST 24 (14-36) U/L ALT 15 (0-35) U/L Alkaline Phosphatase 93 (38-126) U/L Creatine Kinase (30-135) U/L Troponin I (0.000-0.033) ng/mL Serum Total Protein 7.0 (6.3-8.2) g/dL Albumin 4.1 (3.5-5.0) g/dL Urine Color Yellow (Yellow) Urine Appearance Cloudy A (Clear) Urine pH 6.5 (4.6-8.0) Ur Specific Melba 1.020 (1.005-1.030) Urine Protein Negative (Negative) Urine Glucose (UA) Negative (Negative) mg/dL Urine Ketones Negative (Negative) Urine Blood Trace (Negative) Urine Nitrite Negative (Negative) Urine Bilirubin Negative (Negative) Urine Urobilinogen 1.0 A (0.2) mg/dL Ur Leukocyte Esterase Negative (Negative) U Hyaline Cast (Auto) NONE SEEN (0-2) /LPF Urine Microscopic RBC 3-5 (0-5) /HPF Urine Microscopic WBC 0-2 (0-5) /HPF Ur Epithelial Cells Few (None Seen) /HPF Urine Bacteria Few A (None Seen) /HPF Urine Culture Reflexed NO (NO) Urine HCG, Qual NEGATIVE (NEGATIVE) Ethyl Alcohol (0-10) mg/dL 01/31/25 01/31/25 01/31/25 Range/Units 01:57 04:44 04:44 WBC 7.8 (3.98-10.04) x10^3/uL RBC 3.89 L (3.93-5.22) x10^6/uL Hgb 11.7 (11.2-15.7) g/dL Hct 37.3 (34.1-44.9) % MCV 95.9 H (79.4-94.8) fL MCH 30.1 (25.6-32.2) pg MCHC 31.4 L (32.2-35.5) g/dL RDW 13.0 (11.7-14.4) % Plt Count 234 (182-369) x10^3/uL MPV 9.6 (9.4-12.3) fL Gran % (34.0-71.1) % Immature Gran % (Auto) (0.001-0.429) % Nucleat RBC Rel Count (0.00-0.2) % Eos # (Auto) (0.04-0.36) x10^3/uL Immature Gran # (Auto) (0.001-0.031) x10^3u/L Absolute Lymphs (auto) (1.18-3.74) x10^3/uL Absolute Monos (auto) (0.24-0.86) x10^3/uL Absolute Nucleated RBC (0.00-0.012) x10^3u/L Lymphocytes % (19.3-51.7) % Monocytes % (4.7-12.5) % Eosinophils % (0.7-5.8) % Basophils % (0.1-1.2) % Absolute Granulocytes (1.56-6.13) x10^3/uL Basophils # (0.01-0.08) x10^3/uL Sodium 138 (135-145) mmol/L Potassium 4.0 (3.5-5.1) mmol/L Chloride 102 (98-107) mmol/L Carbon Dioxide 29 (22-30) mmol/L Anion Gap 9.9 (5-15) MEQ/L BUN 17 (7-17) mg/dL Creatinine 0.71 (0.52-1.04) mg/dL Estimated GFR 107.5 ML/MIN Glucose 92 (74-106) mg/dL Calcium 8.6 (8.4-10.2) mg/dL Magnesium (1.6-2.3) mg/dL Total Bilirubin 0.20 (0.2-1.3) mg/dL AST 17 (14-36) U/L ALT 12 (0-35) U/L Alkaline Phosphatase 89 (38-126) U/L Creatine Kinase (30-135) U/L Troponin I < 0.012 (0.000-0.033) ng/mL Serum Total Protein 5.8 L (6.3-8.2) g/dL Albumin 3.5 (3.5-5.0) g/dL Urine Color (Yellow) Urine Appearance (Clear) Urine pH (4.6-8.0) Ur Specific Melba (1.005-1.030) Urine Protein (Negative) Urine Glucose (UA) (Negative) mg/dL Urine Ketones (Negative) Urine Blood (Negative) Urine Nitrite (Negative) Urine Bilirubin (Negative) Urine Urobilinogen (0.2) mg/dL Ur Leukocyte Esterase (Negative) U Hyaline Cast (Auto) (0-2) /LPF Urine Microscopic RBC (0-5) /HPF Urine Microscopic WBC (0-5) /HPF Ur Epithelial Cells (None Seen) /HPF Urine Bacteria (None Seen) /HPF Urine Culture Reflexed (NO) Urine HCG, Qual (NEGATIVE) Ethyl Alcohol (0-10) mg/dL 01/31/25 Range/Units 04:50 WBC (3.98-10.04) x10^3/uL RBC (3.93-5.22) x10^6/uL Hgb (11.2-15.7) g/dL Hct (34.1-44.9) % MCV (79.4-94.8) fL MCH (25.6-32.2) pg MCHC (32.2-35.5) g/dL RDW (11.7-14.4) % Plt Count (182-369) x10^3/uL MPV (9.4-12.3) fL Gran % (34.0-71.1) % Immature Gran % (Auto) (0.001-0.429) % Nucleat RBC Rel Count (0.00-0.2) % Eos # (Auto) (0.04-0.36) x10^3/uL Immature Gran # (Auto) (0.001-0.031) x10^3u/L Absolute Lymphs (auto) (1.18-3.74) x10^3/uL Absolute Monos (auto) (0.24-0.86) x10^3/uL Absolute Nucleated RBC (0.00-0.012) x10^3u/L Lymphocytes % (19.3-51.7) % Monocytes % (4.7-12.5) % Eosinophils % (0.7-5.8) % Basophils % (0.1-1.2) % Absolute Granulocytes (1.56-6.13) x10^3/uL Basophils # (0.01-0.08) x10^3/uL Sodium (135-145) mmol/L Potassium (3.5-5.1) mmol/L Chloride (98-107) mmol/L Carbon Dioxide (22-30) mmol/L Anion Gap (5-15) MEQ/L BUN (7-17) mg/dL Creatinine (0.52-1.04) mg/dL Estimated GFR ML/MIN Glucose (74-106) mg/dL Calcium (8.4-10.2) mg/dL Magnesium (1.6-2.3) mg/dL Total Bilirubin (0.2-1.3) mg/dL AST (14-36) U/L ALT (0-35) U/L Alkaline Phosphatase (38-126) U/L Creatine Kinase (30-135) U/L Troponin I < 0.012 (0.000-0.033) ng/mL Serum Total Protein (6.3-8.2) g/dL Albumin (3.5-5.0) g/dL Urine Color (Yellow) Urine Appearance (Clear) Urine pH (4.6-8.0) Ur Specific Melba (1.005-1.030) Urine Protein (Negative) Urine Glucose (UA) (Negative) mg/dL Urine Ketones (Negative) Urine Blood (Negative) Urine Nitrite (Negative) Urine Bilirubin (Negative) Urine Urobilinogen (0.2) mg/dL Ur Leukocyte Esterase (Negative) U Hyaline Cast (Auto) (0-2) /LPF Urine Microscopic RBC (0-5) /HPF Urine Microscopic WBC (0-5) /HPF Ur Epithelial Cells (None Seen) /HPF Urine Bacteria (None Seen) /HPF Urine Culture Reflexed (NO) Urine HCG, Qual (NEGATIVE) Ethyl Alcohol (0-10) mg/dL - Other Procedures & Test Other Procedures & Test: Respiratory Therapy 01/31/25 01:37 EEG 41-60 Minutes (Normal) ONCE 01/31/25 01:56 Respiratory Therapy Assessment DAILY - Radiology Orders Radiology Orders: Radiology Procedures Category Date Time Status ECHO W/2D AND DOPPLER [US] Routine Exams 01/31/25 08:05 Ordered HEAD WITHOUT CONTRAST [CT] Stat Exams 01/30/25 21:33 Taken MRI BRAIN W/O CONTRAST [MRI] Routine Exams 01/31/25 01:37 Ordered Assessment & Plan - Encounter Encounter: Patient is a 44-year-old female who presents with a history concerning for seizures of the last month. She reports chronic history of migraines that have been more recently better controlled with Qulipta and Nurtec. She reports that she still has about six migraines per month. She reports that her recent seizures can sometimes be associated with her migraines. Patients events started with staring spells with altered consciousness. Patient reports about four of these episodes. She more recently reports convulsive episodes. She had one earlier in the month and two leading up to this admission. The last seizure was witnessed by the patients bedside nurse who reports brief disorientation after the event. Differential for the patients events includes epileptic and non-epileptic seizures. Due to the patient having three events (the last two within 24 hours), it is reasonable to start a low dose of an anti-seizure medication at this time. Patient requires follow up with the neurology and likely an epilepsy monitoring unit stay. - load keppra IV 1000mg now - start keppra 500mg twice daily - MRI brain wo contrast - routine EEG - follow up with neurology outpatient SEIZURE/EVENT PRECAUTIONS INCLUDE: NO DRIVING until approximately 6 months have passed WITHOUT a seizure. If you have a seizure, you will need to wait another 3 months to be eligible to drive again. Avoid bathing or swimming alone or unsupervised. Avoid cooking over large ranges or open flames. Avoid climbing up heights unsupervised. Avoid operating heavy machinery. SEIZURE SAFETY: When an epileptic seizure occurs, the following should be done to prevent injuries: Do not hold or tie the person down. Do not place anything in the person's mouth or try to force the teeth apart. The person is not in danger of swallowing his tongue. Do not pour any liquid into the persons mouth or offer food or medicines until he is fully awake. If possible, turn the person on his side during the seizure. Place something soft under the person's head, loosen tight clothing, and clear the area of sharp or hard objects. Stay with the person until the seizure ends. Let the person rest until he is fully awake. Use a watch to time how long the seizure lasts. Watch the type of movement and position of the person's head or eyes during the seizure. Kaiden Caballero MD "The entirety of this encounter was performed via Telemedicine using audio and visual "
[2025-01-31 08:33] LABS: INR 0.94 (0.8-3.0); PROTIME 10.3 SECONDS (9.4-12.5)
--- NOTE | 2025-01-31 08:37 | XRAY ---
Indication: Headache. Seizure. Multiple contiguous axial images obtained through the head without contrast. Comparison: January 11, 2025 Normal appearing brain parenchyma, ventricles, and bony calvarium for patient's age. Visualized paranasal sinuses and mastoid air cells remain clear. Impression: Continued normal CT head without contrast exam.
[2025-01-31 09:04] LABS: Cholesterol 205.0 mg/dL (50-200); LDL, DIRECT 109.0 mg/dL (30-100); TRIGLYCERIDE 166.0 mg/dL (30-150)
[2025-01-31] MEDS ORDERED: RIBOFLAVIN 25 MG PO SCH (10:00)
[2025-01-31] MEDS ORDERED: NON-FORMULARY ITEM (Atogepant [Qulipta] 60 MG Tablet) PO SCH (10:00)
[2025-01-31] MEDS: KEPPRA PO SCH (11:47)
[2025-01-31] MEDS: Ditropan 5 MG PO SCH (11:47)
[2025-01-31] MEDS: ECOTRIN 81 MG PO SCH (11:47)
[2025-01-31] MEDS: MAG-OX 400 PO SCH (11:48)
[2025-01-31] MEDS: Zestril 10 MG PO SCH (11:48)
[2025-01-31] MEDS: Lexapro PO SCH (11:48)
--- NOTE | 2025-01-31 14:00 | XRAY ---
Indication: Seizure. Normal CT head without contrast exam 1 day earlier. Sagittal, coronal, and axial MRI brain performed without contrast using T1, T2, FLAIR, diffusion, and ADC sequences. Comparison: March 05, 2014 Again age-appropriate global atrophy and petechial degenerative microischemia adjacent to left frontal horn. No acute intracranial hemorrhage, abnormal extra-axial fluid collection, or mass effect. Diffusion images negative for restricted signal. Negative for mesial temporal sclerosis. 4th ventricle is midline without hydrocephalus. 7/8 cranial nerve complex bilaterally symmetric. Normal flow void signal within the major intracerebral circulation. Normal appearing craniocervical junction and sella turcica. Paranasal sinuses are clear. Impression: Again atrophy and degenerative microischemia within normal limits. Remaining MRI brain without contrast continues to be negative.
[2025-02-01 05:18] LABS: Hematocrit 37.0 % (34.1-44.9); Hemoglobin 11.9 g/dL (11.2-15.7); Mean Corpuscular Hemoglobin 30.1 pg (25.6-32.2); Mean Corpuscular Hgb Concent. 32.2 g/dL (32.2-35.5); Platelet Count 257 x10^3/uL (182-369); Red Blood Count 3.96 x10^6/uL (3.93-5.22); White Blood Count 7.3 x10^3/uL (3.98-10.04)
[2025-02-01 06:57] LABS: Calcium 8.8 mg/dL (8.4-10.2); Carbon Dioxide 29.0 mmol/L (22-30); Creatinine 1 0.64 mg/dL (0.52-1.04); EST GLOMERULAR FILTRATION RATE 111.7 ML/MIN; Glucose 87.0 mg/dL (74-106); Potassium 3.9 mmol/L (3.5-5.1); SGOT/AST 22.0 U/L (14-36); SGPT/ALT 13.0 U/L (0-35); Total Protein 6.5 g/dL (6.3-8.2)
--- NOTE | 2025-02-01 10:41 | PCM.DS ---
Discharge Summary Date of Admission: 01/31/25 01:19 Date of Discharge: 02/01/25 Admitting Physician: JAMIR TERAN MD Consults: Consults on Case 01/31/25 07:48 Consult Neurology ROUTINE Primary Care Provider: SAADIA GLASER Allergies Allergies atenolol Adverse Reaction (Intermediate, Verified 01/30/25 20:33) bradycardia Hospital Summary - Hospital Course Hospital Course: is a 44-year-old female with a history of migraines, arrhythmia, GERD, anxiety, depression, morbid obesity, and a recent seizure two weeks prior, who presented to the ED on 01/31/25 after a witnessed seizure at home. Family reported flailing of the arms and generalized shaking, preceded by nausea and a single episode of non-bloody, non-bilious emesis. The event lasted approximately 40 seconds with brief postictal confusion but no bladder incontinence or tongue biting. She had experienced her first seizure three weeks earlier while at work and had not yet seen a neurologist for outpatient evaluation. In the ED, she was evaluated by the teleneurology team, who recommended MRI, EEG, prolactin level, and initiation of Keppra with a 1500 mg load followed by 1000 mg twice daily. During hospitalization, the patient experienced two additional seizuresone on 01/31 and another on haracterized by staring, unresponsiveness, and shaking of both arms and head without leg or generalized body involvement. MRI brain, EEG, and CT head were acutely unremarkable. Echocardiogram showed normal systolic function with EF 65%. Neurologic exam remained non-focal. She was counseled on seizure precautions, including no driving, and an outpatient neurology appointment was arranged. At discharge, the patient denied chest pain, shortness of breath, abdominal pain, nausea, vomiting, or diarrhea. Headache was reported and relieved with medication provided by nursing. She will continue Keppra 1000 mg twice daily with close outpatient neurology follow-up for further evaluation and management. - Vitals & Intake/Output Vital Signs: Vital Signs Temperature 97.9 F 02/01/25 07:51 Pulse Rate 62 02/01/25 07:51 Respiratory Rate 20 02/01/25 07:51 Blood Pressure 146/82 02/01/25 07:51 O2 Sat by Pulse Oximetry 99 02/01/25 07:51 Intake & Output: Intake & Output 01/29/25 01/30/25 01/31/25 02/01/25 11:59 11:59 11:59 11:59 Intake Total 240 4006 Output Total 600 3300 Balance -360 706 Weight 151.9 kg - Lab Result Diagrams: 02/01/25 04:05 02/01/25 04:31 Lab Results-Last 24 Hrs: Lab Results-Last 24 Hours 02/01/25 02/01/25 Range/Units 04:05 04:31 WBC 7.3 (3.98-10.04) x10^3/uL RBC 3.96 (3.93-5.22) x10^6/uL Hgb 11.9 (11.2-15.7) g/dL Hct 37.0 (34.1-44.9) % MCV 93.4 (79.4-94.8) fL MCH 30.1 (25.6-32.2) pg MCHC 32.2 (32.2-35.5) g/dL RDW 13.2 (11.7-14.4) % Plt Count 257 (182-369) x10^3/uL MPV 9.6 (9.4-12.3) fL Sodium 138 (135-145) mmol/L Potassium 3.9 (3.5-5.1) mmol/L Chloride 102 (98-107) mmol/L Carbon Dioxide 29 (22-30) mmol/L Anion Gap 10.6 (5-15) MEQ/L BUN 12 (7-17) mg/dL Creatinine 0.64 (0.52-1.04) mg/dL Estimated GFR 111.7 ML/MIN Glucose 87 (74-106) mg/dL Calcium 8.8 (8.4-10.2) mg/dL Total Bilirubin 0.30 (0.2-1.3) mg/dL AST 22 (14-36) U/L ALT 13 (0-35) U/L Alkaline Phosphatase 89 (38-126) U/L Serum Total Protein 6.5 (6.3-8.2) g/dL Albumin 3.7 (3.5-5.0) g/dL - Radiology Exams Ordered Rad Exams-Entire Visit: Radiology Procedures Category Date Time Status ECHO W/2D AND DOPPLER [US] Routine Exams 01/31/25 08:05 Taken HEAD WITHOUT CONTRAST [CT] Stat Exams 01/30/25 21:33 Completed MRI BRAIN W/O CONTRAST [MRI] Routine Exams 01/31/25 01:45 Completed - Procedures and Test Procedures and Tests throughout Hospitalization: Therapy Orders & Screens 01/31/25 01:37 EEG 41-60 Minutes (Normal) ONCE Comment: Reason For Exam: Diagnosis: Seizure 01/31/25 01:56 Respiratory Therapy Assessment DAILY Comment: Diagnosis: Seizure Discharge Exam General Appearance: no apparent distress, alert, obese Neurologic Exam: alert, oriented x 3, cooperative, unified communications architect II-XII nml as tested, normal mood/affect, nml cerebellar function, sensation nml, No motor deficits Eye Exam: PERRL, EOMI, eyes nml inspection Ears, Nose, Throat Exam: normal ENT inspection, pharynx normal, moist mucous membranes Neck Exam: normal inspection, non-tender, supple, full range of motion Respiratory Exam: normal breath sounds, lungs clear, No respiratory distress Cardiovascular Exam: regular rate/rhythm, normal heart sounds Gastrointestinal/Abdomen Exam: soft, No tenderness, No mass Pelvic Exam: deferred Rectal Exam: deferred Back Exam: normal inspection, normal range of motion, No CVA tenderness, No vertebral tenderness Extremity Exam: normal inspection, normal range of motion Skin Exam: normal color, warm, dry Final Diagnosis/Problem List - Final Discharge Diagnosis/Problem (1) Seizure Current Visit: Yes Status: Acute Assessment & Plan: - EEG, MRI brain, CT head- all negative for acute concern - Seizure precautions - Neurochecks Q4 hr - Continue Keppra BID - F/U Prolactin level- will follow OP as not back yet. - Neurology Consult- reviewed notes and agree with plan of care - NO driving - Must follow up with neurology as scheduled - CBC, CMP, UA reviewed - UDS not collected by nursing Code(s): R56.9 - UNSPECIFIED CONVULSIONS (2) Hypertension Current Visit: No Status: Acute Assessment & Plan: - Continue oral antihypertensive - BP stable Code(s): I10 - ESSENTIAL (PRIMARY) HYPERTENSION (3) Migraine Current Visit: No Status: Chronic Assessment & Plan: - Continue home meds Code(s): G43.909 - MIGRAINE, UNSP, NOT INTRACTABLE, WITHOUT STATUS MIGRAINOSUS (4) Morbid obesity with BMI of 50.0-59.9, adult Current Visit: No Status: Chronic Assessment & Plan: - Advised diet and exercise control Code(s): E66.01 - MORBID (SEVERE) OBESITY DUE TO EXCESS CALORIES; Z68.43 - BODY MASS INDEX [BMI] 50.0-59.9, ADULT - Discharge Discharge Date: 02/01/25 Disposition: Home, Self-Care Condition: Stable Prescriptions: New Levetiracetam [Keppra] 1,000 mg PO BID 30 Days #60 tablet Continue Albuterol Common Canister [Ventolin Common Canister] 2 puff IH Q4HPRN PRN PRN Reason: Shortness Of Breath lisinopriL [Zestril] 30 mg PO DAILY Aspirin [Aspirin EC] 81 mg PO DAILY Rimegepant Sulfate [Nurtec Odt] 75 mg PO DAILY PRN PRN PRN Reason: Headache Atogepant [Qulipta] 60 mg PO DAILY Riboflavin (Vitamin B2) [Vitamin B-2] 25 mg PO DAILY Magnesium Oxide 400 mg [Mag-Ox 400] 400 mg PO DAILY Tolterodine Tartrate 2 mg PO DAILY Escitalopram Oxalate [Lexapro] 10 mg PO DAILY Ergocalciferol (Vitamin D2) [Vitamin D2] 1,250 mcg PO WEEKLY Instructions: Seizures Additional Instructions: NO DRIVING UNTIL CLEARED BY NEUROLOGY Follow up with: SAADIA GLASER [Primary Care Provider, INTERNAL MEDICINE] - 02/13/25 3:00 pm DAYANNA HANDY [NON-STAFF PHY W/O PRIVILEGES, NEUROLOGY] - 02/26/25 2:00 pm Referral Note: -Office will be calling you with sooner appointment if any available. -Office will be relocating to [address] [place] [address]
[2025-02-01 12:38] VITALS: BP 137/63; PULSE 60; RESP 22; TEMP 97.6; O2SAT 94
[2025-02-04] MEDS ORDERED: VITAMIN D2 PO SCH (10:00)
[2025-02-06 23:53] LABS: T3/rT3 Ratio 5.0 (Not Estab)
== END 2025-02-01 12:00 | disposition home or self-care (01) ==
LOC: ED 20:21 → MED SURG 01-31 01:19
PROVIDERS: ADMIT Hospitalist; ATTEND Hospitalist
DX: R56.9 Unspecified convulsions (principal); I10 Essential (primary) hypertension; G43.909 Migraine, unspecified, not intractable, without status migrainosus; E66.01 Morbid (severe) obesity due to excess calories; Z68.43 Body mass index [BMI] 50.0-59.9, adult; Z79.899 Other long term (current) drug therapy
CPT/HCPCS: 36415; 70450; 70551; 80053; 80061; 81001; 81025; 82077; 82550; 83036; 83721; 83735; 84146; 84436; 84443; 84480; 84482; 84484; 85025; 85027; 85610; 93005; 93041; 93306; 94760; 95812; 96375; 99285; Q3014

== ENCOUNTER 2025-02-19 07:56 | Emergency (ER) | payer BC ==
--- NOTE | 2025-02-19 08:02 | ERPHSYRPT ---
- History of Present Illness Time Seen by Provider: 02/19/25 08:02 Source: patient, EMS, old records Exam Limitations: no limitations Physician History: This is a morbidly obese 44-year-old white female patient who is brought to the emergency department by the paramedics after a "seizure" at work. She did not soil herself with stool or urine. She does not recall all the events. 4 days ago she had "seizure". There is been no changes in her medications. Patient states she has been compliant with her medications. There are no new medications. Patient was seen in our emergency department on 01/11/2025 with the same symptoms. Patient did not lose consciousness per her report but she does not recall the events. When she "woke up" she was having some substernal, central chest pain that she described as an ache that radiates to the left chest but not to the neck or arm. She does not have shortness of breath. She denies abdominal pain. She denies nausea vomiting or diarrhea. Patient has a history of migraine headaches, seizure disorder, hypertension, arrhythmia, asthma, anxiety, depression. She has never been diagnosed with coronary artery disease. Timing/Duration: today Severity: mild Character of Deficits: none Deficits: no difficulties Current Cognition: alert oriented x 3 Baseline Gait: walks w/o assistance Associated Symptoms: seizures, chest pain, No confusion, No fever, No loss of consciousness, No slurred speech, No vision changes Allergies/Adverse Reactions: atenolol Adverse Reaction (Intermediate, Verified 02/19/25 08:13) bradycardia Home Medications: Albuterol Common Canister [Ventolin Common Canister] 2 puff IH Q4HPRN PRN 07/21/19 [History] lisinopriL [Zestril] 30 mg PO DAILY 08/01/19 [History] Aspirin [Aspirin EC] 81 mg PO DAILY 12/23/21 [History] Rimegepant Sulfate [Nurtec Odt] 75 mg PO DAILY PRN PRN 12/23/21 [History] Atogepant [Qulipta] 60 mg PO DAILY 12/03/23 [History] Ergocalciferol (Vitamin D2) [Vitamin D2] 1,250 mcg PO WEEKLY 12/03/23 [History] Escitalopram Oxalate [Lexapro] 10 mg PO DAILY 12/03/23 [History] Magnesium Oxide 400 mg [Mag-Ox 400] 400 mg PO DAILY 12/03/23 [History] Riboflavin (Vitamin B2) [Vitamin B-2] 25 mg PO DAILY 12/03/23 [History] Tolterodine Tartrate 2 mg PO DAILY 12/03/23 [History] Hx Tetanus, Diphtheria Vaccination/Date Given: Yes Hx Influenza Vaccination/Date Given: Yes Hx Pneumococcal Vaccination/Date Given: No Travel Risk - International Travel Have you traveled outside of the country in past 3 weeks: No - Emerging Infectious Disease Are you exhibiting symptoms associated with any current EIDs: No - Review of Systems Constitutional: No Symptoms Eyes: No Symptoms Ears, Nose, & Throat: No Symptoms Respiratory: No Symptoms Cardiac: Chest Pain Abdominal/Gastrointestinal: No Symptoms Genitourinary Symptoms: No Symptoms Musculoskeletal: No Symptoms Skin: No Symptoms Neurological: Seizure Psychological: No Symptoms Endocrine: No Symptoms Hematologic/Lymphatic: No Symptoms Immunological/Allergic: No Symptoms All Other Systems: Reviewed and Negative - Past Medical History Pertinent Past Medical History: Yes Neurological History: Migraines, Seizures ENT History: No Pertinent History Cardiac History: Arrhythmia, Hypertension, Other Respiratory History: Asthma Endocrine Medical History: No Pertinent History Musculoskeletal History: Fractures GI Medical History: GERD, Gallbladder Disease History: No Pertinent History Psycho-Social History: Anxiety, Depression Female Reproductive Disorders: No Pertinent History Other Medical History: PATIENT REPORTS HX OF HEART "EPISODES" WITH LABS SHOWING HEART ATTACK BUT HEART CATHETERIZATION AND STRESS TEST WERE NEGATIVE. HX OF FX LEFT ANKLE PRIOR 14 YEARS AGO WITH PLATE AND SCREWS. PLATE STILL PRESENT. - Past Surgical History Past Surgical History: Yes Neuro Surgical History: No Pertinent History Cardiac: No Pertinent History Respiratory: No Pertinent History Gastrointestinal: Cholecystectomy Genitourinary: No Pertinent History Musculoskeletal: Orthopedic Surgery Female Surgical History: Dilation & Curettage, Section, Other Other Surgical History: ankle repair, d&c. fallopian tube removal(left) Significant Family History: no pertinent family hx - Female History Hx Last Menstrual Period: 1 WEEK AGO - Social History Smoking Status: Never smoker Exposure to second hand smoke: No Drug Use: none - Social Determinants of Health Will the patient participate in the screening: Yes Do you worry about a steady place to live?: No In the past 12 months,have you had to go without utilities?: No Transportation Issues: No Has anyone in your support network made you feel unsafe?: No Have you or anyone in your house had to go w/o enough food: No - Nursing Vital Signs Nursing Vital Signs: Initial Vital Signs Temperature 97.5 F 02/19/25 08:03 Pulse Rate 64 02/19/25 08:03 Respiratory Rate 19 02/19/25 08:03 Blood Pressure 137/81 02/19/25 08:03 O2 Sat by Pulse Oximetry 94 L 02/19/25 08:03 Pain Scale Pain Intensity 6 - Simona Coma Scale Best Eye Response (Sandwich): (4) open spontaneously Best Verbal Response (Sandwich): (5) oriented Best Motor Response (Sandwich): (6) obeys commands Simona Total: 15 - Physical Exam General Appearance: no apparent distress, alert, anxiety, obese Eye Exam: bilateral eye: normal inspection, PERRL, EOMI Ears, Nose, Throat Exam: normal ENT inspection, moist mucous membranes Neck Exam: normal inspection, non-tender, supple, full range of motion Respiratory: normal breath sounds, lungs clear, airway intact, No chest tenderness, No respiratory distress Cardiovascular: regular rate/rhythm, normal heart sounds, normal peripheral pulses Gastrointestinal: soft, normal bowel sounds, No tenderness Pelvic Exam: not done Rectal Exam: not done Back Exam: normal inspection, normal range of motion, No CVA tenderness, No vertebral tenderness Extremity Exam: normal inspection, normal range of motion, pelvis stable Mental Status: alert, 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 No acute ischemia on today's twelve-lead EKG.) Ordered Tests: Active Orders 24 hr Category Date Time Status EKG-ER Only STAT Care 02/19/25 08:05 Active IV Insertion STAT Care 02/19/25 08:05 Active POCT Glucose Check STAT Care 02/19/25 08:05 Active Pulse Oximetry (ED) STAT Care 02/19/25 08:05 Active HEAD WITHOUT CONTRAST [CT] Stat Exams 02/19/25 08:52 Completed CBC W DIFF Stat Lab 02/19/25 08:25 Completed CMP Stat Lab 02/19/25 08:25 Completed MAGNESIUM Stat Lab 02/19/25 08:25 Completed TROPONIN Q4H Lab 02/19/25 08:25 Completed TROPONIN Q4H Lab 02/19/25 12:15 Ordered TROPONIN Q4H Lab 02/19/25 16:15 Ordered UA W/RFX UR CULTURE Stat Lab 02/19/25 08:48 Completed Medication Summary Discontinued Medications Generic Name Dose Route Start Last Admin Trade Name Billie PRN Reason Stop Dose Admin Levetiracetam 500 mg/ Dextrose 105 mls @ 400 mls/hr 02/19/25 08:07 02/19/25 09:39 IV 02/19/25 08:22 Infused STAT ONE Infusion Dextrose Confirm 02/19/25 08:35 D5w 100ml Mini Bag 100 Ml Administered 02/19/25 08:36 Dose 100 mls @ ud IV .STK-MED ONE Levetiracetam Confirm 02/19/25 08:34 Levetiracetam 500 Mg/5 Ml Vial Administered 02/19/25 08:35 Dose 500 mg .ROUTE .STK-MED ONE Lorazepam 0.5 mg 02/19/25 09:47 Lorazepam 2 Mg/1 Ml 2 Mg Vial IV 02/19/25 09:48 STAT ONE Lab/Rad Data: Laboratory Result Diagrams 02/19/25 08:25 02/19/25 08:25 Laboratory Results 02/19/25 02/19/25 02/19/25 Range/Units 08:48 08:25 08:25 WBC (3.98-10.04) x10^3/uL RBC (3.93-5.22) x10^6/uL Hgb (11.2-15.7) g/dL Hct (34.1-44.9) % MCV (79.4-94.8) fL MCH (25.6-32.2) pg MCHC (32.2-35.5) g/dL RDW (11.7-14.4) % Plt Count (182-369) x10^3/uL MPV (9.4-12.3) fL Gran % (34.0-71.1) % Immature Gran % (Auto) (0.001-0.429) % Nucleat RBC Rel Count (0.00-0.2) % Eos # (Auto) (0.04-0.36) x10^3/uL Immature Gran # (Auto) (0.001-0.031) x10^3u/L Absolute Lymphs (auto) (1.18-3.74) x10^3/uL Absolute Monos (auto) (0.24-0.86) x10^3/uL Absolute Nucleated RBC (0.00-0.012) x10^3u/L Lymphocytes % (19.3-51.7) % Monocytes % (4.7-12.5) % Eosinophils % (0.7-5.8) % Basophils % (0.1-1.2) % Absolute Granulocytes (1.56-6.13) x10^3/uL Basophils # (0.01-0.08) x10^3/uL Sodium 140 (135-145) mmol/L Potassium 4.3 (3.5-5.1) mmol/L Chloride 102 (98-107) mmol/L Carbon Dioxide 31 H (22-30) mmol/L Anion Gap 10.6 (5-15) MEQ/L BUN 16 (7-17) mg/dL Creatinine 0.90 (0.52-1.04) mg/dL Estimated GFR 80.8 ML/MIN Glucose 97 (74-106) mg/dL Calcium 9.5 (8.4-10.2) mg/dL Magnesium 1.8 (1.6-2.3) mg/dL Total Bilirubin 0.40 (0.2-1.3) mg/dL AST 20 (14-36) U/L ALT 15 (0-35) U/L Alkaline Phosphatase 96 (38-126) U/L Troponin I < 0.012 (0.000-0.033) ng/mL Serum Total Protein 6.9 (6.3-8.2) g/dL Albumin 4.2 (3.5-5.0) g/dL Urine Color Yellow (Yellow) Urine Appearance Clear (Clear) Urine pH 6.0 (4.6-8.0) Ur Specific [place] <=1.005 (1.005-1.030) Urine Protein Negative (Negative) Urine Glucose (UA) Negative (Negative) mg/dL Urine Ketones Negative (Negative) Urine Blood Trace (Negative) Urine Nitrite Negative (Negative) Urine Bilirubin Negative (Negative) Urine Urobilinogen 0.2 (0.2) mg/dL Ur Leukocyte Esterase Negative (Negative) U Hyaline Cast (Auto) NONE SEEN (0-2) /LPF Urine Microscopic RBC 0-2 (0-5) /HPF Urine Microscopic WBC 0-2 (0-5) /HPF Ur Epithelial Cells None Seen (None Seen) /HPF Urine Bacteria None Seen (None Seen) /HPF Urine Culture Reflexed NO (NO) 02/19/25 Range/Units 08:25 WBC 9.4 (3.98-10.04) x10^3/uL RBC 4.44 (3.93-5.22) x10^6/uL Hgb 13.4 (11.2-15.7) g/dL Hct 41.1 (34.1-44.9) % MCV 92.6 (79.4-94.8) fL MCH 30.2 (25.6-32.2) pg MCHC 32.6 (32.2-35.5) g/dL RDW 12.5 (11.7-14.4) % Plt Count 224 (182-369) x10^3/uL MPV 9.3 L (9.4-12.3) fL Gran % 73.1 H (34.0-71.1) % Immature Gran % (Auto) 0.3 (0.001-0.429) % Nucleat RBC Rel Count 0.0 (0.00-0.2) % Eos # (Auto) 0.29 (0.04-0.36) x10^3/uL Immature Gran # (Auto) 0.03 (0.001-0.031) x10^3u/L Absolute Lymphs (auto) 1.61 (1.18-3.74) x10^3/uL Absolute Monos (auto) 0.56 (0.24-0.86) x10^3/uL Absolute Nucleated RBC 0.00 (0.00-0.012) x10^3u/L Lymphocytes % 17.1 L (19.3-51.7) % Monocytes % 6.0 (4.7-12.5) % Eosinophils % 3.1 (0.7-5.8) % Basophils % 0.4 (0.1-1.2) % Absolute Granulocytes 6.87 H (1.56-6.13) x10^3/uL Basophils # 0.04 (0.01-0.08) x10^3/uL Sodium (135-145) mmol/L Potassium (3.5-5.1) mmol/L Chloride (98-107) mmol/L Carbon Dioxide (22-30) mmol/L Anion Gap (5-15) MEQ/L BUN (7-17) mg/dL Creatinine (0.52-1.04) mg/dL Estimated GFR ML/MIN Glucose (74-106) mg/dL Calcium (8.4-10.2) mg/dL Magnesium (1.6-2.3) mg/dL Total Bilirubin (0.2-1.3) mg/dL AST (14-36) U/L ALT (0-35) U/L Alkaline Phosphatase (38-126) U/L Troponin I (0.000-0.033) ng/mL Serum Total Protein (6.3-8.2) g/dL Albumin (3.5-5.0) g/dL Urine Color (Yellow) Urine Appearance (Clear) Urine pH (4.6-8.0) Ur Specific [place] (1.005-1.030) Urine Protein (Negative) Urine Glucose (UA) (Negative) mg/dL Urine Ketones (Negative) Urine Blood (Negative) Urine Nitrite (Negative) Urine Bilirubin (Negative) Urine Urobilinogen (0.2) mg/dL Ur Leukocyte Esterase (Negative) U Hyaline Cast (Auto) (0-2) /LPF Urine Microscopic RBC (0-5) /HPF Urine Microscopic WBC (0-5) /HPF Ur Epithelial Cells (None Seen) /HPF Urine Bacteria (None Seen) /HPF Urine Culture Reflexed (NO) - Progress Progress: improved Progress Note: 02/19/25 08:17 My medical decision making and the assignment of moderate complexity to this patient's medical issue today is based on review of the patient's past medical history, review the patient's medication list, review the patient drug allergy list, history present illness and physical findings on examination. The workup in this patient includes placement of intravenous line, infusion of Keppra, CBC, CMP, magnesium level, troponin level, twelve-lead EKG, urinalysis, CT scan of the head without contrast Differential diagnosis includes was not limited to seizure, pseudoseizure, electrolyte abnormalities, noncompliance with medication, acute intracranial abnormality, urinary tract infection, dehydration, arrhythmia 02/19/25 10:24 I interpreted the patient's laboratory data results. Based on laboratory data results, there are no acute, emergent medical issues. Patient heart score is low. The CT scan of the head without contrast was interpreted by the radiologist and I reviewed the impression. The impression states normal CT scan of the head without contrast exam. 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 Call your prescribing provider and neurologist today, 02/19/2025, to make arrangements for follow-up appointment for further evaluation and management.
[2025-02-19 08:10] VITALS: TEMP 97.5
[2025-02-19 08:31] LABS: BASOPHIL % 0.4 % (0.1-1.2); Basophil (Absolute #) 0.04 x10^3/uL (0.01-0.08); Eosinophil (Absolute #) 0.29 x10^3/uL (0.04-0.36); Hematocrit 41.1 % (34.1-44.9); Hemoglobin 13.4 g/dL (11.2-15.7); IMMATURE GRAN # 0.03 x10^3u/L (0.001-0.031); IMMATURE GRAN % 0.3 % (0.001-0.429); Lymphocyte (Absolute #) 1.61 x10^3/uL (1.18-3.74); Mean Corpuscular Hemoglobin 30.2 pg (25.6-32.2); Mean Corpuscular Hgb Concent. 32.6 g/dL (32.2-35.5); Monocyte (Absolute #) 0.56 x10^3/uL (0.24-0.86); NUCLEATED RBC # 0.00 x10^3u/L (0.00-0.012); NUCLEATED RBC % 0.0 % (0.00-0.2); Platelet Count 224 x10^3/uL (182-369); Red Blood Count 4.44 x10^6/uL (3.93-5.22); White Blood Count 9.4 x10^3/uL (3.98-10.04)
[2025-02-19] MEDS ORDERED: Keppra 500 MG/5 ML ONE (08:34)
[2025-02-19] MEDS ORDERED: D5w 100ML Mini Bag 100 ML 100 ML IV ONE (08:35)
[2025-02-19] MEDS: Keppra 500 MG/5 ML*** 500 MG in D5w 100ML Mini Bag 100 ML 100 ML IV ONE (08:42)
[2025-02-19 09:07] LABS: Glucose, Urine Negative (Negative); Protein,Urine Dip Negative (Negative); RBC 0-2 /HPF (0-5); WBC 0-2 /HPF (0-5)
[2025-02-19 09:12] LABS: Calcium 9.5 mg/dL (8.4-10.2); Carbon Dioxide 31.0 mmol/L (22-30); Creatinine 1 0.9 mg/dL (0.52-1.04); EST GLOMERULAR FILTRATION RATE 80.8 ML/MIN; Glucose 97.0 mg/dL (74-106); Potassium 4.3 mmol/L (3.5-5.1); SGOT/AST 20.0 U/L (14-36); SGPT/ALT 15.0 U/L (0-35); Total Protein 6.9 g/dL (6.3-8.2)
[2025-02-19 09:40] VITALS: O2SAT 95
--- NOTE | 2025-02-19 10:10 | XRAY ---
Indication: Seizure. Negative MRI brain January 31, 2025. Multiple contiguous axial images obtained through the head without contrast. Normal appearing brain parenchyma, ventricles, and bony calvarium for patient's age. Visualized paranasal sinuses and mastoid air cells are clear. Impression: Normal CT head without contrast exam, unchanged compared to January 11, 2025 and January 30, 2025.
[2025-02-19] MEDS: Ativan 2 MG/1 ML VIAL IV ONE (10:25)
[2025-02-19] MEDS ORDERED: ATIVAN 2 MG/ML MDV FOR SINGLE DOSES ONE (10:25)
[2025-02-19 10:48] VITALS: BP 169/72; PULSE 54; RESP 21
== END 2025-02-19 10:52 | disposition home or self-care (01) ==
LOC: ED 07:56
DX: G40.909 Epilepsy, unspecified, not intractable, without status epilepticus (principal); R07.9 Chest pain, unspecified; I10 Essential (primary) hypertension; Z79.899 Other long term (current) drug therapy

== ENCOUNTER 2025-03-08 14:15 | Emergency (ER) | payer BC ==
--- NOTE | 2025-03-08 14:56 | ERPHSYRPT ---
- History of Present Illness Time Seen by Provider: 03/08/25 14:50 Patient Subjective Stated Complaint: . Triage Nursing Assessment: . Physician History: 44-year-old femaleWho presents for anxiety and thoughts of self-harm. She states that she has had increased stress over the last several months worse the last several weeks. She states this is related to the of her sister. She has had thoughts of self-harm and reports that she is scraping her arms at times. She had thoughts of taking anything available to hurt herself. She has not ingested any medications. 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 Denies any other medical concerns. Allergies/Adverse Reactions: oseltamivir [From Tamiflu] Allergy (Verified 03/08/25 15:18) atenolol Adverse Reaction (Intermediate, Verified 03/08/25 14:28) bradycardia Home Medications: Albuterol Common Canister [Ventolin Common Canister] 2 puff IH Q4HPRN PRN 07/21/19 [History] lisinopriL [Zestril] 30 mg PO DAILY 08/01/19 [History] Aspirin [Aspirin EC] 81 mg PO DAILY 12/23/21 [History] Rimegepant Sulfate [Nurtec Odt] 75 mg PO DAILY PRN PRN 12/23/21 [History] Atogepant [Qulipta] 60 mg PO DAILY 12/03/23 [History] Ergocalciferol (Vitamin D2) [Vitamin D2] 1,250 mcg PO WEEKLY 12/03/23 [History] Escitalopram Oxalate [Lexapro] 10 mg PO DAILY 12/03/23 [History] Magnesium Oxide 400 mg [Mag-Ox 400] 400 mg PO DAILY 12/03/23 [History] Riboflavin (Vitamin B2) [Vitamin B-2] 25 mg PO DAILY 12/03/23 [History] Tolterodine Tartrate 2 mg PO DAILY 12/03/23 [History] Levetiracetam [Keppra] 500 mg PO BID 03/08/25 [History] Hx Tetanus, Diphtheria Vaccination/Date Given: No Hx Influenza Vaccination/Date Given: No Hx Pneumococcal Vaccination/Date Given: No Immunizations Up to Date: Yes Travel Risk - International Travel Have you traveled outside of the country in past 3 weeks: No - Emerging Infectious Disease Are you exhibiting symptoms associated with any current EIDs: No - Review of Systems Constitutional: No Fever, No Chills Eyes: No Symptoms Ears, Nose, & Throat: No Symptoms Respiratory: No Cough, No Dyspnea Cardiac: No Chest Pain, No Edema, No Syncope Abdominal/Gastrointestinal: No Abdominal Pain, No Nausea, No Vomiting, No Diarrhea Genitourinary Symptoms: No Dysuria Musculoskeletal: No Back Pain, No Neck Pain Skin: No Rash Neurological: No Dizziness, No Focal Weakness, No Sensory Changes Psychological: No Symptoms, Other (Thoughts of self-harm), No Alcohol Abuse, No Drug Abuse, No Homicidal Ideations, No Hallucinations Endocrine: No Symptoms All Other Systems: Reviewed and Negative - Past Medical History Pertinent Past Medical History: Yes Neurological History: Migraines, Seizures ENT History: No Pertinent History Cardiac History: Arrhythmia, Hypertension, Other Respiratory History: Asthma Endocrine Medical History: No Pertinent History Musculoskeletal History: Fractures GI Medical History: GERD, Gallbladder Disease History: No Pertinent History Psycho-Social History: Anxiety, Depression Female Reproductive Disorders: No Pertinent History Other Medical History: PATIENT REPORTS HX OF HEART "EPISODES" WITH LABS SHOWING HEART ATTACK BUT HEART CATHETERIZATION AND STRESS TEST WERE NEGATIVE. HX OF FX LEFT ANKLE PRIOR 14 YEARS AGO WITH PLATE AND SCREWS. PLATE STILL PRESENT. stress related seizures 2024 - Past Surgical History Past Surgical History: Yes Neuro Surgical History: No Pertinent History Cardiac: No Pertinent History Respiratory: No Pertinent History Gastrointestinal: Cholecystectomy Genitourinary: No Pertinent History Musculoskeletal: Orthopedic Surgery Female Surgical History: Dilation & Curettage, Section, Other Other Surgical History: ankle repair, d&c. fallopian tube removal(left) Significant Family History: no pertinent family hx - Female History Hx Last Menstrual Period: denies Hx Now: No - Social History Smoking Status: Never smoker Exposure to second hand smoke: No Drug Use: none - Social Determinants of Health Will the patient participate in the screening: Yes Do you worry about a steady place to live?: No Do you have any problems with any of the following?: No known problems In the past 12 months,have you had to go without utilities?: No Transportation Issues: No Has anyone in your support network made you feel unsafe?: No Have you or anyone in your house had to go w/o enough food: No - Nursing Vital Signs Nursing Vital Signs: Initial Vital Signs Temperature 97.2 F 03/08/25 15:00 Pulse Rate 49 L 03/08/25 15:00 Respiratory Rate 18 03/08/25 15:00 Blood Pressure 128/69 03/08/25 15:00 O2 Sat by Pulse Oximetry 96 03/08/25 15:00 Pain Scale Pain Intensity 0 - Physical Exam General Appearance: no apparent distress, alert, other (Oriented x 3, no distress, intermittently tearful) Eye Exam: PERRL/EOMI, eyes nml inspection Ears, Nose, Throat Exam: normal ENT inspection, TMs normal, pharynx normal, moist mucous membranes Neck Exam: normal inspection, non-tender, supple, full range of motion Respiratory Exam: normal breath sounds, lungs clear, No respiratory distress Cardiovascular Exam: regular rate/rhythm, normal heart sounds, normal peripheral pulses Gastrointestinal/Abdomen Exam: soft, normal bowel sounds, No tenderness, No mass Back Exam: normal inspection, normal range of motion, No CVA tenderness, No vertebral tenderness Extremity Exam: normal inspection, normal range of motion, pelvis stable Neurologic Exam: alert, oriented x 3, cooperative, normal mood/affect, nml cerebellar function, nml station & gait, sensation nml, No motor deficits Skin Exam: normal color, warm, dry, No rash Lymphatic Exam: No adenopathy Ordered Tests: Active Orders 24 hr Category Date Time Status Pulse Oximetry (ED) STAT Care 03/08/25 14:43 Active ACETAMINOPHEN Stat Lab 03/08/25 14:58 Completed CBC W DIFF Stat Lab 03/08/25 14:58 Completed CMP Stat Lab 03/08/25 14:58 Completed ETHYL ALCOHOL Stat Lab 03/08/25 14:58 Completed HCG QUALITATIVE, URINE Stat Lab 03/08/25 14:40 Completed SALICYLATE Stat Lab 03/08/25 14:58 Completed TSH, 3RD Generation Stat Lab 03/08/25 14:58 Completed UA W/RFX UR CULTURE Stat Lab 03/08/25 14:40 Completed Urine Triage Profile Stat Lab 03/08/25 14:40 Completed Medication Summary Discontinued Medications Generic Name Dose Route Start Last Admin Trade Name Freq PRN Reason Stop Dose Admin Acetaminophen 650 mg 03/08/25 19:08 03/08/25 19:10 Acetaminophen 325 Mg Tablet PO 03/08/25 19:09 650 mg STAT STA Administration Acetaminophen Confirm 03/08/25 19:09 Acetaminophen 325 Mg Tablet Administered 03/08/25 19:10 Dose 650 mg .ROUTE .STK-MED ONE Levetiracetam 500 mg 03/08/25 18:30 03/08/25 18:49 Levetiracetam 500 Mg Tablet PO 03/08/25 18:31 500 mg STAT ONE Administration Lab/Rad Data: Laboratory Result Diagrams 03/08/25 14:58 03/08/25 14:58 Laboratory Results 03/08/25 03/08/25 03/08/25 Range/Units 14:58 14:58 14:40 WBC 9.4 (3.98-10.04) x10^3/uL RBC 4.54 (3.93-5.22) x10^6/uL Hgb 13.5 (11.2-15.7) g/dL Hct 42.2 (34.1-44.9) % MCV 93.0 (79.4-94.8) fL MCH 29.7 (25.6-32.2) pg MCHC 32.0 L (32.2-35.5) g/dL RDW 12.6 (11.7-14.4) % Plt Count 258 (182-369) x10^3/uL MPV 9.2 L (9.4-12.3) fL Gran % 70.3 (34.0-71.1) % Immature Gran % (Auto) 0.2 (0.001-0.429) % Nucleat RBC Rel Count 0.0 (0.00-0.2) % Eos # (Auto) 0.31 (0.04-0.36) x10^3/uL Immature Gran # (Auto) 0.02 (0.001-0.031) x10^3u/L Absolute Lymphs (auto) 1.80 (1.18-3.74) x10^3/uL Absolute Monos (auto) 0.60 (0.24-0.86) x10^3/uL Absolute Nucleated RBC 0.00 (0.00-0.012) x10^3u/L Lymphocytes % 19.1 L (19.3-51.7) % Monocytes % 6.4 (4.7-12.5) % Eosinophils % 3.3 (0.7-5.8) % Basophils % 0.7 (0.1-1.2) % Absolute Granulocytes 6.61 H (1.56-6.13) x10^3/uL Basophils # 0.07 (0.01-0.08) x10^3/uL Sodium 137 (135-145) mmol/L Potassium 4.2 (3.5-5.1) mmol/L Chloride 101 (98-107) mmol/L Carbon Dioxide 30 (22-30) mmol/L Anion Gap 10.3 (5-15) MEQ/L BUN 12 (7-17) mg/dL Creatinine 0.75 (0.52-1.04) mg/dL Estimated GFR 100.6 ML/MIN Glucose 89 (74-106) mg/dL Calcium 9.3 (8.4-10.2) mg/dL Total Bilirubin 0.30 (0.2-1.3) mg/dL AST 19 (14-36) U/L ALT 18 (0-35) U/L Alkaline Phosphatase 110 (38-126) U/L Serum Total Protein 7.5 (6.3-8.2) g/dL Albumin 4.3 (3.5-5.0) g/dL TSH 3rd Generation 3.682 (0.470-4.680) mIU/L Urine Color (Yellow) Urine Appearance (Clear) Urine pH (4.6-8.0) Ur Specific [place] (1.005-1.030) Urine Protein (Negative) Urine Glucose (UA) (Negative) mg/dL Urine Ketones (Negative) Urine Blood (Negative) Urine Nitrite (Negative) Urine Bilirubin (Negative) Urine Urobilinogen (0.2) mg/dL Ur Leukocyte Esterase (Negative) U Hyaline Cast (Auto) (0-2) /LPF Urine Microscopic RBC (0-5) /HPF Urine Microscopic WBC (0-5) /HPF Ur Epithelial Cells (None Seen) /HPF Urine Bacteria (None Seen) /HPF Urine Culture Reflexed (NO) Urine HCG, Qual NEGATIVE (NEGATIVE) Salicylates < 1.0 L (2-20) mg/dL Urine Opiates Level (NEGATIVE) Ur Methadone (NEGATIVE) Acetaminophen < 10 L (10-30) ug/ml Urine Barbiturates (NEGATIVE) Ur Phencyclidine (PCP) (NEGATIVE) Urine Amphetamine (NEGATIVE) U Benzodiazepine Level (NEGATIVE) Urine Cocaine (NEGATIVE) Urine Marijuana (THC) (NEGATIVE) Ethyl Alcohol < 10 (0-10) mg/dL 03/08/25 03/08/25 Range/Units 14:40 14:40 WBC (3.98-10.04) x10^3/uL RBC (3.93-5.22) x10^6/uL Hgb (11.2-15.7) g/dL Hct (34.1-44.9) % MCV (79.4-94.8) fL MCH (25.6-32.2) pg MCHC (32.2-35.5) g/dL RDW (11.7-14.4) % Plt Count (182-369) x10^3/uL MPV (9.4-12.3) fL Gran % (34.0-71.1) % Immature Gran % (Auto) (0.001-0.429) % Nucleat RBC Rel Count (0.00-0.2) % Eos # (Auto) (0.04-0.36) x10^3/uL Immature Gran # (Auto) (0.001-0.031) x10^3u/L Absolute Lymphs (auto) (1.18-3.74) x10^3/uL Absolute Monos (auto) (0.24-0.86) x10^3/uL Absolute Nucleated RBC (0.00-0.012) x10^3u/L Lymphocytes % (19.3-51.7) % Monocytes % (4.7-12.5) % Eosinophils % (0.7-5.8) % Basophils % (0.1-1.2) % Absolute Granulocytes (1.56-6.13) x10^3/uL Basophils # (0.01-0.08) x10^3/uL Sodium (135-145) mmol/L Potassium (3.5-5.1) mmol/L Chloride (98-107) mmol/L Carbon Dioxide (22-30) mmol/L Anion Gap (5-15) MEQ/L BUN (7-17) mg/dL Creatinine (0.52-1.04) mg/dL Estimated GFR ML/MIN Glucose (74-106) mg/dL Calcium (8.4-10.2) mg/dL Total Bilirubin (0.2-1.3) mg/dL AST (14-36) U/L ALT (0-35) U/L Alkaline Phosphatase (38-126) U/L Serum Total Protein (6.3-8.2) g/dL Albumin (3.5-5.0) g/dL TSH 3rd Generation (0.470-4.680) mIU/L Urine Color Yellow (Yellow) Urine Appearance Clear (Clear) Urine pH 5.5 (4.6-8.0) Ur Specific [place] 1.010 (1.005-1.030) Urine Protein Negative (Negative) Urine Glucose (UA) Negative (Negative) mg/dL Urine Ketones Negative (Negative) Urine Blood Trace (Negative) Urine Nitrite Negative (Negative) Urine Bilirubin Negative (Negative) Urine Urobilinogen 1.0 A (0.2) mg/dL Ur Leukocyte Esterase Negative (Negative) U Hyaline Cast (Auto) NONE SEEN (0-2) /LPF Urine Microscopic RBC 0-2 (0-5) /HPF Urine Microscopic WBC 0-2 (0-5) /HPF Ur Epithelial Cells Rare (None Seen) /HPF Urine Bacteria None Seen (None Seen) /HPF Urine Culture Reflexed NO (NO) Urine HCG, Qual (NEGATIVE) Salicylates (2-20) mg/dL Urine Opiates Level NEGATIVE (NEGATIVE) Ur Methadone NEGATIVE (NEGATIVE) Acetaminophen (10-30) ug/ml Urine Barbiturates NEGATIVE (NEGATIVE) Ur Phencyclidine (PCP) NEGATIVE (NEGATIVE) Urine Amphetamine NEGATIVE (NEGATIVE) U Benzodiazepine Level NEGATIVE (NEGATIVE) Urine Cocaine NEGATIVE (NEGATIVE) Urine Marijuana (THC) NEGATIVE (NEGATIVE) Ethyl Alcohol (0-10) mg/dL - Progress Progress Note: 03/08/25 14:55 Is a 44-year-old female who presents for anxiety and stress. She reports that she had been overwhelmed by her sisters that was several years ago. She has not recently followed with anybody for counseling. States she takes Lexapro for depression. She has had thoughts of self-harm today. Physical exam was unremarkable.Baseline tests were ordered for medical screening she will be set up for online until evaluation for psychiatry. Medical Desision Making - Discussion of managment Care discussed with:: specialist - Departure Departure Disposition: Transfer (Patient accepted by Jeff Angulo, risk and benefits dw patient) Clinical Impression: Depression Condition: Stable Critical Care Time: No Referrals: SAADIA GLASER [Primary Care Provider, INTERNAL MEDICINE] - Follow up/PCP as directed
[2025-03-08 14:59] LABS: HCG URINE TEST NEGATIVE (NEGATIVE)
[2025-03-08 15:01] LABS: BASOPHIL % 0.7 % (0.1-1.2); Basophil (Absolute #) 0.07 x10^3/uL (0.01-0.08); Eosinophil (Absolute #) 0.31 x10^3/uL (0.04-0.36); Hematocrit 42.2 % (34.1-44.9); Hemoglobin 13.5 g/dL (11.2-15.7); IMMATURE GRAN # 0.02 x10^3u/L (0.001-0.031); IMMATURE GRAN % 0.2 % (0.001-0.429); Lymphocyte (Absolute #) 1.80 x10^3/uL (1.18-3.74); Mean Corpuscular Hemoglobin 29.7 pg (25.6-32.2); Mean Corpuscular Hgb Concent. 32.0 g/dL (32.2-35.5); Monocyte (Absolute #) 0.60 x10^3/uL (0.24-0.86); NUCLEATED RBC # 0.00 x10^3u/L (0.00-0.012); NUCLEATED RBC % 0.0 % (0.00-0.2); Platelet Count 258 x10^3/uL (182-369); Red Blood Count 4.54 x10^6/uL (3.93-5.22); White Blood Count 9.4 x10^3/uL (3.98-10.04)
[2025-03-08 15:02] VITALS: RESP 18; TEMP 97.2
[2025-03-08 15:02] LABS: Glucose, Urine Negative (Negative); Protein,Urine Dip Negative (Negative); RBC 0-2 /HPF (0-5); WBC 0-2 /HPF (0-5)
[2025-03-08 15:17] LABS: Amphetamine,Urine NEGATIVE (NEGATIVE); Barbiturate,Urine NEGATIVE (NEGATIVE); Benzodiazepine,Urine NEGATIVE (NEGATIVE); Cocaine,Urine NEGATIVE (NEGATIVE); Methadone,Urine NEGATIVE (NEGATIVE); Opiate,Urine NEGATIVE (NEGATIVE); PCP,Urine NEGATIVE (NEGATIVE); THC,Urine NEGATIVE (NEGATIVE)
[2025-03-08 15:44] LABS: Calcium 9.3 mg/dL (8.4-10.2); Carbon Dioxide 30 mmol/L (22-30); Creatinine 1 0.75 mg/dL (0.52-1.04); EST GLOMERULAR FILTRATION RATE 100.6 ML/MIN; ETHYL ALCOHOL < 10 mg/dL (0-10); Glucose 89 mg/dL (74-106); Potassium 4.2 mmol/L (3.5-5.1); SGOT/AST 19 U/L (14-36); SGPT/ALT 18 U/L (0-35); Total Protein 7.5 g/dL (6.3-8.2)
[2025-03-08] MEDS: KEPPRA PO ONE (18:49)
[2025-03-08] MEDS ORDERED: TYLENOL 325 MG ONE (19:09)
[2025-03-08] MEDS: TYLENOL 325 MG PO STA (19:10)
[2025-03-08 21:04] VITALS: BP 134/85; PULSE 55; O2SAT 96
== END 2025-03-08 21:50 ==
LOC: ED 14:15
DX: F32.A Depression, unspecified (principal); R45.851 Suicidal ideations; I10 Essential (primary) hypertension; Z79.899 Other long term (current) drug therapy
CPT/HCPCS: 36415; 80053; 80143; 80179; 80307; 81001; 81025; 82077; 84443; 85025; 94760; 99285; Q3014

== ENCOUNTER 2025-03-31 22:41 | Emergency (ER) | payer BC ==
[2025-03-31 22:55] VITALS: RESP 18; TEMP 97.8
[2025-03-31 23:02] LABS: BASOPHIL % 0.6 % (0.1-1.2); Basophil (Absolute #) 0.07 x10^3/uL (0.01-0.08); Eosinophil (Absolute #) 0.27 x10^3/uL (0.04-0.36); Hematocrit 40.5 % (34.1-44.9); Hemoglobin 12.9 g/dL (11.2-15.7); IMMATURE GRAN # 0.03 x10^3u/L (0.001-0.031); IMMATURE GRAN % 0.3 % (0.001-0.429); Lymphocyte (Absolute #) 2.43 x10^3/uL (1.18-3.74); Mean Corpuscular Hemoglobin 30.3 pg (25.6-32.2); Mean Corpuscular Hgb Concent. 31.9 g/dL (32.2-35.5); Monocyte (Absolute #) 0.96 x10^3/uL (0.24-0.86); NUCLEATED RBC # 0.00 x10^3u/L (0.00-0.012); NUCLEATED RBC % 0.0 % (0.00-0.2); Platelet Count 251 x10^3/uL (182-369); Red Blood Count 4.26 x10^6/uL (3.93-5.22); White Blood Count 10.8 x10^3/uL (3.98-10.04)
--- NOTE | 2025-03-31 23:03 | ERPHSYRPT ---
- History of Present Illness Time Seen by Provider: 03/31/25 22:48 Source: patient Patient Subjective Stated Complaint: . Triage Nursing Assessment: . Physician History: Female with history of depression anxiety recent inpatient stay last month reports that she went back to work today. She states that she hears voices inside her head telling her that maybe she is to break some glass and cut herself. She reports that she is concerned that she will act out on these. She is still having similar thoughts on ER arrival. Denies any alcohol or drug use. No recent illness. Reports she is taking all of her outpatient meds. No other recent changes in health. Allergies/Adverse Reactions: oseltamivir [From Tamiflu] Allergy (Verified 03/31/25 22:55) atenolol Adverse Reaction (Intermediate, Verified 03/31/25 22:55) bradycardia Home Medications: Albuterol Common Canister [Ventolin Common Canister] 2 puff IH Q4HPRN PRN 07/21/19 [History] lisinopriL [Zestril] 30 mg PO DAILY 08/01/19 [History] Aspirin [Aspirin EC] 81 mg PO DAILY 12/23/21 [History] Rimegepant Sulfate [Nurtec Odt] 75 mg PO DAILY PRN PRN 12/23/21 [History] Atogepant [Qulipta] 60 mg PO DAILY 12/03/23 [History] Ergocalciferol (Vitamin D2) [Vitamin D2] 1,250 mcg PO WEEKLY 12/03/23 [History] Escitalopram Oxalate [Lexapro] 10 mg PO DAILY 12/03/23 [History] Magnesium Oxide 400 mg [Mag-Ox 400] 400 mg PO DAILY 12/03/23 [History] Riboflavin (Vitamin B2) [Vitamin B-2] 25 mg PO DAILY 12/03/23 [History] Tolterodine Tartrate 2 mg PO DAILY 12/03/23 [History] Levetiracetam [Keppra] 500 mg PO BID 03/08/25 [History] Brexpiprazole [Rexulti] 0.25 tab PO DAILY 03/31/25 [History] Mirtazapine 7.5 mg PO HS 03/31/25 [History] Prazosin HCl 1 mg PO HS 03/31/25 [History] Hx Tetanus, Diphtheria Vaccination/Date Given: No Hx Influenza Vaccination/Date Given: No Hx Pneumococcal Vaccination/Date Given: No Travel Risk - International Travel Have you traveled outside of the country in past 3 weeks: No - Emerging Infectious Disease Are you exhibiting symptoms associated with any current EIDs: No - Review of Systems Constitutional: No Fever, No Chills Eyes: No Symptoms Ears, Nose, & Throat: No Symptoms Respiratory: No Cough, No Dyspnea Cardiac: No Chest Pain, No Edema, No Syncope Abdominal/Gastrointestinal: No Abdominal Pain, No Nausea, No Vomiting, No Diarrhea Genitourinary Symptoms: No Dysuria Musculoskeletal: No Back Pain, No Neck Pain Skin: No Rash Neurological: No Dizziness, No Focal Weakness, No Sensory Changes Psychological: No Symptoms, Anxiety, Depression, Suicidal Ideations Endocrine: No Symptoms All Other Systems: Reviewed and Negative - Past Medical History Pertinent Past Medical History: Yes Neurological History: Migraines, Seizures ENT History: No Pertinent History Cardiac History: Arrhythmia, Hypertension, Other Respiratory History: Asthma Endocrine Medical History: No Pertinent History Musculoskeletal History: Fractures GI Medical History: GERD, Gallbladder Disease History: No Pertinent History Psycho-Social History: Anxiety, Depression Female Reproductive Disorders: No Pertinent History Other Medical History: PATIENT REPORTS HX OF HEART "EPISODES" WITH LABS SHOWING HEART ATTACK BUT HEART CATHETERIZATION AND STRESS TEST WERE NEGATIVE. HX OF FX LEFT ANKLE PRIOR 14 YEARS AGO WITH PLATE AND SCREWS. PLATE STILL PRESENT. stress related seizures 2024 - Past Surgical History Past Surgical History: Yes Neuro Surgical History: No Pertinent History Cardiac: No Pertinent History Respiratory: No Pertinent History Gastrointestinal: Cholecystectomy Genitourinary: No Pertinent History Musculoskeletal: Orthopedic Surgery Female Surgical History: Dilation & Curettage, Section, Other Other Surgical History: ankle repair, d&c. fallopian tube removal(left) Significant Family History: no pertinent family hx - Female History Hx Last Menstrual Period: 3 years ago Hx Now: No - Social History Smoking Status: Never smoker Exposure to second hand smoke: No Drug Use: none - Social Determinants of Health Will the patient participate in the screening: Yes Do you worry about a steady place to live?: No Do you have any problems with any of the following?: No known problems In the past 12 months,have you had to go without utilities?: No Transportation Issues: No Has anyone in your support network made you feel unsafe?: No Have you or anyone in your house had to go w/o enough food: No - Nursing Vital Signs Nursing Vital Signs: Initial Vital Signs Temperature 97.8 F 03/31/25 22:50 Pulse Rate 97 H 03/31/25 22:50 Respiratory Rate 18 03/31/25 22:50 Blood Pressure 172/83 03/31/25 22:50 O2 Sat by Pulse Oximetry 96 03/31/25 22:50 Pain Scale Pain Intensity 0 - Physical Exam General Appearance: no apparent distress Eye Exam: PERRL/EOMI, eyes nml inspection Respiratory Exam: normal breath sounds, lungs clear, No respiratory distress Cardiovascular Exam: regular rate/rhythm, normal heart sounds, normal peripheral pulses Neurologic Exam: alert, oriented x 3, cooperative, normal mood/affect, nml cerebellar function, nml station & gait, sensation nml, No motor deficits Skin Exam: normal color, warm, dry, No rash Lymphatic Exam: adenopathy SpO2 Interpretation: normal SpO2: 96 Ordered Tests: Active Orders 24 hr Category Date Time Status Clean Catch Urine Specimen STAT Care 03/31/25 23:01 Active Psychiatric Consult STAT Cons 03/31/25 22:46 Active ACETAMINOPHEN Stat Lab 03/31/25 22:59 Completed CBC W DIFF Stat Lab 03/31/25 22:59 Completed CMP Stat Lab 03/31/25 22:59 Completed CULTURE,URINE Stat Lab 03/31/25 22:58 Received ETHYL ALCOHOL Stat Lab 03/31/25 22:59 Completed HCG QUALITATIVE, URINE Stat Lab 03/31/25 22:59 Completed SALICYLATE Stat Lab 03/31/25 22:59 Completed UA W/RFX UR CULTURE Stat Lab 03/31/25 22:58 Completed Urine Triage Profile Stat Lab 03/31/25 23:02 Completed Lab/Rad Data: Laboratory Result Diagrams 03/31/25 22:59 03/31/25 22:59 Laboratory Results 03/31/25 03/31/25 03/31/25 Range/Units 23:02 22:59 22:59 WBC (3.98-10.04) x10^3/uL RBC (3.93-5.22) x10^6/uL Hgb (11.2-15.7) g/dL Hct (34.1-44.9) % MCV (79.4-94.8) fL MCH (25.6-32.2) pg MCHC (32.2-35.5) g/dL RDW (11.7-14.4) % Plt Count (182-369) x10^3/uL MPV (9.4-12.3) fL Gran % (34.0-71.1) % Immature Gran % (Auto) (0.001-0.429) % Nucleat RBC Rel Count (0.00-0.2) % Eos # (Auto) (0.04-0.36) x10^3/uL Immature Gran # (Auto) (0.001-0.031) x10^3u/L Absolute Lymphs (auto) (1.18-3.74) x10^3/uL Absolute Monos (auto) (0.24-0.86) x10^3/uL Absolute Nucleated RBC (0.00-0.012) x10^3u/L Lymphocytes % (19.3-51.7) % Monocytes % (4.7-12.5) % Eosinophils % (0.7-5.8) % Basophils % (0.1-1.2) % Absolute Granulocytes (1.56-6.13) x10^3/uL Basophils # (0.01-0.08) x10^3/uL Sodium 138 (135-145) mmol/L Potassium 3.7 (3.5-5.1) mmol/L Chloride 99 (98-107) mmol/L Carbon Dioxide 33 H (22-30) mmol/L Anion Gap 9.8 (5-15) MEQ/L BUN 22 H (7-17) mg/dL Creatinine 0.76 (0.52-1.04) mg/dL Estimated GFR 99.0 ML/MIN Glucose 103 (74-106) mg/dL Calcium 9.6 (8.4-10.2) mg/dL Total Bilirubin 0.20 (0.2-1.3) mg/dL AST 20 (14-36) U/L ALT 15 (0-35) U/L Alkaline Phosphatase 89 (38-126) U/L Serum Total Protein 7.1 (6.3-8.2) g/dL Albumin 4.1 (3.5-5.0) g/dL Urine Color (Yellow) Urine Appearance (Clear) Urine pH (4.6-8.0) Ur Specific [place] (1.005-1.030) Urine Protein (Negative) Urine Glucose (UA) (Negative) mg/dL Urine Ketones (Negative) Urine Blood (Negative) Urine Nitrite (Negative) Urine Bilirubin (Negative) Urine Urobilinogen (0.2) mg/dL Ur Leukocyte Esterase (Negative) U Hyaline Cast (Auto) (0-2) /LPF Urine Microscopic RBC (0-5) /HPF Urine Microscopic WBC (0-5) /HPF Ur Epithelial Cells (None Seen) /HPF Urine Bacteria (None Seen) /HPF Urine Culture Reflexed (NO) Urine HCG, Qual NEGATIVE (NEGATIVE) Salicylates < 1.0 L (2-20) mg/dL Urine Opiates Level NEGATIVE (NEGATIVE) Ur Methadone NEGATIVE (NEGATIVE) Acetaminophen < 10 L (10-30) ug/ml Urine Barbiturates NEGATIVE (NEGATIVE) Ur Phencyclidine (PCP) NEGATIVE (NEGATIVE) Urine Amphetamine NEGATIVE (NEGATIVE) U Benzodiazepine Level NEGATIVE (NEGATIVE) Urine Cocaine NEGATIVE (NEGATIVE) Urine Marijuana (THC) NEGATIVE (NEGATIVE) Ethyl Alcohol < 10 (0-10) mg/dL 03/31/25 03/31/25 Range/Units 22:59 22:58 WBC 10.8 H (3.98-10.04) x10^3/uL RBC 4.26 (3.93-5.22) x10^6/uL Hgb 12.9 (11.2-15.7) g/dL Hct 40.5 (34.1-44.9) % MCV 95.1 H (79.4-94.8) fL MCH 30.3 (25.6-32.2) pg MCHC 31.9 L (32.2-35.5) g/dL RDW 13.2 (11.7-14.4) % Plt Count 251 (182-369) x10^3/uL MPV 9.2 L (9.4-12.3) fL Gran % 65.2 (34.0-71.1) % Immature Gran % (Auto) 0.3 (0.001-0.429) % Nucleat RBC Rel Count 0.0 (0.00-0.2) % Eos # (Auto) 0.27 (0.04-0.36) x10^3/uL Immature Gran # (Auto) 0.03 (0.001-0.031) x10^3u/L Absolute Lymphs (auto) 2.43 (1.18-3.74) x10^3/uL Absolute Monos (auto) 0.96 H (0.24-0.86) x10^3/uL Absolute Nucleated RBC 0.00 (0.00-0.012) x10^3u/L Lymphocytes % 22.5 (19.3-51.7) % Monocytes % 8.9 (4.7-12.5) % Eosinophils % 2.5 (0.7-5.8) % Basophils % 0.6 (0.1-1.2) % Absolute Granulocytes 7.05 H (1.56-6.13) x10^3/uL Basophils # 0.07 (0.01-0.08) x10^3/uL Sodium (135-145) mmol/L Potassium (3.5-5.1) mmol/L Chloride (98-107) mmol/L Carbon Dioxide (22-30) mmol/L Anion Gap (5-15) MEQ/L BUN (7-17) mg/dL Creatinine (0.52-1.04) mg/dL Estimated GFR ML/MIN Glucose (74-106) mg/dL Calcium (8.4-10.2) mg/dL Total Bilirubin (0.2-1.3) mg/dL AST (14-36) U/L ALT (0-35) U/L Alkaline Phosphatase (38-126) U/L Serum Total Protein (6.3-8.2) g/dL Albumin (3.5-5.0) g/dL Urine Color Yellow (Yellow) Urine Appearance Cloudy A (Clear) Urine pH 5.5 (4.6-8.0) Ur Specific [place] >=1.030 A (1.005-1.030) Urine Protein Trace A (Negative) Urine Glucose (UA) Negative (Negative) mg/dL Urine Ketones Trace A (Negative) Urine Blood Small A (Negative) Urine Nitrite Negative (Negative) Urine Bilirubin Negative (Negative) Urine Urobilinogen 1.0 A (0.2) mg/dL Ur Leukocyte Esterase Negative (Negative) U Hyaline Cast (Auto) NONE SEEN (0-2) /LPF Urine Microscopic RBC 11-20 A (0-5) /HPF Urine Microscopic WBC 3-5 (0-5) /HPF Ur Epithelial Cells Moderate A (None Seen) /HPF Urine Bacteria Few A (None Seen) /HPF Urine Culture Reflexed YES (NO) Urine HCG, Qual (NEGATIVE) Salicylates (2-20) mg/dL Urine Opiates Level (NEGATIVE) Ur Methadone (NEGATIVE) Acetaminophen (10-30) ug/ml Urine Barbiturates (NEGATIVE) Ur Phencyclidine (PCP) (NEGATIVE) Urine Amphetamine (NEGATIVE) U Benzodiazepine Level (NEGATIVE) Urine Cocaine (NEGATIVE) Urine Marijuana (THC) (NEGATIVE) Ethyl Alcohol (0-10) mg/dL - Progress Progress: unchanged Progress Note: 03/31/25 23:02 Labs obtained for evaluation. Will be observed until can be medically cleared for psych eval 04/01/25 00:31 Was reviewed and was unremarkable. Patient is talking to [place] [facility] at 0030 with their plan for suspected admission for suicidal ideation 04/01/25 01:24 History is evaluated patient and is making recommendations for admission. They are contacting outside facilities to arrange inpatient transfer. 04/01/25 01:[address] [facility] who is accepted patient for inpatient care admitting doctor . updated patient on plan - Departure Departure Disposition: Transfer Clinical Impression: Suicidal ideation Condition: Stable Critical Care Time: No Referrals: SAADIA GLASER [Primary Care Provider, INTERNAL MEDICINE] - Follow up/PCP as directed
[2025-03-31 23:08] LABS: Glucose, Urine Negative (Negative); Protein,Urine Dip Trace (Negative)
[2025-03-31 23:12] LABS: HCG URINE TEST NEGATIVE (NEGATIVE)
[2025-03-31 23:15] LABS: Calcium 9.6 mg/dL (8.4-10.2); Carbon Dioxide 33 mmol/L (22-30); Creatinine 1 0.76 mg/dL (0.52-1.04); EST GLOMERULAR FILTRATION RATE 99.0 ML/MIN; ETHYL ALCOHOL < 10 mg/dL (0-10); Glucose 103 mg/dL (74-106); Potassium 3.7 mmol/L (3.5-5.1); SGOT/AST 20 U/L (14-36); SGPT/ALT 15 U/L (0-35); Total Protein 7.1 g/dL (6.3-8.2)
[2025-03-31 23:27] LABS: Amphetamine,Urine NEGATIVE (NEGATIVE); Barbiturate,Urine NEGATIVE (NEGATIVE); Benzodiazepine,Urine NEGATIVE (NEGATIVE); Cocaine,Urine NEGATIVE (NEGATIVE); Methadone,Urine NEGATIVE (NEGATIVE); Opiate,Urine NEGATIVE (NEGATIVE); PCP,Urine NEGATIVE (NEGATIVE); THC,Urine NEGATIVE (NEGATIVE)
[2025-04-01 03:49] VITALS: BP 141/87
[2025-04-01 04:37] VITALS: PULSE 72; O2SAT 98
== END 2025-04-01 04:40 ==
LOC: ED 22:41
DX: R45.851 Suicidal ideations (principal); F33.9 Major depressive disorder, recurrent, unspecified; I10 Essential (primary) hypertension; Z79.899 Other long term (current) drug therapy
CPT/HCPCS: 36415; 51702; 80053; 80143; 80179; 80307; 81001; 81025; 82077; 85025; 87086; 99285; Q3014